=== PATIENT | female | born 1940 | race Caucasian/White ===

== ENCOUNTER → 2016-09-17 | Outpatient (CLI) | payer MEDICARE, BC ==
[2016-09-17 07:59] LABS: ALT 28 U/L (9-52); AST 17 U/L (14-36); Alkaline Phosphatase 134 U/L (38-126); Anion Gap 8 mmol/L; Blood Urea Nitrogen 12 mg/dL (7-17); Calcium 8.7 mg/dL (8.4-10.2); Carbon Dioxide 25 mmol/L (22-30); Chloride 110 mmol/L (98-107); Cholesterol 102 mg/dL (<200); Glucose 86 mg/dL (74-99); HDL Cholesterol 39 mg/dL (40-60); Non-African American GFR(MDRD) >60 (>60 ml/min/1.73 sqM); Potassium 4.1 mmol/L (3.5-5.1); Sodium 143 mmol/L (137-145); Total Bilirubin 0.4 mg/dL (0.2-1.3); Triglycerides 124 mg/dL (<150)
== END | disposition home or self-care (01) ==
LOC: LABWHC1 07:26
PROVIDERS: ATTEND Internal Medicine Interventional Cardiology
DX: E78.2 Mixed hyperlipidemia (principal)
CPT/HCPCS: 36415; 80053; 80061

== ENCOUNTER 2016-09-21 14:29 | Inpatient (IN) | payer MEDICARE, BC ==
[2016-09-21 16:08] LABS: Basophils % (A) 0 %; CH 23.4; CHCM 29.6; Eosinophils % (A) 0 %; HCT 23.3 % (34.0-46.0); HDW 3.38; Hypochromasia Marked; Luc # (Auto) 0.26; Luc % (Auto) 2; Lymphocytes # (A) 2.3 k/uL (1.0-4.8); Lymphocytes % (A) 21 %; MCH 23.8 pg (25.0-35.0); MCHC 29.9 g/dL (31.0-37.0); MCV 79.5 fL (80.0-100.0); Mean Platelet Volume 7.2; Monocytes # (A) 0.5 k/uL (0-1.0); Monocytes % (A) 5 %; Neutrophils # (A) 8.2 k/uL (1.3-7.7); Neutrophils % (A) 72 %; RBC 2.93 m/uL (3.80-5.40); WBC 11.4 k/uL (3.8-10.6); WBC (Perox) 11.81
--- NOTE | 2016-09-21 16:09 | ED ---
GI Bleed HPI - General Source: patient, RN notes reviewed Mode of arrival: ambulatory Limitations: no limitations <Missy Savage - Last Filed: 09/21/16 18:08> <Edilberto López - Last Filed: 09/21/16 18:15> - General Chief complaint: GI Bleed Stated complaint: Blood in stool Time Seen by Provider: 09/21/16 16:05 - History of Present Illness Initial comments: Patient is a 76-year-old female presenting to the with chief complaint of rectal bleeding for one day. Patient reports that she is fatigued, and dizzy. Patient reports that she was supposed to have a colonoscopy however she is placed on Plavix for her 3 stents and a pacemaker. Patient reports she has been on plavix for 3 years. Patient reports that when she talked to Dr. Garcia he stated that he would not do the colonoscopy because she is on Plavix. Patient reports that earlier today she had one episode of diarrhea with bright red blood in it. Patient denies any abdominal pain or pain with bowel movements. Patient reports that she is concerned that she may have colon cancer, or is bleeding internally due to the amount of blood that she saw. Patient states that she has had no continuous bleeding since they bowel movement. Patient denies any recent fever, chills, shortness of breath, chest pain, back pain, abdominal pain, nausea vomiting, numbness or tingling, dysuria or hematuria, , headaches or visual changes, or any other current symptoms (Missy Savage) - Related Data Home Medications Medication Instructions Recorded Confirmed Aspirin EC [Ecotrin Low Dose] 81 mg PO DAILY 06/04/14 09/21/16 Lovastatin [Mevacor] 20 mg PO HS 06/04/14 09/21/16 Metoprolol Tartrate 25 mg PO QAM 06/04/14 09/21/16 Metoprolol Tartrate [Lopressor] 12.5 mg PO HS 06/04/14 09/21/16 Clopidogrel Bisulfate [Plavix] 75 mg PO DAILY 06/29/15 09/21/16 Nitroglycerin Sl Tabs [Nitrostat] 0.4 mg SUBLINGUAL Q5M PRN 06/29/15 09/21/16 Allergies Allergy/AdvReac Type Severity Reaction Status Date / Time cefuroxime axetil Allergy Anaphylaxis Verified 09/21/16 15:38 [From Ceftin] Cephalosporins Allergy Anaphylaxis Verified 09/21/16 15:38 Penicillins Allergy Rash/Hives Verified 09/21/16 15:38 Review of Systems ROS Other: All systems not noted in ROS Statement are negative. <Missy Savage - Last Filed: 09/21/16 18:08> ROS Other: All systems not noted in ROS Statement are negative. <Edilberto López - Last Filed: 09/21/16 18:15> ROS Statement: Those systems with pertinent positive or pertinent negative responses have been documented in the HPI. 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 Last Myocardial Infarction Date:: 06/2013 History of Any Multi-Drug Resistant Organisms: None Reported Past Surgical History: Appendectomy, Coronary Bypass/CABG, Heart Catheterization With Stent, Hysterectomy, Pacemaker, Tubal Ligation Additional Past Surgical History / Comment(s): 3 vessel cabg 01/2010, retinal detachment surgery of the right eye, cataract removal and lens implant bilaterally. TONGUE MASS REMOVED Past Anesthesia/Blood Transfusion Reactions: No Reported Reaction Date of Last Stent Placement:: 06/2014 Type of Cardiac Device: Permanent Pacemaker Device Placement Date:: 04/2007 Past Psychological History: Anxiety Additional Psychological History / Comment(s): PRE OP ANXIETY Smoking Status: Current every day smoker Past Alcohol Use History: Rare Additional Past Alcohol Use History / Comment(s): Patient has history of smoking is and has since quit. She drinks alcohol which is a Geoffrey Coke 3-4 times per week. Last alcoholic beverage was . She lives at home with her . 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 She denies having a nebulizer, CPAP, cane or walker at home. Past Drug Use History: None Reported - Past Family History Father Family Medical History: CVA/TIA Additional Family Medical History / Comment(s): at 58 from cerebral hemorrhage Mother Family Medical History: No Reported History Sister(s) Family Medical History: Hypertension <Missy Savage - Last Filed: 09/21/16 18:08> General Exam Limitations: no limitations General appearance: alert, in no apparent distress Head exam: Present: atraumatic, normocephalic, normal inspection Eye exam: Present: normal appearance, PERRL, EOMI. Absent: scleral icterus, conjunctival injection, periorbital swelling ENT exam: Present: normal exam, mucous membranes moist Neck exam: Present: normal inspection. Absent: tenderness, meningismus, lymphadenopathy Respiratory exam: Present: normal lung sounds bilaterally. Absent: respiratory distress, wheezes, rales, rhonchi, stridor Cardiovascular Exam: Present: regular rate, normal rhythm, normal heart sounds. Absent: systolic murmur, diastolic murmur, rubs, gallop, clicks GI/Abdominal exam: Present: soft, normal bowel sounds. Absent: distended, tenderness, guarding, rebound, rigid Rectal exam: Present: normal inspection, normal rectal tone, heme (+) stool, black stool (Patient has evidence of black stool with some bright red blood.), bloody stool. Absent: decreased rectal tone, heme (-) stool, fecal impaction, hemorrhoids, mass, tenderness, other Extremities exam: Present: normal inspection, full ROM, normal capillary refill. Absent: tenderness, pedal edema, joint swelling, calf tenderness Back exam: Present: normal inspection, full ROM Neurological exam: Present: alert, oriented X3, CN II-XII intact Psychiatric exam: Present: normal affect, normal mood Skin exam: Present: warm, dry, intact, normal color. Absent: rash <Missy Savage - Last Filed: 09/21/16 18:08> <Edilberto López - Last Filed: 09/21/16 18:15> - General Exam Comments Initial Comments: Patient is a 76-year-old female. She is on appear to be in any acute distress at this time. (Missy Savage) Course <Missy Savage - Last Filed: 09/21/16 18:08> <Edilberto López - Last Filed: 09/21/16 18:15> Vital Signs 09/21/16 09/21/16 09/21/16 14:43 16:31 17:57 Temperature 97.3 F L 97.9 F Pulse Rate 78 67 63 Respiratory 16 17 17 Rate Blood Pressure 123/56 161/66 161/68 O2 Sat by Pulse 98 100 Oximetry 09/21/16 18:00 Temperature 97.7 F Pulse Rate 63 Respiratory 17 Rate Blood Pressure 151/65 O2 Sat by Pulse 100 Oximetry - Reevaluation(s) Reevaluation #1: 09/21/16 17:59 Patient is resting currently in bed. I discussed the patient needs to be in a clear liquid diet is she will have a possible scope to identify the source of bleeding. Patient will be started on blood transfusions at this time. ( Missy Savage) Medical Decision Making - Lab Data Result diagrams: 09/21/16 15:45 09/21/16 15:45 - Radiology Data Radiology results: report reviewed <Missy Savage - Last Filed: 09/21/16 18:08> - Lab Data Result diagrams: 09/21/16 15:45 09/21/16 15:45 <Edilberto López - Last Filed: 09/21/16 18:15> - Medical Decision Making Patient is a 76-year-old female with a history of coronary artery disease and is placed on Plavix approximately 3 years. Patient also has 3 stents and a pacemaker. Patient's chief complaint is rectal bleeding for approximately one day. Patient is told that she needed to have a colonoscopy however this was deferred because she is on Plavix. Patient reports that earlier today she had one episode of severe diarrhea. She reports that it was a darker color and was not bright red blood. Patient's hemoglobin is 7 at this time. Patient was started on a transfusion with 2 units of PRBCs. Patient will be admitted for repeat hemoglobin and GI consult for locating the area of the bleed. Patient denies any abdominal pain, chest pain or shortness of breath at this time. ( Missy Savage) I discussed with Dr. Moore on-call for Dr. Marquez her the patient's symptoms labs. He recommends admission and GI consult and the patient to receive 2 units of packed RBCs. Dr. López (Edilberto López) - Lab Data Lab Results 09/21/16 09/21/16 09/21/16 Range/Units 15:45 15:45 15:45 WBC 11.4 H (3.8-10.6) k/uL RBC 2.93 L (3.80-5.40) m/uL Hgb 7.0 L* (11.4-16.0) gm/dL Hct 23.3 L (34.0-46.0) % MCV 79.5 L (80.0-100.0) fL MCH 23.8 L (25.0-35.0) pg MCHC 29.9 L (31.0-37.0) g/dL RDW 15.0 (11.5-15.5) % Plt Count 223 (150-450) k/uL Neutrophils % 72 % Lymphocytes % 21 % Monocytes % 5 % Eosinophils % 0 % Basophils % 0 % Neutrophils # 8.2 H (1.3-7.7) k/uL Lymphocytes # 2.3 (1.0-4.8) k/uL Monocytes # 0.5 (0-1.0) k/uL Eosinophils # 0.0 (0-0.7) k/uL Basophils # 0.0 (0-0.2) k/uL Hypochromasia Marked PT (9.0-12.0) sec INR (<1.1) APTT (22.0-30.0) sec Sodium 143 (137-145) mmol/L Potassium 4.5 (3.5-5.1) mmol/L Chloride 107 (98-107) mmol/L Carbon Dioxide 23 (22-30) mmol/L Anion Gap 13 mmol/L BUN 21 H (7-17) mg/dL Creatinine 0.67 (0.52-1.04) mg/dL Est GFR (MDRD) Af Amer >60 (>60 ml/min/1.73 sqM) Est GFR (MDRD) Non-Af >60 (>60 ml/min/1.73 sqM) Glucose 120 H (74-99) mg/dL Calcium 8.7 (8.4-10.2) mg/dL Total Bilirubin 0.5 (0.2-1.3) mg/dL AST 17 (14-36) U/L ALT 27 (9-52) U/L Alkaline Phosphatase 121 (38-126) U/L Total Creatine Kinase 69 (30-135) U/L CK-MB (CK-2) 0.7 (0.0-2.4) ng/mL CK-MB (CK-2) Rel Index 1.0 Troponin I <0.012 (0.000-0.034) ng/mL Total Protein 6.2 L (6.3-8.2) g/dL Albumin 3.6 (3.5-5.0) g/dL Amylase <30 L (30-110) U/L Lipase 48 (23-300) U/L Stool Occult Blood (Negative) Blood Type Blood Type Recheck Antibody Screen Crossmatch Spec Expiration Date 09/21/16 09/21/16 09/21/16 Range/Units 15:45 15:45 16:44 WBC (3.8-10.6) k/uL RBC (3.80-5.40) m/uL Hgb (11.4-16.0) gm/dL Hct (34.0-46.0) % MCV (80.0-100.0) fL MCH (25.0-35.0) pg MCHC (31.0-37.0) g/dL RDW (11.5-15.5) % Plt Count (150-450) k/uL Neutrophils % % Lymphocytes % % Monocytes % % Eosinophils % % Basophils % % Neutrophils # (1.3-7.7) k/uL Lymphocytes # (1.0-4.8) k/uL Monocytes # (0-1.0) k/uL Eosinophils # (0-0.7) k/uL Basophils # (0-0.2) k/uL Hypochromasia PT 10.8 (9.0-12.0) sec INR 1.1 (<1.1) APTT 21.7 L (22.0-30.0) sec Sodium (137-145) mmol/L Potassium (3.5-5.1) mmol/L Chloride (98-107) mmol/L Carbon Dioxide (22-30) mmol/L Anion Gap mmol/L BUN (7-17) mg/dL Creatinine (0.52-1.04) mg/dL Est GFR (MDRD) Af Amer (>60 ml/min/1.73 sqM) Est GFR (MDRD) Non-Af (>60 ml/min/1.73 sqM) Glucose (74-99) mg/dL Calcium (8.4-10.2) mg/dL Total Bilirubin (0.2-1.3) mg/dL AST (14-36) U/L ALT (9-52) U/L Alkaline Phosphatase (38-126) U/L Total Creatine Kinase (30-135) U/L CK-MB (CK-2) (0.0-2.4) ng/mL CK-MB (CK-2) Rel Index Troponin I (0.000-0.034) ng/mL Total Protein (6.3-8.2) g/dL Albumin (3.5-5.0) g/dL Amylase (30-110) U/L Lipase (23-300) U/L Stool Occult Blood Positive H (Negative) Blood Type A Positive Blood Type Recheck No Antibody Screen NEGATIVE Crossmatch See Detail Spec Expiration Date 09/24/2016 8856 - Radiology Data Abdominal x-ray shows no pneumoperitoneum or blackout obstruction. Patient is post median sternotomy. Heart size is borderline. Pacemaker leads are present in the right atrium and right ventricle. There are vascular calcifications present degenerative disc disease changes in the visualized spine. Calcified diverticulum within the pelvis is large amount injuring approximately 2 cm. Injection granuloma are present around the gluteal region on the right. Overall the impression is a nonobstructive bowel gas pattern. This was read by Dr. Pierre. 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
[2016-09-21] MEDS ORDERED: SODIUM CHLORIDE 0.9% 1,000 ML IV ONE (16:11)
[2016-09-21 16:14] LABS: ALT 27 U/L (9-52); AST 17 U/L (14-36); Alkaline Phosphatase 121 U/L (38-126); Amylase <30 U/L (30-110); Anion Gap 13 mmol/L; Blood Urea Nitrogen 21 mg/dL (7-17); Calcium 8.7 mg/dL (8.4-10.2); Carbon Dioxide 23 mmol/L (22-30); Chloride 107 mmol/L (98-107); Glucose 120 mg/dL (74-99); Non-African American GFR(MDRD) >60 (>60 ml/min/1.73 sqM); Potassium 4.5 mmol/L (3.5-5.1); Sodium 143 mmol/L (137-145); Total Bilirubin 0.5 mg/dL (0.2-1.3); Total Protein 6.2 g/dL (6.3-8.2)
[2016-09-21 16:23] LABS: INR 1.1 (<1.1); Prothrombin Time 10.8 sec (9.0-12.0)
[2016-09-21 16:27] LABS: Partial Thromboplastin Time 21.7 sec (22.0-30.0)
[2016-09-21 16:28] LABS: Creatine Kinase 69 U/L (30-135)
--- NOTE | 2016-09-21 16:31 | XR ---
2 view abdomen HISTORY: Diarrhea, pain 2 views of the abdomen on 3 images, correlation to CT abdomen pelvis 07 March 2016 There is no pneumoperitoneum or bowel obstruction. Patient is post median sternotomy. Heart size is b orderline. Pacemaker leads are present in the right atrium and ventricle. There are vascular calcific ations present. Degenerative disc changes in the visualized spine. Calcified diverticulum within the pelvis is large measuring approximately 2 cm. Injection granuloma are present in the gluteal region o n the right. IMPRESSION: Nonobstructive bowel gas pattern.
[2016-09-21 16:41] LABS: Creatine Kinase MB 0.7 ng/mL (0.0-2.4); Troponin I <0.012 ng/mL (0.000-0.034)
[2016-09-21] MEDS ORDERED: ONDANSETRON 4 MG/2 ML VIAL IVP PRN (18:01)
[2016-09-21] MEDS ORDERED: MORPHINE SULFATE 4 MG/ML SYRINGE IV PRN (18:01)
[2016-09-21] MEDS ORDERED: ACETAMINOPHEN TAB 325 MG TAB PO PRN (18:01)
[2016-09-21] MEDS ORDERED: NALOXONE 0.4 MG/ML 1 ML VIAL IV PRN (18:01)
[2016-09-21] MEDS ORDERED: NITROGLYCERIN SL TABS 0.4 MG TAB SUBLINGUAL PRN (18:11)
[2016-09-21] MEDS ORDERED: LORazepam 2 MG/ML SYRINGE IV PRN (18:48)
[2016-09-21] MEDS ORDERED: ATORVASTATIN 10 MG TAB PO SCH (21:00)
[2016-09-21] MEDS ORDERED: METOPROLOL TARTRATE 12.5 MG TAB PO SCH (21:00)
[2016-09-21 23:04] LABS: Creatine Kinase MB 0.7 ng/mL (0.0-2.4); Troponin I 0.012 ng/mL (0.000-0.034)
[2016-09-21] MEDS: SODIUM CHLORIDE 0.9% 1,000 ML IV SCH (23:25)
[2016-09-22 06:12] LABS: Basophils % (A) 1 %; CH 25.6; CHCM 31.1; Eosinophils % (A) 1 %; HCT 25.8 % (34.0-46.0); HDW 4.11; Hypochromasia Marked; Luc # (Auto) 0.15; Luc % (Auto) 2; Lymphocytes # (A) 2.3 k/uL (1.0-4.8); Lymphocytes % (A) 31 %; MCH 25.6 pg (25.0-35.0); MCHC 31.1 g/dL (31.0-37.0); MCV 82.3 fL (80.0-100.0); Mean Platelet Volume 7.6; Monocytes # (A) 0.4 k/uL (0-1.0); Monocytes % (A) 5 %; Neutrophils # (A) 4.6 k/uL (1.3-7.7); Neutrophils % (A) 61 %; Poikilocytosis Moderate; RBC 3.13 m/uL (3.80-5.40); RDW 15.2 % (11.5-15.5); WBC 7.5 k/uL (3.8-10.6); WBC (Perox) 7.79
[2016-09-22 06:54] LABS: Creatine Kinase MB 0.7 ng/mL (0.0-2.4); Troponin I 0.013 ng/mL (0.000-0.034)
[2016-09-22 07:21] VITALS: RESP 18
[2016-09-22] MEDS: SODIUM CHLORIDE 0.9% 1,000 ML IV SCH ×2 (08:53→17:53)
[2016-09-22] MEDS ORDERED: PANTOPRAZOLE 40 MG/10 ML VIAL IV SCH (09:00)
[2016-09-22] MEDS ORDERED: METOPROLOL TARTRATE 25 MG TAB PO SCH (09:00)
[2016-09-22] MEDS ORDERED: ALPRAZolam 0.5 MG TAB PO PRN (10:19)
[2016-09-22 12:34] VITALS: BMI 25.0
--- NOTE | 2016-09-22 14:33 | HP ---
DATE OF ADMISSION: This is Polly Russell [facility] dictating for Dr. Dunia Deng. PRINCIPAL DIAGNOSIS: Acute gastrointestinal bleed. HISTORY OF PRESENT ILLNESS: This is a 76-year-old female patient who presented to the hospital after one episode of bright red blood per rectum. The patient states that she had a bowel movement last evening that was loose and had a large amount of bright red blood. She is on Plavix for history of cardiac stenting last year in October. She has been off her Plavix for 2 days now. On admission, her hemoglobin was found to be low at 7.0 and she was transfused 1 unit of packed red blood cells. This morning, her hemoglobin is up to 8. She denies any lightheadedness or dizziness. No chest pain and her blood pressure is stable. She has not had any further episodes of rectal bleeding. She states she has had an EGD in the past but no colonoscopy because her informatica wanted her off of Plavix. She also states that she had a 40-pound weight loss in the last 2 years and has had difficulty with pain after eating for the same amount of time. She is quite frustrated as she has been dealing with all of this for the last 2 years. Gastroenterology has been consulted once again. REVIEW OF SYSTEMS: Patient denies seizures, syncope, or loss of consciousness. Denies diplopia or visual disturbances. Denies dysphagia. Denies shortness breath, cough or wheeze. Denies chest pain, angina, palpitations. States abdominal discomfort in the epigastric area with eating solid foods. She does not have any difficulties with clear liquids and she is currently not having any discomfort. States she had one episode of diarrhea with bright red blood, as described above. But no prior history of diarrhea or constipation. No dysuria or urinary retention. No fever or chills. PAST MEDICAL HISTORY: Coronary artery disease, status post PCI in November 2015, CABG 3-vessel in 2009, hyperlipidemia, hypertension, myocardial infarction, high-grade AV block status post permanent pacemaker implantation, aortic regurgitation, retinal detachment. PAST SURGICAL HISTORY: Appendectomy, hysterectomy with bilateral salpingo-oophorectomy, CABG, coronary stenting, pacemaker implantation, tubal ligation, cataract removal. FAMILY HISTORY: Father is at age 58 from cerebral hemorrhage secondary to CVA. Mother at 88 from COPD. She has one sister with hypertension. SOCIAL HISTORY: She is . Smokes occasionally. Denies EtOH or illicit drug use. ALLERGIES: CEFTIN, PENICILLIN. HOME MEDICATIONS: 1. Nitrostat sublingual as needed. 2. Lopressor 12.5 mg at bedtime and 25 mg in the morning. 3. Mevacor 20 mg at bedtime. 4. Plavix 75 mg daily. 5. Ecotrin 81 mg daily. PHYSICAL EXAMINATION: GENERAL: The patient is seen lying in bed in the emergency department in no acute distress. HEENT: Head is normocephalic, atraumatic. Pupils equal. Conjunctivae clear. NECK: Supple, no JVD. LUNGS: Clear to auscultation. No wheeze, rales, rhonchi appreciated. HEART: Regular rate and rhythm. S1, S2 are heard. No murmur. ABDOMEN: Soft, tender to epigastric area, nondistended. Bowel sounds are positive. EXTREMITIES: No lower extremity edema is noted. NEURO: Patient is alert and oriented x3. Speech is clear, interactive and appropriate. No tremors noted. LABS: Sodium is 143, potassium 4.5, BUN is 21, creatinine 0.67. Serial troponins are negative x3. WBC count is 7.5, hemoglobin is 8.0 on admission was 7.0 and platelet count is 160. Stool for occult blood is positive. DIAGNOSTIC TESTS: Abdominal x-ray shows nonobstructive bowel gas pattern. IMPRESSION: 1. Acute lower gastrointestinal bleed. Plavix has been held. The patient was transfused 1 unit of packed red blood cells and her hemoglobin is now stable at 8. Dr. Kwong has been consulted for colonoscopy. She has been off of her Plavix for 48 hours now. She also has some epigastric discomfort and may require EGD as well. We will also hold aspirin. 2. Hypertensive cardiovascular disease. Continue with metoprolol b.i.d. 3. Gastroesophageal reflux disease, continue with Protonix. 4. Gastrointestinal and deep vein thrombosis prophylaxis are in place. Subcu heparin is contraindicated secondary to current gastrointestinal bleed and the patient has Venodynes while in bed and she has been encouraged to ambulate. Will await Dr. Kwong's evaluation and further recommendations. My feeling is that the patient will require colonoscopy and possible EGD. [facility]
[2016-09-22 16:15] VITALS: BP 116/48; PULSE 58; TEMP 98
--- NOTE | 2016-11-27 14:56 | P.DS ---
Providers Date of admission: 09/21/16 18:01 Expected date of discharge: 09/22/16 Attending physician: Dunia Deng Primary care physician: Jhonathan Mendoza [facility] Course: This is a 76-year-old female patient od Dr. Mendoza. She has a past medical history significant for coronary artery disease status post PCI and November 2015, CABG 3 vessel in 2009, hyperlipidemia, hypertension, myocardial infarction, high-grade AV block status post permanent pacemaker implantation, aortic regurgitation, retinal detachment. Patient had one episode of bright red blood from her rectum and bowel movement was loose last evening. Patient has been on Plavix due to history of cardiac stent last year in October. She has been off Plavix now for 2 days. On admission her hemoglobin was found to be 7.0 and she was transfused 1 unit packed RBCs. Repeat hemoglobin at 8. She has had no further episodes of rectal bleeding. 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 Patient also has had a 40 pound weight loss in the past 2 years and has had difficulty with pain after eating the same amount of time.patient will be discharged at this time in stable condition and plan for follow-up with Dr. Kwong as an outpatient for scope. Discharge diagnoses: 1.acute lower GI bleed. 2. hypertensive cardiovascular disease. 3. gastroesophageal reflux disease. 4. history of coronary artery disease status post PCI. Discharge plan: return home Impression and plan of care have been directed as dictated by the signing physician. Fely Sims nurse practitioner acting as scribe for signing physician. Patient Condition at Discharge: Good Plan - Discharge Summary Discharge Medication List Lovastatin [Mevacor] 20 mg PO HS 06/04/14 [History] Metoprolol Tartrate 25 mg PO QAM 06/04/14 [History] Metoprolol Tartrate [Lopressor] 12.5 mg PO HS 06/04/14 [History] Nitroglycerin Sl Tabs [Nitrostat] 0.4 mg SUBLINGUAL Q5M PRN 06/29/15 [History] Allergy Injections 1 dose IM DIRECTED 09/24/16 [History] Aspirin [Adult Low Dose Aspirin EC] 81 mg PO DAILY 09/24/16 [History] Clopidogrel [Plavix] 75 mg PO DAILY 09/24/16 [History] Follow up Appointment(s)/Referral(s): Munir Kwong MD [STAFF PHYSICIAN] - As Needed (Call office Saturday to set up appointment for Colonoscopy. Dr Kwong wants you off Plavix for 5 days before scope.) Jhonathan Mendoza MD [Primary Care Provider] - 1-2 days Patient Instructions/Handouts: Rectal Bleeding (DC) Discharge Disposition: HOME SELF-CARE
--- NOTE | 2016-11-30 14:41 | CDI ---
In responding to this query, please exercise your independent professional judgment. The [facility] Coding Staff and Clinical Documentation Specialists appreciate your assistance in clarifying documentation, maintaining compliance with coding guidelines, accurately documenting patients condition and capturing severity of illness. The fact that a question is asked does not imply that any particular answer is desired or expected. Communication forms are a method of clarifying documentation and are not made part of the Legal Health Record. Thank you in advance for your clarification. Last Revision, July 2015 Marley Benton [address] [place] [address] Documentation Clarification Form Date: 11/30/2016 2:28:00 PM From: Emily Brennan CCS [facility] Admit Date: 09/21/2016 6:01:00 PM Patient Name: Katharina Franks Visit Number: [id number] Discharge Date: 09-22-16 Dr. Fely Sims Emergency Room documentation states "anemia". Please specifiy--see below: A diagnosis of anemia lacks specificity to accurately reflect your patients severity of condition and clarification is needed. Patient history/risk factors: D. Summary states acute lower GI bleed (stool occult positive). Patient on ASA and Plavix on admission (held). Weight loss, pain after eating, history of diverticulosis. Clinical Indicators: Hemoglobin: on admission: 7.0, on 09-22-16 after transfusion = 8.0 Hematocrit: on admission: 23.3, on 09-22-16 after transfusion = 25.8 Treatment: Two units PRBC's on 09-21-16 In order to capture the severity of condition, please clarify the type of anemia and etiology if known: Acute blood loss anemia Acute on chronic blood loss anemia Chronic blood loss anemia Iron deficiency anemia Hemolytic anemia Drug induced anemia Anemia due to malignancy Nutritional anemia Anemia of chronic kidney disease Unable to determine Other, please specify Please document in your progress notes and discharge summary in order to capture severity of illness and risk of mortality. Include clinical findings that support your diagnosis. FYI: Press F11 to launch patient chart. Place X here if this finding has no clinical significance, is not applicable or if you are not able to provide any additional documentation. DAVID
--- NOTE | 2016-12-10 15:14 | CDI ---
In responding to this query, please exercise your independent professional judgment. The [facility] Coding Staff and Clinical Documentation Specialists appreciate your assistance in clarifying documentation, maintaining compliance with coding guidelines, accurately documenting patients condition and capturing severity of illness. The fact that a question is asked does not imply that any particular answer is desired or expected. Communication forms are a method of clarifying documentation and are not made part of the Legal Health Record. Thank you in advance for your clarification. Last Revision, July 2015 Marley Benton [address] [place] [address] Documentation Clarification Form Date: 12/10/2016 3:10:00 PM From: Emily Brennan CCS [facility] Admit Date: 09/21/2016 6:01:00 PM Patient Name: Katharina Franks Visit Number: [id number] Discharge Date: 09-22-16 Fely Sims NP-C: Please submit response at time of signing query re: ANEMIA specificity. Emergency Room documentation states "anemia". Please specifiy--see below: A diagnosis of anemia lacks specificity to accurately reflect your patients severity of condition and clarification is needed. Patient history/risk factors: D. Summary states acute lower GI bleed (stool occult positive). Patient on ASA and Plavix on admission (held). Weight loss, pain after eating, history of diverticulosis. Clinical Indicators: Hemoglobin: on admission: 7.0, on 09-22-16 after transfusion = 8.0 Hematocrit: on admission: 23.3, on 09-22-16 after transfusion = 25.8 Treatment: Two units PRBC's on 09-21-16 In order to capture the severity of condition, please clarify the type of anemia and etiology if known: Acute blood loss anemia Acute on chronic blood loss anemia Chronic blood loss anemia Iron deficiency anemia Hemolytic anemia Drug induced anemia Anemia due to malignancy Nutritional anemia Anemia of chronic kidney disease Unable to determine Other, please specify Please document in your progress notes and discharge summary in order to capture severity of illness and risk of mortality. Include clinical findings that support your diagnosis. FYI: Press F11 to launch patient chart. Place X here if this finding has no clinical significance, is not applicable or if you are not able to provide any additional documentation. MIRNAD
== END 2016-09-22 18:36 | disposition home or self-care (01) | DRG 378 ==
LOC: EC 14:29 → 4MS4W 18:01
PROVIDERS: ADMIT Internal Medicine; ATTEND Internal Medicine
PROC: 30233N1 Transfusion of Nonautologous Red Blood Cells into Peripheral Vein, Percutaneous Approach (ICD-10-PCS; principal; 2016-09-21)
DX: K92.2 Gastrointestinal hemorrhage, unspecified (principal); D62 Acute posthemorrhagic anemia; I27.2 Other secondary pulmonary hypertension; I11.9 Hypertensive heart disease without heart failure; R42 Dizziness and giddiness; I65.21 Occlusion and stenosis of right carotid artery; I08.3 Combined rheumatic disorders of mitral, aortic and tricuspid valves; K21.9 Gastro-esophageal reflux disease without esophagitis; R63.4 Abnormal weight loss; R19.7 Diarrhea, unspecified; E78.5 Hyperlipidemia, unspecified; I25.2 Old myocardial infarction; I25.10 Atherosclerotic heart disease of native coronary artery without angina pectoris; J42 Unspecified chronic bronchitis; I44.30 Unspecified atrioventricular block; R53.83 Other fatigue; F41.9 Anxiety disorder, unspecified; F17.200 Nicotine dependence, unspecified, uncomplicated; Z82.3 Family history of stroke; Z82.49 Family history of ischemic heart disease and other diseases of the circulatory system; Z82.5 Family history of asthma and other chronic lower respiratory diseases; Z95.1 Presence of aortocoronary bypass graft; Z95.5 Presence of coronary angioplasty implant and graft; Z95.0 Presence of cardiac pacemaker; Z79.02 Long term (current) use of antithrombotics/antiplatelets; Z88.1 Allergy status to other antibiotic agents; Z88.0 Allergy status to penicillin; Z86.69 Personal history of other diseases of the nervous system and sense organs; Z79.82 Long term (current) use of aspirin; Z79.899 Other long term (current) drug therapy; Z90.710 Acquired absence of both cervix and uterus; Z90.49 Acquired absence of other specified parts of digestive tract; Z90.722 Acquired absence of ovaries, bilateral; Z90.79 Acquired absence of other genital organ(s); Z98.51 Tubal ligation status; Z98.42 Cataract extraction status, left eye; Z98.41 Cataract extraction status, right eye; Z96.1 Presence of intraocular lens
CPT/HCPCS: 36415; 36430; 74020; 80053; 82150; 82272; 82550; 82553; 83690; 84484; 85025; 85610; 85730; 86850; 86900; 86901; 86920; 96360; 96361; 99285

== ENCOUNTER 2016-09-27 07:22 | Day surgery (SDC) | payer MEDICARE, BC ==
[2016-09-24 15:06] VITALS: BMI 24.2
[~2016-09-27 07:22] MED LIST: LACTATED RINGERS 1,000 ML IV SCH; LIDOCAINE 1% 20 ML VIAL (10MG/ML) FOR IV START INTRADERMA PRN
[2016-09-27] MEDS ORDERED: LACTATED RINGERS 1,000 ML IV ONE (07:28)
[2016-09-27] MEDS ORDERED: LIDOCAINE 1% 20 ML VIAL (10MG/ML) FOR IV START INTRADERMA ONE (07:29)
[2016-09-27 07:33] VITALS: RESP 18; TEMP 98.8
[2016-09-27] MEDS ORDERED: MIDAZOLAM 2 MG/2 ML VIAL IVP ONE (07:55)
[2016-09-27] MEDS ORDERED: PROPOFOL 10 MG/ML 20 ML VIAL IV ONE (08:20)
[2016-09-27] MEDS ORDERED: GLYCOPYRROLATE 0.2 MG/ML 2 ML VIAL ONE (08:20)
[2016-09-27] MEDS ORDERED: MIDAZOLAM 2 MG/2 ML VIAL ONE (08:20)
[2016-09-27] MEDS ORDERED: LIDOCAINE 1% INJ 10MG/ML (20 ML MDV) ONE (08:20)
[2016-09-27] MEDS ORDERED: fentaNYL (PF) 50 MCG/ML 2 ML AMP ONE (08:20)
--- NOTE | 2016-09-27 09:05 | P.PCN ---
Date of Procedure: 09/27/16 Procedure(s) Performed: Procedure: 1. Esophagogastroduodenoscopy and biopsy. 2. Total colonoscopy. Preoperative diagnosis: Abdominal pain and change in bowel habits. Postoperative diagnosis: 1. Very small sliding hiatal hernia with no obvious esophagitis or complicated reflux disease. 2. Antral gastritis with multiple scattered erosions and small ulceration but no active bleeding or gastric outlet obstruction. 3. Diverticulosis of the colon but no evidence of acute diverticulitis, strictures, polyps or cancer. Low-grade internal hemorrhoids not bleeding at the time of this exam. Preparation: HalfLytely prep. Sedation: Was provided by anesthesia. Brief clinical history: The patient is a 76-year-old female who is referred for this the above reasons. She has been having post prandial abdominal pains over the last year or 2. I have performed an upper endoscopy in August 2015 that showed gastritis and chronic esophagitis. A CT of the abdomen done in February 2016 showed thickening of the wall of the stomach possibly related to poor distention. The patient had occasional episodes of explosive bowel movements with some blood. There is history of polyps and her last colonoscopy was 5-10 years ago. No dietary triggers or other alarm symptoms. Procedure: With the patient on her left lateral decubitus position and after informed consent and adequate sedation, I passed the Olympus-GIF 160 video upper endoscope through the cricopharyngeus down the esophagus. The joint was around 39 cm from the incisors and there was a very small sliding hiatal hernia. There was no erosions, ulcers, strictures or Hernandez's esophagus. The endoscope was then passed into the stomach which was insufflated with air and inspected in detail including the retroflex view in the cardia. There was multiple erosions and small ulcerations scattered in the antrum against a background of mottling and erythema but there was no bleeding or gastric outlet obstruction. Pyloric channel, duodenal bulb, post bulbar area and descending duodenum appeared within normal limits. I obtained multiple biopsies from the duodenum, antrum and esophagus then the endoscope was withdrawn and I proceeded to do colonoscopy. Perianal area did not show any fissures or fistulas. There were no masses felt on digital rectal examination. The Olympus CFQ 160L scope was then inserted in the rectum in the usual fashion and advanced to the cecum. I intubated the ileocecal valve and examined the terminal ileum. Terminal ileum and colon appeared healthy with no edema, erythema, friability, ulceration, exudation was advanced bleeding. No polyps or tumors were seen. There were multiple diverticular orifices seen scattered along the length of the bowel, mostly on the left side, but no evidence of acute diverticulitis or strictures. I retroflexed endoscope in the rectum before the endoscope was withdrawn. Low- grade internal hemorrhoids were noted with no bleeding. The patient tolerated the procedure well. Plan: The patient was reassured. Discussed dietary measures and local care for hemorrhoids. Will await biopsy results and make additional recommendations. She will follow-up with you as planned.
[2016-09-27 09:23] VITALS: BP 134/44; PULSE 61
== END 2016-09-27 09:46 | disposition home or self-care (01) ==
LOC: ORWHC2ENDO 07:22
DX: K29.50 Unspecified chronic gastritis without bleeding (principal); K44.9 Diaphragmatic hernia without obstruction or gangrene; K20.9 Esophagitis, unspecified; K57.30 Diverticulosis of large intestine without perforation or abscess without bleeding; K64.8 Other hemorrhoids; Z87.19 Personal history of other diseases of the digestive system; I25.10 Atherosclerotic heart disease of native coronary artery without angina pectoris; I10 Essential (primary) hypertension; Z95.0 Presence of cardiac pacemaker; Z95.1 Presence of aortocoronary bypass graft; Z91.09 Other allergy status, other than to drugs and biological substances; F17.200 Nicotine dependence, unspecified, uncomplicated; Z79.02 Long term (current) use of antithrombotics/antiplatelets; Z79.82 Long term (current) use of aspirin; Z79.899 Other long term (current) drug therapy; Z88.1 Allergy status to other antibiotic agents; Z88.0 Allergy status to penicillin
CPT/HCPCS: 88305; 88342; 45378; 43239; J2250; J2001; J3010; J2704; 99153

== ENCOUNTER → 2017-05-03 | Outpatient (CLI) | payer MEDICARE, BC ==
[2017-05-03 13:08] LABS: Blood Urea Nitrogen 11 mg/dL (7-17); Non-African American GFR(MDRD) >60 (>60 ml/min/1.73 sqM)
--- NOTE | 2017-05-03 14:49 | CT ---
EXAMINATION TYPE: CT abdomen pelvis w con DATE OF EXAM: 05/03/2017 HISTORY: Upper Abdominal pain per patient. Iron deficiency anemia per order. CT DLP: 1022mGycm Automated Exposure Control for Dose Reduction was Utilized. CONTRAST: CT scan of the abdomen and pelvis is performed with IV Contrast, patient injected with 100 mL of Omni paque 300. COMPARISON: None. FINDINGS: LUNG BASES: Sternal wires are partially imaged. There is mild cardiomegaly with partial visualization of right-sided pacemaker wires. LIVER/GB: Somewhat small sized liver is redemonstrated. PANCREAS: Mild generalized fat replaced atrophy pancreas is redemonstrated. SPLEEN: No significant abnormality is seen. ADRENALS: Slight nodular thickening posterior limb of left adrenal gland on axial image 23 is stable and favored benign. KIDNEYS: No significant abnormality is seen. BOWEL: Oral contrast reaches level of the distal left colon. There is no suspicious small or large dorie wel dilatation. There are some scattered diverticula most prominent in the sigmoid colon. There is no CT evidence for acute diverticulitis. UTERUS/ADNEXA: Uterus is surgically absent. LYMPH NODES: No greater than 1cm abdominal or pelvic lymph nodes are appreciated. OSSEOUS STRUCTURES: There is prominent disc space narrowing with spurring and sclerosis at L5-S1 leve l most prominent along the left aspect. OTHER: There is moderate to severe calcified plaque of the abdominal aorta most prominent distally ex tending into pelvic branch vessels. IMPRESSION: No suspicious mass or adenopathy is present. No significant new finding is present.
== END | disposition home or self-care (01) ==
LOC: RADCTMAIN 12:24
PROVIDERS: ATTEND Internal Medicine
DX: D50.9 Iron deficiency anemia, unspecified (principal)
CPT/HCPCS: 82565; 84520; 74177; 36415; Q9967

== ENCOUNTER → 2017-05-07 | Outpatient (CLI) | payer MEDICARE, BC ==
[2017-05-09 16:04] LABS: Mis test requested (Blood) VonWillebrand Act.
[2017-05-09 18:21] LABS: Von Willebrand Factor Antigen 276 % (52-214)
== END | disposition home or self-care (01) ==
LOC: LABWHC1 09:26
PROVIDERS: ATTEND Internal Medicine
DX: R74.0 Nonspecific elevation of levels of transaminase and lactic acid dehydrogenase [LDH] (principal)
CPT/HCPCS: 36415; 85245; 85246; 85613; 85730; 86738; 86850; 86870; 86880

== ENCOUNTER 2017-05-29 18:13 | Emergency (ER) | payer MEDICARE, BC ==
--- NOTE | 2017-05-29 20:22 | ED ---
Recheck HPI - General Chief Complaint: Recheck/Abnormal Lab/Rx Stated Complaint: Increased potassium level, sent by Marjorie Time Seen by Provider: 05/29/17 19:43 Source: patient, family Mode of arrival: ambulatory Limitations: no limitations - History of Present Illness Initial Comments: 77 year-old female patient presents for evaluation after being sent in by her medical record clerk. She states that she had blood drawn at his office on 05/20/2017. She states that he called her today around 6 PM stating that her potassium level was over 7 and she was told to present to the emergency department immediately. Patient states that she is feeling well overall. She denies any palpitations, chest pain, chest pressure, shortness of breath, or recent muscle cramps. Patient states that she had been seeing Dr. Amador for recurrent low hemoglobin. She states that she had a transfusion last on 05/15/2017. States that she has been feeling great. Patient denies any recent fever, chills, shortness breath, abdominal pain, nausea, vomiting, diarrhea, constipation, back pain, numbness, tingling, headache, visual changes, hematuria, dysuria, urinary frequency, urinary urgency, or any other complaints. - Related Data Home Medications Medication Instructions Recorded Confirmed Lovastatin [Mevacor] 20 mg PO HS 06/04/14 04/14/17 Metoprolol Tartrate 25 mg PO QAM 06/04/14 04/14/17 Metoprolol Tartrate [Lopressor] 12.5 mg PO HS 06/04/14 04/14/17 Nitroglycerin Sl Tabs [Nitrostat] 0.4 mg SUBLINGUAL Q5M PRN 06/29/15 04/14/17 Aspirin [Adult Low Dose Aspirin EC] 81 mg PO DAILY 09/24/16 04/14/17 Clopidogrel [Plavix] 75 mg PO DAILY 09/24/16 04/14/17 Furosemide [Lasix] 20 mg PO 04/12/17 Pantoprazole [Protonix] 40 mg PO DAILY 04/12/17 04/14/17 Allergies Allergy/AdvReac Type Severity Reaction Status Date / Time cefuroxime axetil Allergy Severe Anaphylaxis Verified 05/29/17 19:06 [From Ceftin] Penicillins Allergy Severe Rash/Hives Verified 05/29/17 19:06 Cephalosporins Allergy Anaphylaxis Verified 05/29/17 19:06 Review of Systems ROS Statement: Those systems with pertinent positive or pertinent negative responses have been documented in the HPI. ROS Other: All systems not noted in ROS Statement are negative. Past Medical History Past Medical History: Coronary Artery Disease (CAD), Cancer, Chest Pain / Angina , GERD/Reflux, Hyperlipidemia, Hypertension, Myocardial Infarction (MD), Osteoarthritis (OA) Additional Past Medical History / Comment(s): slight right carotid stenosis, Hx of chronic bronchitis, aortic , mitral & tricuspid regurgitation, Hx of retinal detachment, environmental allergies, Squamous cell cancer removed., Tested Positive for lupus and will be having further testing. , Pt was hospitalized 09/21-09/22/16 for Rectal Bleeding and received blood transfusion. Last Myocardial Infarction Date:: 06/2013 History of Any Multi-Drug Resistant Organisms: None Reported Past Surgical History: Appendectomy, Coronary Bypass/CABG, Heart Catheterization With Stent, Hysterectomy, Pacemaker, Tubal Ligation Additional Past Surgical History / Comment(s): 3 vessel cabg 01/2010, retinal detachment surgery of the right eye, cataract removal and lens implant bilaterally. TONGUE MASS REMOVED, Cardiac Stents Jun 2013, Jun 2014 and November 2015 ([place]). Past Anesthesia/Blood Transfusion Reactions: No Reported Reaction Additional Past Anesthesia/Blood Transfusion Reaction / Comment(s): RECEIVED BLOOD TRANSFUSION 09/21/16 . Date of Last Stent Placement:: 06/2014 Type of Cardiac Device: Permanent Pacemaker Device Placement Date:: 04/2007 Past Psychological History: Anxiety, Depression Smoking Status: Current some day smoker Past Alcohol Use History: Rare Past Drug Use History: None Reported - Past Family History Daughter(s) Family Medical History: Cancer Additional Family Medical History / Comment(s): BASAL CELL CANCER Father Family Medical History: CVA/TIA Additional Family Medical History / Comment(s): at 58 from cerebral hemorrhage Mother Family Medical History: No Reported History Sister(s) Family Medical History: Hypertension General Exam Limitations: no limitations General appearance: alert, in no apparent distress, other (This is a well- developed, well-nourished adult female patient in no acute distress. Vital signs on presentation temperature 97.9F, pulse 80, respirations 16, blood pressure 128/60, pulse ox 99% on room air.) Eye exam: Present: normal appearance, PERRL, EOMI. Absent: scleral icterus, conjunctival injection, periorbital swelling Respiratory exam: Present: normal lung sounds bilaterally. Absent: respiratory distress, wheezes, rales, rhonchi, stridor Cardiovascular Exam: Present: regular rate, normal rhythm, normal heart sounds. Absent: systolic murmur, diastolic murmur, rubs, gallop, clicks GI/Abdominal exam: Present: soft, normal bowel sounds. Absent: distended, tenderness, guarding, rebound, rigid Neurological exam: Present: alert, oriented X3, CN II-XII intact Psychiatric exam: Present: normal affect, normal mood Skin exam: Present: warm, dry, intact, normal color. Absent: rash Course Vital Signs 05/29/17 19:06 Temperature 97.9 F Pulse Rate 80 Respiratory 16 Rate Blood Pressure 128/60 O2 Sat by Pulse 99 Oximetry Medical Decision Making - Medical Decision Making 77 year-old female patient is admitted today for potassium redraw. Potassium level today is 4.2. Patient was informed that this is normal. She is instructed to follow-up with her primary care physician for recheck in 1-2 days. She is instructed to return here immediately for any new, worsening, or concerning symptoms. Patient verbalizes understanding and agrees with this plan. - Lab Data Result diagrams: 05/29/17 19:57 Lab Results 05/29/17 Range/Units 19:57 Potassium 4.2 (3.5-5.1) mmol/L Disposition Clinical Impression: Feared condition not demonstrated Disposition: HOME SELF-CARE Condition: Good Additional Instructions: Your potassium today was 4.2. This is a normal result. Follow up with her primary care physician for recheck in 1-2 days. Return here immediately for any new, worsening, or concerning symptoms. Referrals: Jhonathan Mendoza MD [Primary Care Provider] - 1-2 days Time of Disposition: 20:32
[2017-05-29] MEDS ORDERED: RABIES IMMUNE GLOB 150 UNIT/ML 10 ML VIAL IM ONE (20:33)
[2017-05-29] MEDS ORDERED: RABIES VACCINE (PCEC) 2.5 UNIT KIT IM ONE (20:33)
[2017-05-29 20:43] VITALS: BP 177/87; PULSE 88; RESP 18; TEMP 97
== END 2017-05-29 20:43 | disposition home or self-care (01) ==
LOC: EC 18:13
DX: Z00.00 Encounter for general adult medical examination without abnormal findings (principal); I25.10 Atherosclerotic heart disease of native coronary artery without angina pectoris; K21.9 Gastro-esophageal reflux disease without esophagitis; E78.5 Hyperlipidemia, unspecified; I10 Essential (primary) hypertension; I25.2 Old myocardial infarction; M19.90 Unspecified osteoarthritis, unspecified site; Z88.0 Allergy status to penicillin; Z88.1 Allergy status to other antibiotic agents; F17.200 Nicotine dependence, unspecified, uncomplicated; Z85.828 Personal history of other malignant neoplasm of skin; Z79.82 Long term (current) use of aspirin; Z79.02 Long term (current) use of antithrombotics/antiplatelets; Z79.899 Other long term (current) drug therapy
CPT/HCPCS: 36415; 84132; 99284

== ENCOUNTER → 2018-02-25 | Outpatient (CLI) | payer MEDICARE, BC ==
--- NOTE | 2018-02-25 15:37 | US ---
EXAMINATION TYPE: US pelvis complete transvag DATE OF EXAM: 02/25/2018 COMPARISON: CLINICAL HISTORY: R10.2 Pelvic And Perineal Pain. Uterus and left ovary removed x 35 years ago. Stil l has right ovary. TECHNIQUE: Transvaginal (TV) and Transabdominal (TA) . Transabdominal sonographic images of the pel vis were acquired. Transvaginal sonographic images were medically necessary to better assess the fol lowing anatomy: Right ovary Date of LMP: Uterus is absent EXAM MEASUREMENTS: Uterus: Surgically absent Endometrial Stripe: Surgically absent Right Ovary: Surgically absent Left Ovary: Surgically absent 1. Uterus: Surgically absent 2. Endometrium: Surgically absent 3. Right Ovary: Obscured by overlying bowel gas 4. Left Ovary: Surgically absent 5. Bilateral Adnexa: bowel and bowel gas seen 6. Posterior cul-de-sac: no free fluid IMPRESSION: 1. Postoperative pelvis. No significant abnormality is appreciated.
== END | disposition home or self-care (01) ==
LOC: RADUSWWP 14:34
PROVIDERS: ATTEND Obstetrics & Gynecology
DX: R10.2 Pelvic and perineal pain (principal); Z98.890 Other specified postprocedural states
CPT/HCPCS: 76830; 76856

== ENCOUNTER → 2018-09-30 | Outpatient (CLI) | payer MEDICARE, BC ==
[2018-09-30 16:54] LABS: Blood Urea Nitrogen 16 mg/dL (7-17)
--- NOTE | 2018-09-30 17:37 | CT ---
EXAMINATION TYPE: CT chest w con DATE OF EXAM: 09/30/2018 COMPARISON: None HISTORY: pneumonia, infiltrate of RT lung CT DLP: 309.5 mGycm Automated exposure control for dose reduction was used. CONTRAST: CT scan of the chest is performed with IV Contrast, patient injected with 100 mL of Isovue 300. FINDINGS: There is diffuse pulmonary emphysema. There is some patchy nodular infiltrate in the right lower lobe . There is 3 cm area of consolidation in the subpleural posterior right lower lobe. There is a 3 cm a katlyn of masslike density in the right lower lobe with occlusion of the posterior basal segment right l ower lobe bronchus. There is enlarged subcarinal lymph node that measures 4 x 2.5 cm. There is enlarg ed pretracheal lymph node that measures almost 3 cm. Thoracic aorta shows no evidence of aneurysm or dissection. I see no filling defects in the pulmonary arteries. Upper abdominal soft tissues are unre markable. The bony thorax is intact. There is no compression fracture. There are sternal wires. IMPRESSION: Emphysema. Right lower lobe patchy nodular infiltrate and masslike infiltrate in the rig ht lower lobe with bronchial obstruction. Tumor is possible. Follow-up is recommended. Mediastinal ad enopathy.
== END | disposition home or self-care (01) ==
LOC: RADCTMAIN 15:50
PROVIDERS: ATTEND Internal Medicine
DX: J43.9 Emphysema, unspecified (principal); R91.8 Other nonspecific abnormal finding of lung field; R59.0 Localized enlarged lymph nodes; J98.8 Other specified respiratory disorders
CPT/HCPCS: 82565; 84520; 71260; Q9967

== ENCOUNTER 2018-10-01 22:27 | Emergency (ER) | payer MEDICARE, BC ==
[2018-10-01] MEDS ORDERED: FAMOTIDINE 20 MG/2 ML VIAL IV STA (23:09)
[2018-10-01] MEDS ORDERED: methylPREDNISolone SOD SUCCI 125 MG/2 ML VIAL IV STA (23:09)
[2018-10-01] MEDS ORDERED: diphenhydrAMINE 50 MG/ML 1 ML VIAL IVP STA (23:09)
[2018-10-02 00:48] VITALS: BP 148/86; PULSE 67; RESP 17; TEMP 98.4
--- NOTE | 2018-10-02 00:51 | ED ---
Allergic Reaction HPI - General Chief complaint: Allergic Reaction Stated complaint: Poss allergic reaction to medication Time Seen by Provider: 10/01/18 22:50 Source: patient, family Mode of arrival: ambulatory Limitations: no limitations - History of Present Illness Initial Comments: 78-year-old female patient presents to the emergency department today for evaluation of throat fullness, dry mouth, and tingling tongue. Patient states she started taking Levaquin this evening is concerned she may be having an ALLERGIC reaction. She denies any difficulty breathing, lip swelling, tongue swelling, abdominal pain, rash, or itching. States that she has taken Levaquin one time in the past without difficulty. Patient states she is currently being treated for pneumonia, she did also complete a course of azithromycin and did have doxycycline in July for acute bronchitis. She denies any fevers or chills. Denies any other symptoms. Patient denies any recent fever, chills, chest pain, abdominal pain, nausea, vomiting, diarrhea, constipation, back pain , numbness, tingling, dizziness, weakness, hematuria, dysuria, urinary urgency, urinary frequency, headache, visual changes, or any other complaints. - Related Data Home Medications Medication Instructions Recorded Confirmed Lovastatin [Mevacor] 20 mg PO HS 06/04/14 10/01/18 Metoprolol Tartrate 25 mg PO QAM 06/04/14 10/01/18 Metoprolol Tartrate [Lopressor] 12.5 mg PO HS 06/04/14 10/01/18 Nitroglycerin Sl Tabs [Nitrostat] 0.4 mg SUBLINGUAL Q5M PRN 06/29/15 10/01/18 Aspirin [Adult Low Dose Aspirin EC] 81 mg PO DAILY 09/24/16 10/01/18 Clopidogrel [Plavix] 75 mg PO DAILY 09/24/16 10/01/18 Pantoprazole [Protonix] 40 mg PO DAILY 04/12/17 10/01/18 Albuterol Nebulized [Ventolin 2.5 mg INHALATION RT-Q6H PRN 10/01/18 10/01/18 Nebulized] Ammonium Lactate Cream [Lac-Hydrin 1 applic TOPICAL BID 10/01/18 10/01/18 12% Cream] predniSONE See Taper PO DAILY 10/01/18 10/01/18 Previous Rx's Medication Instructions Recorded Doxycycline [Vibramycin] 100 mg PO BID #14 cap 10/02/18 Allergies Allergy/AdvReac Type Severity Reaction Status Date / Time cefuroxime axetil Allergy Severe Anaphylaxis Verified 10/01/18 23:25 [From Ceftin] Penicillins Allergy Severe Rash/Hives Verified 10/01/18 23:25 Cephalosporins Allergy Anaphylaxis Verified 10/01/18 23:25 Review of Systems ROS Statement: Those systems with pertinent positive or pertinent negative responses have been documented in the HPI. ROS Other: All systems not noted in ROS Statement are negative. Past Medical History Past Medical History: Coronary Artery Disease (CAD), Cancer, Chest Pain / Angina , GERD/Reflux, Hyperlipidemia, Hypertension, Myocardial Infarction ([place]), Osteoarthritis (OA) Additional Past Medical History / Comment(s): slight right carotid stenosis, Hx of chronic bronchitis, aortic , mitral & tricuspid regurgitation, Hx of retinal detachment, environmental allergies, Squamous cell cancer removed., Tested Positive for lupus and will be having further testing. , Pt was hospitalized 09/21-09/22/16 for Rectal Bleeding and received blood transfusion. Last Myocardial Infarction Date:: 06/2013 History of Any Multi-Drug Resistant Organisms: None Reported Past Surgical History: Appendectomy, Coronary Bypass/CABG, Heart Catheterization With Stent, Hysterectomy, Pacemaker, Tubal Ligation Additional Past Surgical History / Comment(s): 3 vessel cabg 01/2010, retinal detachment surgery of the right eye, cataract removal and lens implant bilaterally. TONGUE MASS REMOVED, Cardiac Stents Jun 2013, Jun 2014 and November 2015 ([place]). Past Anesthesia/Blood Transfusion Reactions: No Reported Reaction Additional Past Anesthesia/Blood Transfusion Reaction / Comment(s): RECEIVED BLOOD TRANSFUSION 09/21/16 . Date of Last Stent Placement:: 06/2014 Type of Cardiac Device: Permanent Pacemaker Device Placement Date:: 04/2007 Past Psychological History: Anxiety, Depression Smoking Status: Current some day smoker Past Alcohol Use History: Rare Past Drug Use History: None Reported - Past Family History Daughter(s) Family Medical History: Cancer Additional Family Medical History / Comment(s): BASAL CELL CANCER Father Family Medical History: CVA/TIA Additional Family Medical History / Comment(s): at 58 from cerebral hemorrhage Mother Family Medical History: No Reported History Sister(s) Family Medical History: Hypertension General Exam Limitations: no limitations General appearance: alert, in no apparent distress, other (This is a well- developed, well-nourished elderly female patient in no acute distress. Vital signs upon presentation are temperature 97.9F, pulse 93, respirations 20, blood pressure 160/75, pulse ox 97% on room air.) Eye exam: Present: normal appearance, PERRL, EOMI. Absent: scleral icterus, conjunctival injection, periorbital swelling ENT exam: Present: normal exam, normal oropharynx, mucous membranes moist Respiratory exam: Present: normal lung sounds bilaterally. Absent: respiratory distress, wheezes, rales, rhonchi, stridor Cardiovascular Exam: Present: regular rate, normal rhythm, normal heart sounds. Absent: systolic murmur, diastolic murmur, rubs, gallop, clicks GI/Abdominal exam: Present: soft, normal bowel sounds. Absent: distended, tenderness, guarding, rebound, rigid Neurological exam: Present: alert, oriented X3, CN II-XII intact Psychiatric exam: Present: normal affect, normal mood Skin exam: Present: warm, dry, intact, normal color. Absent: rash Course Vital Signs 10/01/18 10/02/18 22:32 00:35 Temperature 97.9 F 98.4 F Pulse Rate 93 67 Respiratory 20 17 Rate Blood Pressure 160/75 148/86 O2 Sat by Pulse 97 96 Oximetry Medical Decision Making - Medical Decision Making 78-year-old female patient presents to the emergency department today for evaluation of tongue tingling, throat fullness, and dry mouth after taking Levaquin. Physical examination is relatively unremarkable. She is breathing without difficulty. There is no evidence of swelling or rash. We did administer IV steroids, Pepcid, and Benadryl for possibility of ALLERGIC reaction. We did discuss alternative treatment for her pneumonia including doxycycline. Patient will be given prescription however she will call her physician in the morning to discuss treatment options of whether or not she should continue Levaquin. She does have steroids at home. She is instructed to continue taking Benadryl every 6 hours as needed for symptom relief. Return parameters were discussed in detail. She verbalizes understanding and agrees with this plan. Disposition Clinical Impression: Allergic reaction Disposition: HOME SELF-CARE Condition: Good Instructions (If sedation given, give patient instructions): General Allergic Reaction (ED) Additional Instructions: Continue your home steroids. Call Dr. Mendoza for further direction regarding antibiotic use. Return to the emergency department for recheck in 1-2 days. Prescriptions: Doxycycline [Vibramycin] 100 mg PO BID #14 cap Is patient prescribed a controlled substance at d/c from ED?: No Referrals: Jhonathan Mendoza MD [Primary Care Provider] - 1-2 days Time of Disposition: 00:50
== END 2018-10-02 00:58 | disposition home or self-care (01) ==
LOC: EC 22:27
DX: R68.2 Dry mouth, unspecified (principal); R20.2 Paresthesia of skin; R68.89 Other general symptoms and signs; T36.8X5A Adverse effect of other systemic antibiotics, initial encounter; I25.119 Atherosclerotic heart disease of native coronary artery with unspecified angina pectoris; K21.9 Gastro-esophageal reflux disease without esophagitis; E78.5 Hyperlipidemia, unspecified; I10 Essential (primary) hypertension; I25.2 Old myocardial infarction; F17.200 Nicotine dependence, unspecified, uncomplicated; Z79.82 Long term (current) use of aspirin; Z79.02 Long term (current) use of antithrombotics/antiplatelets; Z79.899 Other long term (current) drug therapy; Z88.0 Allergy status to penicillin; Z88.1 Allergy status to other antibiotic agents; Z95.0 Presence of cardiac pacemaker; Z95.1 Presence of aortocoronary bypass graft; Z95.5 Presence of coronary angioplasty implant and graft
CPT/HCPCS: 99283; 96374; 96375 ×2; J1200; J2930

== ENCOUNTER 2018-10-08 10:57 | Day surgery (SDC) | payer MEDICARE, BC ==
[2018-10-07 08:54] VITALS: BMI 30.7
[~2018-10-08 10:57] MED LIST changes: +LACTATED RINGERS 1,000 ML IV ONE; +LIDOCAINE VISCOUS 2% 15 ML CUP MUCOUS MEM ONE; +ONDANSETRON 4 MG/2 ML VIAL IVP ONE
[2018-10-08 11:35] VITALS: TEMP 98.2
[2018-10-08] MEDS ORDERED: MIDAZOLAM 2 MG/2 ML VIAL ONE (12:21)
[2018-10-08] MEDS ORDERED: LIDOCAINE 1% INJ 10MG/ML (20 ML MDV) ONE (12:21)
[2018-10-08] MEDS ORDERED: PROPOFOL 10 MG/ML 20 ML VIAL IV ONE (12:21)
[2018-10-08] MEDS ORDERED: LIDOCAINE 2% INJ 20 MG/ML INTRATRACH ONE (12:34)
[2018-10-08 13:53] VITALS: BP 127/56; PULSE 68; RESP 16
--- NOTE | 2018-10-08 20:09 | P.PCN ---
Date of Procedure: 10/08/18 Preoperative Diagnosis: Mediastinal mass Postoperative Diagnosis: Mediastinal mass Procedure(s) Performed: Flexible bronchoscopy, transbronchial needle aspirate Anesthesia: MAC Surgeon: Sean Núñez Impregnator Electrolytic Capacitors #1: Lacey Kitchen Estimated Blood Loss (ml): 10 Pathology: other Condition: stable Disposition: same day Operative Findings: This is a flexible bronchoscopy that was done in the operating room. The procedure including the potential complication with extended to the patient at length. The patient was taken off Plavix 5 days ahead of surgery. The timeout was obtained. A consent was signed. Following that the patient was provided adequate sedation by anesthesia. After achieving adequate sedation, the flexible bronchoscope was inserted through the left nostril vent was advanced into the upper airway. Examination of the posterior oropharynx, pharynx, larynx and upper airway structures was done. These structures were all within normal limits. Epiglottis was noted midline and sharp and arytenoids, vallecula , and the vocal cords were all inspected and are all within normal limits. A total of 2 mL of 1% lidocaine was applied to the vocal cords and following that the bronchoscope was advanced into the upper trachea. Examination of the tracheal bronchial tree was done. The trachea was within normal limits. He was quite patent. No endobronchial lesions or abnormalities identified. Bernadette was sharp in the midline. The bronchoscope was moved to the right mainstem bronchus and at the level of the secondary bernadette the to the right middle lobe and the right lower lobe there was some endobronchial swelling and thickness an irregularity and the mucosa itself was friable. The airway inspection was completed. The right upper lobe was within normal limits. The different segments of the right lower lobe were patent and within normal limits. Right middle lobe was also patent. Examination of left side was all within normal limits. The bronchoscope was then moved to the main bernadette and transbronchial needle aspirate of the mediastinal mass was done utilizing the anterior tracheal wall and several passes were obtained using a 19 -gauge cytology and 21-gauge histology that. The samples were checked by pathology the bedside. Noted the patient was having some bleeding at the puncture sites causing some rest or secretions that were bloody. Therapeutic it was suctioning was done and the story secretions were removed. Following that, transbronchial needle aspirate and endobronchial biopsies were also obtained from the mucosal irregularities were seen in the secondary bernadette the right middle lobe bronchus and the right lower lobe bronchus. The the end of the procedure, all of the secretions were suctioned out. Pulmonary toileting was performed. Bronchoscope was removed. The patient was transferred recovery in stable condition. No bedside complications. Samples will be sent for histologic evaluation.
== END 2018-10-08 14:25 | disposition home or self-care (01) ==
LOC: ORWHC2ENDO 10:57
PROVIDERS: ATTEND Internal Medicine Critical Care Medicine
DX: C34.00 Malignant neoplasm of unspecified main bronchus (principal); J44.9 Chronic obstructive pulmonary disease, unspecified; I25.10 Atherosclerotic heart disease of native coronary artery without angina pectoris; I10 Essential (primary) hypertension; K21.9 Gastro-esophageal reflux disease without esophagitis; E78.00 Pure hypercholesterolemia, unspecified; F17.210 Nicotine dependence, cigarettes, uncomplicated; M32.9 Systemic lupus erythematosus, unspecified; I25.2 Old myocardial infarction; Z95.5 Presence of coronary angioplasty implant and graft; Z79.02 Long term (current) use of antithrombotics/antiplatelets; Z79.82 Long term (current) use of aspirin; Z79.899 Other long term (current) drug therapy; Z88.1 Allergy status to other antibiotic agents; Z88.0 Allergy status to penicillin
CPT/HCPCS: 88305; 88173; 88342; 88341; 31628; 31629; J2001 ×2; J2250; J2704; 31625

== ENCOUNTER → 2018-10-11 | Outpatient (CLI) | payer MEDICARE, BC ==
--- NOTE | 2018-10-13 11:16 | PE ---
Nuclear medicine PET/CT HISTORY: Lung mass, initial Patient received 10.9 mCi F-18 FDG intravenously and: Delayed scanning was performed from skull base to the mid thighs. Localization and attenuation correction CT scan was performed. Correlation CT chest 09/30/2018 Neck and chest: There is mediastinal adenopathy present, right paratracheal, retrocaval pretracheal a denopathy, prevascular no, subcarinal right hilar node enlargement is present, SUV 13.5 paratracheal adenopathy, subcarinal adenopathy shows SUV 12.8, right hilar adenopathy SUV 8.8, right lower lobe ma ss SUV 8.8. Peripheral subpleural abnormal soft tissue in the right lower lobe is present, SUV is 12. 1. Additional areas of abnormal increased attenuation in the right lower lobe more anteriorly also sh ow uptake somewhat less intense. There is abnormal soft tissue along the right heart border in the ri ght middle lobe measuring approximately 16 mm in greatest dimension, SUV is 6.9, nodular density in t he right lower lobe axial image 113, SUV approximately 5.5, additional nodular densities in the right lower lobe are present. Along the right hemidiaphragm there is an adenopathy, axial image number 1:1 5, SUV is 4.3. Abdomen pelvis: No suspicious hypermetabolic uptake. No adrenal mass or retroperitoneal adenopathy. D ense as described calcification in the aortoiliac distribution. Mesenteric vasculature. Uterus and ad nexal structures are not seen. Possible calcified mesenteric nodes present within the pelvis. Osseous structures unremarkable. IMPRESSION: Metastatic disease. Bronchogenic carcinoma is favored.
== END ==
LOC: RADPETMAIN 12:07
PROVIDERS: ATTEND Internal Medicine
DX: C79.9 Secondary malignant neoplasm of unspecified site (principal)
CPT/HCPCS: 78815; A9552

== ENCOUNTER → 2018-10-16 | Outpatient (CLI) | payer MEDICARE, BC ==
--- NOTE | 2018-10-16 22:22 | CT ---
EXAMINATION TYPE: CT brain w con DATE OF EXAM: 10/16/2018 COMPARISON: CT 10/11/2018 INDICATION: Lung ca, sudden onset headache DLP: 1041.60 mGycm, Automated exposure control for dose reduction was used. CONTRAST: 100 mL Isovue-300 CT of the brain is performed utilizing 3 mm thick sections through the posterior fossa and 3 mm thick sections through the remaining calvarium. Study is performed within 24 hours of arrival to the hosp [facility]. No abnormal hyperdensity is present to suggest an acute intracranial hemorrhage. No mass lesion is evident. No acute infarcts are evident. Ventricles and sulci are appropriate for the patient age. No suspicious enhancement is evident. No quesada spicious changes to suggest metastatic disease. Paranasal sinuses and mastoid air cells within the [id number] are clear. IMPRESSIONS: 1. No suspicious changes suggest metastatic disease. 2. No acute intracranial process postcontrast.
== END ==
LOC: RADCTMAIN 17:08
PROVIDERS: ATTEND Internal Medicine Hematology & Oncology
DX: R51 Headache (principal); Z88.0 Allergy status to penicillin; Z88.1 Allergy status to other antibiotic agents
CPT/HCPCS: 70460; Q9967

== ENCOUNTER 2018-10-23 12:35 | Day surgery (SDC) | payer MEDICARE, BC ==
[2018-10-21 15:27] VITALS: BMI 25.8
[~2018-10-23 12:35] MED LIST changes: +DEXAMETHASONE SOD PHOSPHATE 10 MG/ML 1 ML VIAL IV ONE; +HEPARIN SODIUM,PORCINE 5,000 UNIT/ML 1 ML VIAL SQ ONE; +HYDROmorphone 0.5 MG/0.5 ML SYRINGE IVP PRN; -LACTATED RINGERS 1,000 ML IV ONE; -LIDOCAINE 1% 20 ML VIAL (10MG/ML) FOR IV START INTRADERMA PRN; -LIDOCAINE VISCOUS 2% 15 ML CUP MUCOUS MEM ONE; +MIDAZOLAM 2 MG/2 ML VIAL IV PRN; +Pre Op ABX Message 1 EACH MISC MISCELLANE ONE
[2018-10-23 13:01] VITALS: RESP 16; TEMP 98.1
[2018-10-23] MEDS ORDERED: LIDOCAINE 1% 20 ML VIAL (10MG/ML) FOR IV START INTRADERMA ONE (13:12)
--- NOTE | 2018-10-23 13:32 | P.GSHP ---
History of Present Illness H&P Date: 10/23/18 Chief Complaint: Lung cancer Patient here today for Port-A-Cath placement. Patient is already initiated her chemotherapy for lung cancer. Patient already has a left-sided pacemaker in place. She has not had a port previously. Next chemo 2 weeks from now. Past Medical History Past Medical History: Coronary Artery Disease (CAD), Cancer, Chest Pain / Angina , GERD/Reflux, Hyperlipidemia, Hypertension, Myocardial Infarction ([place]), Osteoarthritis (OA) Additional Past Medical History / Comment(s): stated "recent tx of lung infections and had CT scan that looked suspicious",slight right carotid stenosis , Hx of chronic bronchitis, aortic , mitral & tricuspid regurgitation, Hx of retinal detachment, environmental allergies, Squamous cell cancer removed., Tested Positive for lupus and will be having further testing. , Pt was hospitalized 09/21-09/22/16 for Rectal Bleeding and received blood transfusion. Last Myocardial Infarction Date:: 06/2013 History of Any Multi-Drug Resistant Organisms: None Reported Past Surgical History: Appendectomy, Coronary Bypass/CABG, Heart Catheterization With Stent, Hysterectomy, Pacemaker, Tubal Ligation Additional Past Surgical History / Comment(s): 3 vessel cabg 01/2010, retinal detachment surgery of the right eye, cataract removal and lens implant bilaterally. TONGUE MASS REMOVED, Cardiac Stents Jun 2013, Jun 2014 and November 2015 ([place]). Past Anesthesia/Blood Transfusion Reactions: No Reported Reaction, Family History of Problems w/ Anesthesia Additional Past Anesthesia/Blood Transfusion Reaction / Comment(s): RECEIVED BLOOD TRANSFUSION 09/21/16-Positive Antibodies,Daughter PONV Date of Last Stent Placement:: 2015 Type of Cardiac Device: Permanent Pacemaker Device Placement Date:: 04/2007 Smoking Status: Current every day smoker - Past Family History Daughter(s) Family Medical History: Cancer Additional Family Medical History / Comment(s): BASAL CELL CANCER Father Family Medical History: CVA/TIA Additional Family Medical History / Comment(s): at 58 from cerebral hemorrhage Mother Family Medical History: No Reported History Sister(s) Family Medical History: Hypertension Medications and Allergies Home Medications Medication Instructions Recorded Confirmed Type Lovastatin [Mevacor] 20 mg PO HS 06/04/14 10/23/18 History Metoprolol Tartrate 25 mg PO QA 06/04/14 10/23/18 History Metoprolol Tartrate [Lopressor] 12.5 mg PO HS 06/04/14 10/23/18 History Nitroglycerin Sl Tabs [Nitrostat] 0.4 mg SUBLINGUAL Q5M PRN 06/29/15 10/23/18 History Aspirin [Adult Low Dose Aspirin EC] 81 mg PO DAILY 09/24/16 10/21/18 History Clopidogrel [Plavix] 75 mg PO DAILY 09/24/16 10/21/18 History Pantoprazole [Protonix] 40 mg PO DAILY PRN 04/12/17 10/21/18 History ALPRAZolam [Xanax] 0.25 mg PO Q8HR PRN 10/21/18 10/23/18 History Loperamide [Imodium] 2 mg PO QID PRN 10/21/18 10/23/18 History Allergies Allergy/AdvReac Type Severity Reaction Status Date / Time cefuroxime axetil Allergy Severe Anaphylaxis Verified 10/21/18 14:39 [From Ceftin] Penicillins Allergy Severe Rash/Hives Verified 10/21/18 14:39 Cephalosporins Allergy Anaphylaxis Verified 10/21/18 14:39 Surgical - Exam Vital Signs Temp Pulse Resp BP Pulse Ox 98.1 F 86 16 203/88 95 10/23/18 12:59 10/23/18 12:59 10/23/18 12:59 10/23/18 12:59 10/23/18 12:59 Physical exam: General: Well-developed, well-nourished HEENT: Normocephalic, sclerae nonicteric Abdomen: Nontender, nondistended Extremities: No edema Neuro: Alert and oriented Assessment and Plan (1) Lung mass Narrative/Plan: Will proceed with Port-A-Cath placement at this time. Risks of bleeding, infection, DVT, pneumothorax, catheter malfunction, anesthesia related complications were discussed. The patient understands and wishes to proceed. Current Visit: No Status: Acute Code(s): R91.8 - OTHER NONSPECIFIC ABNORMAL FINDING OF LUNG FIELD SNOMED Code(s): 723970130
[2018-10-23] MEDS ORDERED: fentaNYL (PF) 50 MCG/ML 2 ML AMP IVP ONE (13:37)
[2018-10-23] MEDS ORDERED: MIDAZOLAM 2 MG/2 ML VIAL ONE (13:48)
[2018-10-23] MEDS ORDERED: ONDANSETRON 4 MG/2 ML VIAL ONE (13:48)
[2018-10-23] MEDS ORDERED: PROPOFOL 10 MG/ML 20 ML VIAL IV ONE (13:48)
[2018-10-23] MEDS ORDERED: fentaNYL (PF) 50 MCG/ML 2 ML AMP ONE (13:48)
[2018-10-23] MEDS ORDERED: DEXAMETHASONE SOD PHOS (MDV) 100 MG/10 ML VIAL ONE (13:48)
[2018-10-23] MEDS ORDERED: HEPARIN SODIUM,PORCINE 5,000 UNIT/ML 1 ML VIAL ONE (13:48)
[2018-10-23] MEDS ORDERED: SODIUM CHLORIDE 0.9% 50 ML with CLINDAMYCIN 600 MG IV ONE ×2 (14:14)
[2018-10-23] MEDS ORDERED: LIDOCAINE 1% INJ 10MG/ML (20 ML MDV) SQ ONE (14:36)
[2018-10-23] MEDS ORDERED: NALOXONE 0.4 MG/ML 1 ML VIAL IV PRN (14:45)
--- NOTE | 2018-10-23 14:47 | P.PCN ---
Date of Procedure: 10/23/18 Procedure(s) Performed: PREOPERATIVE DIAGNOSIS: Lung cancer POSTOPERATIVE DIAGNOSIS: Same PROCEDURE: Port-A-Cath placement SURGEON: Bola EBL: Minimal ANESTHESIA: Sedation COMPLICATIONS: None OPERATIVE PROCEDURE: Patient was brought and placed on the operative table in the supine position. The patient was sedated per anesthesia that time. The chest and neck were prepped and draped in usual sterile fashion. The ultrasound probe was used to identify the location of the right internal jugular vein. The skin was localized with lidocaine. The Seldinger needle was advanced into the IJ under ultrasound guidance. The wire was advanced through the needle under fluoroscopic guidance into the superior vena cava. A port pocket was created in the right infraclavicular location. The catheter was tunneled from the wire entrance site to the port pocket. The port was then connected to the catheter. The dilator introducer was threaded over the guidewire. The guidewire and dilator were then removed. The catheter was advanced through the introducer and introducer was then removed. The tip was seen to be in the right atrial junction. Port was flushed with both saline and a Hep-Lock solution. There was good flow both in and out of the port. The port was sutured in underlying tissues using 3-0 silk sutures. The subcutaneous tissues were reapproximated using 3-0 Vicryl sutures and the skin at both locations using 4-0 Monocryl sutures. Skin glue and sterile dressings then applied. DISPOSITION: Stable to recovery room
--- NOTE | 2018-10-23 14:50 | FL ---
Fluoroscopy History: port a cath insertion port a cath insertion, 11sec fl time
[2018-10-23 15:23] VITALS: BP 163/74; PULSE 61
--- NOTE | 2018-10-23 15:24 | XR ---
EXAMINATION TYPE: XR chest 1V portable DATE OF EXAM: 10/23/2018 HISTORY: Shortness of breath. COMPARISON: 06/20/2015 TECHNIQUE: Single view of the chest is submitted. FINDINGS: Demonstrated are scattered senescent parenchymal change. There is pulmonary venous congestion with cardiomegaly. Small effusions noted. Right-sided Mediport catheter with its distal tip overlying the SVC. No evidence of pneumothorax. Hilar and mediastinal structures are within normal limits. Degenerative changes are seen of the dorsal spine. IMPRESSION: 1. Mild congestive failure. 2. Mediport catheter as noted.
== END 2018-10-23 15:52 | disposition home or self-care (01) ==
LOC: OR 12:35
PROVIDERS: ATTEND Surgery
DX: C34.90 Malignant neoplasm of unspecified part of unspecified bronchus or lung (principal); Z92.21 Personal history of antineoplastic chemotherapy; I08.3 Combined rheumatic disorders of mitral, aortic and tricuspid valves; I25.10 Atherosclerotic heart disease of native coronary artery without angina pectoris; I11.0 Hypertensive heart disease with heart failure; I50.9 Heart failure, unspecified; F17.210 Nicotine dependence, cigarettes, uncomplicated; K21.9 Gastro-esophageal reflux disease without esophagitis; E78.5 Hyperlipidemia, unspecified; I10 Essential (primary) hypertension; I25.2 Old myocardial infarction; M19.90 Unspecified osteoarthritis, unspecified site; Z95.1 Presence of aortocoronary bypass graft; F41.9 Anxiety disorder, unspecified; Z90.710 Acquired absence of both cervix and uterus; Z95.0 Presence of cardiac pacemaker; Z95.5 Presence of coronary angioplasty implant and graft; M32.9 Systemic lupus erythematosus, unspecified; Z85.828 Personal history of other malignant neoplasm of skin; I65.21 Occlusion and stenosis of right carotid artery; Z79.02 Long term (current) use of antithrombotics/antiplatelets; Z79.82 Long term (current) use of aspirin; Z79.899 Other long term (current) drug therapy; Z88.1 Allergy status to other antibiotic agents; Z88.0 Allergy status to penicillin
CPT/HCPCS: 77001; 71045; 36558; 76937; C1788; J2250; J1644; J1100 ×2; J2405; J2001; J3010; J2704

== ENCOUNTER 2018-12-02 08:41 | Emergency (ER) | payer MEDICARE, BC ==
[2018-12-02 08:51] VITALS: RESP 18
[2018-12-02] MEDS ORDERED: SODIUM CHLORIDE 0.9% 500 ML 500 ML IV STA (09:14)
[2018-12-02] MEDS ORDERED: SODIUM CHLORIDE 0.9% 1,000 ML IV STA (09:14)
[2018-12-02 09:40] LABS: Anisocytosis Slight; Basophils % (A) 0 %; Eosinophils % (A) 0 %; HCT 28.4 % (34.0-46.0); HGB 9.6 gm/dL (11.4-16.0); Lymphocytes # (A) 0.2 k/uL (1.0-4.8); Lymphocytes % (A) 1 %; MCH 32.9 pg (25.0-35.0); MCHC 33.9 g/dL (31.0-37.0); Macrocytosis Slight; Mean Platelet Volume 8.1; Monocytes # (A) 0.2 k/uL (0-1.0); Monocytes % (A) 1 %; Neutrophils # (A) 17.6 k/uL (1.3-7.7); Neutrophils % (A) 97 %; RBC 2.93 m/uL (3.80-5.40); RDW 17.4 % (11.5-15.5); WBC 18.2 k/uL (3.8-10.6)
[2018-12-02 09:46] LABS: Platelet Count 140 k/uL (150-450)
[2018-12-02 09:47] LABS: ALT 34 U/L (9-52); AST 18 U/L (14-36); Albumin 3.6 g/dL (3.5-5.0); Alkaline Phosphatase 94 U/L (38-126); Anion Gap 8 mmol/L; Blood Urea Nitrogen 18 mg/dL (7-17); Carbon Dioxide 27 mmol/L (22-30); Chloride 103 mmol/L (98-107); Creatine Kinase 33 U/L (30-135); Glucose 122 mg/dL (74-99); Potassium 4.9 mmol/L (3.5-5.1); Sodium 138 mmol/L (137-145); Total Bilirubin 1.8 mg/dL (0.2-1.3); Total Protein 5.9 g/dL (6.3-8.2)
--- NOTE | 2018-12-02 09:51 | XR ---
EXAMINATION TYPE: XR chest 2V DATE OF EXAM: 12/02/2018 COMPARISON: 10/23/2018 HISTORY: 78-year-old female confusion, altered mental status, weakness TECHNIQUE: AP and lateral views FINDINGS: Right anterior chest wall injection port with catheter tip at the mid SVC. Left anterior chest wall p acemaker generator with right atrial and right ventricular leads. Median sternotomy wires and post-CA BG clips in the mediastinum. Heart is mildly enlarged. Mild diffuse interstitial prominence. Some pat chloe posterior basilar opacity is present on the lateral view on the left. IMPRESSION: 1. Stable cardiomegaly. 2. Some patchy posterior basilar atelectasis or early infiltrate on the left.
[2018-12-02 10:24] LABS: Partial Thromboplastin Time 24.4 sec (22.0-30.0); Prothrombin Time 10.3 sec (9.0-12.0)
--- NOTE | 2018-12-02 10:26 | CT ---
EXAMINATION TYPE: CT brain wo con DATE OF EXAM: 12/02/2018 COMPARISON: 10/16/2018 HISTORY: 78-year-old female neurologic deficits, Severe dizziness TECHNIQUE: Examination was done in axial plane without intravenous contrast. Coronal and sagittal r econstructions performed. CT DLP: 962.4 mGycm Automated exposure control for dose reduction was used. FINDINGS: There is no evidence of acute intracranial hemorrhage, acute ischemic changes, mass, mass-effect, or extra-axial fluid collection. There is no effacement of cerebral sulci or basal subarachnoid cister ns. There is no hydrocephalus. There is no midline shift. Shukla-white matter distinction is preserv ed. Mild cerebral cortical atrophy. Atherosclerotic calcifications within the carotid siphons. Paranasal sinuses and mastoid air cells are well pneumatized. IMPRESSION: Mild generalized atrophy. No acute intracranial abnormality seen.
--- NOTE | 2018-12-02 10:47 | CT ---
EXAMINATION TYPE: CT angio head neck DATE OF EXAM: 12/02/2018 COMPARISON: CT head same day HISTORY: 78-year-old female neurologic deficits, Severe dizziness TECHNIQUE: Contiguous axial scanning of the head and neck performed with IV Contrast, patient injecte d with 65 mL of Isovue 370. Coronal/sagittal MIP reconstructions performed. 3-D reconstructions gener ated on a dedicated independent workstation. CT DLP: 361.1 mGycm Automated exposure control for dose reduction was used. FINDINGS: Neck: Moderate centrilobular emphysema in the visualized upper lungs. Mild atherosclerotic arch calcifications. There is moderate atherosclerotic narrowing at the origin o f the left subclavian artery. Mild to moderate atherosclerotic calcification at the bifurcation of the brachiocephalic artery. Scat tered mild prostatic calcifications throughout the right common carotid artery. Severe atherosclerotic calcifications at the right carotid bulb with severe, greater than 70% narrowi ng of the carotid bulb. The remainder of the right internal carotid artery is patent. The right bifur cation occurs approximately 1.9 cm below the angle of the mandible. Mild atherosclerotic calcification at the origin of the left common carotid artery with scattered mil d atherosclerotic calcification eccentric position of the vessel. Moderate eccentric atherosclerotic calcification of plaque within the left carotid bulb with mild, le ss than 40% narrowing of the proximal ICA. Incidentally, there is severe, approximately 70% narrowing at the origin of the left external carotid artery. Right vertebral artery is dominant. Both vessels are patent throughout the course. Head: Dominant right vertebral artery. Relatively smaller caliber of the posterior circulation relative to the anterior circulation. On the left, there is persistent origin of the left posterior cerebral artery. Mild atherosclerotic calcifications within the carotid siphons. There is diminutive caliber to the A1 segment right anterior cerebral artery, similar to 10/16/2018. Focal atherosclerotic calcification at the right MCA bifurcation was present back on 10/06/2018. Symmetrical enhancement of the bilateral M2 and more distal arterial branches. The internal carotid a rteries are patent. No aneurysmal change seen. Dural venous sinuses are patent. IMPRESSION: NECK: 1. SEVERE, GREATER THAN 70% ATHEROSCLEROTIC STENOSIS OF THE RIGHT CAROTID BULB. 2. MILD, LESS THAN 40% NARROWING OF THE PROXIMAL LEFT ICA. INCIDENTALLY, THERE IS A SEVERE, APPROXIMA TELY 70% STENOSIS AT THE ORIGIN OF THE LEFT ECA. 3. MODERATE ATHEROSCLEROTIC STENOSIS AT THE LEFT SUBCLAVIAN ORIGIN. 4. COPD IN THE VISUALIZED UPPER LUNGS. HEAD: 1. 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 CORRELATE FOR ANY CHRONIC SYMPTOMS OF VERTEBROBASILAR INSUFFICIENCY. 2. 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 3. FOCAL ATHEROSCLEROTIC CALCIFICATION AT THE RIGHT MCA BIFURCATION IS UNCHANGED FROM 10/06/2018. NO LA RGE VESSEL INTRACRANIAL ARTERIAL OCCLUSION OR ANEURYSMAL CHANGE SEEN.
[2018-12-02 10:57] LABS: Appearance,Urine Clear (Clear); Bilirubin,Urine Negative (Negative); Blood,Urine Negative (Negative); Color,Urine Yellow; Glucose,Urine (UA) Negative (Negative); Ketones,Urine Negative (Negative); Leukocyte Esterase,Urine Negative (Negative); Nitrite,Urine Negative (Negative); Protein,Urine Negative (Negative); Specific Gravity,Urine 1.019 (1.001-1.035); Urobilinogen,Urine <2.0 mg/dL (<2.0)
[2018-12-02] MEDS ORDERED: MECLIZINE 12.5 MG TAB PO STA (12:06)
--- NOTE | 2018-12-02 12:09 | ED ---
Neuro HPI - General Chief Complaint: Neuro Symptoms/Deficit Stated Complaint: DIZZINESS, Ca PATIENT Time Seen by Provider: 12/02/18 08:50 Source: patient, RN notes reviewed Mode of arrival: wheelchair Limitations: no limitations - History of Present Illness Is the patient presenting with stroke symptoms?: No Initial Comments: This is a 78-year-old female who presents with complaints of the onset of difficulty with walking and some dizziness upon awaking this morning she states she went to bed around 9 or 9:30 last night was fine this is noted this morning. When she got up she said a seem he is started oh 4:30 AM. She states she has had recent chemotherapy and 2727 of this past month for lung cancer chills had radiation therapy along with that the last one being yesterday she did have an LS a shot 4 days ago. She states she has had this slight headache. She is states she had a little bit of tip of the tongue tingling in the right but no other findings. - Related Data Home Medications: Home Medications Medication Instructions Recorded Confirmed Lovastatin [Mevacor] 20 mg PO HS 06/04/14 12/02/18 Metoprolol Tartrate 25 mg PO QAM 06/04/14 12/02/18 Metoprolol Tartrate [Lopressor] 12.5 mg PO HS 06/04/14 12/02/18 Nitroglycerin Sl Tabs [Nitrostat] 0.4 mg SUBLINGUAL Q5M PRN 06/29/15 12/02/18 Aspirin [Adult Low Dose Aspirin EC] 81 mg PO HS 09/24/16 12/02/18 Clopidogrel [Plavix] 75 mg PO DAILY 09/24/16 12/02/18 Pantoprazole [Protonix] 40 mg PO DAILY 04/12/17 12/02/18 PARoxetine [Paxil] 10 mg PO HS 12/02/18 12/02/18 Allergies/Adverse Reactions: Allergies Allergy/AdvReac Type Severity Reaction Status Date / Time cefuroxime axetil Allergy Severe Anaphylaxis Verified 12/02/18 09:06 [From Ceftin] Penicillins Allergy Severe Rash/Hives Verified 12/02/18 09:06 Cephalosporins Allergy Anaphylaxis Verified 12/02/18 09:06 Review of Systems ROS Statement: Those systems with pertinent positive or pertinent negative responses have been documented in the HPI. ROS Other: All systems not noted in ROS Statement are negative. General Exam - General Exam Comments Initial Comments: Is a well-developed well-nourished awake alert oriented 3 female Limitations: no limitations General appearance: alert, in no apparent distress Head exam: Present: atraumatic, normocephalic, normal inspection Eye exam: Present: normal appearance, PERRL, EOMI. Absent: scleral icterus, c onjunctival injection, periorbital swelling ENT exam: Present: normal exam, mucous membranes moist Neck exam: Present: normal inspection, other (No stridor JVD or bruits). Absent: tenderness, meningismus, lymphadenopathy Respiratory exam: Present: normal lung sounds bilaterally. Absent: respiratory distress, wheezes, rales, rhonchi, stridor Cardiovascular Exam: Present: regular rate, normal rhythm, normal heart sounds. Absent: systolic murmur, diastolic murmur, rubs, gallop, clicks GI/Abdominal exam: Present: soft, normal bowel sounds. Absent: distended, tenderness, guarding, rebound, rigid Extremities exam: Present: normal inspection, full ROM, normal capillary refill. Absent: tenderness, pedal edema, joint swelling, calf tenderness Back exam: Present: normal inspection Neurological exam: Present: alert, oriented X3, CN II-XII intact Psychiatric exam: Present: normal affect, normal mood Skin exam: Present: warm, dry, intact, normal color. Absent: rash Stroke MDM - Lab Data Result diagrams: 12/02/18 09:22 12/02/18 09:22 Lab Results 12/02/18 12/02/18 12/02/18 Range/Units 09:22 09:22 09:22 WBC 18.2 H (3.8-10.6) k/uL RBC 2.93 L (3.80-5.40) m/uL Hgb 9.6 L (11.4-16.0) gm/dL Hct 28.4 L (34.0-46.0) % MCV 97.0 (80.0-100.0) fL MCH 32.9 (25.0-35.0) pg MCHC 33.9 (31.0-37.0) g/dL RDW 17.4 H (11.5-15.5) % Plt Count 140 L D (150-450) k/uL Neutrophils % 97 % Lymphocytes % 1 % Monocytes % 1 % Eosinophils % 0 % Basophils % 0 % Neutrophils # 17.6 H (1.3-7.7) k/uL Lymphocytes # 0.2 L (1.0-4.8) k/uL Monocytes # 0.2 (0-1.0) k/uL Eosinophils # 0.0 (0-0.7) k/uL Basophils # 0.0 (0-0.2) k/uL Anisocytosis Slight Macrocytosis Slight PT 10.3 (9.0-12.0) sec INR 1.0 (<1.2) APTT 24.4 (22.0-30.0) sec Sodium 138 (137-145) mmol/L Potassium 4.9 (3.5-5.1) mmol/L Chloride 103 (98-107) mmol/L Carbon Dioxide 27 (22-30) mmol/L Anion Gap 8 mmol/L BUN 18 H (7-17) mg/dL Creatinine 0.58 (0.52-1.04) mg/dL Est GFR (CKD-EPI)AfAm >90 (>60 ml/min/1.73 sqM) Est GFR (CKD-EPI)NonAf 89 (>60 ml/min/1.73 sqM) Glucose 122 H (74-99) mg/dL Calcium 9.0 (8.4-10.2) mg/dL Total Bilirubin 1.8 H (0.2-1.3) mg/dL AST 18 (14-36) U/L ALT 34 (9-52) U/L Alkaline Phosphatase 94 (38-126) U/L Creatine Kinase 33 (30-135) U/L Troponin I (0.000-0.034) ng/mL Total Protein 5.9 L (6.3-8.2) g/dL Albumin 3.6 (3.5-5.0) g/dL Urine Color Urine Appearance (Clear) Urine pH (5.0-8.0) Ur Specific [place] (1.001-1.035) Urine Protein (Negative) Urine Glucose (UA) (Negative) Urine Ketones (Negative) Urine Blood (Negative) Urine Nitrite (Negative) Urine Bilirubin (Negative) Urine Urobilinogen (<2.0) mg/dL Ur Leukocyte Esterase (Negative) 12/02/18 12/02/18 Range/Units 09:22 10:30 WBC (3.8-10.6) k/uL RBC (3.80-5.40) m/uL Hgb (11.4-16.0) gm/dL Hct (34.0-46.0) % MCV (80.0-100.0) fL MCH (25.0-35.0) pg MCHC (31.0-37.0) g/dL RDW (11.5-15.5) % Plt Count (150-450) k/uL Neutrophils % % Lymphocytes % % Monocytes % % Eosinophils % % Basophils % % Neutrophils # (1.3-7.7) k/uL Lymphocytes # (1.0-4.8) k/uL Monocytes # (0-1.0) k/uL Eosinophils # (0-0.7) k/uL Basophils # (0-0.2) k/uL Anisocytosis Macrocytosis PT (9.0-12.0) sec INR (<1.2) APTT (22.0-30.0) sec Sodium (137-145) mmol/L Potassium (3.5-5.1) mmol/L Chloride (98-107) mmol/L Carbon Dioxide (22-30) mmol/L Anion Gap mmol/L BUN (7-17) mg/dL Creatinine (0.52-1.04) mg/dL Est GFR (CKD-EPI)AfAm (>60 ml/min/1.73 sqM) Est GFR (CKD-EPI)NonAf (>60 ml/min/1.73 sqM) Glucose (74-99) mg/dL Calcium (8.4-10.2) mg/dL Total Bilirubin (0.2-1.3) mg/dL AST (14-36) U/L ALT (9-52) U/L Alkaline Phosphatase (38-126) U/L Creatine Kinase (30-135) U/L Troponin I 0.023 (0.000-0.034) ng/mL Total Protein (6.3-8.2) g/dL Albumin (3.5-5.0) g/dL Urine Color Yellow Urine Appearance Clear (Clear) Urine pH 7.0 (5.0-8.0) Ur Specific [place] 1.019 (1.001-1.035) Urine Protein Negative (Negative) Urine Glucose (UA) Negative (Negative) Urine Ketones Negative (Negative) Urine Blood Negative (Negative) Urine Nitrite Negative (Negative) Urine Bilirubin Negative (Negative) Urine Urobilinogen <2.0 (<2.0) mg/dL Ur Leukocyte Esterase Negative (Negative) - NIH Stroke Scale 1a. Level of Consciousness: (0) alert 1b. LOC Questions: (0) answers correctly 1c. LOC Commands: (0) performs tasks correctly 2. Best Gaze: (0) normal 3. Visual: (0) no visual loss 4. Facial Palsy: (0) normal symmetrical movement 5a. Motor Arm Left: (0) no drift 5b. Motor Arm Right: (0) no drift 6a. Motor Leg Left: (0) no drift 6b. Motor Leg Right: (0) no drift 7. Limb Ataxia: (0) absent 8. Sensory: (0) normal 9. Best Language: (0) no aphasia 10. Dysarthria: (0) normal 11. Extinction/Inattention: (0) no abnormality - Medical Decision Making Did discuss the case with patient family members patient did have double vision that has manifested itself with no evidence of any distinct discrete lesion. Patient will require further evaluation after discussion with patient family and Dr. Cantor patient will be transferred to [facility] I did discuss the case with Dr. Solares who is agreed to accept the patient transfer. At this juncture the patient not a TPA candidate. She has demonstrate some evidence of carotid disease. - EKG Data -: EKG Interpreted by Me (Pacemaker rhythm rate 71. Interval 120 QRS duration 184 QT since QTC 460/4) Past Medical History Past Medical History: Coronary Artery Disease (CAD), Cancer, Chest Pain / Angina, GERD/Reflux, Hyperlipidemia, Hypertension, Myocardial Infarction ([place]), Osteoarthritis (OA) Additional Past Medical History / Comment(s): stated "recent tx of lung infections and had CT scan that looked suspicious",slight right carotid stenosis, Hx of chronic bronchitis, aortic , mitral & tricuspid regurgitation, Hx of retinal detachment, environmental allergies, Squamous cell cancer removed., Tested Positive for lupus and will be having further testing. , Pt was hospitalized 09/21-09/22/16 for Rectal Bleeding and received blood transfusion. Last Myocardial Infarction Date:: 06/2013 History of Any Multi-Drug Resistant Organisms: None Reported Past Surgical History: Appendectomy, Coronary Bypass/CABG, Heart Catheterization With Stent, Hysterectomy, Pacemaker, Tubal Ligation Additional Past Surgical History / Comment(s): 3 vessel cabg 01/2010, retinal detachment surgery of the right eye, cataract removal and lens implant bilaterally. TONGUE MASS REMOVED, Cardiac Stents Jun 2013, Jun 2014 and November 2015 ([place]). Past Anesthesia/Blood Transfusion Reactions: No Reported Reaction, Family History of Problems w/ Anesthesia Additional Past Anesthesia/Blood Transfusion Reaction / Comment(s): RECEIVED BLOOD TRANSFUSION 09/21/16-Positive Antibodies,Daughter PONV Date of Last Stent Placement:: 2015 Type of Cardiac Device: Permanent Pacemaker Device Placement Date:: 04/2007 Past Psychological History: Anxiety, Depression Smoking Status: Current every day smoker - Past Family History Daughter(s) Family Medical History: Cancer Additional Family Medical History / Comment(s): BASAL CELL CANCER Father Family Medical History: CVA/TIA Additional Family Medical History / Comment(s): at 58 from cerebral hemorrhage Mother Family Medical History: No Reported History Sister(s) Family Medical History: Hypertension Course Vital Signs 12/02/18 12/02/18 12/02/18 08:48 10:37 12:28 Temperature 98 F Pulse Rate 74 73 70 Respiratory 18 18 18 Rate Blood Pressure 105/65 112/45 106/46 O2 Sat by Pulse 97 95 94 L Oximetry - Reevaluation(s) Reevaluation #1: 12/02/18 13:13 Reevaluation the patient she developed some horizontal double vision I did discuss findings with her family members. Also with Dr. Cantor patient will require transfer to the initial CAT scan results shows no definite occlusion. Be transferred for higher level care and further evaluation. Disposition Clinical Impression: Lung cancer, Dehydration, Leukocytosis, Diplopia Disposition: OTHER INSTITUTION NOT DEFINED Condition: Fair Referrals: Jhonathan Mendoza MD [Primary Care Provider] - 1-2 days - Out of Hospital Transfer - Req. Specs Out of Hospital Transfer - Requested Specifics: Other Emergency Center
[2018-12-02 13:56] VITALS: BP 115/66; PULSE 71; TEMP 97.8
== END 2018-12-02 14:04 | disposition other institution (70) ==
LOC: EC 08:41
DX: C34.90 Malignant neoplasm of unspecified part of unspecified bronchus or lung (principal); E86.0 Dehydration; D72.829 Elevated white blood cell count, unspecified; H53.2 Diplopia; R51 Headache; K21.9 Gastro-esophageal reflux disease without esophagitis; I25.10 Atherosclerotic heart disease of native coronary artery without angina pectoris; E78.5 Hyperlipidemia, unspecified; I10 Essential (primary) hypertension; I25.2 Old myocardial infarction; F41.9 Anxiety disorder, unspecified; F32.9 Major depressive disorder, single episode, unspecified; F17.200 Nicotine dependence, unspecified, uncomplicated; Z85.828 Personal history of other malignant neoplasm of skin; Z90.49 Acquired absence of other specified parts of digestive tract; Z90.710 Acquired absence of both cervix and uterus; Z92.21 Personal history of antineoplastic chemotherapy; Z95.1 Presence of aortocoronary bypass graft; Z95.5 Presence of coronary angioplasty implant and graft; Z95.0 Presence of cardiac pacemaker; Z98.51 Tubal ligation status; Z98.890 Other specified postprocedural states; Z79.02 Long term (current) use of antithrombotics/antiplatelets; Z79.82 Long term (current) use of aspirin; Z79.899 Other long term (current) drug therapy; Z88.0 Allergy status to penicillin; Z88.1 Allergy status to other antibiotic agents
CPT/HCPCS: 99285 ×2; 96360 ×2; 96361 ×5; 36415; 93005; 80053; 82550; 84484; 85025; 85610; 85730; 81003; 71046; 70496; 70450; 70498; Q9967

== ENCOUNTER → 2018-12-25 | Outpatient (CLI) | payer MEDICARE, BC ==
[2018-12-25 14:56] LABS: ALT 30 U/L (9-52); AST 16 U/L (14-36); Blood Urea Nitrogen 22 mg/dL (7-17)
[2018-12-25 14:59] LABS: Anisocytosis Moderate; Basophils % (A) 0 %; Eosinophils % (A) 0 %; HCT 20.9 % (34.0-46.0); Lymphocytes # (A) 0.3 k/uL (1.0-4.8); Lymphocytes % (A) 9 %; MCH 35.3 pg (25.0-35.0); MCHC 34.8 g/dL (31.0-37.0); MCV 101.4 fL (80.0-100.0); Macrocytosis Moderate; Monocytes # (A) 0.2 k/uL (0-1.0); Monocytes % (A) 4 %; Neutrophils # (A) 3.2 k/uL (1.3-7.7); Neutrophils % (A) 85 %; RBC 2.06 m/uL (3.80-5.40); RDW 20.3 % (11.5-15.5); WBC 3.8 k/uL (3.8-10.6)
[2018-12-25 15:00] LABS: HGB 7.3 gm/dL (11.4-16.0); Platelet Count 46 k/uL (150-450)
--- NOTE | 2018-12-26 08:50 | CT ---
EXAMINATION TYPE: CT chest w con DATE OF EXAM: 12/25/2018 COMPARISON: 09/30/2018 CT chest and PET/CT dated 10/11/2018 HISTORY: Lung cancer. CT DLP: 443 mGycm. Automated Exposure Control for Dose Reduction was Utilized. TECHNIQUE: CT scan of the thorax is performed following with IV Contrast, patient injected with 100m l mL of Isovue 300. FINDINGS: LUNGS: There is moderate background emphysematous change of the lungs. There is a right lower lobe pu lmonary nodule measuring 9 mm on series 4 image 41 with spiculated margins. Additional right lower lo be 2 mm solid pulmonary nodule seen on image 45. The previously seen right middle lobe and lower lung consolidations have resolved in the interim. No left-sided pulmonary nodules or masses are seen. MEDIASTINUM: The previously seen bulky mediastinal adenopathy has entirely resolved in the interim wi th only a prominent 8 mm short axis pretracheal lymph node. Small hiatal hernia seen in the posterior mediastinum. Severe coronary artery calcifications are seen with post CABG changes. No pericardial e ffusion or pericardial enlargement. Ascending thoracic aorta is within normal limits for main pulmona ry artery is mildly enlarged measuring 3.0 cm suggesting pulmonary arterial hypertension. No central pulmonary embolus is seen. OTHER: The gallbladder is contracted. Left adrenal gland nodules indeterminate measuring 9 mm with [place] unit of 27.5. Three-phase enhanced CT abdomen or MR adrenal mass protocol is recommended for further characterization. Mild multilevel degenerative changes of the spine are seen. No suspicious osseous lesion is identified. IMPRESSION: 1. Complete resolution of the previously seen multifocal right lower lobe and right middle lobe opaci ties with no pathologically enlarged lymph nodes remaining. A large portion of the airspace disease w ith suspected to be on the basis of pneumonia, however correlate with any recent lung cancer treatmen t to assess for response to treatment. Only 9 mm into millimeter right lower lobe pulmonary nodules r emain. 2. Indeterminate left adrenal gland lesion for which CT abdomen or MR abdomen adrenal mass protocol r ecommended.
== END | disposition home or self-care (01) ==
LOC: RADPROMAIN 13:53
PROVIDERS: ATTEND Internal Medicine Hematology & Oncology
DX: Z03.89 Encounter for observation for other suspected diseases and conditions ruled out (principal); C34.91 Malignant neoplasm of unspecified part of right bronchus or lung; B35.1 Tinea unguium; Z88.0 Allergy status to penicillin; Z88.1 Allergy status to other antibiotic agents
CPT/HCPCS: 82565; 84450; 84460; 84520; 85025; 71260; 36415; Q9967

== ENCOUNTER → 2019-03-23 | Outpatient (CLI) | payer MEDICARE, BC ==
--- NOTE | 2019-03-23 13:20 | XR ---
EXAMINATION TYPE: XR chest 2V DATE OF EXAM: 03/23/2019 COMPARISON: 12/02/2018 HISTORY: 79-year-old female productive cough, lung cancer TECHNIQUE: Frontal and lateral views FINDINGS: Left anterior chest wall pacemaker generator with right atrial and right ventricular leads. Right ant erior chest wall injection port with catheter tip at the lower SVC level. Heart remains mildly enlarg ed. Diffuse interstitial prominence. No louann consolidation or pleural effusion. Mild hyperinflation. IMPRESSION: 1. Mild cardiomegaly and interstitial prominence; correlate to exclude mild pulmonary vascular conges tion. 2. COPD.
== END | disposition home or self-care (01) ==
LOC: RADXRMAIN 10:52
PROVIDERS: ATTEND Internal Medicine Hematology & Oncology
DX: I51.7 Cardiomegaly (principal); J44.9 Chronic obstructive pulmonary disease, unspecified; C34.91 Malignant neoplasm of unspecified part of right bronchus or lung; D50.9 Iron deficiency anemia, unspecified; I25.10 Atherosclerotic heart disease of native coronary artery without angina pectoris; I49.9 Cardiac arrhythmia, unspecified
CPT/HCPCS: 71046

== ENCOUNTER → 2019-03-26 | Outpatient (CLI) | payer MEDICARE, BC ==
[2019-03-26 11:51] LABS: African American GFR (CKD) >90 (>60 ml/min/1.73 sqM); Blood Urea Nitrogen 13 mg/dL (7-17)
--- NOTE | 2019-03-26 12:56 | CT ---
EXAMINATION TYPE: CT brain wo/w con DATE OF EXAM: 03/26/2019 COMPARISON: CT brain December 02, 2018. HISTORY: Malignant neoplasm of lung. CT DLP: 1969.4 mGycm Automated exposure control for dose reduction was used. CONTRAST: CT scan of the head is performed without and with IV Contrast, patient injected with 100 mL of Isovue 300. FINDINGS: Noncontrast images show no acute intracranial hemorrhage or midline shift. There is ventricular and s ulcal prominence redemonstrated. Some low attenuation in the periventricular white matter is again se en. Postcontrast images show no definitive suspicious enhancing intraparenchymal mass. The globes are intact and the visualized sinuses are clear. IMPRESSION: No suspicious enhancing intraparenchymal mass identified. Stable mild diffuse cerebral at rophy and chronic small vessel ischemic change.
== END | disposition home or self-care (01) ==
LOC: RADCTMAIN 11:01
PROVIDERS: ATTEND Radiology Radiation Oncology
DX: C34.31 Malignant neoplasm of lower lobe, right bronchus or lung (principal); G31.9 Degenerative disease of nervous system, unspecified; I67.82 Cerebral ischemia; Z92.21 Personal history of antineoplastic chemotherapy; Z92.3 Personal history of irradiation
CPT/HCPCS: 82565; 84520; 70470; 36415; Q9967

== ENCOUNTER → 2019-04-10 | Outpatient (CLI) | payer MEDICARE, BC ==
[2019-04-10 06:57] LABS: African American GFR (CKD) >90 (>60 ml/min/1.73 sqM); Blood Urea Nitrogen 18 mg/dL (7-17)
--- NOTE | 2019-04-10 08:42 | CT ---
EXAMINATION TYPE: CT chest abdomen wo/w con DATE OF EXAM: 04/10/2019 COMPARISON: CT chest December 25, 2018. PET/CT October 11, 2018. HISTORY: rt lung cancer originally diagnosed October 08, 2018 CT DLP: 969.1 mGycm. Automated Exposure Control for Dose Reduction was Utilized. CONTRAST: CT scan of the thorax, abdomen and pelvis is performed with oral and without and with IV Contrast, pa tient injected with 100 mL of Isovue 300. FINDINGS: LUNGS: Moderate underlying emphysematous changes present. There is tiny right pleural effusion. There is increasing right basilar linear atelectasis and/or scarring. No suspicious new nodules or masses. Marked interval improvement in right lower lobe hypermetabolic nodules with abnormal right hilar and subcarinal adenopathy. On current exam no residual or new nodules or masses. Stable 6 x 5 mm scarlik e opacity right lower lobe axial image 37. MEDIASTINUM: There are no new greater than 1 cm hilar or mediastinal lymph nodes. There are prominent but subcentimeter right paratracheal lymph node, largest measures 7 to 8 mm axial image 11 diminishe d in size from prior PET/CT. Cardiomegaly is redemonstrated with dual-lead pacemaker. There is new ri ght internal jugular Mediport catheter terminating in SVC. No pericardial effusion is seen. OTHER: Overlying sternal wires are redemonstrated. LIVER/GB: No significant abnormality is appreciated. PANCREAS: No significant abnormality is seen. SPLEEN: No significant abnormality is seen. ADRENALS: Stable 1.0 cm posterior limb left adrenal nodule or nodular thickening presumed benign give n no metabolic uptake on PET. KIDNEYS: No significant abnormality is seen. BOWEL: No significant abnormality is seen. LYMPH NODES: No greater than 1cm abdominal lymph nodes are appreciated. OSSEOUS STRUCTURES: No significant abnormality is seen. OTHER: Moderate to severe calcified plaque distal abdominal aorta extending into the iliac branch ves sels. IMPRESSION: Positive treatment response from October 11, 2018 PET/CT. No significant interval change from more recent CT. No new suspicious nodules or adenopathy.
== END | disposition home or self-care (01) ==
LOC: RADCTMAIN 05:56
PROVIDERS: ATTEND Radiology Radiation Oncology
DX: C34.31 Malignant neoplasm of lower lobe, right bronchus or lung (principal); Z92.3 Personal history of irradiation; Z92.21 Personal history of antineoplastic chemotherapy
CPT/HCPCS: 82565; 84520; 71270; 74170; 36415; Q9967

== ENCOUNTER → 2019-06-15 | Outpatient (CLI) | payer MEDICARE, BC ==
--- NOTE | 2019-06-15 21:10 | CT ---
EXAMINATION TYPE: CT chest w con DATE OF EXAM: 06/15/2019 COMPARISON: Prior CT chest 04/10/2019 HISTORY: Lung cancer CT DLP: 591 mGycm Automated exposure control for dose reduction was used. CONTRAST: CT scan of the chest is performed with IV Contrast, patient injected with 100 mL of . FINDINGS: LUNGS: The lungs shows extensive emphysematous changes as on prior exam, there are areas of basilar s carring on the right similar to prior exam, interstitial changes There is no pleural effusion or pneu mothorax seen. The tracheobronchial tree is patent. MEDIASTINUM: Patient is post median sternotomy. There are dense coronary artery calcifications. Pulmo nary artery is enlarged, correlate for pulmonary artery hypertension. There are no greater than 1 cm hilar or mediastinal lymph nodes. No pericardial effusion is seen. AORTA: There are dense vascular calcifications. OTHER: There is a new soft tissue mass on axial image 43 adjacent to the vertebral body ofT11 to the right of midline, an interval finding, measuring 2.3 cm. There is persistent posterior pleural thick ening along the posterior inferior right hemithorax. Port-A-Cath present in the right pectoral region via right internal jugular vein approach courses into the cavoatrial junction level. There is a gene rator in the left pectoral region, leads course via the left subclavian into the right ventricle and atrium. IMPRESSION: Findings suspicious for tumor recurrence right lower lobe. Nuclear medicine PET/CT May BE of benefit. Correlate for pulmonary artery hypertension. Coronary artery disease, emphysema.
== END | disposition home or self-care (01) ==
LOC: RADCTMAIN 16:09
PROVIDERS: ATTEND Internal Medicine Hematology & Oncology
DX: Z03.89 Encounter for observation for other suspected diseases and conditions ruled out (principal); C34.91 Malignant neoplasm of unspecified part of right bronchus or lung; I25.10 Atherosclerotic heart disease of native coronary artery without angina pectoris; J43.9 Emphysema, unspecified; Z88.0 Allergy status to penicillin; Z88.2 Allergy status to sulfonamides
CPT/HCPCS: 82565; 84520; 71260; 36415; Q9967

== ENCOUNTER → 2019-06-26 | Outpatient (CLI) | payer MEDICARE, BC ==
--- NOTE | 2019-06-29 07:40 | PE ---
EXAMINATION TYPE: PET CT fusion skull to thigh DATE OF EXAM: 06/26/2019 COMPARISON: 06/15/2019 Prior PET/CT: 10/11/2018 HISTORY: Lung cancer TECHNIQUE: Following the intravenous administration of 11.05 mCi of F-18 FDG, whole body images are performed from the skull base to the midthigh. Images are reviewed on the computer in the coronal, a xial, and sagittal planes. Reconstructed rotating images are created on independent workstation and reviewed on the computer. A localization and attenuation correction CT is performed in conjunction with the PET scan. DLP: 458.73 mGycm SCAN: Subsequent Blood glucose: 90 mg/dL Average Mediastinum SUV: 1.46 Average Liver SUV: 2.62 FINDINGS: NECK: No abnormal uptake THORAX: There is a focus of radiotracer accumulation within the medial pleural margin adjacent to the vertebral body just above the diaphragm. Image 115. This has an SUV value of 3.61. This is new. There is some uptake within an area of the posterior lateral right lung. Image 84. This is an SUV pablito ue of 2.9. This area does not clearly correlate with prior abnormal uptake. This could be some residu al, consider some inflammatory change in the differential. ABDOMEN: No abnormal uptake PELVIS: No abnormal uptake OSSEOUS STRUCTURES: There may be some mild increase in uptake within the greater trochanter tip, imag e 209 with an SUV value of 2.[address]: Heart size is somewhat prominent. COMPARISON: A previous superior mediastinal lymph node remains present but SUV value is markedly dimi nished over the interval. Image 58. Likewise, subcarinal and right hilar adenopathy appears resolved. Posterior lateral right lung uptake has resolved. Small right pleural effusion is developed. IMPRESSION: 1. Resolution previous mediastinal adenopathy. There is significant improvement of right lower lobe a reas of uptake. 2. There may be some residual or new uptake within a posterior lateral right lower lobe region. 3. New intense uptake within the medial right lung base. 4. Some mild increase may be at the right greater trochanter.
== END | disposition home or self-care (01) ==
LOC: RADPETMAIN 16:02
PROVIDERS: ATTEND Internal Medicine Hematology & Oncology
DX: C34.31 Malignant neoplasm of lower lobe, right bronchus or lung (principal); R91.8 Other nonspecific abnormal finding of lung field; Z92.3 Personal history of irradiation; Z92.21 Personal history of antineoplastic chemotherapy
CPT/HCPCS: 78815; A9552

== ENCOUNTER → 2019-07-14 | Outpatient (CLI) | payer MEDICARE, BC ==
--- NOTE | 2019-07-14 11:05 | CT ---
EXAMINATION TYPE: CT brain wo/w con DATE OF EXAM: 07/14/2019 COMPARISON: 03/26/2019 HISTORY: Lung cancer. CT DLP: 1017.9 mGycm Automated Exposure Control for Dose Reduction was Utilized. TECHNIQUE: CT scan of the head is performed with IV contrast.,CT scan of the head is performed withou t and with with IV Contrast, patient injected with 100 mL of Isovue 300. FINDINGS: There are a few calcifications within the subarachnoid space. These may be as a result of prior injury, subarachnoid hemorrhage, or intrathecal contrast administration. Noncontrast images isi w no acute intracranial hemorrhage or midline shift. There are few periventricular areas of hypoatten uation, most commonly on the basis of chronic microangiopathy. The ventricles and sulci are symmetric ally prominent compatible with age-related volume loss. Postcontrast images show no suspicious enhanc ing intraparenchymal mass. Atherosclerosis is noted in the intracranial vasculature. The globes are i ntact and the visualized sinuses are clear. IMPRESSION: 1. No new suspicious intracranial enhancement. No CT evidence of intracranial metastasis. 2. Stable mild burden nonspecific white matter change, likely on the basis of chronic microangiopathy and age-related volume loss.
== END ==
LOC: RADCTMAIN 09:00
PROVIDERS: ATTEND Radiology Radiation Oncology
DX: C34.31 Malignant neoplasm of lower lobe, right bronchus or lung (principal); R90.89 Other abnormal findings on diagnostic imaging of central nervous system; Z92.3 Personal history of irradiation; Z92.21 Personal history of antineoplastic chemotherapy
CPT/HCPCS: 82565; 84520; 70470; 36415; Q9967

== ENCOUNTER → 2019-10-03 | Outpatient (CLI) | payer MEDICARE, BC ==
--- NOTE | 2019-10-06 06:15 | PE ---
EXAMINATION TYPE: PET CT fusion skull to thigh DATE OF EXAM: 10/03/2019 COMPARISON: Prior PET/CT June 26, 2019 and older studies. HISTORY: Lung cancer progress study originally diagnosed October 2018 completed chemotherapy December 02 also with radiation treatment to right lung. TECHNIQUE: Following the intravenous administration of 12.06 mCi of F-18 FDG, whole body images are performed from the skull base to the midthigh. Images are reviewed on the computer in the coronal, a xial, and sagittal planes. Reconstructed rotating images are created on independent workstation and reviewed on the computer. A noncontrast CT is performed in conjunction with the PET scan. SCAN: Subsequent Scan FINDINGS: SKULL BASE AND NECK: No new areas of abnormal hypermetabolic uptake. CHEST, MEDIASTINUM, AND HILAR REGION: Background moderate to advanced underlying emphysematous change redemonstrated. There is small to moderate size right pleural effusion seen increased in size from m ost recent PET/CT. There is further increase in size of right paravertebral soft tissue lesion in the lower thorax now measuring 4.8 x 3.5 cm axial image 121 with increased hypermetabolic uptake, max REYES V is 12.18 on current study. Metastatic neoplastic progression is felt present. There is new hypermetabolic uptake involving the anterior aspect of the diaphragm which is thickened axial image 118, max SUV is 5.27. Areas of groundglass opacity and reticulation throughout the right lung show increased prominence as particularly in the periphery favoring posttreatment change. No definitive additional areas of new hy permetabolic uptake. ABDOMEN AND PELVIS: There is new hypermetabolic 10 x 9 mm retroperitoneal lymph node posterior to IVC axial image 147, max SUV is 3.82. There are additional suspicious enlarging upper abdominal slightly hypermetabolic lymph nodes for reference left periaortic 11 x 9 mm lymph node axial image 139 with m ax SUV of 3.28. Hypermetabolic focus just posterior to the stomach axial image 143 has maximum SUV of 4.06 corresponding to new 12 x 11 mm lesion at this level. OSSEOUS STRUCTURES: No new areas of suspicious hypermetabolic uptake. OTHER CT: Persistent post-CABG changes with mediastinal clips and sternal wires. Persistent right int ernal jugular Mediport catheter terminating at cavoatrial junction. Persistent cardiomegaly with mult i lead pacemaker. Moderate calcified plaque bilateral carotid bulb level redemonstrated. Enlarged pul monary arteries redemonstrated consistent with underlying pulmonary artery hypertension. Mild to moderate fat replaced atrophy of pancreas. Moderate to severe calcified plaque of the abdomin al aorta extending into branch vessels. Uterus surgically absent. Large calcified phleboliths in the pelvic cul-de-sac. Moderate to severe disc space narrowing with vacuum disc phenomenon lumbosacral ju nction. IMPRESSION: Neoplastic progression is present with enlarging hypermetabolic right prevertebral mass i n the lower thorax. New hypermetabolic anterior right diaphragmatic thickening and new upper to mid a bdominal hypermetabolic soft tissue nodules or suspected adenopathy.
== END | disposition home or self-care (01) ==
LOC: RADPETMAIN 08:08
PROVIDERS: ATTEND Internal Medicine Hematology & Oncology
DX: Z51.11 Encounter for antineoplastic chemotherapy (principal); C34.31 Malignant neoplasm of lower lobe, right bronchus or lung
CPT/HCPCS: 78815; A9552

== ENCOUNTER → 2019-10-08 | Outpatient (CLI) | payer MEDICARE ==
--- NOTE | 2019-10-08 16:09 | NM ---
EXAMINATION TYPE: NM bone scan whole body DATE OF EXAM: 10/08/2019 COMPARISON: Prior PET/CT 10/03/2019 HISTORY: Abnormal PET/CT, lung carcinoma Delayed whole-body scanning was performed following the injection of 26.6 mCi Tc 99m MDP. Images acq uired 3 hours post injection. FINDINGS: Abnormal uptake is noted in the lower thoracic spine at the site of patient's compression deformity a t T11. Bandlike area suggests compression fracture at this level on bone scan. Soft tissue uptake is normal. No additional areas of abnormal uptake to suggest metastatic disease. 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
== END | disposition home or self-care (01) ==
LOC: RADNMMAIN 11:30
PROVIDERS: ATTEND Internal Medicine Hematology & Oncology
DX: C34.91 Malignant neoplasm of unspecified part of right bronchus or lung (principal); M54.9 Dorsalgia, unspecified
CPT/HCPCS: 78306; A9503

== ENCOUNTER → 2019-10-15 | Outpatient (CLI) | payer BC, MEDICARE ==
[2019-10-15 14:39] LABS: African American GFR (CKD) >90 (>60 ml/min/1.73 sqM); Blood Urea Nitrogen 28 mg/dL (7-17); Non-African American GFR(CKD) 88 (>60 ml/min/1.73 sqM)
--- NOTE | 2019-10-15 15:34 | CT ---
EXAMINATION TYPE: CT brain w con DATE OF EXAM: 10/15/2019 COMPARISON: 07/14/2019 HISTORY: Lung CA, CR, R/O metastatic disease CT DLP: 975.5 mGycm Automated exposure control for dose reduction was used. CONTRAST: CT scan of the head is performed with IV Contrast, patient injected with 100 mL of Isovue 300. FINDINGS: There is no abnormal enhancing mass or midline shift identified. The ventricles and sulci are within normal limits in size. The globes are intact and the visualized sinuses are clear. IMPRESSION: No evidence for pathologic enhancement or enhancing mass.
== END ==
LOC: RADPROMAIN 13:54
PROVIDERS: ATTEND Internal Medicine Hematology & Oncology
DX: R51 Headache (principal); C34.91 Malignant neoplasm of unspecified part of right bronchus or lung
CPT/HCPCS: 82565; 84520; 70460; 36415; J1642; Q9967

== ENCOUNTER 2019-10-19 13:56 | Inpatient (IN) | payer MEDICARE ==
[2019-10-19] MEDS ORDERED: IPRATROPIUM 0.5 MG/2.5 ML NEBU INHALATION STA (14:03)
[2019-10-19] MEDS ORDERED: ALBUTEROL NEBULIZED 2.5 MG/3 ML INHALATION STA (14:03)
--- NOTE | 2019-10-19 14:06 | ED ---
General Adult HPI - General Stated complaint: difficulty breathing Time Seen by Provider: 10/19/19 14:00 Source: patient, RN notes reviewed, old records reviewed - History of Present Illness Initial comments: 79-year-old female history of COPD, current lung cancer on radiation presenting with cough and dyspnea. Patient denies fever. Denies central chest pain. History is somewhat limited secondary to respiratory distress. She was transported by EMS, given albuterol, Atrovent, 125 mg of Solu-Medrol prior to arrival. She had stable vitals during transport. She denies a history of CHF, no history DVT or PE. - Related Data Home Medications Medication Instructions Recorded Confirmed Lovastatin [Mevacor] 20 mg PO HS 06/04/14 10/19/19 Metoprolol Tartrate 25 mg PO QAM 06/04/14 10/19/19 Nitroglycerin Sl Tabs [Nitrostat] 0.4 mg SUBLINGUAL Q5M PRN 06/29/15 10/19/19 Aspirin [Adult Low Dose Aspirin EC] 81 mg PO HS 09/24/16 10/19/19 Clopidogrel [Plavix] 75 mg PO DAILY 09/24/16 10/19/19 Pantoprazole [Protonix] 40 mg PO DAILY 04/12/17 10/19/19 PARoxetine [Paxil] 10 mg PO HS 12/02/18 10/19/19 ALPRAZolam [Xanax] 0.25 mg PO DAILY PRN 10/19/19 10/19/19 Cyclobenzaprine [Flexeril] 10 mg PO Q8H PRN 10/19/19 10/19/19 Dexamethasone [Decadron] 4 mg PO TID 10/19/19 10/19/19 Fluconazole 200 mg PO DAILY 10/19/19 10/19/19 Lidocaine-Prilocaine Cream [Emla 1 applic TOPICAL DAILY PRN 10/19/19 10/19/19 Cream 2.5%/2.5%] Losartan [Cozaar] 25 mg PO HS 10/19/19 10/19/19 Naloxone HCl [Narcan] 4 mg NASAL ONCE PRN 10/19/19 10/19/19 oxyCODONE-APAP 10-325MG [Percocet 1 tab PO Q6H PRN 10/19/19 10/19/19 10-325 mg] Allergies Allergy/AdvReac Type Severity Reaction Status Date / Time cefuroxime axetil Allergy Severe Anaphylaxis Verified 10/19/19 17:34 [From Ceftin] Penicillins Allergy Severe Rash/Hives Verified 10/19/19 17:34 Cephalosporins Allergy Anaphylaxis Verified 10/19/19 17:34 Review of Systems ROS Statement: Those systems with pertinent positive or pertinent negative responses have been documented in the HPI. ROS Other: All systems not noted in ROS Statement are negative. Past Medical History Past Medical History: Coronary Artery Disease (CAD), Cancer, Chest Pain / Angina, GERD/Reflux, Hyperlipidemia, Hypertension, Myocardial Infarction ([place]), Osteoarthritis (OA) Additional Past Medical History / Comment(s): stated "recent tx of lung infections and had CT scan that looked suspicious",slight right carotid stenosis, Hx of chronic bronchitis, aortic , mitral & tricuspid regurgitation, Hx of retinal detachment, environmental allergies, Squamous cell cancer removed., Tested Positive for lupus and will be having further testing. , Pt was hospitalized 09/21-09/22/16 for Rectal Bleeding and received blood transfusion. Last Myocardial Infarction Date:: 06/2013 History of Any Multi-Drug Resistant Organisms: None Reported Past Surgical History: Appendectomy, Coronary Bypass/CABG, Heart Catheterization With Stent, Hysterectomy, Pacemaker, Tubal Ligation Additional Past Surgical History / Comment(s): 3 vessel cabg 01/2010, retinal detachment surgery of the right eye, cataract removal and lens implant bilaterally. TONGUE MASS REMOVED, Cardiac Stents Jun 2013, Jun 2014 and November 2015 ([place]). Past Anesthesia/Blood Transfusion Reactions: No Reported Reaction, Family History of Problems w/ Anesthesia Additional Past Anesthesia/Blood Transfusion Reaction / Comment(s): RECEIVED BLOOD TRANSFUSION 09/21/16-Positive Antibodies,Daughter PONV Date of Last Stent Placement:: 2015 Type of Cardiac Device: Permanent Pacemaker Device Placement Date:: 04/2007 Smoking Status: Former smoker - Past Family History Daughter(s) Family Medical History: Cancer Additional Family Medical History / Comment(s): BASAL CELL CANCER Father Family Medical History: CVA/TIA Additional Family Medical History / Comment(s): at 58 from cerebral hemorrhage Mother Family Medical History: No Reported History Sister(s) Family Medical History: Hypertension General Exam General appearance: alert, in distress Head exam: Present: atraumatic, normocephalic Eye exam: Present: normal appearance. Absent: PERRL, EOMI ENT exam: Present: normal exam Neck exam: Present: normal inspection. Absent: tenderness, meningismus Respiratory exam: Present: respiratory distress, wheezes, rhonchi, accessory muscle use, decreased breath sounds Cardiovascular Exam: Present: regular rate, normal rhythm GI/Abdominal exam: Present: soft. Absent: distended, tenderness, guarding Extremities exam: Present: normal inspection, normal capillary refill. Absent: pedal edema, calf tenderness Neurological exam: Present: alert, oriented X3, CN II-XII intact. Absent: motor sensory deficit Psychiatric exam: Present: normal affect, normal mood Skin exam: Present: warm, dry, intact. Absent: cyanosis, diaphoretic Course Vital Signs 10/19/19 10/19/19 10/19/19 13:58 14:08 14:30 Temperature 97.5 F L Pulse Rate 69 105 H 105 H Respiratory 22 Rate Blood Pressure 137/67 O2 Sat by Pulse 98 Oximetry 10/19/19 16:00 Temperature Pulse Rate 100 Respiratory 20 Rate Blood Pressure 125/54 O2 Sat by Pulse 94 L Oximetry EKG Findings - EKG Comments: EKG Findings:: EKG: Demand pacemaker, atrial fibrillation rate of 101, QRS duration 164, QTC 510 Medical Decision Making - Medical Decision Making 79-year-old female with dyspnea, she has bilateral wheezing throughout, history of COPD and remote history of tobacco use, currently being treated for lung CVA on chemotherapy. Scheduled for radiation. Denies fever. Denies chest pain. She is in extremis at the time of my initial evaluation history is somewhat limited. She has a chest x-ray showing concern for CHF versus pneumonia versus pneumonitis. She is leukopenic with a total white blood cell, 0.4. She is anemic 7.7 which is stable for this patient. She is initiated on Levaquin in the emergency department. She has a elevated troponin and elevated BNP consistent with heart failure, she additionally has a very elevated lactic acid of 70 discussed case with her powder coat painter Dr. Núñez who will accept this admission to the ICU for close monitoring. She is continued on breathing treatments and steroids as well as antibiotics. Diagnosis: Multifactorial dyspnea, pneumonia, COPD, CHF, lung cancer - Lab Data Result diagrams: 10/22/19 09:05 10/22/19 04:15 Lab Results 10/19/19 10/19/19 10/19/19 Range/Units 14:10 14:32 14:32 WBC 0.4 L* (3.8-10.6) k/uL RBC 2.25 L (3.80-5.40) m/uL Hgb 7.7 L (11.4-16.0) gm/dL Hct 23.4 L (34.0-46.0) % MCV 103.7 H (80.0-100.0) fL MCH 34.2 (25.0-35.0) pg MCHC 33.0 (31.0-37.0) g/dL RDW 14.8 (11.5-15.5) % Plt Count 7 L* (150-450) k/uL Neutrophils # [facility] Differential Comment Manual Slide Review Performed Poikilocytosis Slight Macrocytosis Slight PT (9.0-12.0) sec INR (<1.2) APTT (22.0-30.0) sec Sodium 134 L (137-145) mmol/L Potassium 4.2 (3.5-5.1) mmol/L Chloride 103 (98-107) mmol/L Carbon Dioxide 18 L (22-30) mmol/L Anion Gap 13 mmol/L BUN 37 H (7-17) mg/dL Creatinine 0.72 (0.52-1.04) mg/dL Est GFR (CKD-EPI)AfAm >90 (>60 ml/min/1.73 sqM) Est GFR (CKD-EPI)NonAf 81 (>60 ml/min/1.73 sqM) Glucose 217 H (74-99) mg/dL Lactic Ac Sepsis Rflx Plasma Lactic Acid Derrell (0.7-2.0) mmol/L Calcium 8.0 L (8.4-10.2) mg/dL Magnesium 1.9 (1.6-2.3) mg/dL Total Bilirubin 1.5 H (0.2-1.3) mg/dL AST 25 (14-36) U/L ALT 25 (4-34) U/L Alkaline Phosphatase 105 (38-126) U/L Troponin I (0.000-0.034) ng/mL NT-Pro-B Natriuret Pep pg/mL Total Protein 5.1 L (6.3-8.2) g/dL Albumin 2.9 L (3.5-5.0) g/dL Influenza Type A RNA Not Detected (Not Detectd) Influenza Type B (PCR) Not Detected (Not Detectd) 10/19/19 10/19/19 10/19/19 Range/Units 14:32 14:32 14:32 WBC (3.8-10.6) k/uL RBC (3.80-5.40) m/uL Hgb (11.4-16.0) gm/dL Hct (34.0-46.0) % MCV (80.0-100.0) fL MCH (25.0-35.0) pg MCHC (31.0-37.0) g/dL RDW (11.5-15.5) % Plt Count (150-450) k/uL Neutrophils # Differential Comment Manual Slide Review Poikilocytosis Macrocytosis PT 11.4 (9.0-12.0) sec INR 1.1 (<1.2) APTT 22.9 (22.0-30.0) sec Sodium (137-145) mmol/L Potassium (3.5-5.1) mmol/L Chloride (98-107) mmol/L Carbon Dioxide (22-30) mmol/L Anion Gap mmol/L BUN (7-17) mg/dL Creatinine (0.52-1.04) mg/dL Est GFR (CKD-EPI)AfAm (>60 ml/min/1.73 sqM) Est GFR (CKD-EPI)NonAf (>60 ml/min/1.73 sqM) Glucose (74-99) mg/dL Lactic Ac Sepsis Rflx Plasma Lactic Acid Derrell 7.4 H* (0.7-2.0) mmol/L Calcium (8.4-10.2) mg/dL Magnesium (1.6-2.3) mg/dL Total Bilirubin (0.2-1.3) mg/dL AST (14-36) U/L ALT (4-34) U/L Alkaline Phosphatase (38-126) U/L Troponin I (0.000-0.034) ng/mL NT-Pro-B Natriuret Pep 34736 pg/mL Total Protein (6.3-8.2) g/dL Albumin (3.5-5.0) g/dL Influenza Type A RNA (Not Detectd) Influenza Type B (PCR) (Not Detectd) 10/19/19 10/19/19 Range/Units 14:32 14:57 WBC (3.8-10.6) k/uL RBC (3.80-5.40) m/uL Hgb (11.4-16.0) gm/dL Hct (34.0-46.0) % MCV (80.0-100.0) fL MCH (25.0-35.0) pg MCHC (31.0-37.0) g/dL RDW (11.5-15.5) % Plt Count (150-450) k/uL Neutrophils # Differential Comment Manual Slide Review Poikilocytosis Macrocytosis PT (9.0-12.0) sec INR (<1.2) APTT (22.0-30.0) sec Sodium (137-145) mmol/L Potassium (3.5-5.1) mmol/L Chloride (98-107) mmol/L Carbon Dioxide (22-30) mmol/L Anion Gap mmol/L BUN (7-17) mg/dL Creatinine (0.52-1.04) mg/dL Est GFR (CKD-EPI)AfAm (>60 ml/min/1.73 sqM) Est GFR (CKD-EPI)NonAf (>60 ml/min/1.73 sqM) Glucose (74-99) mg/dL Lactic Ac Sepsis Rflx Y Plasma Lactic Acid Derrell (0.7-2.0) mmol/L Calcium (8.4-10.2) mg/dL Magnesium (1.6-2.3) mg/dL Total Bilirubin (0.2-1.3) mg/dL AST (14-36) U/L ALT (4-34) U/L Alkaline Phosphatase (38-126) U/L Troponin I 0.151 H* (0.000-0.034) ng/mL NT-Pro-B Natriuret Pep pg/mL Total Protein (6.3-8.2) g/dL Albumin (3.5-5.0) g/dL Influenza Type A RNA (Not Detectd) Influenza Type B (PCR) (Not Detectd) Critical Care Time Critical Care Time: Yes Total Critical Care Time: 35 Disposition Clinical Impression: Lung mass, Anemia, Congestive heart failure, Acute exacerbation of chronic obstructive pulmonary disease, HCAP (healthcare-associated pneumonia) Disposition: ADMITTED IP TO THIS HOSP Condition: Stable Is patient prescribed a controlled substance at d/c from ED?: No Decision to Admit Reason: Admit from EC
[2019-10-19 14:56] LABS: AST 25 U/L (14-36); African American GFR (CKD) >90 (>60 ml/min/1.73 sqM); Albumin 2.9 g/dL (3.5-5.0); Alkaline Phosphatase 105 U/L (38-126); Anion Gap 13 mmol/L; Blood Urea Nitrogen 37 mg/dL (7-17); Carbon Dioxide 18 mmol/L (22-30); Chloride 103 mmol/L (98-107); Glucose 217 mg/dL (74-99); Magnesium 1.9 mg/dL (1.6-2.3); Non-African American GFR(CKD) 81 (>60 ml/min/1.73 sqM); Potassium 4.2 mmol/L (3.5-5.1); Sodium 134 mmol/L (137-145); Total Bilirubin 1.5 mg/dL (0.2-1.3); Total Protein 5.1 g/dL (6.3-8.2)
[2019-10-19 14:57] LABS: INR 1.1 (<1.2); Partial Thromboplastin Time 22.9 sec (22.0-30.0); Prothrombin Time 11.4 sec (9.0-12.0)
[2019-10-19 15:03] LABS: ALT 25 U/L (4-34)
[2019-10-19] MEDS ORDERED: SODIUM CHLORIDE 0.9% 500 ML 500 ML IV ONE (15:03)
[2019-10-19] MEDS ORDERED: SODIUM CHLORIDE 0.9% 1,000 ML IV ONE (15:03)
[2019-10-19] MEDS ORDERED: LEVOFLOXACIN 500MG-D5W PMX 500 MG in DEXTROSE/WATER 1 100ML.BAG IVPB STA (15:04)
--- NOTE | 2019-10-19 15:09 | XR ---
EXAMINATION TYPE: XR chest 1V portable DATE OF EXAM: 10/19/2019 COMPARISON: 03/23/2019 HISTORY: Shortness of breath FINDINGS: There are bilateral pleural effusions with cardiomegaly and bibasilar infiltrate. There is a diffuse interstitial pattern. Postoperative change and cardiac device is seen. Mediport catheter noted. Hype rinflation suggests COPD and there is likely a degree of underlying chronic interstitial lung disease . Diffuse osteopenia and arthropathy of the shoulders. IMPRESSION: 1. Correlate for CHF otherwise consider atypical or interstitial pneumonia or pneumonitis.
[2019-10-19 15:15] LABS: HCT 23.4 % (34.0-46.0); HGB 7.7 gm/dL (11.4-16.0); MCH 34.2 pg (25.0-35.0); MCV 103.7 fL (80.0-100.0); Macrocytosis Slight; Mean Platelet Volume 11.1; Poikilocytosis Slight; RBC 2.25 m/uL (3.80-5.40); RDW 14.8 % (11.5-15.5)
[2019-10-19] MEDS ORDERED: SODIUM CHLORIDE 0.9% 1,000 ML IV SCH (15:15)
[2019-10-19 15:20] LABS: WBC 0.4 k/uL (3.8-10.6)
[2019-10-19] MEDS ORDERED: IPRATROPIUM-ALBUTEROL 3 ML NEB INHALATION PRN (15:33)
[2019-10-19] MEDS ORDERED: ASPIRIN 325 MG TAB PO STA (15:34)
[2019-10-19] MEDS ORDERED: ALBUTEROL NEBULIZED 2.5 MG/3 ML INHALATION PRN (15:38)
[2019-10-19] MEDS ORDERED: FUROSEMIDE 10 MG/ML 4 ML VIAL IV STA (15:47)
[2019-10-19 15:59] LABS: Platelet Count 7 k/uL (150-450)
[2019-10-19] MEDS: IPRATROPIUM-ALBUTEROL 3 ML NEB INHALATION SCH ×2 (16:54→21:12)
[2019-10-19] MEDS ORDERED: ALPRAZolam 0.25 MG TAB PO PRN (17:31)
[2019-10-19] MEDS ORDERED: oxyCODONE-APAP 10-325MG 1 EACH TAB PO PRN (17:31)
--- NOTE | 2019-10-19 17:31 | P.CNPUL ---
History of Present Illness Consult date: 10/19/19 Reason for consult: dyspnea History of present illness: 79-year-old female patient known history of COPD, known history of metastatic small cell lung cancer who received systemic chemotherapy on 10/08/2019 with a combination of carboplatinum and MUS[employer] V[employer] DIRECTOR-16 based on evidence of progression of her small cell lung cancer that was identified on a PET scan that was done on 10/03/2019. The patient was diagnosed initially having small cell lung cancer back in December 2018. She was treated with a combination of systemic chemotherapy and immunotherapy including Tecentriq. The patient developed reaction possible pneumonitis to the medication the patient was being treated with systemic steroids and immunotherapy has been discontinued. The PET scan that was done on 10/03/2019 showed background emphysema, and a large right paravertebral soft tissue lesion in the lower thorax measuring 4.8 x 3.5 cm with intense metabolic activity and there are also metabolic activity in the anterior aspect of the diaphragm and there was also some areas of groundglass opacity and reticular changes in the right lower lung area and there was suspicious enlarging a bdominal lymphadenopathy with increased metabolic activity. No areas other than those. Based on that, the patient was started on systemic chemotherapy. She came into the ED today complaining of shortness of breath and cough. No fever. The patient was given a blood work in the emergency department and initially she was found to be pancytopenic with a 0.4 white cell count and hemoglobin of 7.7 with a platelet count of 7. Her BUN was 37 with a creatinine of 0.7. Troponin was at 0.15 and the proBNP level was 12,800. Also, her lactic acid level was 7.4. Influenza screen was negative. The patient was was also given a chest x- ray that showed interstitial changes and pneumonitis changes in the right infrahilar area and above the diaphragm. There was some background COPD and hyperinflation. Diffuse osteopenia was also seen. The patient was supposed to start radiation therapy for this abnormal paraspinal mass. Note that the CAT scan of the spine that was done on 10/09/2019 showed severe compression fraction of 11 and approximately 5-10% retropulsion. There was also a large right paraspinal mass extending D10 through T12 with some extension towards the T11 right neuroforamina. There was a moderate-sized right-sided pleural effusion that was also noted which was of a new onset. Bone scan findings are essentially the same. The patient was given Levaquin in the emergency de partment. The patient was admitted to the hospital. Echo was done. Currently is on IV fluids at 75 mL an hour. She remains afebrile. No altered mentation. CAT scan of the brain that was done on 10/15/2019 was negative. Review of Systems Constitutional: Reports chronic pain, Reports daytime sleepiness, Reports fatigue, Reports weakness Eyes: denies as per HPI, denies blurred vision, denies bulging eye, denies decreased vision, denies diplopia, denies discharge, denies dry eye, denies irritation, denies itching, denies pain, denies photophobia, denies loss of peripheral vision, denies loss of vision, denies tunnel vision/blind spots Ears: deny: decreased hearing, ear discharge, earache, tinnitus Ears, nose, mouth and throat: Denies headache, Denies sore throat Breasts: absent: as per HPI, change in shape, gynecomastia, masses, nipple discharge, pain, skin changes, swelling Cardiovascular: Reports decreased exercise tolerance, Reports dyspnea on exertion Respiratory: Reports cough, Reports wheezing Gastrointestinal: Denies abdominal pain, Denies diarrhea, Denies nausea, Denies vomiting Genitourinary: Reports as per HPI Menstruation: Reports as per HPI Musculoskeletal: Reports as per HPI (Back pain at the level of the thoracic spine/lower thoracic spine ) Musculoskeletal: absent: ankle pain, ankle stiffness, ankle swelling Integumentary: Denies pruritus, Denies rash Neurological: Reports as per HPI Psychiatric: Reports as per HPI Endocrine: Reports as per HPI, Reports fatigue Past Medical History Past Medical History: Coronary Artery Disease (CAD), Cancer, Chest Pain / Angina, GERD/Reflux, Hyperlipidemia, Hypertension, Myocardial Infarction ([place]), Osteoarthritis (OA) Additional Past Medical History / Comment(s): Metastatic small cell lung cancer, coronary artery disease, previous bypass surgery, previous history of pacemaker insertion for cardiac block, hypertension, osteoarthritis, right carotid artery stenosis, COPD, retinal detachment, environmental ALLERGIES, squamous cell carci noma of the skin, previous history of GI bleed, previous history of blood transfusion Last Myocardial Infarction Date:: 06/2013 History of Any Multi-Drug Resistant Organisms: None Reported Past Surgical History: Appendectomy, Coronary Bypass/CABG, Heart Catheterization With Stent, Hysterectomy, Pacemaker, Tubal Ligation Additional Past Surgical History / Comment(s): 3 vessel cabg 01/2010, retinal detachment surgery of the right eye, cataract removal and lens implant bilaterally. TONGUE MASS REMOVED, Cardiac Stents Jun 2013, Jun 2014 and November 2015 ([place]). Past Anesthesia/Blood Transfusion Reactions: No Reported Reaction, Family History of Problems w/ Anesthesia Additional Past Anesthesia/Blood Transfusion Reaction / Comment(s): RECEIVED BLOOD TRANSFUSION 09/21/16-Positive Antibodies,Daughter PONV Date of Last Stent Placement:: 2015 Type of Cardiac Device: Permanent Pacemaker Device Placement Date:: 04/2007 Smoking Status: Former smoker - Past Family History Daughter(s) Family Medical History: Cancer Additional Family Medical History / Comment(s): BASAL CELL CANCER Father Family Medical History: CVA/TIA Additional Family Medical History / Comment(s): at 58 from cerebral hemorrhage Mother Family Medical History: No Reported History Sister(s) Family Medical History: Hypertension Medications and Allergies Home Medications Medication Instructions Recorded Confirmed Type Lovastatin [Mevacor] 20 mg PO HS 06/04/14 10/19/19 History Metoprolol Tartrate 25 mg PO QAM 06/04/14 10/19/19 History Nitroglycerin Sl Tabs [Nitrostat] 0.4 mg SUBLINGUAL Q5M PRN 06/29/15 10/19/19 History Aspirin [Adult Low Dose Aspirin EC] 81 mg PO HS 09/24/16 10/19/19 History Clopidogrel [Plavix] 75 mg PO DAILY 09/24/16 10/19/19 History Pantoprazole [Protonix] 40 mg PO DAILY 04/12/17 10/19/19 History PARoxetine [Paxil] 10 mg PO HS 12/02/18 10/19/19 History ALPRAZolam [Xanax] 0.25 mg PO DAILY PRN 10/19/19 10/19/19 History Cyclobenzaprine [Flexeril] 10 mg PO Q8H PRN 10/19/19 10/19/19 History Dexamethasone [Decadron] 4 mg PO TID 10/19/19 10/19/19 History Fluconazole 200 mg PO DAILY 10/19/19 10/19/19 History Lidocaine-Prilocaine Cream [Emla 1 applic TOPICAL DAILY PRN 10/19/19 10/19/19 History Cream 2.5%/2.5%] Losartan [Cozaar] 25 mg PO HS 10/19/19 10/19/19 History Naloxone HCl [Narcan] 4 mg NASAL ONCE PRN 10/19/19 10/19/19 History oxyCODONE-APAP 10-325MG [Percocet 1 tab PO Q6H PRN 10/19/19 10/19/19 History 10-325 mg] Allergies Allergy/AdvReac Type Severity Reaction Status Date / Time cefuroxime axetil Allergy Severe Anaphylaxis Verified 10/19/19 14:08 [From Ceftin] Penicillins Allergy Severe Rash/Hives Verified 10/19/19 14:08 Cephalosporins Allergy Anaphylaxis Verified 10/19/19 14:08 Physical Exam Vitals: Vital Signs Temp Pulse Resp BP Pulse Ox 10/19/19 17:05 100 10/19/19 16:54 100 10/19/19 16:45 98 13 140/62 90 L 10/19/19 16:30 97.6 F 88 36 H 83/67 91 L 10/19/19 16:00 100 20 125/54 94 L 10/19/19 14:30 105 H 10/19/19 14:08 105 H 10/19/19 13:58 97.5 F L 69 22 137/67 98 Intake and Output 10/19/19 10/19/19 10/19/19 06:59 14:59 22:59 Output Total 200 Balance -200 Output: Urine 200 Other: Weight 74.843 kg Gen. appearance she is calm comfortable pale nonacute distress. Able to complete full sentences. She is currently on oxygen at 4 L per minute nasal cannula. Head exam was generally normal. There was no scleral icterus or corneal arcus. Mucous membranes were moist. Neck was supple and without jugular venous distension, thyromegaly, or carotid bruits. Carotids were easily palpable bilaterally. There was no adenopathy. Lungs sounds are diminished and the patient diffuse expiratory wheezes without the lung his bilaterally. Breath sounds are diminished in the right lung base Cardiac exam revealed the PMI to be normally situated and sized. The rhythm was regular and no extrasystoles were noted during several minutes of auscultation. The first and second heart sounds were normal and physiologic splitting of the second heart sound was noted. There were no murmurs, rubs, clicks, or gallops. Sternum stable clean and intact and the patient has a pacemaker pocket over the left anterior chest area. Abdominal exam revealed normal bowel sounds. The abdomen was soft, non-tender, and without masses, organomegaly, or appreciable enlargement of the abdominal aorta. Examination of the extremities revealed easily palpable radial, femoral and pedal pulses. There was no cyanosis, clubbing or edema. Examination of the skin revealed no evidence of significant rashes, suspicious appearing nevi or other concerning lesions. Neurologically moving all 4 extremities and there is no focal neurological deficits. Results - Laboratory Findings CBC and BMP: 10/19/19 14:32 10/19/19 14:32 PT/INR, D-dimer PT 11.4 sec (9.0-12.0) 10/19/19 14:32 INR 1.1 (<1.2) 10/19/19 14:32 Abnormal lab findings: Abnormal Labs 10/19/19 10/19/19 10/19/19 14:32 14:32 14:32 WBC 0.4 L* RBC 2.25 L Hgb 7.7 L Hct 23.4 L MCV 103.7 H Plt Count 7 L* Sodium 134 L Carbon Dioxide 18 L BUN 37 H Glucose 217 H Plasma Lactic Acid Derrell 7.4 H* Calcium 8.0 L Total Bilirubin 1.5 H Troponin I Total Protein 5.1 L Albumin 2.9 L 10/19/19 14:32 WBC RBC Hgb Hct MCV Plt Count Sodium Carbon Dioxide BUN Glucose Plasma Lactic Acid Derrell Calcium Total Bilirubin Troponin I 0.151 H* Total Protein Albumin - Diagnostic Findings Chest x-ray: image reviewed Assessment and Plan Plan: 1 metastatic small cell lung cancer. The patient was treated through medical oncology and radiation oncology. Diagnosis was established in December 2018 and the patient was treated with a combination of systemic chemotherapy and Tecetriq, followed by radiation therapy with good results and subsequently on 10/03/2019, the PET scan showed ectatic disease with a large paraspinal mass, new onset right-sided pleural effusion, metastatic depositInvolving the abdominal lymph nodes in addition to involvement of the spine. Please refer to the CAT scan of the thoracic spine and the bone scan. The patient was started on systemic chemotherapy with a combination of Celebrex nisqually and [employer] V[employer] DIRECTOR-16. 2 pancytopenia secondary to systemic chemotherapy 3 acute on chronic shortness of breath secondary to COPD exacerbation in addition to new onset right-sided pleural effusion 4 large paraspinal mass causing severe compression fracture of T11 and the mass extending from T10 to T12. The patient has secondary back pain and no signs of any cord compression 5 right lower lobe pulmonary infiltration, consider malignancy versus radiation changes in the right lower lobe. The PET scan did not show any significant metabolic activity within the right lower lobe area. However malignancy cannot be completely excluded this patient with development of a right-sided pleural effusion in a sedation with a right paraspinal mass 6 coronary artery disease with previous bypass surgery 7 congestion heart failure, proBNP level is quite elevated 8 history of pacemaker insertion for bradycardia 9 squamous cell carcinoma of the skin 10 COPD with chronic hypoxic respiratory failure 11 questionable lupus 12 chronic radiation changes along the right hemithorax/right lower lobe area 13 lactic acidosis Plan Obtain blood cultures Platelet transfusion and the patient's current platelet count is 7. No evidence of an acute bleed Start the patient on daily Zarxio and monitor the white cell count Levaquin as an empiric antibiotic coverage. Monitor the fever pattern. No evidence of any neutropenic. At this point in time Bronchodilators with DuoNeb's IV Solu-Medrol Informed radiation oncology on this current admission and hold on the radiation to the back for the time being Check pro calcitonin level Check echocardiogram Gentle IV fluids with hydration at the rate of 75 mL's an hour Monitor lactic there May consider a thoracentesis of the right lung at the later stage Prognosis poor baseline above-mentioned comorbidities. Time with Patient: Greater than 30
[2019-10-19] MEDS ORDERED: NALOXONE 0.4 MG/ML 1 ML VIAL IV PRN (19:22)
[2019-10-19] MEDS: methylPREDNISolone SOD SUCCI 125 MG/2 ML VIAL IV SCH (19:38)
[2019-10-19] MEDS: SODIUM CHLORIDE 0.9% 1,000 ML IV SCH (19:39)
[2019-10-19] MEDS: PARoxetine 10 MG TAB PO SCH (21:34)
[2019-10-19] MEDS: FILGRASTIM-SNDZ 480 MCG/0.8 ML SYRINGE SQ SCH (21:34)
[2019-10-19 22:13] LABS: Glucose,Whole Blood 243 mg/dL (75-99)
[2019-10-19] MEDS: INSULIN ASPART (NovoLOG) 100 UNIT/ML VIAL SQ SCH (22:13)
[2019-10-19] MEDS: MAG HYDROX/AL HYDROX/SIMETH 30 ML, LIDOCAINE VISCOUS 30 ML, diphenhydrAMINE ELIXIR 75 M... PO SCH ×4 (22:43)
[2019-10-19 23:24] LABS: Bacteria,Urine Rare /hpf; Hyaline Casts,Urine 3 /lpf (0-2); Mucus,Urine Rare /hpf; RBC,Urine 1 /hpf (0-5); Squamous Epithelial Cell,Urine <1 /hpf (0-4); WBC,Urine 1 /hpf (0-5)
[2019-10-19 23:35] LABS: Appearance,Urine Clear (Clear); Bilirubin,Urine Negative (Negative); Blood,Urine Small (Negative); Color,Urine Yellow; Glucose,Urine (UA) 1+ (Negative); Ketones,Urine Negative (Negative); Leukocyte Esterase,Urine Negative (Negative); Nitrite,Urine Negative (Negative); Protein,Urine Negative (Negative); Specific Gravity,Urine 1.005 (1.001-1.035); Urobilinogen,Urine <2.0 mg/dL (<2.0)
[2019-10-20] MEDS: methylPREDNISolone SOD SUCCI 125 MG/2 ML VIAL IV SCH ×4 (00:41→17:07)
[2019-10-20] MEDS ORDERED: VANCOMYCIN IV PER PHARMACY 1 EACH MISC MISCELLANE PRN (04:46)
[2019-10-20 05:09] LABS: African American GFR (CKD) >90 (>60 ml/min/1.73 sqM); Anion Gap 8 mmol/L; Blood Urea Nitrogen 30 mg/dL (7-17); Calcium 8.6 mg/dL (8.4-10.2); Carbon Dioxide 25 mmol/L (22-30); Chloride 99 mmol/L (98-107); Glucose 149 mg/dL (74-99); Non-African American GFR(CKD) 85 (>60 ml/min/1.73 sqM); Potassium 4.4 mmol/L (3.5-5.1); Sodium 132 mmol/L (137-145)
[2019-10-20 05:16] LABS: MCH 34.4 pg (25.0-35.0); MCV 101.2 fL (80.0-100.0); Macrocytosis Slight; Mean Platelet Volume 8.7; Poikilocytosis Slight; RBC 1.98 m/uL (3.80-5.40); RDW 14.5 % (11.5-15.5)
[2019-10-20 05:33] LABS: HGB 6.8 gm/dL (11.4-16.0)
[2019-10-20] MEDS ORDERED: VANCOMYCIN 1,250 MG in SODIUM CHLORIDE 0.9% 250 ML IVPB SCH (06:00)
[2019-10-20] MEDS: SODIUM CHLORIDE 0.9% 1,000 ML IV SCH ×2 (06:22→21:37)
[2019-10-20 06:37] LABS: Glucose,Whole Blood 234 mg/dL (75-99)
[2019-10-20] MEDS: INSULIN ASPART (NovoLOG) 100 UNIT/ML VIAL SQ SCH ×4 (06:39→20:21)
[2019-10-20 06:58] LABS: WBC 0.1 k/uL (3.8-10.6)
[2019-10-20 07:32] LABS: Platelet Count 41 k/uL (150-450)
[2019-10-20] MEDS: IPRATROPIUM-ALBUTEROL 3 ML NEB INHALATION SCH ×4 (07:58→20:52)
[2019-10-20] MEDS: MAG HYDROX/AL HYDROX/SIMETH 30 ML, LIDOCAINE VISCOUS 30 ML, diphenhydrAMINE ELIXIR 75 M... PO SCH ×12 (08:23→22:39)
[2019-10-20] MEDS: FILGRASTIM-SNDZ 480 MCG/0.8 ML SYRINGE SQ SCH (08:23)
[2019-10-20] MEDS: FLUCONAZOLE 100 MG TAB PO SCH (08:24)
[2019-10-20] MEDS ORDERED: PANTOPRAZOLE 40 MG TABLET PO SCH (09:00)
--- NOTE | 2019-10-20 09:15 | P.PN ---
Subjective Progress Note Date: 10/20/19 79-year-old female patient known history of COPD, known history of metastatic s mall cell lung cancer who received systemic chemotherapy on 10/08/2019 with a combination of carboplatinum and MEDICAID SERVICE COORDINATOR-16 based on evidence of progression of her small cell lung cancer that was identified on a PET scan that was done on 10/03/2019. The patient was diagnosed initially having small cell lung cancer back in December 2018. She was treated with a combination of systemic chemotherapy and immunotherapy including Tecentriq. The patient developed reaction possible pneumonitis to the medication the patient was being treated with systemic steroids and immunotherapy has been discontinued. The PET scan that was done on 10/03/2019 showed background emphysema, and a large right paravertebral soft tissue lesion in the lower thorax measuring 4.8 x 3.5 cm with intense metabolic activity and there are also metabolic activity in the anterior aspect of the diaphragm and there was also some areas of groundglass opacity and reticular changes in the right lower lung area and there was suspicious enlarging abdominal lymphadenopathy with increased metabolic activity. No areas other than those. Based on that, the patient was started on systemic chemotherapy. She came into the ED today complaining of shortness of breath and cough. No fever. The patient was given a blood work in the emergency department and initially she was found to be pancytopenic with a 0.4 white cell count and hemoglobin of 7.7 with a platelet count of 7. Her BUN was 37 with a creatinine of 0.7. Troponin was at 0.15 and the proBNP level was 12,800. Also, her lactic acid level was 7.4. Influenza screen was negative. The patient was was also given a chest x-ray that showed interstitial changes and pneumonitis changes in the right infrahilar area and above the diaphragm. There was some background COPD and hyperinflation. Diffuse osteopenia was also seen. The patient was supposed to start radiation therapy for this abnormal paraspinal mass. Note that the CAT scan of the spine that was done on 10/09/2019 showed severe compression fraction of 11 and approximately 5-10% retropulsion. There was also a large right paraspinal mass extending D10 through T12 with some extension towards the T11 right neuroforamina. There was a moderate-sized right-sided pleural effusion that was also noted which was of a new onset. Bone scan findings are essentially the same. The patient was given Levaquin in the em ergency department. The patient was admitted to the hospital. Echo was done. Currently is on IV fluids at 75 mL an hour. She remains afebrile. No altered mentation. CAT scan of the brain that was done on 10/15/2019 was negative. On today's evaluation of 10/20/2019 I'm seeing the patient for a follow-up. The patient is awake and alert. No worsening in her shortness of breath. No significant sputum production. The cough is dry. She has remained afebrile throughout the night. She remained hemodynamically stable throughout the night. She is pancytopenic. She received platelet transfusion and her platelet count is above 40,000. Hemoglobin dropped down to 6.8 and the patient is receiving a unit of packed RBC for now. Her white cell count is at 0.1 and the patient is still on Zarxio. The blood cultures came back positive for gram-positive cocci and clusters and chains and vancomycin was added to her regimen. The pro calcitonin level was 0.4. The patient's chest x-ray from today shows a small right-sided pleural effusion in addition to perihilar infiltrate, which are chr onic findings related to previous radiation therapy. Possibility of pneumonia is felt to be less likely. Malignancy cannot be completely ruled out. The patient has chronic back pain. Her pain is under adequate control for now is estimated to be around 5 out of 10. Echo is pending. IV fluids are running at 75 mL's an hour. Objective - Vital Signs Vital signs: Vital Signs Temp 98.2 F 10/20/19 08:40 Pulse 110 H 10/20/19 08:40 Resp 24 10/20/19 08:40 BP 118/61 10/20/19 08:40 Pulse Ox 92 L 10/20/19 08:40 Intake & Output 10/19/19 10/20/19 10/20/19 18:59 06:59 18:59 Intake Total 75 1860 300 Output Total 400 1470 160 Balance -325 390 140 Weight 74.843 kg 75.6 kg Intake: IV 75 600 150 Sodium Chloride 0.9% 1, 75 600 150 000 ml @ 75 mls/hr IV . [id number] [facility] Rx#:[id number] Oral 150 Blood Product 1260 0 Platelet Pheresis Acda 630 Unit [id number] As-1 Unit 0 [id number] Output: Urine 400 1470 160 Other: Voiding Method Indwelling Catheter Indwelling Catheter - Exam Gen. appearance she is calm comfortable pale nonacute distress. Able to complete full sentences. She is currently on oxygen at 4 L per minute nasal cannula. Head exam was generally normal. There was no scleral icterus or corneal arcus. Mucous membranes were moist. Neck was supple and without jugular venous distension, thyromegaly, or carotid bruits. Carotids were easily palpable bilaterally. There was no adenopathy. Lungs sounds are diminished and the patient diffuse expiratory wheezes without the lung his bilaterally. Breath sounds are diminished in the right lung base Cardiac exam revealed the PMI to be normally situated and sized. The rhythm was regular and no extrasystoles were noted during several minutes of auscultation. The first and second heart sounds were normal and physiologic splitting of the second heart sound was noted. There were no murmurs, rubs, clicks, or gallops. Sternum stable clean and intact and the patient has a pacemaker pocket over the left anterior chest area. Abdominal exam revealed normal bowel sounds. The abdomen was soft, non-tender, and without masses, organomegaly, or appreciable enlargement of the abdominal aorta. Examination of the extremities revealed easily palpable radial, femoral and pedal pulses. There was no cyanosis, clubbing or edema. Examination of the skin revealed no evidence of significant rashes, suspicious appearing nevi or other concerning lesions. Neurologically moving all 4 extremities and there is no focal neurological deficits. - Labs CBC & Chem 7: 10/20/19 04:28 10/20/19 04:28 Labs: Abnormal Lab Results - Last 24 Hours (Table) 10/19/19 10/19/19 10/19/19 Range/Units 14:32 14:32 14:32 WBC 0.4 L* (3.8-10.6) k/uL RBC 2.25 L (3.80-5.40) m/uL Hgb 7.7 L (11.4-16.0) gm/dL Hct 23.4 L (34.0-46.0) % MCV 103.7 H (80.0-100.0) fL Plt Count 7 L* (150-450) k/uL Sodium 134 L (137-145) mmol/L Carbon Dioxide 18 L (22-30) mmol/L BUN 37 H (7-17) mg/dL Glucose 217 H (74-99) mg/dL POC Glucose (mg/dL) (75-99) mg/dL Plasma Lactic Acid Derrell 7.4 H* (0.7-2.0) mmol/L Calcium 8.0 L (8.4-10.2) mg/dL Total Bilirubin 1.5 H (0.2-1.3) mg/dL Troponin I (0.000-0.034) ng/mL Total Protein 5.1 L (6.3-8.2) g/dL Albumin 2.9 L (3.5-5.0) g/dL Procalcitonin (0.02-0.09) ng/mL Urine Glucose (UA) (Negative) Urine Bacteria (None) /hpf Hyaline Casts (0-2) /lpf Urine Mucus (None) /hpf Crossmatch 10/19/19 10/19/19 10/19/19 Range/Units 14:32 17:10 17:11 WBC (3.8-10.6) k/uL RBC (3.80-5.40) m/uL Hgb (11.4-16.0) gm/dL Hct (34.0-46.0) % MCV (80.0-100.0) fL Plt Count (150-450) k/uL Sodium (137-145) mmol/L Carbon Dioxide (22-30) mmol/L BUN (7-17) mg/dL Glucose (74-99) mg/dL POC Glucose (mg/dL) (75-99) mg/dL Plasma Lactic Acid Derrell (0.7-2.0) mmol/L Calcium (8.4-10.2) mg/dL Total Bilirubin (0.2-1.3) mg/dL Troponin I 0.151 H* (0.000-0.034) ng/mL Total Protein (6.3-8.2) g/dL Albumin (3.5-5.0) g/dL Procalcitonin 0.41 H (0.02-0.09) ng/mL Urine Glucose (UA) (Negative) Urine Bacteria (None) /hpf Hyaline Casts (0-2) /lpf Urine Mucus (None) /hpf Crossmatch See Detail 10/19/19 10/19/19 10/19/19 Range/Units 18:12 22:11 22:37 WBC (3.8-10.6) k/uL RBC (3.80-5.40) m/uL Hgb (11.4-16.0) gm/dL Hct (34.0-46.0) % MCV (80.0-100.0) fL Plt Count (150-450) k/uL Sodium (137-145) mmol/L Carbon Dioxide (22-30) mmol/L BUN (7-17) mg/dL Glucose (74-99) mg/dL POC Glucose (mg/dL) 243 H (75-99) mg/dL Plasma Lactic Acid Derrell 7.6 H* 4.5 H* (0.7-2.0) mmol/L Calcium (8.4-10.2) mg/dL Total Bilirubin (0.2-1.3) mg/dL Troponin I (0.000-0.034) ng/mL Total Protein (6.3-8.2) g/dL Albumin (3.5-5.0) g/dL Procalcitonin (0.02-0.09) ng/mL Urine Glucose (UA) (Negative) Urine Bacteria (None) /hpf Hyaline Casts (0-2) /lpf Urine Mucus (None) /hpf Crossmatch 10/19/19 10/20/19 10/20/19 Range/Units 22:45 04:28 04:28 WBC 0.1 L* (3.8-10.6) k/uL RBC 1.98 L (3.80-5.40) m/uL Hgb 6.8 L* (11.4-16.0) gm/dL Hct 20.0 L (34.0-46.0) % MCV 101.2 H (80.0-100.0) fL Plt Count 41 L D (150-450) k/uL Sodium 132 L (137-145) mmol/L Carbon Dioxide (22-30) mmol/L BUN 30 H (7-17) mg/dL Glucose 149 H (74-99) mg/dL POC Glucose (mg/dL) (75-99) mg/dL Plasma Lactic Acid Derrell (0.7-2.0) mmol/L Calcium (8.4-10.2) mg/dL Total Bilirubin (0.2-1.3) mg/dL Troponin I (0.000-0.034) ng/mL Total Protein (6.3-8.2) g/dL Albumin (3.5-5.0) g/dL Procalcitonin (0.02-0.09) ng/mL Urine Glucose (UA) 1+ H (Negative) Urine Bacteria Rare H (None) /hpf Hyaline Casts 3 H (0-2) /lpf Urine Mucus Rare H (None) /hpf Crossmatch 10/20/19 10/20/19 Range/Units 04:28 06:35 WBC (3.8-10.6) k/uL RBC (3.80-5.40) m/uL Hgb (11.4-16.0) gm/dL Hct (34.0-46.0) % MCV (80.0-100.0) fL Plt Count (150-450) k/uL Sodium (137-145) mmol/L Carbon Dioxide (22-30) mmol/L BUN (7-17) mg/dL Glucose (74-99) mg/dL POC Glucose (mg/dL) 234 H (75-99) mg/dL Plasma Lactic Acid Derrell 4.3 H* (0.7-2.0) mmol/L Calcium (8.4-10.2) mg/dL Total Bilirubin (0.2-1.3) mg/dL Troponin I (0.000-0.034) ng/mL Total Protein (6.3-8.2) g/dL Albumin (3.5-5.0) g/dL Procalcitonin (0.02-0.09) ng/mL Urine Glucose (UA) (Negative) Urine Bacteria (None) /hpf Hyaline Casts (0-2) /lpf Urine Mucus (None) /hpf Crossmatch Microbiology - Last 24 Hours (Table) 10/19/19 14:32 Blood Culture - Final Blood Assessment and Plan Plan: 1 metastatic small cell lung cancer. The patient was treated through medical oncology and radiation oncology. Diagnosis was established in December 2018 and the patient was treated with a combination of systemic chemotherapy and Tecetriq, followed by radiation therapy with good results and subsequently on 10/03/2019, the PET scan showed ectatic disease with a large paraspinal mass, new onset right-sided pleural effusion, metastatic depositInvolving the abdominal lymph nodes in addition to involvement of the spine. Please refer to the CAT scan of the thoracic spine and the bone scan. The patient was started on systemic chemotherapy with a combination of Celebrex washoe and MEDICAID SERVICE COORDINATOR-16. 2 pancytopenia secondary to systemic chemotherapy, And the patient continues to be neutropenic and thrombocytopenic and she received platelet transfusion. Her bone marrow is being stimulated by Zarxio and the patient is receiving a unit of packed RBC. 3 acute on chronic shortness of breath secondary to COPD exacerbation in addition to new onset right-sided pleural effusion 4 large paraspinal mass causing severe compression fracture of T11 and the mass extending from T10 to T12. The patient has secondary back pain and no signs of any cord compression 5 right lower lobe pulmonary infiltration, consider malignancy versus radiation changes in the right lower lobe. The PET scan did not show any significant metabolic activity within the right lower lobe area. However malignancy cannot be completely excluded this patient with development of a right-sided pleural ef fusion in a sedation with a right paraspinal mass 6 coronary artery disease with previous bypass surgery 7 congestion heart failure, proBNP level is quite elevated 8 history of pacemaker insertion for bradycardia 9 squamous cell carcinoma of the skin 10 COPD with chronic hypoxic respiratory failure 11 questionable lupus 12 chronic radiation changes along the right hemithorax/right lower lobe area 13 lactic acidosis, improving and lactic acid level is down to 4.5 14 gram-positive cocci in chains and clusters and the blood currently on vancomycin Plan Awaiting the results of the final blood cultures, continue vancomycin Add Levaquin 750 mg IV every 24 hours Platelets as she has been completed and the platelet count is above 40 IV Solu-Medrol Awaiting the echocardiogram from today Gentle IV fluids with hydration at the rate of 75 mL's an hour Monitor lactic there May consider a thoracentesis of the right lung at the later stage, obtain ultrasound marking of the right chest regarding pleural effusion. Oncology consultation We'll continue to follow Prognosis poor baseline above-mentioned comorbidities.
--- NOTE | 2019-10-20 09:22 | P.CRDCN ---
History of Present Illness Consult date: 10/20/19 Chief complaint: Shortness of breath History of present illness: This is a very pleasant 79-year-old female patient who is unfortunate with a pas t medical history significant for small cell lung cancer with metastasis and the patient status post chemotherapy as well as radiation therapy as well as immunotherapy, coronary artery disease and status post coronary artery revascularization in the term of bypass as well as a stenting, the last heart catheterization was performed in 2013 where at that point the patient was admitted to the hospital with a chest discomfort suggestive of angina and underwent a heart catheterization and was found to have two-vessel coronary artery disease involving the proximal left circumflex as well as left anterior descending artery. The STREETER to LAD was patent at that point and the vein graft to the diagonal was patent as well as the vein graft to the OM. She was found to have severe disease involving the LCx proximal to previously stent and at that point she underwent stenting of the left circumflex. Beside that the patient does have permanent pacemaker. This time the patient presented to the hospital because of increasing in the shortness of breath. No symptoms of chest pain or chest discomfort, dizziness, heart racing, or syncope. When she presented she was tachycardic. The troponin was elevated at appeared to be flat across support. The patient is very mild. Beside that the patient was found to be pancytopenic with WBC of 0.4, hemoglobin of 7.7, and platelet of 7. Also the BUN was slightly elevated but the creatinine was 0.7. The proBNP was 1200. The lactic acid also was elevated. We consulted to see the patient for further evaluation of acute non-ST patient myocardial infarction. As a mentioned earlier the patient did not have any symptoms of chest pain or chest discomfort. She is known to have metastatic small cell lung cancer. She was seen by the intensive care team and she was diagnosed with COPD exacerbation and currently she is on treatment for that. I did review the chest x-ray from today and to me it the patient doesn't look like she is in heart failure overall, in spite of elevated BNP and increasing shortness of breath. Beside that I would consider conservative medical approach regarding the mildly abnormal troponin. Past Medical History Past Medical History: Coronary Artery Disease (CAD), Cancer, Chest Pain / Angina, GERD/Reflux, Hyperlipidemia, Hypertension, Myocardial Infarction (MD), Osteoarthritis (OA) Additional Past Medical History / Comment(s): Metastatic small cell lung cancer, coronary artery disease, previous bypass surgery, previous history of pacemaker insertion for cardiac block, hypertension, osteoarthritis, right carotid artery stenosis, COPD, retinal detachment, environmental ALLERGIES, squamous cell carcinoma of the skin, previous history of GI bleed, previous history of blood transfusion Last Myocardial Infarction Date:: 06/2013 History of Any Multi-Drug Resistant Organisms: None Reported Past Surgical History: Appendectomy, Coronary Bypass/CABG, Heart Catheterization With Stent, Hysterectomy, Pacemaker, Tubal Ligation Additional Past Surgical History / Comment(s): 3 vessel cabg 01/2010, retinal detachment surgery of the right eye, cataract removal and lens implant bilaterally. TONGUE MASS REMOVED, Cardiac Stents Jun 2013, Jun 2014 and November 01 ([place]). Past Anesthesia/Blood Transfusion Reactions: No Reported Reaction, Family History of Problems w/ Anesthesia Additional Past Anesthesia/Blood Transfusion Reaction / Comment(s): RECEIVED BLOOD TRANSFUSION 09/21/16-Positive Antibodies,Daughter PONV Date of Last Stent Placement:: 2015 Type of Cardiac Device: Permanent Pacemaker Device Placement Date:: 04/2007 Smoking Status: Former smoker - Past Family History Daughter(s) Family Medical History: Cancer Additional Family Medical History / Comment(s): BASAL CELL CANCER Father Family Medical History: CVA/TIA Additional Family Medical History / Comment(s): at 58 from cerebral hemorrhage Mother Family Medical History: No Reported History Sister(s) Family Medical History: Hypertension Medications and Allergies Home Medications Medication Instructions Recorded Confirmed Type Lovastatin [Mevacor] 20 mg PO HS 06/04/14 10/19/19 History Metoprolol Tartrate 25 mg PO QAM 06/04/14 10/19/19 History Nitroglycerin Sl Tabs [Nitrostat] 0.4 mg SUBLINGUAL Q5M PRN 06/29/15 10/19/19 History Aspirin [Adult Low Dose Aspirin EC] 81 mg PO HS 09/24/16 10/19/19 History Clopidogrel [Plavix] 75 mg PO DAILY 09/24/16 10/19/19 History Pantoprazole [Protonix] 40 mg PO DAILY 04/12/17 10/19/19 History PARoxetine [Paxil] 10 mg PO HS 12/02/18 10/19/19 History ALPRAZolam [Xanax] 0.25 mg PO DAILY PRN 10/19/19 10/19/19 History Cyclobenzaprine [Flexeril] 10 mg PO Q8H PRN 10/19/19 10/19/19 History Dexamethasone [Decadron] 4 mg PO TID 10/19/19 10/19/19 History Fluconazole 200 mg PO DAILY 10/19/19 10/19/19 History Lidocaine-Prilocaine Cream [Emla 1 applic TOPICAL DAILY PRN 10/19/19 10/19/19 History Cream 2.5%/2.5%] Losartan [Cozaar] 25 mg PO HS 10/19/19 10/19/19 History Naloxone HCl [Narcan] 4 mg NASAL ONCE PRN 10/19/19 10/19/19 History oxyCODONE-APAP 10-325MG [Percocet 1 tab PO Q6H PRN 10/19/19 10/19/19 History 10-325 mg] Allergies Allergy/AdvReac Type Severity Reaction Status Date / Time cefuroxime axetil Allergy Severe Anaphylaxis Verified 10/19/19 17:34 [From Ceftin] Penicillins Allergy Severe Rash/Hives Verified 10/19/19 17:34 Cephalosporins Allergy Anaphylaxis Verified 10/19/19 17:34 Physical Exam Vitals: Vital Signs Temp Pulse Resp BP Pulse Ox 10/20/19 08:40 98.2 F 110 H 24 118/61 92 L 10/20/19 08:10 98.3 F 101 H 24 119/55 92 L 10/20/19 08:00 97.3 F L 104 H 26 H 122/53 87 L 10/20/19 07:58 108 H 10/20/19 07:00 110 H 24 120/59 92 L 10/20/19 06:01 110 H 24 119/59 92 L 10/20/19 05:00 110 H 35 H 115/59 93 L 10/20/19 04:00 97.2 F L 109 H 17 110/56 92 L 10/20/19 03:00 110 H 22 113/59 91 L 10/20/19 02:16 7.2 F L 100 20 122/84 92 L 10/20/19 02:00 110 H 18 108/58 92 L 10/20/19 01:00 106 H 24 121/65 92 L 10/20/19 00:00 97.2 F L 110 H 21 118/60 92 L 10/19/19 23:03 101 H 23 123/58 92 L 10/19/19 23:00 104 H 25 H 119/55 90 L 10/19/19 22:30 106 H 21 121/62 92 L 10/19/19 22:06 97.8 F 102 H 22 119/55 93 L 10/19/19 22:00 108 H 28 H 122/59 92 L 10/19/19 21:36 97 F L 110 H 20 122/59 91 L 10/19/19 21:30 110 H 29 H 117/56 92 L 10/19/19 21:26 97.7 F 103 H 23 117/56 92 L 10/19/19 21:22 110 H 10/19/19 21:12 107 H 10/19/19 21:00 110 H 22 122/63 93 L 10/19/19 20:30 105 H 32 H 129/64 93 L 10/19/19 20:00 97.7 F 108 H 21 128/59 92 L 10/19/19 19:30 108 H 30 H 109/57 94 L 10/19/19 19:00 101 H 29 H 109/57 92 L 10/19/19 18:45 109 H 21 126/72 93 L 10/19/19 18:30 89 28 H 120/74 76 L 10/19/19 18:15 98 25 H 121/57 92 L 10/19/19 18:00 102 H 22 120/63 92 L 10/19/19 17:45 102 H 19 90 L 10/19/19 17:30 101 H 17 127/57 92 L 10/19/19 17:15 106 H 16 133/107 90 L 10/19/19 17:05 100 10/19/19 17:00 101 H 22 124/63 93 L 10/19/19 16:54 100 10/19/19 16:45 98 13 140/62 90 L 10/19/19 16:30 97.6 F 88 36 H 83/67 91 L 10/19/19 16:00 100 20 125/54 94 L 10/19/19 14:30 105 H 10/19/19 14:08 105 H 10/19/19 13:58 97.5 F L 69 22 137/67 98 Intake and Output 10/19/19 10/20/19 10/20/19 22:59 06:59 14:59 Intake Total 615 1320 300 Output Total 1225 645 160 Balance -610 675 140 Intake: IV 300 375 150 Sodium Chloride 0.9% 1, 300 375 150 000 ml @ 75 mls/hr IV . [id number] PENDING SALE TO [facility] Rx#:[id number] Oral 150 Blood Product 315 945 0 Platelet Pheresis Acda 0 630 Unit [id number] Rc As-1 Unit 0 [id number] Output: Urine 1225 645 160 Other: Voiding Method Indwelling Catheter Indwelling Catheter Indwelling Catheter Weight 74.843 kg 75.6 kg - Constitutional General appearance: no acute distress - Respiratory Respiratory: bilateral: diminished - Cardiovascular Rhythm: regular Heart sounds: normal: S1, S2 Results 10/20/19 04:28 10/20/19 04:28 Cardiac Enzymes 10/19/19 10/19/19 Range/Units 14:32 14:32 AST 25 (14-36) U/L Troponin I 0.151 H* (0.000-0.034) ng/mL Coagulation 10/19/19 Range/Units 14:32 PT 11.4 (9.0-12.0) sec APTT 22.9 (22.0-30.0) sec CBC 10/19/19 10/20/19 Range/Units 14:32 04:28 WBC 0.4 L* 0.1 L* (3.8-10.6) k/uL RBC 2.25 L 1.98 L (3.80-5.40) m/uL Hgb 7.7 L 6.8 L* (11.4-16.0) gm/dL Hct 23.4 L 20.0 L (34.0-46.0) % Plt Count 7 L* 41 L D (150-450) k/uL Comprehensive Metabolic Panel 10/19/19 10/20/19 Range/Units 14:32 04:28 Sodium 134 L 132 L (137-145) mmol/L Potassium 4.2 4.4 (3.5-5.1) mmol/L Chloride 103 99 (98-107) mmol/L Carbon Dioxide 18 L 25 (22-30) mmol/L BUN 37 H 30 H (7-17) mg/dL Creatinine 0.72 0.67 (0.52-1.04) mg/dL Glucose 217 H 149 H (74-99) mg/dL Calcium 8.0 L 8.6 (8.4-10.2) mg/dL AST 25 (14-36) U/L ALT 25 (4-34) U/L Alkaline Phosphatase 105 (38-126) U/L Total Protein 5.1 L (6.3-8.2) g/dL Albumin 2.9 L (3.5-5.0) g/dL Current Medications Generic Name Dose Route Start Last Admin Trade Name Freq PRN Reason Stop Dose Admin Albuterol Sulfate 2.5 mg 10/19/19 15:38 Ventolin Nebulized INHALATION RT-Q2H PRN Shortness Of Breath Or Wheezing Albuterol/Ipratropium 3 ml 10/19/19 15:33 Duoneb 0.5 Mg-3 Mg/3 Ml Soln INHALATION RT-Q4H PRN Shortness Of Breath Or Wheezing Albuterol/Ipratropium 3 ml 10/19/19 16:00 10/20/19 07:58 Duoneb 0.5 Mg-3 Mg/3 Ml Soln INHALATION 3 ml RT-QID RADHA Administration Alprazolam 0.25 mg 10/19/19 17:31 Xanax PO DAILY PRN Anxiety Al Hydroxide/Mg Hydroxide 30 0 ml 10/19/19 22:00 10/20/19 08:23 ml/ Lidocaine HCl 30 ml/ PO 5 ml Diphenhydramine HCl 75 mg/ TID RADHA Administration Nystatin 3,000,000 unit Filgrastim 480 mcg 10/19/19 21:00 10/20/19 08:23 Zarxio SQ 480 mcg DAILY RADHA Administration Fluconazole 200 mg 10/20/19 09:00 10/20/19 08:24 Diflucan PO 200 mg DAILY RADHA Administration Sodium Chloride 1,000 mls @ 75 mls/hr 10/19/19 17:15 10/20/19 06:22 Saline 0.9% IV 75 mls/hr .[id number] RADHA Administration Vancomycin HCl 1,250 mg/ 250 mls @ 125 mls/hr 10/20/19 06:00 10/20/19 06:18 Sodium Chloride IVPB 125 mls/hr Q16H RADHA Administration Insulin Aspart 0 unit 10/19/19 21:00 10/20/19 06:39 Novolog SQ 8 unit ACHS RADHA Administration Protocol Methylprednisolone Sodium Succinate 60 mg 10/19/19 18:00 10/20/19 06:19 Solu-Medrol IV 60 mg Q6HR RADHA Administration Metoprolol Tartrate 12.5 mg 10/20/19 21:00 Lopressor PO BID RADHA Naloxone HCl 0.2 mg 10/19/19 19:22 Narcan IV Q2M PRN Opioid Reversal Oxycodone/Acetaminophen 1 each 10/19/19 17:31 Percocet 10-325 PO Q6H PRN Pain Pantoprazole Sodium 40 mg 10/20/19 09:00 10/20/19 08:23 Protonix PO 40 mg DAILY RADHA Administration Paroxetine HCl 10 mg 10/19/19 21:00 10/19/19 21:34 Paxil PO 10 mg HS RADHA Administration Intake and Output 10/19/19 10/20/19 10/20/19 22:59 06:59 14:59 Intake Total 615 1320 300 Output Total 1225 645 160 Balance -610 675 140 Intake: IV 300 375 150 Sodium Chloride 0.9% 1, 300 375 150 000 ml @ 75 mls/hr IV . [id number] PENDING SALE TO [facility] Rx#:[id number] Oral 150 Blood Product 315 945 0 Platelet Pheresis Acda 0 630 Unit [id number] Rc As-1 Unit 0 [id number] Output: Urine 1225 645 160 Other: Voiding Method Indwelling Catheter Indwelling Catheter Indwelling Catheter Weight 74.843 kg 75.6 kg 10/20/19 04:28 10/20/19 04:28 Assessment and Plan Assessment: Assessment #1 metastatic small cell lung cancer #2 pancytopenia #3 mildly elevated troponin #4 COPD exacerbation #5 status post permanent pacemaker #6 multiple comorbid conditions Plan #1 consider conservative medical approach regarding the abnormal troponin. I am going to add metoprolol to the current medical regimen. Avoid any antiplatelet. #2 obtain an echocardiogram was Doppler to establish LV function #3 she is under treatment for the COPD exacerbation #4 follow-up with the patient
--- NOTE | 2019-10-20 09:47 | XR ---
EXAMINATION TYPE: XR chest 1V DATE OF EXAM: 10/20/2019 COMPARISON: Prior chest x-ray 10/19/2019 HISTORY: Heart failure TECHNIQUE: Single frontal view of the chest is obtained. FINDINGS: Patient is post median sternotomy. Heart is enlarged. Port-A-Cath is present on the right with the distal tip overlying superior vena cava. There is no evident pneumothorax or sizable effusio n. Interstitium is increased. Patchy bibasilar density persists. IMPRESSION: Correlate for congestive heart failure superimposed on Interstitial lung disease. Cardiomegaly. Correlate for possible pneumonia.
[2019-10-20] MEDS ORDERED: METOPROLOL TARTRATE 12.5 MG TAB PO STA (10:54)
--- NOTE | 2019-10-20 11:35 | US ---
EXAMINATION TYPE: US chest DATE OF EXAM: 10/20/2019 COMPARISON: CXR CLINICAL HISTORY: bilateral chest. SOB TECHNIQUE: Targeted ultrasound of the posterior lower bilateral hemithoraces EXAM MEASUREMENTS: Right Pleural Effusion pocket size: 1.6 cm Right side NOT marked for possible thoracentesis outside the dept. Left side NOT marked for possible thoracentesis outside the dept. Pulmonologists are able to review the images in the patient?s EMR. Bilateral posterior chest ultrasound performed. IMPRESSIONS: There is a minimal right pleural effusion.
[2019-10-20 11:50] LABS: Glucose,Whole Blood 131 mg/dL (75-99)
[2019-10-20] MEDS: LEVOFLOXACIN 750 MG TAB PO SCH (11:58)
--- NOTE | 2019-10-20 13:15 | P.HPIM ---
History of Present Illness H&P Date: 10/20/19 This is a 79-year-old female patient of Dr. Mendoza with past medical history of coronary artery disease status post 3 vessel CABG in 2009, cardiac stents done in 2012, 2013 and 2015, complete heart block with pacemaker implantation, right carotid artery stenosis, hypertension, right eye surgery for retinal detachment, remote history of tobacco use, COPD, metastatic small cell lung cancer who received systemic chemotherapy on 10/08/2019 with a combination of carboplatinum and CLOTH ROLL WINDER-16 based on evidence of progression of her small cell lung cancer that was identified on a PET scan that was done on 10/03/2019. The patient was diagnosed initially having small cell lung cancer back in December 2018. She was treated with a combination of systemic chemotherapy and immunotherapy including Tecentriq. The patient developed reaction possible pneumonitis to the medication the patient was being treated with systemic steroids and immunotherapy has been discontinued. The PET scan that was done on 10/03/2019 showed background emphysema, and a large right paravertebral soft tissue lesion in the lower thorax measuring 4.8 x 3.5 cm with intense metabolic activity and there are also metabolic activity in the anterior aspect of the diaphragm and there was also some areas of groundglass opacity and reticular changes in the right lower lung area and there was suspicious enlarging abdominal lymphadenopat hy with increased metabolic activity. No areas other than those. CAT scan of the spine that was done on 10/09/2019 showed severe compression fraction of 11 and approximately 5-10% retropulsion. There was also a large right paraspinal mass extending D10 through T12 with some extension towards the T11 right neuroforamina. There was a moderate-sized right-sided pleural effusion that was also noted which was of a new onset. CAT scan of the brain that was done on 10/15/2019 was negative. Patient was started on systemic chemotherapy and scheduled for radiation therapy at T11 to start on October 20. Patient developed shortness of breath and cough without fever, no chest pain. Patient was brought into [facility] emergency center for evaluation. She was afebrile and vital signs stable. WBC 0.4, hemoglobin 7.7, platelet count 7. Sodium 134, potassium 4.2, chloride 103, CO2 18, BUN 37 and creatinine 0.72. Blood sugar 217. Total bilirubin 1.5, liver function tests normal. Influenza testing negative. Initial lactic acid 7.4, currently 5.5. ProBNP 12,800, albumin 2.9, pro calcitonin 0.41. Urinalysis negative for infection. Troponin 0.151. Chest x-ray correlate for heart failure otherwise atypical or interstitial pneumonia or pneumonitis. Patient admitted into the intensive care unit and consult requested with pulmonary medicine, cardiology, oncology. Repeat chest x-ray this morning reveals heart failure superimposed on interstitial lung disease. Cardiomegaly. Correlate for possible pneumonia. Chest ultrasound revealed minimal right pleural effusion, 1.6 cm. Review of Systems Constitutional: Reports chronic pain, Reports fatigue, Reports malaise, Reports poor appetite, Reports weakness, Denies anorexia, Denies chills, Denies fever, Denies lethargy Eyes: denies blurred vision, denies pain Ears: deny: decreased hearing Ears, nose, mouth and throat: Denies dysphagia, Denies headache, Denies nasal congestion, Denies nasal discharge, Denies sore throat, Denies vertigo Cardiovascular: Reports decreased exercise tolerance, Reports dyspnea on exertion, Reports shortness of breath, Denies chest pain, Denies edema, Denies leg edema, Denies lightheadedness, Denies syncope Respiratory: Reports cough, Reports dyspnea, Reports wheezing, Denies cough with sputum, Denies excessive sputum, Denies hemoptysis, Denies home oxygen, Denies respiratory infections Gastrointestinal: Reports loss of appetite, Denies abdominal pain, Denies diarrhea, Denies nausea, Denies vomiting Musculoskeletal: Reports muscle weakness, Denies frequent falls, Denies gait dysfunction, Denies myalgias Integumentary: Denies pruritus, Denies rash, Denies wounds Neurological: Denies change in mentation, Denies change in speech, Denies gait dysfunction, Denies headaches, Denies seizures, Denies vertigo Psychiatric: Denies anxiety, Denies depression Endocrine: Denies fatigue, Denies weight change Past Medical History Past Medical History: Coronary Artery Disease (CAD), Cancer, Chest Pain / Angina, GERD/Reflux, Hyperlipidemia, Hypertension, Myocardial Infarction (HI), Osteoarthritis (OA) Additional Past Medical History / Comment(s): Metastatic small cell lung cancer, coronary artery disease, previous bypass surgery, previous history of pacemaker insertion for cardiac block, hypertension, osteoarthritis, right carotid artery stenosis, COPD, retinal detachment, environmental ALLERGIES, squamous cell carcinoma of the skin, previous history of GI bleed, previous history of blood transfusion Last Myocardial Infarction Date:: 06/2013 History of Any Multi-Drug Resistant Organisms: None Reported Past Surgical History: Appendectomy, Coronary Bypass/CABG, Heart Catheterization With Stent, Hysterectomy, Pacemaker, Tubal Ligation Additional Past Surgical History / Comment(s): 3 vessel cabg 01/2010, retinal detachment surgery of the right eye, cataract removal and lens implant bilater ally. TONGUE MASS REMOVED, Cardiac Stents Jun 2013, Jun 2014 and November 2015 ([place]). Past Anesthesia/Blood Transfusion Reactions: No Reported Reaction, Family History of Problems w/ Anesthesia Additional Past Anesthesia/Blood Transfusion Reaction / Comment(s): RECEIVED BLOOD TRANSFUSION 09/21/16-Positive Antibodies,Daughter PONV Date of Last Stent Placement:: 2015 Type of Cardiac Device: Permanent Pacemaker Device Placement Date:: 04/2007 Smoking Status: Former smoker - Past Family History Daughter(s) Family Medical History: Cancer Additional Family Medical History / Comment(s): BASAL CELL CANCER Father Family Medical History: CVA/TIA Additional Family Medical History / Comment(s): at 58 from cerebral hemorrhage Mother Family Medical History: No Reported History Sister(s) Family Medical History: Hypertension Medications and Allergies Home Medications Medication Instructions Recorded Confirmed Type Lovastatin [Mevacor] 20 mg PO HS 06/04/14 10/19/19 History Metoprolol Tartrate 25 mg PO QAM 06/04/14 10/19/19 History Nitroglycerin Sl Tabs [Nitrostat] 0.4 mg SUBLINGUAL Q5M PRN 06/29/15 10/19/19 History Aspirin [Adult Low Dose Aspirin EC] 81 mg PO HS 09/24/16 10/19/19 History Clopidogrel [Plavix] 75 mg PO DAILY 09/24/16 10/19/19 History Pantoprazole [Protonix] 40 mg PO DAILY 04/12/17 10/19/19 History PARoxetine [Paxil] 10 mg PO HS 12/02/18 10/19/19 History ALPRAZolam [Xanax] 0.25 mg PO DAILY PRN 10/19/19 10/19/19 History Cyclobenzaprine [Flexeril] 10 mg PO Q8H PRN 10/19/19 10/19/19 History Dexamethasone [Decadron] 4 mg PO TID 10/19/19 10/19/19 History Fluconazole 200 mg PO DAILY 10/19/19 10/19/19 History Lidocaine-Prilocaine Cream [Emla 1 applic TOPICAL DAILY PRN 10/19/19 10/19/19 History Cream 2.5%/2.5%] Losartan [Cozaar] 25 mg PO HS 10/19/19 10/19/19 History Naloxone HCl [Narcan] 4 mg NASAL ONCE PRN 10/19/19 10/19/19 History oxyCODONE-APAP 10-325MG [Percocet 1 tab PO Q6H PRN 10/19/19 10/19/19 History 10-325 mg] Allergies Allergy/AdvReac Type Severity Reaction Status Date / Time cefuroxime axetil Allergy Severe Anaphylaxis Verified 10/19/19 17:34 [From Ceftin] Penicillins Allergy Severe Rash/Hives Verified 10/19/19 17:34 Cephalosporins Allergy Anaphylaxis Verified 10/19/19 17:34 Physical Exam Vitals: Vital Signs Temp Pulse Resp BP Pulse Ox 10/20/19 10:00 103 H 24 126/64 96 10/20/19 09:00 97 24 118/61 94 L 10/20/19 08:40 98.2 F 110 H 24 118/61 92 L 10/20/19 08:10 98.3 F 101 H 24 119/55 92 L 10/20/19 08:00 97.3 F L 104 H 26 H 122/53 87 L 10/20/19 07:58 108 H 10/20/19 07:00 110 H 24 120/59 92 L 10/20/19 06:01 110 H 24 119/59 92 L 10/20/19 05:00 110 H 35 H 115/59 93 L 10/20/19 04:00 97.2 F L 109 H 17 110/56 92 L 10/20/19 03:00 110 H 22 113/59 91 L 10/20/19 02:16 7.2 F L 100 20 122/84 92 L 10/20/19 02:00 110 H 18 108/58 92 L 10/20/19 01:00 106 H 24 121/65 92 L 10/20/19 00:00 97.2 F L 110 H 21 118/60 92 L 10/19/19 23:03 101 H 23 123/58 92 L 10/19/19 23:00 104 H 25 H 119/55 90 L 10/19/19 22:30 106 H 21 121/62 92 L 10/19/19 22:06 97.8 F 102 H 22 119/55 93 L 10/19/19 22:00 108 H 28 H 122/59 92 L 10/19/19 21:36 97 F L 110 H 20 122/59 91 L 10/19/19 21:30 110 H 29 H 117/56 92 L 10/19/19 21:26 97.7 F 103 H 23 117/56 92 L 10/19/19 21:22 110 H 10/19/19 21:12 107 H 10/19/19 21:00 110 H 22 122/63 93 L 10/19/19 20:30 105 H 32 H 129/64 93 L 10/19/19 20:00 97.7 F 108 H 21 128/59 92 L 10/19/19 19:30 108 H 30 H 109/57 94 L 10/19/19 19:00 101 H 29 H 109/57 92 L 10/19/19 18:45 109 H 21 126/72 93 L 10/19/19 18:30 89 28 H 120/74 76 L 10/19/19 18:15 98 25 H 121/57 92 L 10/19/19 18:00 102 H 22 120/63 92 L 10/19/19 17:45 102 H 19 90 L 10/19/19 17:30 101 H 17 127/57 92 L 10/19/19 17:15 106 H 16 133/107 90 L 10/19/19 17:05 100 10/19/19 17:00 101 H 22 124/63 93 L 10/19/19 16:54 100 10/19/19 16:45 98 13 140/62 90 L 10/19/19 16:30 97.6 F 88 36 H 83/67 91 L 10/19/19 16:00 100 20 125/54 94 L 10/19/19 14:30 105 H 10/19/19 14:08 105 H 10/19/19 13:58 97.5 F L 69 22 137/67 98 Intake and Output 10/19/19 10/20/19 10/20/19 22:59 06:59 14:59 Intake Total 615 1320 450 Output Total 1225 645 260 Balance -610 675 190 Intake: IV 300 375 300 Sodium Chloride 0.9% 1, 300 375 300 000 ml @ 75 mls/hr IV . [id number] [facility] Rx#:[id number] Oral 150 Blood Product 315 945 0 Platelet Pheresis Acda 0 630 Unit [id number] Rc As-1 Unit 0 [id number] Output: Urine 1225 645 260 Other: Voiding Method Indwelling Catheter Indwelling Catheter Indwelling Catheter Weight 74.843 kg 75.6 kg Gen: This is a 79-year-old female. Patient is resting in the ICU bed and appears to be comfortable. No respiratory distress is noted. HEENT: Head is atraumatic, normocephalic. Pupils equal, round. Sclerae is anicteric. NECK: Supple. No JVD. No lymphadenopathy. No thyromegaly. LUNGS: Diminished bilaterally with scattered rhonchi and expiratory wheeze.. No intercostal retractions. HEART: Regular rate and rhythm. No murmur. Pacemaker at the left anterior chest wall. ABDOMEN: Soft. Bowel sounds are present. No masses. No tenderness. EXTREMITIES: No pedal edema. No calf tenderness. Dorsalis pedis palpable bilaterally. NEUROLOGICAL: Patient is awake, alert and oriented x3. Cranial nerves 2 through 12 are grossly intact. Results CBC & Chem 7: 10/20/19 04:28 10/20/19 04:28 Labs: Abnormal Lab Results - Last 24 Hours (Table) 10/19/19 10/19/19 10/19/19 Range/Units 14:32 14:32 14:32 WBC 0.4 L* (3.8-10.6) k/uL RBC 2.25 L (3.80-5.40) m/uL Hgb 7.7 L (11.4-16.0) gm/dL Hct 23.4 L (34.0-46.0) % MCV 103.7 H (80.0-100.0) fL Plt Count 7 L* (150-450) k/uL Sodium 134 L (137-145) mmol/L Carbon Dioxide 18 L (22-30) mmol/L BUN 37 H (7-17) mg/dL Glucose 217 H (74-99) mg/dL POC Glucose (mg/dL) (75-99) mg/dL Plasma Lactic Acid Derrell 7.4 H* (0.7-2.0) mmol/L Calcium 8.0 L (8.4-10.2) mg/dL Total Bilirubin 1.5 H (0.2-1.3) mg/dL Troponin I (0.000-0.034) ng/mL Total Protein 5.1 L (6.3-8.2) g/dL Albumin 2.9 L (3.5-5.0) g/dL Procalcitonin (0.02-0.09) ng/mL Urine Glucose (UA) (Negative) Urine Bacteria (None) /hpf Hyaline Casts (0-2) /lpf Urine Mucus (None) /hpf Crossmatch 10/19/19 10/19/19 10/19/19 Range/Units 14:32 17:10 17:11 WBC (3.8-10.6) k/uL RBC (3.80-5.40) m/uL Hgb (11.4-16.0) gm/dL Hct (34.0-46.0) % MCV (80.0-100.0) fL Plt Count (150-450) k/uL Sodium (137-145) mmol/L Carbon Dioxide (22-30) mmol/L BUN (7-17) mg/dL Glucose (74-99) mg/dL POC Glucose (mg/dL) (75-99) mg/dL Plasma Lactic Acid Derrell (0.7-2.0) mmol/L Calcium (8.4-10.2) mg/dL Total Bilirubin (0.2-1.3) mg/dL Troponin I 0.151 H* (0.000-0.034) ng/mL Total Protein (6.3-8.2) g/dL Albumin (3.5-5.0) g/dL Procalcitonin 0.41 H (0.02-0.09) ng/mL Urine Glucose (UA) (Negative) Urine Bacteria (None) /hpf Hyaline Casts (0-2) /lpf Urine Mucus (None) /hpf Crossmatch See Detail 10/19/19 10/19/19 10/19/19 Range/Units 18:12 22:11 22:37 WBC (3.8-10.6) k/uL RBC (3.80-5.40) m/uL Hgb (11.4-16.0) gm/dL Hct (34.0-46.0) % MCV (80.0-100.0) fL Plt Count (150-450) k/uL Sodium (137-145) mmol/L Carbon Dioxide (22-30) mmol/L BUN (7-17) mg/dL Glucose (74-99) mg/dL POC Glucose (mg/dL) 243 H (75-99) mg/dL Plasma Lactic Acid Derrell 7.6 H* 4.5 H* (0.7-2.0) mmol/L Calcium (8.4-10.2) mg/dL Total Bilirubin (0.2-1.3) mg/dL Troponin I (0.000-0.034) ng/mL Total Protein (6.3-8.2) g/dL Albumin (3.5-5.0) g/dL Procalcitonin (0.02-0.09) ng/mL Urine Glucose (UA) (Negative) Urine Bacteria (None) /hpf Hyaline Casts (0-2) /lpf Urine Mucus (None) /hpf Crossmatch 10/19/19 10/20/19 10/20/19 Range/Units 22:45 04:28 04:28 WBC 0.1 L* (3.8-10.6) k/uL RBC 1.98 L (3.80-5.40) m/uL Hgb 6.8 L* (11.4-16.0) gm/dL Hct 20.0 L (34.0-46.0) % MCV 101.2 H (80.0-100.0) fL Plt Count 41 L D (150-450) k/uL Sodium 132 L (137-145) mmol/L Carbon Dioxide (22-30) mmol/L BUN 30 H (7-17) mg/dL Glucose 149 H (74-99) mg/dL POC Glucose (mg/dL) (75-99) mg/dL Plasma Lactic Acid Derrell (0.7-2.0) mmol/L Calcium (8.4-10.2) mg/dL Total Bilirubin (0.2-1.3) mg/dL Troponin I (0.000-0.034) ng/mL Total Protein (6.3-8.2) g/dL Albumin (3.5-5.0) g/dL Procalcitonin (0.02-0.09) ng/mL Urine Glucose (UA) 1+ H (Negative) Urine Bacteria Rare H (None) /hpf Hyaline Casts 3 H (0-2) /lpf Urine Mucus Rare H (None) /hpf Crossmatch 10/20/19 10/20/19 10/20/19 Range/Units 04:28 06:35 09:00 WBC (3.8-10.6) k/uL RBC (3.80-5.40) m/uL Hgb (11.4-16.0) gm/dL Hct (34.0-46.0) % MCV (80.0-100.0) fL Plt Count (150-450) k/uL Sodium (137-145) mmol/L Carbon Dioxide (22-30) mmol/L BUN (7-17) mg/dL Glucose (74-99) mg/dL POC Glucose (mg/dL) 234 H (75-99) mg/dL Plasma Lactic Acid Derrell 4.3 H* 5.5 H* (0.7-2.0) mmol/L Calcium (8.4-10.2) mg/dL Total Bilirubin (0.2-1.3) mg/dL Troponin I (0.000-0.034) ng/mL Total Protein (6.3-8.2) g/dL Albumin (3.5-5.0) g/dL Procalcitonin (0.02-0.09) ng/mL Urine Glucose (UA) (Negative) Urine Bacteria (None) /hpf Hyaline Casts (0-2) /lpf Urine Mucus (None) /hpf Crossmatch Microbiology - Last 24 Hours (Table) 10/19/19 14:32 Blood Culture - Final Blood Thrombosis Risk Factor Assmnt - DVT/VTE Prophylaxis DVT/VTE Prophylaxis: Mechanical Prophylaxis ordered - Choose All That Apply Any of the Below Risk Factors Present?: Yes Each Factor Represents 1 point: Abnormal pulmonary function (COPD), Medical pt on bed rest, Obesity (BMI >25) Other Risk Factors: Yes Each Risk Factor Represents 2 Points: Patient confined to bed Each Risk Factor Represents 3 Points: Age 75 years or older Thrombosis Risk Factor Assessment Total Risk Factor Score: 8 Thrombosis Risk Factor Assessment Level: High Risk Assessment and Plan Plan: 1. Metastatic small cell lung cancer. Consult with oncology and pulmonary medicine. 2. Pancytopenia secondary to chemotherapy. Patient is status post transfusion of platelets and 1 unit of packed RBCs to be transfused today. Xario 480 g subcu daily. 3. Acute hypoxic respiratory failure secondary to combination of acute exacerbation of COPD and right-sided pleural effusion too small for thoracentesis and right lower lobe infiltrate possible pneumonia versus malignancy. Continue Solu-Medrol 60 mg IV every 6 hours, albuterol every 2 hours as needed, DuoNeb treatments every 4 hours as needed in 4 times daily, Levaquin 750 mg daily and vancomycin. Consult with Dr. Núñez appreciated. 4. Lactic acidosis. 5. Elevated troponin possibly secondary to anemia. Consult with Dr. Prado appreciated. Lopressor 12.5 mg twice daily added. Echocardiogram ordered. 6. History of coronary artery disease status post CABG and stents. 7. History of complete heart block with pacemaker implantation. 8. Right carotid artery stenosis, stable. 9. Hypertension. Continue Lopressor. 10. GI prophylaxis. Protonix. 11. DVT prophylaxis. SCDs and VIJAYA hose. Patient will be admitted to the hospital for a minimum of 2 night stay. Discharge plan: Impression and plan of care have been directed as dictated by the signing physician. Fely Sims nurse practitioner acting as scribe for signing physician.
[2019-10-20] MEDS ORDERED: SODIUM CHLORIDE 0.9% 1,000 ML IV ONE (13:19)
[2019-10-20] MEDS ORDERED: HYDROcodone/APAP 5-325MG 1 EACH TAB PO PRN (14:00)
--- NOTE | 2019-10-20 15:01 | ECHOF ---
Referral Reason:chf MEASUREMENTS -------- HEIGHT: 167.6 cm WEIGHT: 74.8 kg BP: IVSd: 1.2 cm (0.6 - 1.1) LVIDd: 4.2 cm (3.9 - 5.3) LVPWd: 1.5 cm (0.6 - 1.1) IVSs: 1.7 cm LVIDs: 3.5 cm LVPWs: 1.9 cm RVIDd: 3.7 cm (< 3.3) LAESV Index (A-L): 26.71 ml/m Ao Diam: 1.9 cm (2.0 - 3.7) LA Diam: 4.3 cm (2.7 - 3.8) AV Cusp: 1.7 cm (1.5 - 2.6) EPSS: 2.7 cm MV E Kushal: 1.31 m/s MV DecT: 183 ms MV A Kushal: 1.49 m/s MV E/A Ratio: 0.88 AV maxP.58 mmHg AV meanP.46 mmHg AR PHT: 542 ms RAP: 5.00 mmHg RVSP: 48.13 mmHg MV EF SLOPE: 92.93 mm/s (70 - 150) MV EXCURSION: 12.84 mm (> 18.000) FINDINGS -------- Paced rhythm. Pacerwire seen in RV and RA. This was a technically adequate study. The left ventricular size is normal. There is mild concentric left ventricular hypertrophy. There is severe global hypokinesis of LV . Overall left ventricular systolic function is severely impair ed with, an EF between 20 - 25 %. Left ventricular fillimg pressure cannot be estimated due to pace d rhythm. False Tendon Visualized in the LV The right ventricle is mildly enlarged. The left atrium is moderately dilated. LA is midly dilated 29-33ml/m2. The right atrial size is normal. Aortic valve is trileaflet and is moderately thickened. There is mild aortic valve sclerosis. The re is mild aortic regurgitation. Peak/mean gradient across the Aortic Valve is 17.58mmHg / 9.46mmHg . The mitral valve is normal. [id number] mitral regurgitation is present. The tricuspid valve appears structurally normal. Mild tricuspid regurgitation present. There is m ild to moderate pulmonary hypertension. The right ventricular systolic pressure, as measured by Dop pler, is 48.13mmHg. There is no pulmonic regurgitation present. The aortic root size is normal. Normal inferior vena cava with normal inspiratory collapse consistent with estimated right atrial pre ssure of 5 mmHg. There is no pericardial effusion. CONCLUSIONS -------- 1. Paced rhythm. 2. Pacerwire seen in RV and RA. 3. This was a technically adequate study. 4. The left ventricular size is normal. 5. There is mild concentric left ventricular hypertrophy. 6. There is severe global hypokinesis of LV . 7. Overall left ventricular systolic function is severely impaired with, an EF between 20 - 25 %. 8. Left ventricular fillimg pressure cannot be estimated due to paced rhythm. 9. False Tendon Visualized in the LV 10. The right ventricle is mildly enlarged. 11. The left atrium is moderately dilated. 12. LA is midly dilated 29-33ml/m2. 13. The right atrial size is normal. 14. Aortic valve is trileaflet and is moderately thickened. 15. There is mild aortic valve sclerosis. 16. There is mild aortic regurgitation. 17. Peak/mean gradient across the Aortic Valve is 17.58mmHg / 9.46mmHg. 18. The mitral valve is normal. 19. [id number] mitral regurgitation is present. 20. The tricuspid valve appears structurally normal. 21. Mild tricuspid regurgitation present. 22. There is mild to moderate pulmonary hypertension. 23. The right ventricular systolic pressure, as measured by Doppler, is 48.13mmHg. 24. There is no pulmonic regurgitation present. 25. The aortic root size is normal. 26. Normal inferior vena cava with normal inspiratory collapse consistent with estimated right atrial pressure of 5 mmHg. 27. There is no pericardial effusion. CYBER SECURITY ANALYST: Karol Berrios RDCS
[2019-10-20] MEDS ORDERED: PROPOFOL 10 MG/ML 20 ML VIAL IV ONE (16:00)
[2019-10-20 17:04] LABS: Glucose,Whole Blood 222 mg/dL (75-99)
[2019-10-20] MEDS: VANCOMYCIN 1,250 MG in SODIUM CHLORIDE 0.9% 250 ML IVPB SCH (17:08)
--- NOTE | 2019-10-20 18:40 | P.CONS ---
History of Present Illness - Reason for Consult Consult date: 10/20/19 small cell lung cancer, neutropenia Requesting physician: Germán Calloway - Chief Complaint RAMÓN - History of Present Illness Mrs. Franks is a very pleasant female patient of Dr. Dumont who was initially seen for microcytic anemia back in 2016. She was started on Protonix, iron supplementation with improvement and normalization of her hemoglobin. In October 2018 patient was diagnosed with small cell lung cancer (I do not have all the details regarding the diagnosis). Patient was started on chemotherapy/immunotherapy. She was also seen by Radiation Oncology and was felt to be a good candidate for concurrent therapy. She did concurrent treatment and tolerated well, she had 4 cycles of chemotherapy, CT showed a complete response. Patient unfortunately did have some episodes of pneumonitis requiring steroid treatment. She was ultimately discontinued off maintenance tecentric in July 2019. Patient had routine follow-up PET scan earlier this month, unfortunately this showed definite progression. 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 Patient is now status post first cycle of carboplatin and etoposide, she did not have growth factors. After completion of treatment patient was doing all right, and she started to have some difficulty in breathing, shortness breath, she returned from the bathroom unable to recover herself. Family contacted EMS. Patient is seen in the ICU. She feels better since admit, she denies any fevers, has mild oral irritation, no ear pain or sore throat, cough is stable, nonproductive, no hemoptysis, chest pain, she denies palpitations, abdominal pain, nausea, vomiting, diarrhea, constipation, dysuria, hematuria, swelling in the legs. She does have some pain along her spine but, current analgesic regimen is working well for her Review of Systems 14 point review of systems is negative except as stated in HPI Past Medical History Past Medical History: Coronary Artery Disease (CAD), Cancer, Chest Pain / Angina, GERD/Reflux, Hyperlipidemia, Hypertension, Myocardial Infarction (MA), Osteoarthritis (OA) Additional Past Medical History / Comment(s): Metastatic small cell lung cancer, coronary artery disease, previous bypass surgery, previous history of pacemaker insertion for cardiac block, hypertension, osteoarthritis, right carotid artery stenosis, COPD, retinal detachment, environmental ALLERGIES, squamous cell carcinoma of the skin, previous history of GI bleed, previous history of blood transfusion Last Myocardial Infarction Date:: 06/2013 History of Any Multi-Drug Resistant Organisms: None Reported Past Surgical History: Appendectomy, Coronary Bypass/CABG, Heart Catheterization With Stent, Hysterectomy, Pacemaker, Tubal Ligation Additional Past Surgical History / Comment(s): 3 vessel cabg 01/2010, retinal detachment surgery of the right eye, cataract removal and lens implant bilaterally. TONGUE MASS REMOVED, Cardiac Stents Jun 2013, Jun 2014 and November 2015 ([place]). Past Anesthesia/Blood Transfusion Reactions: No Reported Reaction, Family History of Problems w/ Anesthesia Additional Past Anesthesia/Blood Transfusion Reaction / Comm: RECEIVED BLOOD TRANSFUSION 09/21/16-Positive Antibodies,Daughter PONV Date of Last Stent Placement:: 2015 Type of Cardiac Device: Permanent Pacemaker Device Placement Date:: 04/2007 Smoking Status: Former smoker - Past Family History Daughter(s) Family Medical History: Cancer Additional Family Medical History / Comment(s): BASAL CELL CANCER Father Family Medical History: CVA/TIA Additional Family Medical History / Comment(s): at 58 from cerebral hemorrhage Mother Family Medical History: No Reported History Sister(s) Family Medical History: Hypertension Medications and Allergies Home Medications Medication Instructions Recorded Confirmed Type Lovastatin [Mevacor] 20 mg PO HS 06/04/14 10/19/19 History Metoprolol Tartrate 25 mg PO QAM 06/04/14 10/19/19 History Nitroglycerin Sl Tabs [Nitrostat] 0.4 mg SUBLINGUAL Q5M PRN 06/29/15 10/19/19 Hi story Aspirin [Adult Low Dose Aspirin EC] 81 mg PO HS 09/24/16 10/19/19 History Clopidogrel [Plavix] 75 mg PO DAILY 09/24/16 10/19/19 History Pantoprazole [Protonix] 40 mg PO DAILY 04/12/17 10/19/19 History PARoxetine [Paxil] 10 mg PO HS 12/02/18 10/19/19 History ALPRAZolam [Xanax] 0.25 mg PO DAILY PRN 10/19/19 10/19/19 History Cyclobenzaprine [Flexeril] 10 mg PO Q8H PRN 10/19/19 10/19/19 History Dexamethasone [Decadron] 4 mg PO TID 10/19/19 10/19/19 History Fluconazole 200 mg PO DAILY 10/19/19 10/19/19 History Lidocaine-Prilocaine Cream [Emla 1 applic TOPICAL DAILY PRN 10/19/19 10/19/19 History Cream 2.5%/2.5%] Losartan [Cozaar] 25 mg PO HS 10/19/19 10/19/19 History Naloxone HCl [Narcan] 4 mg NASAL ONCE PRN 10/19/19 10/19/19 History oxyCODONE-APAP 10-325MG [Percocet 1 tab PO Q6H PRN 10/19/19 10/19/19 History 10-325 mg] Allergies Allergy/AdvReac Type Severity Reaction Status Date / Time cefuroxime axetil Allergy Severe Anaphylaxis Verified 10/19/19 17:34 [From Ceftin] Penicillins Allergy Severe Rash/Hives Verified 10/19/19 17:34 Cephalosporins Allergy Anaphylaxis Verified 10/19/19 17:34 Physical Exam Vitals: Vital Signs Temp Pulse Resp BP Pulse Ox 10/20/19 18:00 106 H 25 H 133/72 92 L 10/20/19 17:00 105 H 19 127/66 92 L 10/20/19 16:55 102 H 10/20/19 16:42 101 H 20 94 L 10/20/19 16:00 102 H 13 104/62 92 L 10/20/19 15:00 98.1 F 98 18 115/65 92 L 10/20/19 14:00 96 27 H 103/59 93 L 10/20/19 13:16 98.2 F 110 H 24 115/71 94 L 10/20/19 13:00 98 23 116/68 90 L 10/20/19 12:16 104 H 10/20/19 12:04 99 10/20/19 12:00 98.2 F 110 H 16 111/63 90 L 10/20/19 11:00 98.2 F 106 H 22 122/64 94 L 10/20/19 10:00 103 H 24 126/64 96 10/20/19 09:00 97 24 118/61 94 L 10/20/19 08:40 98.2 F 110 H 24 118/61 92 L 10/20/19 08:10 98.3 F 101 H 24 119/55 92 L 10/20/19 08:00 97.3 F L 104 H 26 H 122/53 87 L 10/20/19 07:58 108 H 10/20/19 07:00 110 H 24 120/59 92 L 10/20/19 06:01 110 H 24 119/59 92 L 10/20/19 05:00 110 H 35 H 115/59 93 L 10/20/19 04:00 97.2 F L 109 H 17 110/56 92 L 10/20/19 03:00 110 H 22 113/59 91 L 10/20/19 02:16 7.2 F L 100 20 122/84 92 L 10/20/19 02:00 110 H 18 108/58 92 L 10/20/19 01:00 106 H 24 121/65 92 L 10/20/19 00:00 97.2 F L 110 H 21 118/60 92 L 10/19/19 23:03 101 H 23 123/58 92 L 10/19/19 23:00 104 H 25 H 119/55 90 L 10/19/19 22:30 106 H 21 121/62 92 L 10/19/19 22:06 97.8 F 102 H 22 119/55 93 L 10/19/19 22:00 108 H 28 H 122/59 92 L 10/19/19 21:36 97 F L 110 H 20 122/59 91 L 10/19/19 21:30 110 H 29 H 117/56 92 L 10/19/19 21:26 97.7 F 103 H 23 117/56 92 L 10/19/19 21:22 110 H 10/19/19 21:12 107 H 10/19/19 21:00 110 H 22 122/63 93 L 10/19/19 20:30 105 H 32 H 129/64 93 L 10/19/19 20:00 97.7 F 108 H 21 128/59 92 L 10/19/19 19:30 108 H 30 H 109/57 94 L 10/19/19 19:00 101 H 29 H 109/57 92 L 10/19/19 18:45 109 H 21 126/72 93 L 10/19/19 18:30 89 28 H 120/74 76 L Intake and Output 10/20/19 10/20/19 10/20/19 06:59 14:59 22:59 Intake Total 1320 1060 1225 Output Total 645 380 150 Balance 152 957 7536 Intake: IV 967 592 9148 Sodium Chloride 0.9% 1, 375 525 000 ml @ 75 mls/hr IV . [id number] [facility] Rx#:[id number] Sodium Chloride 0.9% 1, 75 225 000 ml @ 75 mls/hr IV . [id number] [facility] Rx#:[id number] Sodium Chloride 0.9% 1, 1000 000 ml @ 999 mls/hr IV . Q1H1M [facility] Rx#:[id number] Oral 150 Blood Product 945 310 Platelet Pheresis Acda 630 Unit [id number] Rc As-1 Unit 310 [id number] Output: Urine 645 380 150 Other: Voiding Method Indwelling Catheter Indwelling Catheter Indwelling Catheter Weight 75.6 kg 75.6 kg - Constitutional General appearance: average body habitus, cooperative, no acute distress - EENT mild oral irritation Eyes: anicteric sclerae, EOMI ENT: hearing grossly normal - Neck Neck: no lymphadenopathy - Respiratory Respiratory: bilateral: diminished - Cardiovascular Rhythm: irregularly irregular Heart sounds: normal: S1, S2 leg Peripheral Edema: bilateral: None - Gastrointestinal General gastrointestinal: no absent bowel sounds, no decreased bowel sounds, no distended, no hepatomegaly, no hyperactive bowel sounds, normal bowel sounds, no organomegaly, no rigid, no scaphoid, soft, no splenomegaly, no tenderness, no umbilical hernia, no ventral hernia - Integumentary Integumentary: pale - Neurologic Neurologic: CNII-XII intact - Musculoskeletal Musculoskeletal: generalized weakness, strength equal bilaterally - Psychiatric Psychiatric: A&O x's 3, appropriate affect, intact judgment & insight Results CBC & Chem 7: 10/20/19 04:28 10/20/19 04:28 Labs: Abnormal Lab Results - Last 24 Hours (Table) 10/19/19 10/19/19 10/19/19 Range/Units 17:10 17:11 18:12 WBC (3.8-10.6) k/uL RBC (3.80-5.40) m/uL Hgb (11.4-16.0) gm/dL Hct (34.0-46.0) % MCV (80.0-100.0) fL Plt Count (150-450) k/uL Sodium (137-145) mmol/L BUN (7-17) mg/dL Glucose (74-99) mg/dL POC Glucose (mg/dL) (75-99) mg/dL Plasma Lactic Acid Derrell 7.6 H* (0.7-2.0) mmol/L Procalcitonin 0.41 H (0.02-0.09) ng/mL Urine Glucose (UA) (Negative) Urine Bacteria (None) /hpf Hyaline Casts (0-2) /lpf Urine Mucus (None) /hpf Crossmatch See Detail 10/19/19 10/19/19 10/19/19 Range/Units 22:11 22:37 22:45 WBC (3.8-10.6) k/uL RBC (3.80-5.40) m/uL Hgb (11.4-16.0) gm/dL Hct (34.0-46.0) % MCV (80.0-100.0) fL Plt Count (150-450) k/uL Sodium (137-145) mmol/L BUN (7-17) mg/dL Glucose (74-99) mg/dL POC Glucose (mg/dL) 243 H (75-99) mg/dL Plasma Lactic Acid Derrell 4.5 H* (0.7-2.0) mmol/L Procalcitonin (0.02-0.09) ng/mL Urine Glucose (UA) 1+ H (Negative) Urine Bacteria Rare H (None) /hpf Hyaline Casts 3 H (0-2) /lpf Urine Mucus Rare H (None) /hpf Crossmatch 10/20/19 10/20/19 10/20/19 Range/Units 04:28 04:28 04:28 WBC 0.1 L* (3.8-10.6) k/uL RBC 1.98 L (3.80-5.40) m/uL Hgb 6.8 L* (11.4-16.0) gm/dL Hct 20.0 L (34.0-46.0) % MCV 101.2 H (80.0-100.0) fL Plt Count 41 L D (150-450) k/uL Sodium 132 L (137-145) mmol/L BUN 30 H (7-17) mg/dL Glucose 149 H (74-99) mg/dL POC Glucose (mg/dL) (75-99) mg/dL Plasma Lactic Acid Derrell 4.3 H* (0.7-2.0) mmol/L Procalcitonin (0.02-0.09) ng/mL Urine Glucose (UA) (Negative) Urine Bacteria (None) /hpf Hyaline Casts (0-2) /lpf Urine Mucus (None) /hpf Crossmatch 10/20/19 10/20/19 10/20/19 Range/Units 06:35 09:00 11:48 WBC (3.8-10.6) k/uL RBC (3.80-5.40) m/uL Hgb (11.4-16.0) gm/dL Hct (34.0-46.0) % MCV (80.0-100.0) fL Plt Count (150-450) k/uL Sodium (137-145) mmol/L BUN (7-17) mg/dL Glucose (74-99) mg/dL POC Glucose (mg/dL) 234 H 131 H (75-99) mg/dL Plasma Lactic Acid Derrell 5.5 H* (0.7-2.0) mmol/L Procalcitonin (0.02-0.09) ng/mL Urine Glucose (UA) (Negative) Urine Bacteria (None) /hpf Hyaline Casts (0-2) /lpf Urine Mucus (None) /hpf Crossmatch 10/20/19 10/20/19 10/20/19 Range/Units 13:07 17:00 17:03 WBC (3.8-10.6) k/uL RBC (3.80-5.40) m/uL Hgb (11.4-16.0) gm/dL Hct (34.0-46.0) % MCV (80.0-100.0) fL Plt Count (150-450) k/uL Sodium (137-145) mmol/L BUN (7-17) mg/dL Glucose (74-99) mg/dL POC Glucose (mg/dL) 222 H (75-99) mg/dL Plasma Lactic Acid Derrell 3.5 H* 2.7 H* (0.7-2.0) mmol/L Procalcitonin (0.02-0.09) ng/mL Urine Glucose (UA) (Negative) Urine Bacteria (None) /hpf Hyaline Casts (0-2) /lpf Urine Mucus (None) /hpf Crossmatch Microbiology - Last 24 Hours (Table) 10/19/19 14:32 Blood Culture Gram Stain - Preliminary Blood 10/19/19 14:32 Blood Culture - Final Blood Chest x-ray: report reviewed Assessment and Plan (1) Small cell lung cancer Narrative/Plan: Patient had a greater than 6 month response rate from her initial carboplatin and etoposide therapy hence, this was ordered for her recurrence. Patient is due to have some radiation to painful paraspinal mass, was to start today but, this will be postponed. Based on patient's severely low blood counts, will have to consider dose reduction of her chemotherapy. I believe patient also may be dealing with a pneumonia which can exacerbate her pancytopenia. We will see how patient recovers. GCSF will be added to her regimen. Current Visit: Yes Status: Acute Priority: High Code(s): C34.90 - MALIG NANT NEOPLASM OF UNSP PART OF UNSP BRONCHUS OR LUNG SNOMED Code(s): 369552325 (2) Antineoplastic chemotherapy induced pancytopenia Narrative/Plan: Transfuse to keep hemoglobin 7 or higher. Patient has been transfused with one unit. Transfuse to keep platelets greater than 10,000 unless she is symptomatic. Patient received single donor platelets for platelet count of 7000 with an adequate response. G-CSF was started. Continue until ANC greater than 1000 Current Visit: Yes Status: Acute Priority: High Code(s): D61.810 - ANTINEOPLASTIC CHEMOTHERAPY INDUCED PANCYTOPENIA; T45.1X5A - ADVERSE EFFECT OF ANTINEOPLASTIC AND IMMUNOSUP DRUGS, INIT SNOMED Code(s): 941772279778506
[2019-10-20 20:16] LABS: Glucose,Whole Blood 95 mg/dL (75-99)
[2019-10-20] MEDS ORDERED: METOPROLOL TARTRATE 12.5 MG TAB PO SCH (21:00)
[2019-10-20] MEDS ORDERED: FUROSEMIDE 10 MG/ML 4 ML VIAL IV STA (21:14)
[2019-10-20] MEDS: PARoxetine 10 MG TAB PO SCH (21:20)
[2019-10-20] MEDS: NOREPINEPHRINE 32 MG in SODIUM CHLORIDE 0.9% 218 ML IV SCH (22:15)
--- NOTE | 2019-10-20 22:19 | XR ---
EXAMINATION TYPE: XR chest 1V portable DATE OF EXAM: 10/20/2019 COMPARISON: Today HISTORY: Intubation TECHNIQUE: FINDINGS: There is right central venous catheter with the tip in the superior vena cava. There is mod erate pulmonary airspace edema. There is endotracheal tube 4 cm from the treva. There is left axilla ry pacemaker. There is nasogastric tube in the stomach. Heart is enlarged. IMPRESSION: Endotracheal tube in good position. There is pulmonary edema that is worse than exam this morning.
[2019-10-20] MEDS: PROPOFOL 1,000 MG in EMPTY BAG 1 BAG IV SCH (22:20)
[2019-10-20 22:21] LABS: ABG Base Excess -24.7 mmol/L; ABG Oxygen Saturation 95.5 % (94-97); ABG PCO2 45 mmHg (35-45); ABG PO2 135 mmHg (83-108); ABG TCO2 10 mmol/L (19-24)
[2019-10-20 22:23] LABS: Glucose,Whole Blood 288 mg/dL (75-99)
[2019-10-20 22:23] LABS: ABG PH 6.88 (7.35-7.45)
[2019-10-20 22:24] LABS: ABG HCO3 9 mmol/L (21-25); Allen Test Performed? no
[2019-10-20] MEDS ORDERED: SODIUM BICARB 8.4% 50 ML SYR (1 MEQ/ML) IV STA (22:29)
[2019-10-20 22:47] LABS: Potassium 5.4 mmol/L (3.5-5.1)
[2019-10-20 22:48] LABS: Albumin 2.4 g/dL (3.5-5.0); Calcium 7.9 mg/dL (8.4-10.2); Magnesium 2.3 mg/dL (1.6-2.3); Phosphorus 7.6 mg/dL (2.5-4.5); Total Bilirubin 1.2 mg/dL (0.2-1.3); Total Protein 4.5 g/dL (6.3-8.2)
[2019-10-20 22:51] LABS: INR 1.3 (<1.2)
[2019-10-20 22:55] LABS: Creatine Kinase MB 3.5 ng/mL (0.0-2.4)
[2019-10-20 23:07] LABS: ABG Base Excess -14.5 mmol/L; ABG HCO3 14 mmol/L (21-25); ABG Oxygen Saturation 98.7 % (94-97); ABG PCO2 42 mmHg (35-45); ABG PO2 178 mmHg (83-108); ABG TCO2 16 mmol/L (19-24); Allen Test Performed? Yes
[2019-10-20 23:20] LABS: ABG PH 7.15 (7.35-7.45)
[2019-10-20 23:23] LABS: HCT 27.1 % (34.0-46.0); Hypochromasia Marked; MCH 33.6 pg (25.0-35.0); MCHC 31.1 g/dL (31.0-37.0); Macrocytosis Marked; Mean Platelet Volume 8.6; RBC 2.51 m/uL (3.80-5.40); RDW 15.4 % (11.5-15.5)
[2019-10-20 23:26] LABS: HGB 8.4 gm/dL (11.4-16.0)
[2019-10-21 00:09] LABS: WBC 0.6 k/uL (3.8-10.6)
[2019-10-21 00:10] LABS: Platelet Count 30 k/uL (150-450); Poikilocytosis (M) Present
[2019-10-21] MEDS: PROPOFOL 1,000 MG in EMPTY BAG 1 BAG IV SCH ×8 (01:28→23:08)
[2019-10-21] MEDS: methylPREDNISolone SOD SUCCI 125 MG/2 ML VIAL IV SCH ×5 (01:29→23:55)
[2019-10-21] MEDS: DEXTROSE 5% IN WATER 1,000 ML with SODIUM BICARB (1 MEQ/ML) 150 ML IV SCH ×2 (01:34→17:36)
[2019-10-21] MEDS ORDERED: FUROSEMIDE 10 MG/ML 2 ML VIAL IV ONE (02:13)
[2019-10-21] MEDS: SODIUM CHLORIDE 0.9% 50 ML with VASOPRESSIN 20 UNIT IVPB SCH ×6 (04:28→21:05)
[2019-10-21 04:55] LABS: Basophils % (A) 0 %; Eosinophils % (A) 0 %; HCT 26.8 % (34.0-46.0); HGB 9.1 gm/dL (11.4-16.0); Lymphocytes # (A) 0.2 k/uL (1.0-4.8); Lymphocytes % (A) 21 %; MCH 33.9 pg (25.0-35.0); MCHC 33.8 g/dL (31.0-37.0); Macrocytosis Slight; Mean Platelet Volume 8.2; Monocytes # (A) 0.1 k/uL (0-1.0); Monocytes % (A) 4 %; Neutrophils # (A) 0.8 k/uL (1.3-7.7); Neutrophils % (A) 70 %; Poikilocytosis Slight; RBC 2.67 m/uL (3.80-5.40); RDW 15.6 % (11.5-15.5)
[2019-10-21 05:02] LABS: WBC 1.1 k/uL (3.8-10.6)
[2019-10-21 05:03] LABS: Platelet Count 43 k/uL (150-450)
[2019-10-21 05:04] LABS: MCV 100.3 fL (80.0-100.0)
[2019-10-21 05:09] LABS: Albumin 2.5 g/dL (3.5-5.0); Calcium 7.6 mg/dL (8.4-10.2); Potassium 4.7 mmol/L (3.5-5.1); Total Bilirubin 2.7 mg/dL (0.2-1.3); Total Protein 4.7 g/dL (6.3-8.2)
[2019-10-21] MEDS: INSULIN ASPART (NovoLOG) 100 UNIT/ML VIAL SQ SCH ×5 (05:17→23:55)
[2019-10-21 05:48] LABS: ABG Base Excess -4.4 mmol/L; ABG HCO3 21 mmol/L (21-25); ABG Oxygen Saturation 93.5 % (94-97); ABG PCO2 36 mmHg (35-45); ABG PH 7.37 (7.35-7.45); ABG PO2 69 mmHg (83-108); ABG TCO2 22 mmol/L (19-24); Allen Test Performed? Yes
[2019-10-21] MEDS: VANCOMYCIN 1,250 MG in SODIUM CHLORIDE 0.9% 250 ML IVPB SCH (06:20)
[2019-10-21 06:25] LABS: Glucose,Whole Blood 168 mg/dL (75-99)
--- NOTE | 2019-10-21 08:01 | P.PN ---
Subjective Progress Note Date: 10/21/19 Principal diagnosis: Abnormal cardiac enzymes This is a very pleasant 79-year-old female patient who is unfortunate with a past medical history significant for small cell lung cancer with metastasis and the patient status post chemotherapy as well as radiation therapy as well as immunotherapy, coronary artery disease and status post coronary artery revascularization in the term of bypass as well as a stenting, the last heart catheterization was performed in 2013 where at that point the patient was admitted to the hospital with a chest discomfort suggestive of angina and un derwent a heart catheterization and was found to have two-vessel coronary artery disease involving the proximal left circumflex as well as left anterior descending artery. The STREETER to LAD was patent at that point and the vein graft to the diagonal was patent as well as the vein graft to the OM. She was found to have severe disease involving the LCx proximal to previously stent and at that point she underwent stenting of the left circumflex. Beside that the patient does have permanent pacemaker. This time the patient presented to the hospital because of increasing in the shortness of breath. No symptoms of chest pain or chest discomfort, dizziness, heart racing, or syncope. When she pre sented she was tachycardic. The troponin was elevated at appeared to be flat across support. The patient is very mild. Beside that the patient was found to be pancytopenic with WBC of 0.4, hemoglobin of 7.7, and platelet of 7. Also the BUN was slightly elevated but the creatinine was 0.7. The proBNP was 1200. The lactic acid also was elevated. We consulted to see the patient for further doc luation of acute non-ST patient myocardial infarction. As a mentioned earlier the patient did not have any symptoms of chest pain or chest discomfort. She is known to have metastatic small cell lung cancer. She was seen by the intensive care team and she was diagnosed with COPD exacerbation and currently she is on treatment for that. I did review the chest x-ray from today and to me it the patient doesn't look like she is in heart failure overall, in spite of elevated BNP and increasing shortness of breath. Beside that I would consider conservative medical approach regarding the mildly abnormal troponin. The patient was seen this morning, October [id number]. She developed acute respiratory distress and she was intubated last night. Beside that she is euvolemic and stable and requiring small doses of norepinephrine. She was started on metoprolol last night which I'm going to discontinue at this point. She continues to be pancytopenic with a very low platelet count. She underwent an echocardiogram which revealed severely impaired LV function was EF around 20% with moderate to severe mitral regurgitation. Overall the patient is not doing well and she has poor prognosis. Objective - Vital Signs Vital signs: Vital Signs Temp 98.5 F 10/21/19 04:01 Pulse 102 H 10/21/19 07:00 Resp 35 H 10/21/19 07:00 BP 121/66 10/21/19 07:00 Pulse Ox 96 10/21/19 07:00 Intake & Output 10/20/19 10/21/19 10/21/19 18:59 06:59 18:59 Intake Total 2285 1008.968 172.126 Output Total 530 165 0 Balance 1755 843.968 172.126 Weight 75.6 kg 85.6 kg Intake: IV 1825 305 20 Sodium Chloride 0.9% 1, 525 000 ml @ 75 mls/hr IV . [id number] [facility] Rx#:[id number] Sodium Chloride 0.9% 1, 300 305 20 000 ml @ 75 mls/hr IV . [id number] [facility]HA Rx#:[id number] Sodium Chloride 0.9% 1, 1000 000 ml @ 999 mls/hr IV . Q1H1M ONE Rx#:[id number] Intake, IV Titration 703.968 152.126 Amount Dextrose 5% in Water 1, 375 150 000 ml @ 75 mls/hr IV . [id number] [facility]HA with Sodium Bicarb (1 Meq/ml) 150 ml Rx#:[id number] Norepinephrine 32 mg In 87.275 2.126 Sodium Chloride 0.9% 218 ml @ 0.05 MCG/KG/MIN 1. 772 mls/hr IV .Q24H [facility]HA Rx#:[id number] Propofol 1,000 mg In 241.693 Empty Bag 1 bag @ Titrate IV .Q0M [facility]HA Rx#: [id number] Oral 150 Blood Product 310 Rc As-1 Unit 310 [id number] Output: Urine 530 165 0 Other: Voiding Method Indwelling Catheter Indwelling Catheter Indwelling Catheter ABP, PAP, CO, CI - Last Documented Arterial Blood Pressure 152/57 - Constitutional General appearance: Present: no acute distress - Respiratory Respiratory: bilateral: diminished - Cardiovascular Rhythm: regular Heart sounds: normal: S1, S2 - Labs CBC & Chem 7: 10/21/19 04:18 10/21/19 04:18 Labs: Abnormal Lab Results - Last 24 Hours (Table) 10/19/19 10/20/19 10/20/19 Range/Units 17:10 09:00 11:48 WBC (3.8-10.6) k/uL RBC (3.80-5.40) m/uL Hgb (11.4-16.0) gm/dL Hct (34.0-46.0) % MCV (80.0-100.0) fL RDW (11.5-15.5) % Plt Count (150-450) k/uL Neutrophils # (1.3-7.7) k/uL Lymphocytes # (1.0-4.8) k/uL Macrocytosis PT (9.0-12.0) sec INR (<1.2) ABG pH (7.35-7.45) ABG pO2 (83-108) mmHg ABG HCO3 (21-25) mmol/L ABG Total CO2 (19-24) mmol/L ABG O2 Saturation (94-97) % Sodium (137-145) mmol/L Potassium (3.5-5.1) mmol/L Carbon Dioxide (22-30) mmol/L BUN (7-17) mg/dL Creatinine (0.52-1.04) mg/dL Glucose (74-99) mg/dL POC Glucose (mg/dL) 131 H (75-99) mg/dL Plasma Lactic Acid Derrell 5.5 H* (0.7-2.0) mmol/L Calcium (8.4-10.2) mg/dL Phosphorus (2.5-4.5) mg/dL Total Bilirubin (0.2-1.3) mg/dL AST (14-36) U/L ALT (4-34) U/L Alkaline Phosphatase (38-126) U/L CK-MB (CK-2) (0.0-2.4) ng/mL Total Protein (6.3-8.2) g/dL Albumin (3.5-5.0) g/dL Crossmatch See Detail 10/20/19 10/20/19 10/20/19 Range/Units 13:07 17:00 17:03 WBC (3.8-10.6) k/uL RBC (3.80-5.40) m/uL Hgb (11.4-16.0) gm/dL Hct (34.0-46.0) % MCV (80.0-100.0) fL RDW (11.5-15.5) % Plt Count (150-450) k/uL Neutrophils # (1.3-7.7) k/uL Lymphocytes # (1.0-4.8) k/uL Macrocytosis PT (9.0-12.0) sec INR (<1.2) ABG pH (7.35-7.45) ABG pO2 (83-108) mmHg ABG HCO3 (21-25) mmol/L ABG Total CO2 (19-24) mmol/L ABG O2 Saturation (94-97) % Sodium (137-145) mmol/L Potassium (3.5-5.1) mmol/L Carbon Dioxide (22-30) mmol/L BUN (7-17) mg/dL Creatinine (0.52-1.04) mg/dL Glucose (74-99) mg/dL POC Glucose (mg/dL) 222 H (75-99) mg/dL Plasma Lactic Acid Derrell 3.5 H* 2.7 H* (0.7-2.0) mmol/L Calcium (8.4-10.2) mg/dL Phosphorus (2.5-4.5) mg/dL Total Bilirubin (0.2-1.3) mg/dL AST (14-36) U/L ALT (4-34) U/L Alkaline Phosphatase (38-126) U/L CK-MB (CK-2) (0.0-2.4) ng/mL Total Protein (6.3-8.2) g/dL Albumin (3.5-5.0) g/dL Crossmatch 10/20/19 10/20/19 10/20/19 Range/Units 22:17 22:21 22:26 WBC (3.8-10.6) k/uL RBC (3.80-5.40) m/uL Hgb (11.4-16.0) gm/dL Hct (34.0-46.0) % MCV (80.0-100.0) fL RDW (11.5-15.5) % Plt Count (150-450) k/uL Neutrophils # (1.3-7.7) k/uL Lymphocytes # (1.0-4.8) k/uL Macrocytosis PT (9.0-12.0) sec INR (<1.2) ABG pH 6.88 L* (7.35-7.45) ABG pO2 135 H (83-108) mmHg ABG HCO3 9 L* (21-25) mmol/L ABG Total CO2 10 L (19-24) mmol/L ABG O2 Saturation (94-97) % Sodium (137-145) mmol/L Potassium (3.5-5.1) mmol/L Carbon Dioxide (22-30) mmol/L BUN (7-17) mg/dL Creatinine (0.52-1.04) mg/dL Glucose (74-99) mg/dL POC Glucose (mg/dL) 288 H (75-99) mg/dL Plasma Lactic Acid Derrell 15.7 H* (0.7-2.0) mmol/L Calcium (8.4-10.2) mg/dL Phosphorus (2.5-4.5) mg/dL Total Bilirubin (0.2-1.3) mg/dL AST (14-36) U/L ALT (4-34) U/L Alkaline Phosphatase (38-126) U/L CK-MB (CK-2) (0.0-2.4) ng/mL Total Protein (6.3-8.2) g/dL Albumin (3.5-5.0) g/dL Crossmatch 10/20/19 10/20/19 10/20/19 Range/Units 22:26 22:26 22:26 WBC 0.6 L* (3.8-10.6) k/uL RBC 2.51 L (3.80-5.40) m/uL Hgb 8.4 L D (11.4-16.0) gm/dL Hct 27.1 L (34.0-46.0) % MCV 108.0 H D (80.0-100.0) fL RDW (11.5-15.5) % Plt Count 30 L (150-450) k/uL Neutrophils # (1.3-7.7) k/uL Lymphocytes # (1.0-4.8) k/uL Macrocytosis Marked A PT 13.0 H (9.0-12.0) sec INR 1.3 H (<1.2) ABG pH (7.35-7.45) ABG pO2 (83-108) mmHg ABG HCO3 (21-25) mmol/L ABG Total CO2 (19-24) mmol/L ABG O2 Saturation (94-97) % Sodium (137-145) mmol/L Potassium (3.5-5.1) mmol/L Carbon Dioxide (22-30) mmol/L BUN (7-17) mg/dL Creatinine (0.52-1.04) mg/dL Glucose (74-99) mg/dL POC Glucose (mg/dL) (75-99) mg/dL Plasma Lactic Acid Derrell (0.7-2.0) mmol/L Calcium (8.4-10.2) mg/dL Phosphorus (2.5-4.5) mg/dL Total Bilirubin (0.2-1.3) mg/dL AST (14-36) U/L ALT (4-34) U/L Alkaline Phosphatase (38-126) U/L CK-MB (CK-2) 3.5 H (0.0-2.4) ng/mL Total Protein (6.3-8.2) g/dL Albumin (3.5-5.0) g/dL Crossmatch 10/20/19 10/20/19 10/21/19 Range/Units 22:26 23:05 04:18 WBC 1.1 L* (3.8-10.6) k/uL RBC 2.67 L (3.80-5.40) m/uL Hgb 9.1 L (11.4-16.0) gm/dL Hct 26.8 L (34.0-46.0) % MCV 100.3 H D (80.0-100.0) fL RDW 15.6 H (11.5-15.5) % Plt Count 43 L (150-450) k/uL Neutrophils # 0.8 L (1.3-7.7) k/uL Lymphocytes # 0.2 L (1.0-4.8) k/uL Macrocytosis PT (9.0-12.0) sec INR (<1.2) ABG pH 7.15 L* (7.35-7.45) ABG pO2 178 H (83-108) mmHg ABG HCO3 14 L (21-25) mmol/L ABG Total CO2 16 L (19-24) mmol/L ABG O2 Saturation 98.7 H (94-97) % Sodium 131 L (137-145) mmol/L Potassium 5.4 H (3.5-5.1) mmol/L Carbon Dioxide 9 L* (22-30) mmol/L BUN 25 H (7-17) mg/dL Creatinine 1.17 H (0.52-1.04) mg/dL Glucose 263 H (74-99) mg/dL POC Glucose (mg/dL) (75-99) mg/dL Plasma Lactic Acid Derrell (0.7-2.0) mmol/L Calcium 7.9 L (8.4-10.2) mg/dL Phosphorus 7.6 H (2.5-4.5) mg/dL Total Bilirubin (0.2-1.3) mg/dL AST 45 H (14-36) U/L ALT 39 H (4-34) U/L Alkaline Phosphatase (38-126) U/L CK-MB (CK-2) (0.0-2.4) ng/mL Total Protein 4.5 L (6.3-8.2) g/dL Albumin 2.4 L (3.5-5.0) g/dL Crossmatch 10/21/19 10/21/19 10/21/19 Range/Units 04:18 04:18 05:45 WBC (3.8-10.6) k/uL RBC (3.80-5.40) m/uL Hgb (11.4-16.0) gm/dL Hct (34.0-46.0) % MCV (80.0-100.0) fL RDW (11.5-15.5) % Plt Count (150-450) k/uL Neutrophils # (1.3-7.7) k/uL Lymphocytes # (1.0-4.8) k/uL Macrocytosis PT (9.0-12.0) sec INR (<1.2) ABG pH (7.35-7.45) ABG pO2 69 L (83-108) mmHg ABG HCO3 (21-25) mmol/L ABG Total CO2 (19-24) mmol/L ABG O2 Saturation 93.5 L (94-97) % Sodium 131 L (137-145) mmol/L Potassium (3.5-5.1) mmol/L Carbon Dioxide 20 L (22-30) mmol/L BUN 35 H (7-17) mg/dL Creatinine 1.32 H (0.52-1.04) mg/dL Glucose 128 H (74-99) mg/dL POC Glucose (mg/dL) (75-99) mg/dL Plasma Lactic Acid Derrell 6.5 H* (0.7-2.0) mmol/L Calcium 7.6 L (8.4-10.2) mg/dL Phosphorus (2.5-4.5) mg/dL Total Bilirubin 2.7 H (0.2-1.3) mg/dL AST 302 H (14-36) U/L ALT 240 H (4-34) U/L Alkaline Phosphatase 128 H (38-126) U/L CK-MB (CK-2) (0.0-2.4) ng/mL Total Protein 4.7 L (6.3-8.2) g/dL Albumin 2.5 L (3.5-5.0) g/dL Crossmatch 10/21/19 Range/Units 06:24 WBC (3.8-10.6) k/uL RBC (3.80-5.40) m/uL Hgb (11.4-16.0) gm/dL Hct (34.0-46.0) % MCV (80.0-100.0) fL RDW (11.5-15.5) % Plt Count (150-450) k/uL Neutrophils # (1.3-7.7) k/uL Lymphocytes # (1.0-4.8) k/uL Macrocytosis PT (9.0-12.0) sec INR (<1.2) ABG pH (7.35-7.45) ABG pO2 (83-108) mmHg ABG HCO3 (21-25) mmol/L ABG Total CO2 (19-24) mmol/L ABG O2 Saturation (94-97) % Sodium (137-145) mmol/L Potassium (3.5-5.1) mmol/L Carbon Dioxide (22-30) mmol/L BUN (7-17) mg/dL Creatinine (0.52-1.04) mg/dL Glucose (74-99) mg/dL POC Glucose (mg/dL) 168 H (75-99) mg/dL Plasma Lactic Acid Derrell (0.7-2.0) mmol/L Calcium (8.4-10.2) mg/dL Phosphorus (2.5-4.5) mg/dL Total Bilirubin (0.2-1.3) mg/dL AST (14-36) U/L ALT (4-34) U/L Alkaline Phosphatase (38-126) U/L CK-MB (CK-2) (0.0-2.4) ng/mL Total Protein (6.3-8.2) g/dL Albumin (3.5-5.0) g/dL Crossmatch Microbiology - Last 24 Hours (Table) 10/19/19 14:32 Blood Culture Gram Stain - Preliminary Blood 10/19/19 14:32 Blood Culture - Final Blood Assessment and Plan Assessment: Assessment #1 metastatic small cell lung cancer #2 pancytopenia #3 mildly elevated troponin #4 COPD exacerbation #5 status post permanent pacemaker #6 multiple comorbid conditions Plan #1 consider conservative medical approach regarding the abnormal troponin. I am going to add metoprolol to the current medical regimen. Avoid any antiplatelet. #2 the echocardiogram was reviewed and revealed impaired LV function was moderate to severe MR #3 discontinue the metoprolol in view of the low blood pressure #4 hold any aspirin or any antiplatelet in view of the thrombocytopenia #5 overall very poor prognosis
[2019-10-21] MEDS: IPRATROPIUM-ALBUTEROL 3 ML NEB INHALATION SCH ×4 (08:04→20:15)
--- NOTE | 2019-10-21 08:18 | XR ---
EXAMINATION TYPE: XR chest 1V portable DATE OF EXAM: 10/21/2019 Comparison: 10/20/2019 Clinical History: 79-year-old female Tube placement Findings: ET tube appears satisfactory. NG tube courses below the diaphragm. Right anterior chest wall injectio n port with catheter tip at the cavoatrial junction. Left anterior chest wall pacemaker generator wit h right atrial and right ventricular leads. Median sternotomy wires and post-CABG clips. Heart remain s mildly enlarged with diffuse interstitial and patchy/confluent airspace opacities. There may be min imal improvement in the interval. Impression: Continued patchy and confluent airspace disease, likely pulmonary edema, stable to minimal interval i mprovement.
[2019-10-21] MEDS ORDERED: SODIUM CHLORIDE 0.9% 500 ML 500 ML IV ONE (08:26)
[2019-10-21] MEDS: CHLORHEXIDINE GLUCONATE 15 ML CUP MUCOUS MEM SCH ×2 (08:39→20:24)
[2019-10-21] MEDS: FILGRASTIM-SNDZ 480 MCG/0.8 ML SYRINGE SQ SCH (08:39)
[2019-10-21] MEDS: FLUCONAZOLE 100 MG TAB PO SCH (08:40)
[2019-10-21] MEDS: MAG HYDROX/AL HYDROX/SIMETH 30 ML, LIDOCAINE VISCOUS 30 ML, diphenhydrAMINE ELIXIR 75 M... PO SCH ×12 (08:40→20:22)
[2019-10-21] MEDS: PANTOPRAZOLE 40 MG/10 ML VIAL IVP SCH (08:42)
--- NOTE | 2019-10-21 08:44 | P.PN ---
Subjective Progress Note Date: 10/21/19 79-year-old female patient known history of COPD, known history of metastatic s mall cell lung cancer who received systemic chemotherapy on 10/08/2019 with a combination of carboplatinum and RETAIL ADVISOR-16 based on evidence of progression of her small cell lung cancer that was identified on a PET scan that was done on 10/03/2019. The patient was diagnosed initially having small cell lung cancer back in December 2018. She was treated with a combination of systemic chemotherapy and immunotherapy including Tecentriq. The patient developed reaction possible pneumonitis to the medication the patient was being treated with systemic steroids and immunotherapy has been discontinued. The PET scan that was done on 10/03/2019 showed background emphysema, and a large right paravertebral soft tissue lesion in the lower thorax measuring 4.8 x 3.5 cm with intense metabolic activity and there are also metabolic activity in the anterior aspect of the diaphragm and there was also some areas of groundglass opacity and reticular changes in the right lower lung area and there was suspicious enlarging abdominal lymphadenopathy with increased metabolic activity. No areas other than those. Based on that, the patient was started on systemic chemotherapy. She came into the ED today complaining of shortness of breath and cough. No fever. The patient was given a blood work in the emergency department and initially she was found to be pancytopenic with a 0.4 white cell count and hemoglobin of 7.7 with a platelet count of 7. Her BUN was 37 with a creatinine of 0.7. Troponin was at 0.15 and the proBNP level was 12,800. Also, her lactic acid level was 7.4. Influenza screen was negative. The patient was was also given a chest x-ray that showed interstitial changes and pneumonitis changes in the right infrahilar area and above the diaphragm. There was some background COPD and hyperinflation. Diffuse osteopenia was also seen. The patient was supposed to start radiation therapy for this abnormal paraspinal mass. Note that the CAT scan of the spine that was done on 10/09/2019 showed severe compression fraction of 11 and approximately 5-10% retropulsion. There was also a large right paraspinal mass extending D10 through T12 with some extension towards the T11 right neuroforamina. There was a moderate-sized right-sided pleural effusion that was also noted which was of a new onset. Bone scan findings are essentially the same. The patient was given Levaquin in the em ergency department. The patient was admitted to the hospital. Echo was done. Currently is on IV fluids at 75 mL an hour. She remains afebrile. No altered mentation. CAT scan of the brain that was done on 10/15/2019 was negative. On today's evaluation of 10/20/2019 I'm seeing the patient for a follow-up. The patient is awake and alert. No worsening in her shortness of breath. No significant sputum production. The cough is dry. She has remained afebrile throughout the night. She remained hemodynamically stable throughout the night. She is pancytopenic. She received platelet transfusion and her platelet count is above 40,000. Hemoglobin dropped down to 6.8 and the patient is receiving a unit of packed RBC for now. Her white cell count is at 0.1 and the patient is still on Zarxio. The blood cultures came back positive for gram-positive cocci and clusters and chains and vancomycin was added to her regimen. The pro calcitonin level was 0.4. The patient's chest x-ray from today shows a small right-sided pleural effusion in addition to perihilar infiltrate, which are chr onic findings related to previous radiation therapy. Possibility of pneumonia is felt to be less likely. Malignancy cannot be completely ruled out. The patient has chronic back pain. Her pain is under adequate control for now is estimated to be around 5 out of 10. Echo is pending. IV fluids are running at 75 mL's an hour. On today's evaluation of 10/21/2019 the patient is being seen in follow-up in the intensive care unit. The patient is currently intubated on a mechanical ventilator. She progressively got worse and she became more tachypneic and hypoxic. As we were getting ready to put the patient on a BiPAP, she went into respiratory arrest and she had a brief cardiac pulmonary arrest. She received CPR for approximately a minute and she immediately recovered after that. She was intubated and placed on a mechanical ventilator overnight. Note that her lactic acid level came up 15. She was given IV fluids. She was given bicarb infusion. Currently she is on a assist-control mode at the rate of 30 with a tidal volume of 400 and FiO2 of 60% with a PEEP of 5. Morning blood gases show a 7.37 with a pCO2 of 36 and pO2 of 69. Repeat chest x-ray from today shows adequate positioning of the ET tube. There is pulmonary edema. There is also increased infiltration of the right lower lobe area as seen on earlier chest x- ray. Possibility of an underlying malignancy versus pneumonia versus radiation changes cannot be completely ruled out. Note that the blood culture was showing gram-positive cocci in chains and clusters and the final cultures and sensitivities are pending. Meanwhile, the patient is on filgrastim and the patient's white cell count is up to 1.1. Hemoglobin is at 9.1. Platelets are improving at 43. She is afebrile. Urine output has dropped and the patient also developed an acute kidney injury. Her creatinine is up to 1.32. LFTs are also higher compared to yesterday probably related to the hypoxemia and the brief cardiac arrest. The Leonard at 302, ALT is up to 40. Serum hemoglobin is at 2.5. Lactic acid level has improved down to 6.5. Calcium level is at 7.6. Echo was done and the patient's was also found to have cardiomyopathy with impaired left ventricular ejection fraction of less than 25%. The patient also had severe global hypokinesis of the LV, mild aortic sclerosis, moderate degree of pulmonary hypertension. No evidence of any pericardial effusion. Note that post arrest the patient became hypotensive. Currently she is on norepinephrine infusion running at 0.1 g per KG per minute. Urine output is minimal at this point in time. Objective - Vital Signs Vital signs: Vital Signs Temp 98.5 F 10/21/19 04:01 Pulse 110 H 10/21/19 08:16 Resp 35 H 10/21/19 07:00 BP 121/66 10/21/19 07:00 Pulse Ox 96 10/21/19 07:00 Intake & Output 10/20/19 10/21/19 10/21/19 18:59 06:59 18:59 Intake Total 2285 1008.968 172.126 Output Total 530 165 0 Balance 1755 843.968 172.126 Weight 75.6 kg 85.6 kg Intake: IV 1825 305 20 Sodium Chloride 0.9% 1, 525 000 ml @ 75 mls/hr IV . [id number] [facility] Rx#:[id number] Sodium Chloride 0.9% 1, 300 305 20 000 ml @ 75 mls/hr IV . [id number] [facility] Rx#:[id number] Sodium Chloride 0.9% 1, 1000 000 ml @ 999 mls/hr IV . Q1H1M ONE Rx#:[id number] Intake, IV Titration 703.968 152.126 Amount Dextrose 5% in Water 1, 375 150 000 ml @ 75 mls/hr IV . [id number] [facility] with Sodium Bicarb (1 Meq/ml) 150 ml Rx#:[id number] Norepinephrine 32 mg In 87.275 2.126 Sodium Chloride 0.9% 218 ml @ 0.05 MCG/KG/MIN 1. 772 mls/hr IV .Q24H [facility] Rx#:[id number] Propofol 1,000 mg In 241.693 Empty Bag 1 bag @ Titrate IV .Q0M [facility] Rx#: [id number] Oral 150 Blood Product 310 Rc As-1 Unit 310 [id number] Output: Urine 530 165 0 Other: Voiding Method Indwelling Catheter Indwelling Catheter Indwelling Catheter ABP, PAP, CO, CI - Last Documented Arterial Blood Pressure 152/57 - Exam Gen. appearance she is calm comfortable pale nonacute distress. The patient is sedated. The patient is currently on propofol infusion which is running at 75 g per KG per minute. She is interested a mechanical ventilator. Orogastric and orotracheal tube are both in place. Head exam was generally normal. There was no scleral icterus or corneal arcus. Mucous membranes were moist. Neck was supple and without jugular venous distension, thyromegaly, or carotid bruits. Carotids were easily palpable bilaterally. There was no adenopathy. Lungs sounds are diminished and the patient diffuse expiratory wheezes without the lung his bilaterally. Breath sounds are diminished in the right lung base Cardiac exam revealed the PMI to be normally situated and sized. The rhythm was regular and no extrasystoles were noted during several minutes of auscultation. The first and second heart sounds were normal and physiologic splitting of the second heart sound was noted. There were no murmurs, rubs, clicks, or gallops. Sternum stable clean and intact and the patient has a pacemaker pocket over the left anterior chest area. Abdominal exam revealed normal bowel sounds. The abdomen was soft, non-tender, and without masses, organomegaly, or appreciable enlargement of the abdominal aorta. Examination of the extremities revealed easily palpable radial, femoral and pedal pulses. There was no cyanosis, clubbing or edema. Examination of the skin revealed no evidence of significant rashes, suspicious appearing nevi or other concerning lesions. Neurologically withdraws to painful stimulation 4 extremities. The patient is currently sedated. - Labs CBC & Chem 7: 10/21/19 04:18 10/21/19 04:18 Labs: Abnormal Lab Results - Last 24 Hours (Table) 10/19/19 10/20/19 10/20/19 Range/Units 17:10 09:00 11:48 WBC (3.8-10.6) k/uL RBC (3.80-5.40) m/uL Hgb (11.4-16.0) gm/dL Hct (34.0-46.0) % MCV (80.0-100.0) fL RDW (11.5-15.5) % Plt Count (150-450) k/uL Neutrophils # (1.3-7.7) k/uL Lymphocytes # (1.0-4.8) k/uL Macrocytosis PT (9.0-12.0) sec INR (<1.2) ABG pH (7.35-7.45) ABG pO2 (83-108) mmHg ABG HCO3 (21-25) mmol/L ABG Total CO2 (19-24) mmol/L ABG O2 Saturation (94-97) % Sodium (137-145) mmol/L Potassium (3.5-5.1) mmol/L Carbon Dioxide (22-30) mmol/L BUN (7-17) mg/dL Creatinine (0.52-1.04) mg/dL Glucose (74-99) mg/dL POC Glucose (mg/dL) 131 H (75-99) mg/dL Plasma Lactic Acid Derrell 5.5 H* (0.7-2.0) mmol/L Calcium (8.4-10.2) mg/dL Phosphorus (2.5-4.5) mg/dL Total Bilirubin (0.2-1.3) mg/dL AST (14-36) U/L ALT (4-34) U/L Alkaline Phosphatase (38-126) U/L CK-MB (CK-2) (0.0-2.4) ng/mL Total Protein (6.3-8.2) g/dL Albumin (3.5-5.0) g/dL Crossmatch See Detail 10/20/19 10/20/19 10/20/19 Range/Units 13:07 17:00 17:03 WBC (3.8-10.6) k/uL RBC (3.80-5.40) m/uL Hgb (11.4-16.0) gm/dL Hct (34.0-46.0) % MCV (80.0-100.0) fL RDW (11.5-15.5) % Plt Count (150-450) k/uL Neutrophils # (1.3-7.7) k/uL Lymphocytes # (1.0-4.8) k/uL Macrocytosis PT (9.0-12.0) sec INR (<1.2) ABG pH (7.35-7.45) ABG pO2 (83-108) mmHg ABG HCO3 (21-25) mmol/L ABG Total CO2 (19-24) mmol/L ABG O2 Saturation (94-97) % Sodium (137-145) mmol/L Potassium (3.5-5.1) mmol/L Carbon Dioxide (22-30) mmol/L BUN (7-17) mg/dL Creatinine (0.52-1.04) mg/dL Glucose (74-99) mg/dL POC Glucose (mg/dL) 222 H (75-99) mg/dL Plasma Lactic Acid Derrell 3.5 H* 2.7 H* (0.7-2.0) mmol/L Calcium (8.4-10.2) mg/dL Phosphorus (2.5-4.5) mg/dL Total Bilirubin (0.2-1.3) mg/dL AST (14-36) U/L ALT (4-34) U/L Alkaline Phosphatase (38-126) U/L CK-MB (CK-2) (0.0-2.4) ng/mL Total Protein (6.3-8.2) g/dL Albumin (3.5-5.0) g/dL Crossmatch 10/20/19 10/20/19 10/20/19 Range/Units 22:17 22:21 22:26 WBC (3.8-10.6) k/uL RBC (3.80-5.40) m/uL Hgb (11.4-16.0) gm/dL Hct (34.0-46.0) % MCV (80.0-100.0) fL RDW (11.5-15.5) % Plt Count (150-450) k/uL Neutrophils # (1.3-7.7) k/uL Lymphocytes # (1.0-4.8) k/uL Macrocytosis PT (9.0-12.0) sec INR (<1.2) ABG pH 6.88 L* (7.35-7.45) ABG pO2 135 H (83-108) mmHg ABG HCO3 9 L* (21-25) mmol/L ABG Total CO2 10 L (19-24) mmol/L ABG O2 Saturation (94-97) % Sodium (137-145) mmol/L Potassium (3.5-5.1) mmol/L Carbon Dioxide (22-30) mmol/L BUN (7-17) mg/dL Creatinine (0.52-1.04) mg/dL Glucose (74-99) mg/dL POC Glucose (mg/dL) 288 H (75-99) mg/dL Plasma Lactic Acid Derrell 15.7 H* (0.7-2.0) mmol/L Calcium (8.4-10.2) mg/dL Phosphorus (2.5-4.5) mg/dL Total Bilirubin (0.2-1.3) mg/dL AST (14-36) U/L ALT (4-34) U/L Alkaline Phosphatase (38-126) U/L CK-MB (CK-2) (0.0-2.4) ng/mL Total Protein (6.3-8.2) g/dL Albumin (3.5-5.0) g/dL Crossmatch 10/20/19 10/20/19 10/20/19 Range/Units 22:26 22:26 22:26 WBC 0.6 L* (3.8-10.6) k/uL RBC 2.51 L (3.80-5.40) m/uL Hgb 8.4 L D (11.4-16.0) gm/dL Hct 27.1 L (34.0-46.0) % MCV 108.0 H D (80.0-100.0) fL RDW (11.5-15.5) % Plt Count 30 L (150-450) k/uL Neutrophils # (1.3-7.7) k/uL Lymphocytes # (1.0-4.8) k/uL Macrocytosis Marked A PT 13.0 H (9.0-12.0) sec INR 1.3 H (<1.2) ABG pH (7.35-7.45) ABG pO2 (83-108) mmHg ABG HCO3 (21-25) mmol/L ABG Total CO2 (19-24) mmol/L ABG O2 Saturation (94-97) % Sodium (137-145) mmol/L Potassium (3.5-5.1) mmol/L Carbon Dioxide (22-30) mmol/L BUN (7-17) mg/dL Creatinine (0.52-1.04) mg/dL Glucose (74-99) mg/dL POC Glucose (mg/dL) (75-99) mg/dL Plasma Lactic Acid Derrell (0.7-2.0) mmol/L Calcium (8.4-10.2) mg/dL Phosphorus (2.5-4.5) mg/dL Total Bilirubin (0.2-1.3) mg/dL AST (14-36) U/L ALT (4-34) U/L Alkaline Phosphatase (38-126) U/L CK-MB (CK-2) 3.5 H (0.0-2.4) ng/mL Total Protein (6.3-8.2) g/dL Albumin (3.5-5.0) g/dL Crossmatch 10/20/19 10/20/19 10/21/19 Range/Units 22:26 23:05 04:18 WBC 1.1 L* (3.8-10.6) k/uL RBC 2.67 L (3.80-5.40) m/uL Hgb 9.1 L (11.4-16.0) gm/dL Hct 26.8 L (34.0-46.0) % MCV 100.3 H D (80.0-100.0) fL RDW 15.6 H (11.5-15.5) % Plt Count 43 L (150-450) k/uL Neutrophils # 0.8 L (1.3-7.7) k/uL Lymphocytes # 0.2 L (1.0-4.8) k/uL Macrocytosis PT (9.0-12.0) sec INR (<1.2) ABG pH 7.15 L* (7.35-7.45) ABG pO2 178 H (83-108) mmHg ABG HCO3 14 L (21-25) mmol/L ABG Total CO2 16 L (19-24) mmol/L ABG O2 Saturation 98.7 H (94-97) % Sodium 131 L (137-145) mmol/L Potassium 5.4 H (3.5-5.1) mmol/L Carbon Dioxide 9 L* (22-30) mmol/L BUN 25 H (7-17) mg/dL Creatinine 1.17 H (0.52-1.04) mg/dL Glucose 263 H (74-99) mg/dL POC Glucose (mg/dL) (75-99) mg/dL Plasma Lactic Acid Derrell (0.7-2.0) mmol/L Calcium 7.9 L (8.4-10.2) mg/dL Phosphorus 7.6 H (2.5-4.5) mg/dL Total Bilirubin (0.2-1.3) mg/dL AST 45 H (14-36) U/L ALT 39 H (4-34) U/L Alkaline Phosphatase (38-126) U/L CK-MB (CK-2) (0.0-2.4) ng/mL Total Protein 4.5 L (6.3-8.2) g/dL Albumin 2.4 L (3.5-5.0) g/dL Crossmatch 10/21/19 10/21/19 10/21/19 Range/Units 04:18 04:18 05:45 WBC (3.8-10.6) k/uL RBC (3.80-5.40) m/uL Hgb (11.4-16.0) gm/dL Hct (34.0-46.0) % MCV (80.0-100.0) fL RDW (11.5-15.5) % Plt Count (150-450) k/uL Neutrophils # (1.3-7.7) k/uL Lymphocytes # (1.0-4.8) k/uL Macrocytosis PT (9.0-12.0) sec INR (<1.2) ABG pH (7.35-7.45) ABG pO2 69 L (83-108) mmHg ABG HCO3 (21-25) mmol/L ABG Total CO2 (19-24) mmol/L ABG O2 Saturation 93.5 L (94-97) % Sodium 131 L (137-145) mmol/L Potassium (3.5-5.1) mmol/L Carbon Dioxide 20 L (22-30) mmol/L BUN 35 H (7-17) mg/dL Creatinine 1.32 H (0.52-1.04) mg/dL Glucose 128 H (74-99) mg/dL POC Glucose (mg/dL) (75-99) mg/dL Plasma Lactic Acid Derrell 6.5 H* (0.7-2.0) mmol/L Calcium 7.6 L (8.4-10.2) mg/dL Phosphorus (2.5-4.5) mg/dL Total Bilirubin 2.7 H (0.2-1.3) mg/dL AST 302 H (14-36) U/L ALT 240 H (4-34) U/L Alkaline Phosphatase 128 H (38-126) U/L CK-MB (CK-2) (0.0-2.4) ng/mL Total Protein 4.7 L (6.3-8.2) g/dL Albumin 2.5 L (3.5-5.0) g/dL Crossmatch 10/21/19 Range/Units 06:24 WBC (3.8-10.6) k/uL RBC (3.80-5.40) m/uL Hgb (11.4-16.0) gm/dL Hct (34.0-46.0) % MCV (80.0-100.0) fL RDW (11.5-15.5) % Plt Count (150-450) k/uL Neutrophils # (1.3-7.7) k/uL Lymphocytes # (1.0-4.8) k/uL Macrocytosis PT (9.0-12.0) sec INR (<1.2) ABG pH (7.35-7.45) ABG pO2 (83-108) mmHg ABG HCO3 (21-25) mmol/L ABG Total CO2 (19-24) mmol/L ABG O2 Saturation (94-97) % Sodium (137-145) mmol/L Potassium (3.5-5.1) mmol/L Carbon Dioxide (22-30) mmol/L BUN (7-17) mg/dL Creatinine (0.52-1.04) mg/dL Glucose (74-99) mg/dL POC Glucose (mg/dL) 168 H (75-99) mg/dL Plasma Lactic Acid Derrell (0.7-2.0) mmol/L Calcium (8.4-10.2) mg/dL Phosphorus (2.5-4.5) mg/dL Total Bilirubin (0.2-1.3) mg/dL AST (14-36) U/L ALT (4-34) U/L Alkaline Phosphatase (38-126) U/L CK-MB (CK-2) (0.0-2.4) ng/mL Total Protein (6.3-8.2) g/dL Albumin (3.5-5.0) g/dL Crossmatch Microbiology - Last 24 Hours (Table) 10/19/19 14:32 Blood Culture Gram Stain - Preliminary Blood 10/19/19 14:32 Blood Culture - Final Blood Assessment and Plan Plan: 1 acute hypoxic respiratory failure currently intubated on a mechanical ventilator. The patient presented with COPD exacerbation, possible right lower lobe pneumonia versus malignant infiltration of the right lung base in addition to possible sepsis as the patient's blood was positive for gram-positive cocci in chains and clusters. The patient was also pancytopenic. Furthermore the patient was identified to be in severe cardiomyopathy with an ejection fraction of less than 25% and global hypokinesis was also identified. The patient was receiving IV fluids. I think she did go into pulmonary edema yesterday which persists hours respiratory failure. Currently she is intubated on mechanical ventilator. Oxidation is improved. 2 metastatic small cell lung cancer. The patient was treated through medical oncology and radiation oncology. Diagnosis was established in December 2018 and the patient was treated with a combination of systemic chemotherapy and Tecetriq, followed by radiation therapy with good results and subsequently on 10/03/2019, the PET scan showed ectatic disease with a large paraspinal mass, new onset right-sided pleural effusion, metastatic depositInvolving the abdominal lymph nodes in addition to involvement of the spine. Please refer to the CAT scan of the thoracic spine and the bone scan. The patient was started on systemic chemotherapy with a combination of Celebrex [place] and RETAIL ADVISOR-16. 3 brief cardiopulmonary arrest less than 1 minute and the patient is adequately and the successful resuscitated 4 severe lactic acidosis, improving, then bicarb infusion 5 acute kidney injury with oligoria 6 sepsis with gram-positive cocci in chains and clusters currently on vancomycin, currently pressor dependent and patient is on norepinephrine infusion running at 0.1 g per KG per minute. 7 pancytopenia secondary to systemic chemotherapy, And the patient continues to be neutropenic and thrombocytopenic and she received platelet transfusion. Her bone marrow is being stimulated by Zarxio and the patient is received a unit of packed RBC yesterday. 8 right-sided pleural effusion as identified in the CAT scan of the chest and the PET scan 9 large paraspinal mass causing severe compression fracture of T11 and the mass extending from T10 to T12. The patient has secondary back pain and no signs of any cord compression 10 right lower lobe pulmonary infiltration, consider malignancy versus radiation changes in the right lower lobe. The PET scan did not show any significant metabolic activity within the right lower lobe area. However malignancy cannot be completely excluded this patient with development of a right-sided pleural effusion in a sedation with a right paraspinal mass 11 coronary artery disease with previous bypass surgery 12 congestion heart failure, proBNP level is quite elevated and the patient ejection fraction of less than 2 5% and the patient global hypokinesis 13 history of pacemaker insertion for bradycardia 14 squamous cell carcinoma of the skin 15 COPD with chronic hypoxic respiratory failure 16 questionable lupus 17 chronic radiation changes along the right hemithorax/right lower lobe area Plan Continue vent support Continue bicarb infusion at the rate of 75 mL an hour Given a bolus of 500 mL of normal saline and evaluate urine output May need to insert a triple lumen catheter and monitor the CVP Continue same antibiotic coverage and consult ID Continue filgrastim regarding neutropenia Monitor lactic there Consulted infectious disease Oncology consultation May need a bronchoscopy and lavage of the right lower lobe Titrate pressors to keep a mean arterial pressure above 65 We'll continue to follow Prognosis poor baseline above-mentioned comorbidities. Condition is critical. Discussed the case with the daughter the bedside. Continue to follow. Critically care evaluation more than 30 minutes. Time with Patient: Greater than 30
[2019-10-21] MEDS ORDERED: CISATRACURIUM 2 MG/ML 5 ML VIAL IV ONE (10:09)
[2019-10-21] MEDS ORDERED: IV FLUID CONTINUATION 1,000 ML IV ONE (10:14)
--- NOTE | 2019-10-21 10:29 | P.PN ---
Subjective Progress Note Date: 10/21/19 Principal diagnosis: RAMÓN, SOB In f/u pt is sedated and mechanically ventilated, family at bedside, pt does not appear to be in any distress Objective - Vital Signs Vital signs: Vital Signs Temp 97.5 F L 10/21/19 08:00 Pulse 103 H 10/21/19 10:00 Resp 37 H 10/21/19 10:00 BP 124/63 10/21/19 10:00 Pulse Ox 96 10/21/19 10:00 Intake & Output 10/20/19 10/21/19 10/21/19 18:59 06:59 18:59 Intake Total 2285 1008.968 922.126 Output Total 530 165 25 Balance 1755 843.968 897.126 Weight 75.6 kg 85.6 kg Intake: IV 1825 305 670 Sodium Chloride 0.9% 1, 525 000 ml @ 75 mls/hr IV . [id number] RADHA Rx#:[id number] Sodium Chloride 0.9% 1, 300 305 170 000 ml @ 75 mls/hr IV . [id number] RADHA Rx#:[id number] Sodium Chloride 0.9% 1, 1000 000 ml @ 999 mls/hr IV . Q1H1M ONE Rx#:[id number] Sodium Chloride 0.9% 500 500 ml 500 ml @ 999 mls/hr IV .Q31M ONE Rx#:[id number] Intake, IV Titration 703.968 252.126 Amount Dextrose 5% in Water 1, 375 150 000 ml @ 75 mls/hr IV . [id number] RADHA with Sodium Bicarb (1 Meq/ml) 150 ml Rx#:[id number] Norepinephrine 32 mg In 87.275 2.126 Sodium Chloride 0.9% 218 ml @ 0.05 MCG/KG/MIN 1. 772 mls/hr IV .Q24H RADHA Rx#:[id number] Propofol 1,000 mg In 241.693 100 Empty Bag 1 bag @ Titrate IV .Q0M RADHA Rx#: [id number] Oral 150 Blood Product 310 Rc As-1 Unit 310 [id number] Output: Urine 530 165 25 Other: Voiding Method Indwelling Catheter Indwelling Catheter Indwelling Catheter ABP, PAP, CO, CI - Last Documented Arterial Blood Pressure 145/57 - Constitutional General appearance: Present: average body habitus, no acute distress - Respiratory Respiratory: bilateral: diminished - Cardiovascular Heart sounds: normal: S1, S2 - Peripheral edema leg Peripheral Edema: bilateral: None - Gastrointestinal General gastrointestinal: Present: normal bowel sounds, soft - Integumentary Integumentary: Present: pale - Psychiatric Psychiatric: Absent: A&O x's 3, appropriate affect, intact judgment & insight - Labs CBC & Chem 7: 10/21/19 04:18 10/21/19 04:18 Labs: Abnormal Lab Results - Last 24 Hours (Table) 10/19/19 10/20/19 10/20/19 Range/Units 17:10 11:48 13:07 WBC (3.8-10.6) k/uL RBC (3.80-5.40) m/uL Hgb (11.4-16.0) gm/dL Hct (34.0-46.0) % MCV (80.0-100.0) fL RDW (11.5-15.5) % Plt Count (150-450) k/uL Neutrophils # (1.3-7.7) k/uL Lymphocytes # (1.0-4.8) k/uL Macrocytosis PT (9.0-12.0) sec INR (<1.2) ABG pH (7.35-7.45) ABG pO2 (83-108) mmHg ABG HCO3 (21-25) mmol/L ABG Total CO2 (19-24) mmol/L ABG O2 Saturation (94-97) % Sodium (137-145) mmol/L Potassium (3.5-5.1) mmol/L Carbon Dioxide (22-30) mmol/L BUN (7-17) mg/dL Creatinine (0.52-1.04) mg/dL Glucose (74-99) mg/dL POC Glucose (mg/dL) 131 H (75-99) mg/dL Plasma Lactic Acid Derrell 3.5 H* (0.7-2.0) mmol/L Calcium (8.4-10.2) mg/dL Phosphorus (2.5-4.5) mg/dL Total Bilirubin (0.2-1.3) mg/dL AST (14-36) U/L ALT (4-34) U/L Alkaline Phosphatase (38-126) U/L CK-MB (CK-2) (0.0-2.4) ng/mL Total Protein (6.3-8.2) g/dL Albumin (3.5-5.0) g/dL Crossmatch See Detail 10/20/19 10/20/19 10/20/19 Range/Units 17:00 17:03 22:17 WBC (3.8-10.6) k/uL RBC (3.80-5.40) m/uL Hgb (11.4-16.0) gm/dL Hct (34.0-46.0) % MCV (80.0-100.0) fL RDW (11.5-15.5) % Plt Count (150-450) k/uL Neutrophils # (1.3-7.7) k/uL Lymphocytes # (1.0-4.8) k/uL Macrocytosis PT (9.0-12.0) sec INR (<1.2) ABG pH 6.88 L* (7.35-7.45) ABG pO2 135 H (83-108) mmHg ABG HCO3 9 L* (21-25) mmol/L ABG Total CO2 10 L (19-24) mmol/L ABG O2 Saturation (94-97) % Sodium (137-145) mmol/L Potassium (3.5-5.1) mmol/L Carbon Dioxide (22-30) mmol/L BUN (7-17) mg/dL Creatinine (0.52-1.04) mg/dL Glucose (74-99) mg/dL POC Glucose (mg/dL) 222 H (75-99) mg/dL Plasma Lactic Acid Derrell 2.7 H* (0.7-2.0) mmol/L Calcium (8.4-10.2) mg/dL Phosphorus (2.5-4.5) mg/dL Total Bilirubin (0.2-1.3) mg/dL AST (14-36) U/L ALT (4-34) U/L Alkaline Phosphatase (38-126) U/L CK-MB (CK-2) (0.0-2.4) ng/mL Total Protein (6.3-8.2) g/dL Albumin (3.5-5.0) g/dL Crossmatch 10/20/19 10/20/19 10/20/19 Range/Units 22:21 22:26 22:26 WBC (3.8-10.6) k/uL RBC (3.80-5.40) m/uL Hgb (11.4-16.0) gm/dL Hct (34.0-46.0) % MCV (80.0-100.0) fL RDW (11.5-15.5) % Plt Count (150-450) k/uL Neutrophils # (1.3-7.7) k/uL Lymphocytes # (1.0-4.8) k/uL Macrocytosis PT 13.0 H (9.0-12.0) sec INR 1.3 H (<1.2) ABG pH (7.35-7.45) ABG pO2 (83-108) mmHg ABG HCO3 (21-25) mmol/L ABG Total CO2 (19-24) mmol/L ABG O2 Saturation (94-97) % Sodium (137-145) mmol/L Potassium (3.5-5.1) mmol/L Carbon Dioxide (22-30) mmol/L BUN (7-17) mg/dL Creatinine (0.52-1.04) mg/dL Glucose (74-99) mg/dL POC Glucose (mg/dL) 288 H (75-99) mg/dL Plasma Lactic Acid Derrell 15.7 H* (0.7-2.0) mmol/L Calcium (8.4-10.2) mg/dL Phosphorus (2.5-4.5) mg/dL Total Bilirubin (0.2-1.3) mg/dL AST (14-36) U/L ALT (4-34) U/L Alkaline Phosphatase (38-126) U/L CK-MB (CK-2) (0.0-2.4) ng/mL Total Protein (6.3-8.2) g/dL Albumin (3.5-5.0) g/dL Crossmatch 10/20/19 10/20/19 10/20/19 Range/Units 22:26 22:26 22:26 WBC 0.6 L* (3.8-10.6) k/uL RBC 2.51 L (3.80-5.40) m/uL Hgb 8.4 L D (11.4-16.0) gm/dL Hct 27.1 L (34.0-46.0) % MCV 108.0 H D (80.0-100.0) fL RDW (11.5-15.5) % Plt Count 30 L (150-450) k/uL Neutrophils # (1.3-7.7) k/uL Lymphocytes # (1.0-4.8) k/uL Macrocytosis Marked A PT (9.0-12.0) sec INR (<1.2) ABG pH (7.35-7.45) ABG pO2 (83-108) mmHg ABG HCO3 (21-25) mmol/L ABG Total CO2 (19-24) mmol/L ABG O2 Saturation (94-97) % Sodium 131 L (137-145) mmol/L Potassium 5.4 H (3.5-5.1) mmol/L Carbon Dioxide 9 L* (22-30) mmol/L BUN 25 H (7-17) mg/dL Creatinine 1.17 H (0.52-1.04) mg/dL Glucose 263 H (74-99) mg/dL POC Glucose (mg/dL) (75-99) mg/dL Plasma Lactic Acid Derrell (0.7-2.0) mmol/L Calcium 7.9 L (8.4-10.2) mg/dL Phosphorus 7.6 H (2.5-4.5) mg/dL Total Bilirubin (0.2-1.3) mg/dL AST 45 H (14-36) U/L ALT 39 H (4-34) U/L Alkaline Phosphatase (38-126) U/L CK-MB (CK-2) 3.5 H (0.0-2.4) ng/mL Total Protein 4.5 L (6.3-8.2) g/dL Albumin 2.4 L (3.5-5.0) g/dL Crossmatch 10/20/19 10/21/19 10/21/19 Range/Units 23:05 04:18 04:18 WBC 1.1 L* (3.8-10.6) k/uL RBC 2.67 L (3.80-5.40) m/uL Hgb 9.1 L (11.4-16.0) gm/dL Hct 26.8 L (34.0-46.0) % MCV 100.3 H D (80.0-100.0) fL RDW 15.6 H (11.5-15.5) % Plt Count 43 L (150-450) k/uL Neutrophils # 0.8 L (1.3-7.7) k/uL Lymphocytes # 0.2 L (1.0-4.8) k/uL Macrocytosis PT (9.0-12.0) sec INR (<1.2) ABG pH 7.15 L* (7.35-7.45) ABG pO2 178 H (83-108) mmHg ABG HCO3 14 L (21-25) mmol/L ABG Total CO2 16 L (19-24) mmol/L ABG O2 Saturation 98.7 H (94-97) % Sodium (137-145) mmol/L Potassium (3.5-5.1) mmol/L Carbon Dioxide (22-30) mmol/L BUN (7-17) mg/dL Creatinine (0.52-1.04) mg/dL Glucose (74-99) mg/dL POC Glucose (mg/dL) (75-99) mg/dL Plasma Lactic Acid Derrell 6.5 H* (0.7-2.0) mmol/L Calcium (8.4-10.2) mg/dL Phosphorus (2.5-4.5) mg/dL Total Bilirubin (0.2-1.3) mg/dL AST (14-36) U/L ALT (4-34) U/L Alkaline Phosphatase (38-126) U/L CK-MB (CK-2) (0.0-2.4) ng/mL Total Protein (6.3-8.2) g/dL Albumin (3.5-5.0) g/dL Crossmatch 10/21/19 10/21/19 10/21/19 Range/Units 04:18 05:45 06:24 WBC (3.8-10.6) k/uL RBC (3.80-5.40) m/uL Hgb (11.4-16.0) gm/dL Hct (34.0-46.0) % MCV (80.0-100.0) fL RDW (11.5-15.5) % Plt Count (150-450) k/uL Neutrophils # (1.3-7.7) k/uL Lymphocytes # (1.0-4.8) k/uL Macrocytosis PT (9.0-12.0) sec INR (<1.2) ABG pH (7.35-7.45) ABG pO2 69 L (83-108) mmHg ABG HCO3 (21-25) mmol/L ABG Total CO2 (19-24) mmol/L ABG O2 Saturation 93.5 L (94-97) % Sodium 131 L (137-145) mmol/L Potassium (3.5-5.1) mmol/L Carbon Dioxide 20 L (22-30) mmol/L BUN 35 H (7-17) mg/dL Creatinine 1.32 H (0.52-1.04) mg/dL Glucose 128 H (74-99) mg/dL POC Glucose (mg/dL) 168 H (75-99) mg/dL Plasma Lactic Acid Derrell (0.7-2.0) mmol/L Calcium 7.6 L (8.4-10.2) mg/dL Phosphorus (2.5-4.5) mg/dL Total Bilirubin 2.7 H (0.2-1.3) mg/dL AST 302 H (14-36) U/L ALT 240 H (4-34) U/L Alkaline Phosphatase 128 H (38-126) U/L CK-MB (CK-2) (0.0-2.4) ng/mL Total Protein 4.7 L (6.3-8.2) g/dL Albumin 2.5 L (3.5-5.0) g/dL Crossmatch Microbiology - Last 24 Hours (Table) 10/19/19 14:32 Blood Culture Gram Stain - Preliminary Blood 10/19/19 14:32 Blood Culture - Final Blood - Imaging and Cardiology Chest x-ray: report reviewed Assessment and Plan (1) Sepsis Narrative/Plan: ID consulted Cultures pending completion, abx ordered DIC work up for hemoptysis Current Visit: Yes Status: Acute Priority: High Code(s): A41.9 - SEPSIS, UNSPECIFIED ORGANISM SNOMED Code(s): 92190590 (2) Small cell lung cancer Narrative/Plan: Patient had a greater than 6 month response rate from her initial carboplatin and etoposide therapy hence, this was ordered for her recurrence. Patient is due to have some radiation to painful paraspinal mass, was to start today but, this will be postponed. Based on patient's severely low blood counts, will have to consider dose reduction of her chemotherapy, GCSF to be added. Pt has bactremia which can exacerbate pancytopenia. Being treated for the same Current Visit: Yes Status: Acute Priority: High Code(s): C34.90 - MALIGNANT NEOPLASM OF UNSP PART OF UNSP BRONCHUS OR LUNG SNOMED Code(s): 104759192 (3) Antineoplastic chemotherapy induced pancytopenia Narrative/Plan: Transfuse to keep hemoglobin 7 or higher. Transfuse to keep platelets greater than 10,000 unless she is symptomatic. G-CSF was started. Continue until ANC greater than 1000 Current Visit: Yes Status: Acute Priority: High Code(s): D61.810 - ANTINEOPLASTIC CHEMOTHERAPY INDUCED PANCYTOPENIA; T45.1X5A - ADVERSE EFFECT OF ANTINEOPLASTIC AND IMMUNOSUP DRUGS, INIT SNOMED Code(s): 298400305850345 Plan: Case discussed with Critical Care team ID consulted for bactremia, sepsis No further cancer treatment until pt has complete recovery Dr. Cantor discussed with family supporting pt and treating the underlying cause. Hopeful for recovery, follow closely Doctor attests: I performed a history and physical examination of this patient, developed impression and plan of care. Discussed with dictator. I agree with dictators note, documented as a scribe.
--- NOTE | 2019-10-21 10:48 | P.PCN ---
Date of Procedure: 10/21/19 Preoperative Diagnosis: Acute hypoxic respiratory failure, possible right lower lobe pneumonia Postoperative Diagnosis: Acute hypoxic respiratory failure, possible right lower lobe pneumonia Procedure(s) Performed: Flexible bronchoscopy and the right lower lobe bronchioloalveolar lavage Anesthesia: PRINCE Surgeon: Sean Núñez Estimated Blood Loss (ml): 0 Pathology: other Condition: critical Disposition: ICU Operative Findings: This is a flexible bronchoscopy that was done in the intensive care unit where the patient was being intubated on a mechanical ventilator. The patient was placed on 100% FiO2. The patient was given 10 mg of IV Nimbex for paralysis. The patient was already on propofol for sedation The flexible bronchoscope was inserted through the ET tube. The procedure was done and the patient was adequately oxygenated and ventilated. The bronchoscope was advanced to the lower trachea and tip of the ET tube was seen about 3 cm above the treva. A quick airway inspection was done. Bilateral mainstem bronchi, right upper lobe bronchus, right middle lobe bronchus, right lower lobe bronchus, left upper lobe bronchus and left lower lobe bronchussegments and subsegments were all within normal limits. The bronchoscope was then wedged in the anterior segment of the right lower lobe. The bronchioloalveolar lavage was done. A total of 80 mL of fluid was infused and 20 mL was aspirated. The aspirate was turbid and nonbloody. The patient tolerated the procedure well without any complications. The sample was sent for Gram stain and culture in addition to viral cultures and fungal cultures.. We'll continue to follow. The procedure was completed without any complications.
--- NOTE | 2019-10-21 11:40 | CDI ---
Documentation Clarification Form Date: 10/21/2019 11:05:17 AM From: Tracey Rivas RN CCDS Admit Date: 10/19/2019 03:33:00 PM Patient Name: Katharina Franks Visit Number: [id number] Discharge Date: ATTENTION: The Clinical Documentation Specialists (CDI) and [facility] Coding Staff appreciate your assistance in clarifying documentation. Please respond to the clarification below the line at the bottom and electronically sign. The CDI & [facility] Coding staff will review the response and follow-up if needed. Please note: Queries are made part of the Legal Health Record. If you have any questions, please contact the author of this message via ITS. Dr. Les Prado We consulted to see the patient for further evaluation of acute Non - ST Patient Myocardial infraction. Your consult 10/20 Patient History/Risk Factors: Clinical Indicators: Per H&P 10/20 Elevated troponin possibly secondary to anemia Labs 10/19 Hgb 7.7 Troponin: 10/19 0.151 EKG Results: 10/19 Demand pacemaker interpretation is based on intrinsic rhythm, Atrial fibrillation with RVR with premature ventricular or aberrantly conducted complexes, Left axis deviation, Left ventricular hypertrophy with QRS widening, Lateral infarct, age undermined, Inferior Infarct age undetermined. Treatment: 10/19 Transfused 1 Unit PRBC, 10/19 Aspirin po x1, For accurate documentation please clarify Acute Non-St Myocardial Infarction: * Type II NSTEMI (please specify underlying etiology) * NSTEMI ruled out * Unable to determine * Other Condition, please specify (Last Revision: September 2019) Type II myocardial injury secondary to supply demand mismatch with significant anemia. MTDD
[2019-10-21 11:51] LABS: Glucose,Whole Blood 184 mg/dL (75-99)
[2019-10-21] MEDS: LEVOFLOXACIN 750 MG TAB PO SCH (11:52)
[2019-10-21 12:57] LABS: D-Dimer 7.42 mg/L FEU (<0.60); INR 1.6 (<1.2); Prothrombin Time 15.3 sec (9.0-12.0)
[2019-10-21] MEDS ORDERED: SODIUM CHLORIDE 0.9% 1,000 ML IV ONE (15:19)
[2019-10-21 17:36] LABS: Glucose,Whole Blood 161 mg/dL (75-99)
[2019-10-21] MEDS: PARoxetine 10 MG TAB PO SCH (21:02)
--- NOTE | 2019-10-21 23:08 | P.CONS ---
History of Present Illness - Reason for Consult Consult date: 10/21/19 Gram-positive bacteremia Requesting physician: Cynthia Brooks - Chief Complaint Shortness of breath 2 days - History of Present Illness Patient is a 79-year-old female with past medical history significant for COPD metastatic small cell carcinoma of the lung for the patient has been on systemic chemotherapy the patient presenting to [facility] on 10/19/2019 with a chief complaints of increasing shortness of breath with the symptom has been going on for a few days before she presented to the hospital with her symptoms getting worse over few days before she presented to the hospital, the patient was afebrile and remained to be afebrile since the patient has been admitted to the hospital patient noticed to have leukopenia with a white count of around 0.4 patient did have a chest x-ray suggestive of possible CHF pattern versus pneumonia patient was admitted to the hospital last night the patient went into respiratory distress that did not responded to the BiPAP and Lasix subsequently the patient did last pulse and the patient was coded and intubated patient is currently on low-dose pressor support patient did have blood cultures drawn which family were positive gram-positive cocci that prompted this infection disease consultation, patient did have right chest wall Mediport that was assessed last night most information has been obtained from review the chart and diagnosis. Has the patient is currently sedated on the vent and a reported history and no family member at the bedside Review of Systems Positive points has been mentioned in HPI complete review could not be obtained because of his underlying mental status Past Medical History Past Medical History: Coronary Artery Disease (CAD), Cancer, Chest Pain / Angina, GERD/Reflux, Hyperlipidemia, Hypertension, Myocardial Infarction (MS), Osteoarthritis (OA) Additional Past Medical History / Comment(s): Metastatic small cell lung cancer, coronary artery disease, previous bypass surgery, previous history of pacemaker insertion for cardiac block, hypertension, osteoarthritis, right carotid artery stenosis, COPD, retinal detachment, environmental ALLERGIES, squamous cell carcinoma of the skin, previous history of GI bleed, previous history of blood transfusion Last Myocardial Infarction Date:: 06/2013 History of Any Multi-Drug Resistant Organisms: None Reported Past Surgical History: Appendectomy, Coronary Bypass/CABG, Heart Catheterization With Stent, Hysterectomy, Pacemaker, Tubal Ligation Additional Past Surgical History / Comment(s): 3 vessel cabg 01/2010, retinal de tachment surgery of the right eye, cataract removal and lens implant bilaterally. TONGUE MASS REMOVED, Cardiac Stents Jun 2013, Jun 2014 and November 2015 ([place]). Past Anesthesia/Blood Transfusion Reactions: No Reported Reaction, Family History of Problems w/ Anesthesia Additional Past Anesthesia/Blood Transfusion Reaction / Comm: RECEIVED BLOOD TR ANSFUSION 09/21/16-Positive Antibodies,Daughter PONV Date of Last Stent Placement:: 2015 Type of Cardiac Device: Permanent Pacemaker Device Placement Date:: 04/2007 Smoking Status: Former smoker - Past Family History Daughter(s) Family Medical History: Cancer Additional Family Medical History / Comment(s): BASAL CELL CANCER Father Family Medical History: CVA/TIA Additional Family Medical History / Comment(s): at 58 from cerebral hemorrhage Mother Family Medical History: No Reported History Sister(s) Family Medical History: Hypertension Medications and Allergies Home Medications Medication Instructions Recorded Confirmed Type Lovastatin [Mevacor] 20 mg PO HS 06/04/14 10/19/19 History Metoprolol Tartrate 25 mg PO QAM 06/04/14 10/19/19 History Nitroglycerin Sl Tabs [Nitrostat] 0.4 mg SUBLINGUAL Q5M PRN 06/29/15 10/19/19 History Aspirin [Adult Low Dose Aspirin EC] 81 mg PO HS 09/24/16 10/19/19 History Clopidogrel [Plavix] 75 mg PO DAILY 09/24/16 10/19/19 History Pantoprazole [Protonix] 40 mg PO DAILY 04/12/17 10/19/19 History PARoxetine [Paxil] 10 mg PO HS 12/02/18 10/19/19 History ALPRAZolam [Xanax] 0.25 mg PO DAILY PRN 10/19/19 10/19/19 History Cyclobenzaprine [Flexeril] 10 mg PO Q8H PRN 10/19/19 10/19/19 History Dexamethasone [Decadron] 4 mg PO TID 10/19/19 10/19/19 History Fluconazole 200 mg PO DAILY 10/19/19 10/19/19 History Lidocaine-Prilocaine Cream [Emla 1 applic TOPICAL DAILY PRN 10/19/19 10/19/19 History Cream 2.5%/2.5%] Losartan [Cozaar] 25 mg PO HS 10/19/19 10/19/19 History Naloxone HCl [Narcan] 4 mg NASAL ONCE PRN 10/19/19 10/19/19 History oxyCODONE-APAP 10-325MG [Percocet 1 tab PO Q6H PRN 10/19/19 10/19/19 History 10-325 mg] Allergies Allergy/AdvReac Type Severity Reaction Status Date / Time cefuroxime axetil Allergy Severe Anaphylaxis Verified 10/19/19 17:34 [From Ceftin] Penicillins Allergy Severe Rash/Hives Verified 10/19/19 17:34 Cephalosporins Allergy Anaphylaxis Verified 10/19/19 17:34 Physical Exam Vitals: Vital Signs Temp Pulse Resp BP Pulse Ox 10/21/19 11:53 107 H 10/21/19 11:43 110 H 10/21/19 11:00 104 H 30 H 110/52 100 10/21/19 10:30 106 H 30 H 94/64 98 10/21/19 10:00 103 H 37 H 124/63 96 10/21/19 09:30 102 H 24 111/70 96 10/21/19 09:00 105 H 29 H 107/53 96 10/21/19 08:30 106 H 38 H 112/60 96 10/21/19 08:16 110 H 10/21/19 08:08 109 H 10/21/19 08:00 97.5 F L 110 H 34 H 116/67 96 10/21/19 07:30 110 H 30 H 121/61 96 10/21/19 07:00 102 H 35 H 121/66 96 10/21/19 06:30 101 H 35 H 104/61 96 10/21/19 06:00 94 30 H 115/72 94 L 10/21/19 05:30 92 34 H 104/94 94 L 10/21/19 05:00 94 30 H 104/62 94 L 10/21/19 04:30 93 32 H 92/45 93 L 10/21/19 04:01 98.5 F 90 30 H 106/83 91 L 10/21/19 03:30 91 30 H 87/51 95 10/21/19 03:00 96 30 H 104/63 95 10/21/19 02:30 84 31 H 94/61 93 L 10/21/19 02:00 75 30 H 110/66 92 L 10/21/19 01:30 92 30 H 114/51 91 L 10/21/19 01:00 83 30 H 133/86 91 L 10/21/19 00:30 83 30 H 108/49 92 L 10/21/19 00:15 86 24 121/43 10/21/19 00:00 97.2 F L 81 24 90/56 92 L 10/20/19 23:45 91 24 85/70 20 23:30 98.8 F 90 25 H 91/74 10/20/19 23:15 58 L 24 85/42 10/20/19 23:00 91 31 H 83/68 10/20/19 22:45 75 24 97/55 10/20/19 22:30 85 12 102/63 10/20/19 22:15 60 16 131/59 10/20/19 22:00 93 20 155/65 10/20/19 21:45 72 28 H 52/28 10/20/19 21:30 69 30 H 99/87 10/20/19 21:15 93 31 H 135/64 78 L 10/20/19 21:03 105 H 26 H 20 21:00 105 H 21 135/65 92 L 20 20:52 105 H 20 20 20:00 98 F 105 H 20 124/67 93 L 20 19:00 110 H 22 130/64 91 L 20 18:00 106 H 25 H 133/72 92 L 20 17:00 105 H 19 127/66 92 L 20 16:55 102 H 20 16:42 101 H 20 94 L 20 16:00 102 H 13 104/62 92 L 20 15:00 98.1 F 98 18 115/65 92 L 20 14:00 96 27 H 103/59 93 L Intake and Output 10/20/19 10/21/19 10/21/19 22:59 06:59 14:59 Intake Total 1459.808 679.400 5911.743 Output Total 305 10 25 Balance 1154.808 966.902 5161.743 Intake: IV 1450 80 765 Sodium Chloride 0.9% 1, 450 80 245 000 ml @ 75 mls/hr IV . [id number] RADHA Rx#:[id number] Sodium Chloride 0.9% 1, 1000 000 ml @ 999 mls/hr IV . Q1H1M ONE Rx#:[id number] Sodium Chloride 0.9% 500 500 ml 500 ml @ 999 mls/hr IV .Q31M ONE Rx#:[id number] Intake, IV Titration 9.808 694.160 337.743 Amount Dextrose 5% in Water 1, 375 150 000 ml @ 75 mls/hr IV . [id number] RADHA with Sodium Bicarb (1 Meq/ml) 150 ml Rx#:[id number] Norepinephrine 32 mg In 3.987 83.288 2.126 Sodium Chloride 0.9% 218 ml @ 0.05 MCG/KG/MIN 1. 772 mls/hr IV .Q24H RADHA Rx#:[id number] Propofol 1,000 mg In 5.821 235.872 185.617 Empty Bag 1 bag @ Titrate IV .Q0M RADHA Rx#: [id number] Output: Urine 305 10 25 Other: Voiding Method Indwelling Catheter Indwelling Catheter Indwelling Catheter Weight 85.6 kg ABP, PAP, CO, CI - Last 8 Hours Arterial Blood Pressure 119/48 Arterial Blood Pressure 144/58 Arterial Blood Pressure 145/57 Arterial Blood Pressure 139/57 Arterial Blood Pressure 131/51 Arterial Blood Pressure 125/53 Arterial Blood Pressure 146/59 Arterial Blood Pressure 143/57 Arterial Blood Pressure 152/57 Arterial Blood Pressure 153/58 Arterial Blood Pressure 148/58 Arterial Blood Pressure 148/56 GENERAL DESCRIPTION: Elderly female intubated on the vent, No tachypnea or accessory muscle of respiration use. HEENT: Shows Pallor , no scleral icterus. Oral mucous membrane could not be examined as the patient is orally intubated NECK: Trachea central, no thyromegaly. LUNGS: Unlabored breathing. Decreased breath sound at the bases. No wheeze or crackle. HEART: S1, S2, regular rate and rhythm. No loud murmur ABDOMEN: Soft, no tenderness , guarding or rigidity, no organomegaly EXTREMITIES: No edema of feet. SKIN: No rash, no masses palpable. NEUROLOGICAL: The patient is sedated intubated on the vent Results CBC & Chem 7: 10/21/19 04:18 10/21/19 04:18 Labs: Abnormal Lab Results - Last 24 Hours (Table) 10/20/19 10/20/19 10/20/19 Range/Units 13:07 17:00 17:03 WBC (3.8-10.6) k/uL RBC (3.80-5.40) m/uL Hgb (11.4-16.0) gm/dL Hct (34.0-46.0) % MCV (80.0-100.0) fL RDW (11.5-15.5) % Plt Count (150-450) k/uL Neutrophils # (1.3-7.7) k/uL Lymphocytes # (1.0-4.8) k/uL Macrocytosis PT (9.0-12.0) sec INR (<1.2) APTT (22.0-30.0) sec D-Dimer (<0.60) mg/L FEU ABG pH (7.35-7.45) ABG pO2 (83-108) mmHg ABG HCO3 (21-25) mmol/L ABG Total CO2 (19-24) mmol/L ABG O2 Saturation (94-97) % Sodium (137-145) mmol/L Potassium (3.5-5.1) mmol/L Carbon Dioxide (22-30) mmol/L BUN (7-17) mg/dL Creatinine (0.52-1.04) mg/dL Glucose (74-99) mg/dL POC Glucose (mg/dL) 222 H (75-99) mg/dL Plasma Lactic Acid Derrell 3.5 H* 2.7 H* (0.7-2.0) mmol/L Calcium (8.4-10.2) mg/dL Phosphorus (2.5-4.5) mg/dL Total Bilirubin (0.2-1.3) mg/dL AST (14-36) U/L ALT (4-34) U/L Alkaline Phosphatase (38-126) U/L CK-MB (CK-2) (0.0-2.4) ng/mL Total Protein (6.3-8.2) g/dL Albumin (3.5-5.0) g/dL 10/20/19 10/20/19 10/20/19 Range/Units 22:17 22:21 22:26 WBC (3.8-10.6) k/uL RBC (3.80-5.40) m/uL Hgb (11.4-16.0) gm/dL Hct (34.0-46.0) % MCV (80.0-100.0) fL RDW (11.5-15.5) % Plt Count (150-450) k/uL Neutrophils # (1.3-7.7) k/uL Lymphocytes # (1.0-4.8) k/uL Macrocytosis PT (9.0-12.0) sec INR (<1.2) APTT (22.0-30.0) sec D-Dimer (<0.60) mg/L FEU ABG pH 6.88 L* (7.35-7.45) ABG pO2 135 H (83-108) mmHg ABG HCO3 9 L* (21-25) mmol/L ABG Total CO2 10 L (19-24) mmol/L ABG O2 Saturation (94-97) % Sodium (137-145) mmol/L Potassium (3.5-5.1) mmol/L Carbon Dioxide (22-30) mmol/L BUN (7-17) mg/dL Creatinine (0.52-1.04) mg/dL Glucose (74-99) mg/dL POC Glucose (mg/dL) 288 H (75-99) mg/dL Plasma Lactic Acid Derrell 15.7 H* (0.7-2.0) mmol/L Calcium (8.4-10.2) mg/dL Phosphorus (2.5-4.5) mg/dL Total Bilirubin (0.2-1.3) mg/dL AST (14-36) U/L ALT (4-34) U/L Alkaline Phosphatase (38-126) U/L CK-MB (CK-2) (0.0-2.4) ng/mL Total Protein (6.3-8.2) g/dL Albumin (3.5-5.0) g/dL 10/20/19 10/20/19 10/20/19 Range/Units 22:26 22:26 22:26 WBC 0.6 L* (3.8-10.6) k/uL RBC 2.51 L (3.80-5.40) m/uL Hgb 8.4 L D (11.4-16.0) gm/dL Hct 27.1 L (34.0-46.0) % MCV 108.0 H D (80.0-100.0) fL RDW (11.5-15.5) % Plt Count 30 L (150-450) k/uL Neutrophils # (1.3-7.7) k/uL Lymphocytes # (1.0-4.8) k/uL Macrocytosis Marked A PT 13.0 H (9.0-12.0) sec INR 1.3 H (<1.2) APTT (22.0-30.0) sec D-Dimer (<0.60) mg/L FEU ABG pH (7.35-7.45) ABG pO2 (83-108) mmHg ABG HCO3 (21-25) mmol/L ABG Total CO2 (19-24) mmol/L ABG O2 Saturation (94-97) % Sodium (137-145) mmol/L Potassium (3.5-5.1) mmol/L Carbon Dioxide (22-30) mmol/L BUN (7-17) mg/dL Creatinine (0.52-1.04) mg/dL Glucose (74-99) mg/dL POC Glucose (mg/dL) (75-99) mg/dL Plasma Lactic Acid Derrell (0.7-2.0) mmol/L Calcium (8.4-10.2) mg/dL Phosphorus (2.5-4.5) mg/dL Total Bilirubin (0.2-1.3) mg/dL AST (14-36) U/L ALT (4-34) U/L Alkaline Phosphatase (38-126) U/L CK-MB (CK-2) 3.5 H (0.0-2.4) ng/mL Total Protein (6.3-8.2) g/dL Albumin (3.5-5.0) g/dL 10/20/19 10/20/19 10/21/19 Range/Units 22:26 23:05 04:18 WBC 1.1 L* (3.8-10.6) k/uL RBC 2.67 L (3.80-5.40) m/uL Hgb 9.1 L (11.4-16.0) gm/dL Hct 26.8 L (34.0-46.0) % MCV 100.3 H D (80.0-100.0) fL RDW 15.6 H (11.5-15.5) % Plt Count 43 L (150-450) k/uL Neutrophils # 0.8 L (1.3-7.7) k/uL Lymphocytes # 0.2 L (1.0-4.8) k/uL Macrocytosis PT (9.0-12.0) sec INR (<1.2) APTT (22.0-30.0) sec D-Dimer (<0.60) mg/L FEU ABG pH 7.15 L* (7.35-7.45) ABG pO2 178 H (83-108) mmHg ABG HCO3 14 L (21-25) mmol/L ABG Total CO2 16 L (19-24) mmol/L ABG O2 Saturation 98.7 H (94-97) % Sodium 131 L (137-145) mmol/L Potassium 5.4 H (3.5-5.1) mmol/L Carbon Dioxide 9 L* (22-30) mmol/L BUN 25 H (7-17) mg/dL Creatinine 1.17 H (0.52-1.04) mg/dL Glucose 263 H (74-99) mg/dL POC Glucose (mg/dL) (75-99) mg/dL Plasma Lactic Acid Derrell (0.7-2.0) mmol/L Calcium 7.9 L (8.4-10.2) mg/dL Phosphorus 7.6 H (2.5-4.5) mg/dL Total Bilirubin (0.2-1.3) mg/dL AST 45 H (14-36) U/L ALT 39 H (4-34) U/L Alkaline Phosphatase (38-126) U/L CK-MB (CK-2) (0.0-2.4) ng/mL Total Protein 4.5 L (6.3-8.2) g/dL Albumin 2.4 L (3.5-5.0) g/dL 10/21/19 10/21/19 10/21/19 Range/Units 04:18 04:18 05:45 WBC (3.8-10.6) k/uL RBC (3.80-5.40) m/uL Hgb (11.4-16.0) gm/dL Hct (34.0-46.0) % MCV (80.0-100.0) fL RDW (11.5-15.5) % Plt Count (150-450) k/uL Neutrophils # (1.3-7.7) k/uL Lymphocytes # (1.0-4.8) k/uL Macrocytosis PT (9.0-12.0) sec INR (<1.2) APTT (22.0-30.0) sec D-Dimer (<0.60) mg/L FEU ABG pH (7.35-7.45) ABG pO2 69 L (83-108) mmHg ABG HCO3 (21-25) mmol/L ABG Total CO2 (19-24) mmol/L ABG O2 Saturation 93.5 L (94-97) % Sodium 131 L (137-145) mmol/L Potassium (3.5-5.1) mmol/L Carbon Dioxide 20 L (22-30) mmol/L BUN 35 H (7-17) mg/dL Creatinine 1.32 H (0.52-1.04) mg/dL Glucose 128 H (74-99) mg/dL POC Glucose (mg/dL) (75-99) mg/dL Plasma Lactic Acid Derrell 6.5 H* (0.7-2.0) mmol/L Calcium 7.6 L (8.4-10.2) mg/dL Phosphorus (2.5-4.5) mg/dL Total Bilirubin 2.7 H (0.2-1.3) mg/dL AST 302 H (14-36) U/L ALT 240 H (4-34) U/L Alkaline Phosphatase 128 H (38-126) U/L CK-MB (CK-2) (0.0-2.4) ng/mL Total Protein 4.7 L (6.3-8.2) g/dL Albumin 2.5 L (3.5-5.0) g/dL 10/21/19 10/21/19 10/21/19 Range/Units 06:24 10:48 11:49 WBC (3.8-10.6) k/uL RBC (3.80-5.40) m/uL Hgb (11.4-16.0) gm/dL Hct (34.0-46.0) % MCV (80.0-100.0) fL RDW (11.5-15.5) % Plt Count (150-450) k/uL Neutrophils # (1.3-7.7) k/uL Lymphocytes # (1.0-4.8) k/uL Macrocytosis PT 15.3 H (9.0-12.0) sec INR 1.6 H (<1.2) APTT 32.0 H (22.0-30.0) sec D-Dimer 7.42 H (<0.60) mg/L FEU ABG pH (7.35-7.45) ABG pO2 (83-108) mmHg ABG HCO3 (21-25) mmol/L ABG Total CO2 (19-24) mmol/L ABG O2 Saturation (94-97) % Sodium (137-145) mmol/L Potassium (3.5-5.1) mmol/L Carbon Dioxide (22-30) mmol/L BUN (7-17) mg/dL Creatinine (0.52-1.04) mg/dL Glucose (74-99) mg/dL POC Glucose (mg/dL) 168 H 184 H (75-99) mg/dL Plasma Lactic Acid Derrell (0.7-2.0) mmol/L Calcium (8.4-10.2) mg/dL Phosphorus (2.5-4.5) mg/dL Total Bilirubin (0.2-1.3) mg/dL AST (14-36) U/L ALT (4-34) U/L Alkaline Phosphatase (38-126) U/L CK-MB (CK-2) (0.0-2.4) ng/mL Total Protein (6.3-8.2) g/dL Albumin (3.5-5.0) g/dL Microbiology - Last 24 Hours (Table) 10/19/19 14:32 Blood Culture Gram Stain - Preliminary Blood 10/19/19 14:32 Blood Culture - Final Blood Assessment and Plan Assessment: 1-patient with gram-positive bacteremia in this patient admitted to the hospital with increasing shortness of breath patient has been afebrile chest x-ray has been mostly suggestive of vascular congestion and possible fluid overload versus interstitial pneumonia, source of this bacteremia could be pulmonary however the patient to have Mediport and we'll have to make sure no dealing with an endovascular source 2-Patient with multiple antibiotic ALLERGIES that would limit the number of antibiotic safe to use (1) Gram-positive bacteremia Current Visit: Yes Status: Acute Code(s): R78.81 - BACTEREMIA SNOMED Code(s): 863859749419 Plan: 1-blood cultures will be repeated to document clearance of bacteremia 2-Vancomycin pharmacy to dose target trough of 15 while watching his kidney function and Vanco trough closely We will follow on clinical condition and cultures to further adjust medication if needed Thank you for this consultation will follow this patient with you
[2019-10-21] MEDS: NOREPINEPHRINE 32 MG in SODIUM CHLORIDE 0.9% 218 ML IV SCH ×2 (23:14→23:55)
[2019-10-21 23:52] LABS: Glucose,Whole Blood 187 mg/dL (75-99)
[2019-10-22] MEDS: PROPOFOL 1,000 MG in EMPTY BAG 1 BAG IV SCH ×8 (01:52→22:06)
[2019-10-22] MEDS: DEXTROSE 5% IN WATER 1,000 ML with SODIUM BICARB (1 MEQ/ML) 150 ML IV SCH (01:58)
[2019-10-22 04:30] LABS: HGB 7.1 gm/dL (11.4-16.0); MCH 35.1 pg (25.0-35.0); MCHC 36.7 g/dL (31.0-37.0); MCV 95.6 fL (80.0-100.0); Mean Platelet Volume 8.4; Poikilocytosis Slight; RBC 2.03 m/uL (3.80-5.40); RDW 14.8 % (11.5-15.5)
[2019-10-22 04:35] LABS: HCT 19.4 % (34.0-46.0); WBC 0.6 k/uL (3.8-10.6)
[2019-10-22 04:36] LABS: Potassium 3.6 mmol/L (3.5-5.1); Total Bilirubin 2.3 mg/dL (0.2-1.3); Total Protein 3.8 g/dL (6.3-8.2)
[2019-10-22 04:48] LABS: ABG Base Excess 2.8 mmol/L; ABG HCO3 26 mmol/L (21-25); ABG Oxygen Saturation 94.8 % (94-97); ABG PCO2 35 mmHg (35-45); ABG PH 7.48 (7.35-7.45); ABG PO2 69 mmHg (83-108); ABG TCO2 27 mmol/L (19-24); Allen Test Performed? Yes
[2019-10-22 04:50] LABS: Platelet Count 7 k/uL (150-450)
[2019-10-22] MEDS ORDERED: VANCOMYCIN 1,500 MG in SODIUM CHLORIDE 0.9% 250 ML IVPB SCH (06:00)
[2019-10-22 06:05] LABS: Glucose,Whole Blood 182 mg/dL (75-99)
[2019-10-22] MEDS: methylPREDNISolone SOD SUCCI 125 MG/2 ML VIAL IV SCH ×3 (06:08→17:37)
[2019-10-22] MEDS: INSULIN ASPART (NovoLOG) 100 UNIT/ML VIAL SQ SCH ×3 (06:09→17:38)
[2019-10-22] MEDS ORDERED: VANCOMYCIN IV PER PHARMACY 1 EACH MISC MISCELLANE PRN (06:46)
[2019-10-22] MEDS: IPRATROPIUM-ALBUTEROL 3 ML NEB INHALATION SCH ×4 (07:58→22:45)
--- NOTE | 2019-10-22 08:00 | P.PN ---
Subjective Progress Note Date: 10/22/19 Principal diagnosis: Abnormal cardiac enzymes This is a very pleasant 79-year-old female patient who is unfortunate with a past medical history significant for small cell lung cancer with metastasis and the patient status post chemotherapy as well as radiation therapy as well as immunotherapy, coronary artery disease and status post coronary artery revascularization in the term of bypass as well as a stenting, the last heart catheterization was performed in 2013 where at that point the patient was admitted to the hospital with a chest discomfort suggestive of angina and un derwent a heart catheterization and was found to have two-vessel coronary artery disease involving the proximal left circumflex as well as left anterior descending artery. The STREETER to LAD was patent at that point and the vein graft to the diagonal was patent as well as the vein graft to the OM. She was found to have severe disease involving the LCx proximal to previously stent and at that point she underwent stenting of the left circumflex. Beside that the patient does have permanent pacemaker. This time the patient presented to the hospital because of increasing in the shortness of breath. No symptoms of chest pain or chest discomfort, dizziness, heart racing, or syncope. When she pre sented she was tachycardic. The troponin was elevated at appeared to be flat across support. The patient is very mild. Beside that the patient was found to be pancytopenic with WBC of 0.4, hemoglobin of 7.7, and platelet of 7. Also the BUN was slightly elevated but the creatinine was 0.7. The proBNP was 1200. The lactic acid also was elevated. We consulted to see the patient for further doc luation of acute non-ST patient myocardial infarction. As a mentioned earlier the patient did not have any symptoms of chest pain or chest discomfort. She is known to have metastatic small cell lung cancer. She was seen by the intensive care team and she was diagnosed with COPD exacerbation and currently she is on treatment for that. I did review the chest x-ray from today and to me it the patient doesn't look like she is in heart failure overall, in spite of elevated BNP and increasing shortness of breath. Beside that I would consider conservative medical approach regarding the mildly abnormal troponin. The patient was seen today, September [id number]. She continues to be in respiratory failure and she continues to be intubated on mechanical ventilation mid beside that the patient continues to be he would recommend stable and echo were norepinephrine. The platelet continues to be very low. The echo showed severe LV function. The patient seems to be in multi-organ failure. Her liver function tests are elevated as well as well as her creatinine. The prognosis is very poor. Objective - Vital Signs Vital signs: Vital Signs Temp 97.9 F 10/22/19 04:00 Pulse 76 10/22/19 07:00 Resp 20 10/22/19 07:00 BP 81/46 10/22/19 07:00 Pulse Ox 95 10/22/19 07:00 Intake & Output 10/21/19 10/22/19 10/22/19 18:59 06:59 18:59 Intake Total 2747.743 1871.392 98 Output Total 83 87 13 Balance 2664.743 1784.392 85 Weight 85.6 kg 85.6 kg Intake: IV 2290 1083 78 Dextrose 5% in Water 1, 825 75 000 ml @ 75 mls/hr IV . [id number] RADHA with Sodium Bicarb (1 Meq/ml) 150 ml Rx#:[id number] Pressure bag 33 3 Sodium Chloride 0.9% 1, 770 225 000 ml @ 75 mls/hr IV . [id number] RADHA Rx#:[id number] Sodium Chloride 0.9% 1, 1000 000 ml @ 999 mls/hr IV . Q1H1M ONE Rx#:[id number] Sodium Chloride 0.9% 500 500 ml 500 ml @ 999 mls/hr IV .Q31M ONE Rx#:[id number] Intake, IV Titration 437.743 528.392 Amount Dextrose 5% in Water 1, 150 000 ml @ 75 mls/hr IV . [id number] RADHA with Sodium Bicarb (1 Meq/ml) 150 ml Rx#:[id number] Norepinephrine 32 mg In 2.126 83.864 Sodium Chloride 0.9% 218 ml @ 0.05 MCG/KG/MIN 1. 772 mls/hr IV .Q24H RADHA Rx#:[id number] Propofol 1,000 mg In 285.617 444.528 Empty Bag 1 bag @ Titrate IV .Q0M RADHA Rx#: [id number] Tube Feeding 20 170 20 Other 90 Output: Urine 83 87 13 Other: Voiding Method Indwelling Catheter Indwelling Catheter # Bowel Movements 1 ABP, PAP, CO, CI - Last Documented Arterial Blood Pressure 130/46 - Constitutional General appearance: Present: no acute distress - Respiratory Respiratory: bilateral: diminished - Cardiovascular Rhythm: regular Heart sounds: normal: S1, S2 - Labs CBC & Chem 7: 10/22/19 04:15 10/22/19 04:15 Labs: Abnormal Lab Results - Last 24 Hours (Table) 10/21/19 10/21/19 10/21/19 Range/Units 10:48 11:49 17:35 WBC (3.8-10.6) k/uL RBC (3.80-5.40) m/uL Hgb (11.4-16.0) gm/dL Hct (34.0-46.0) % MCH (25.0-35.0) pg Plt Count (150-450) k/uL PT 15.3 H (9.0-12.0) sec INR 1.6 H (<1.2) APTT 32.0 H (22.0-30.0) sec D-Dimer 7.42 H (<0.60) mg/L FEU ABG pH (7.35-7.45) ABG pO2 (83-108) mmHg ABG HCO3 (21-25) mmol/L ABG Total CO2 (19-24) mmol/L Sodium (137-145) mmol/L Chloride (98-107) mmol/L BUN (7-17) mg/dL Creatinine (0.52-1.04) mg/dL Glucose (74-99) mg/dL POC Glucose (mg/dL) 184 H 161 H (75-99) mg/dL Calcium (8.4-10.2) mg/dL Total Bilirubin (0.2-1.3) mg/dL AST (14-36) U/L ALT (4-34) U/L Total Protein (6.3-8.2) g/dL Albumin (3.5-5.0) g/dL 10/21/19 10/22/19 10/22/19 Range/Units 23:50 04:15 04:15 WBC 0.6 L* (3.8-10.6) k/uL RBC 2.03 L (3.80-5.40) m/uL Hgb 7.1 L D (11.4-16.0) gm/dL Hct 19.4 L* (34.0-46.0) % MCH 35.1 H (25.0-35.0) pg Plt Count 7 L* D (150-450) k/uL PT (9.0-12.0) sec INR (<1.2) APTT (22.0-30.0) sec D-Dimer (<0.60) mg/L FEU ABG pH (7.35-7.45) ABG pO2 (83-108) mmHg ABG HCO3 (21-25) mmol/L ABG Total CO2 (19-24) mmol/L Sodium 128 L (137-145) mmol/L Chloride 95 L (98-107) mmol/L BUN 54 H (7-17) mg/dL Creatinine 2.18 H (0.52-1.04) mg/dL Glucose 171 H (74-99) mg/dL POC Glucose (mg/dL) 187 H (75-99) mg/dL Calcium 7.0 L (8.4-10.2) mg/dL Total Bilirubin 2.3 H (0.2-1.3) mg/dL AST 260 H (14-36) U/L ALT 387 H (4-34) U/L Total Protein 3.8 L (6.3-8.2) g/dL Albumin 2.0 L (3.5-5.0) g/dL 10/22/19 10/22/19 Range/Units 04:43 06:04 WBC (3.8-10.6) k/uL RBC (3.80-5.40) m/uL Hgb (11.4-16.0) gm/dL Hct (34.0-46.0) % MCH (25.0-35.0) pg Plt Count (150-450) k/uL PT (9.0-12.0) sec INR (<1.2) APTT (22.0-30.0) sec D-Dimer (<0.60) mg/L FEU ABG pH 7.48 H (7.35-7.45) ABG pO2 69 L (83-108) mmHg ABG HCO3 26 H (21-25) mmol/L ABG Total CO2 27 H (19-24) mmol/L Sodium (137-145) mmol/L Chloride (98-107) mmol/L BUN (7-17) mg/dL Creatinine (0.52-1.04) mg/dL Glucose (74-99) mg/dL POC Glucose (mg/dL) 182 H (75-99) mg/dL Calcium (8.4-10.2) mg/dL Total Bilirubin (0.2-1.3) mg/dL AST (14-36) U/L ALT (4-34) U/L Total Protein (6.3-8.2) g/dL Albumin (3.5-5.0) g/dL Microbiology - Last 24 Hours (Table) 10/21/19 10:20 Acid Fast Bacilli Smear - Final Bronchial Washings - Right Acid Fast Bacilli Culture - Preliminary 10/21/19 10:20 Gram Stain - Preliminary Bronchial Washings - Right Bronchial Washings Culture - Preliminary 10/21/19 10:20 Fungal Culture - Preliminary Bronchial Washings - Right Assessment and Plan Assessment: Assessment #1 metastatic small cell lung cancer #2 pancytopenia #3 mildly elevated troponin #4 COPD exacerbation #5 status post permanent pacemaker #6 multi organ failure Plan #1 consider conservative medical approach regarding the abnormal troponin. I am going to add metoprolol to the current medical regimen. Avoid any antiplatelet. #2 the echocardiogram was reviewed and revealed impaired LV function was moderate to severe MR #3 overall very poor prognosis
--- NOTE | 2019-10-22 08:09 | XR ---
EXAMINATION TYPE: XR chest 1V portable DATE OF EXAM: 10/22/2019 COMPARISON: 10/21/2019 INDICATION: Tube placement TECHNIQUE: Single frontal view of the chest is obtained. FINDINGS: The heart size is normal. The pulmonary vasculature is prominent. There is diffuse increased lung markings greater at the lung bases. Pacemaker overlies left chest. Sternotomy wires are in the midline There is a port present on the right with the tip in the superior vena cava region. Endotracheal tube tip is above the treva. Nasogastric tube transverses the thorax the tip in left upper quadrant of t he abdomen. IMPRESSION: 1. Slight improvement of bibasilar infiltrates. Correlate for improving pulmonary edema. Continued fo llow-up is recommended. 2. Multiple lines and catheters discussed above
[2019-10-22] MEDS: SODIUM CHLORIDE 0.9% 50 ML with VASOPRESSIN 20 UNIT IVPB SCH ×4 (08:24→20:32)
[2019-10-22] MEDS: FILGRASTIM-SNDZ 480 MCG/0.8 ML SYRINGE SQ SCH (08:35)
[2019-10-22] MEDS: MAG HYDROX/AL HYDROX/SIMETH 30 ML, LIDOCAINE VISCOUS 30 ML, diphenhydrAMINE ELIXIR 75 M... PO SCH ×12 (08:35→20:35)
[2019-10-22] MEDS: CHLORHEXIDINE GLUCONATE 15 ML CUP MUCOUS MEM SCH ×2 (08:35→20:35)
[2019-10-22] MEDS: PANTOPRAZOLE 40 MG/10 ML VIAL IVP SCH (08:39)
[2019-10-22] MEDS: FLUCONAZOLE 100 MG TAB PO SCH (08:40)
[2019-10-22] MEDS ORDERED: PHYTONADIONE 5 MG in SODIUM CHLORIDE 0.9% 50 ML IVPB STA (08:46)
--- NOTE | 2019-10-22 09:15 | P.PN ---
Subjective Progress Note Date: 10/21/19 This is a 79-year-old female patient of Dr. Mendoza with past medical history of coronary artery disease status post 3 vessel CABG in 2009, cardiac stents done in 2012, 2013 and 2015, complete heart block with pacemaker implantation, right carotid artery stenosis, hypertension, right eye surgery for retinal detachment, remote history of tobacco use, COPD, metastatic small cell lung cancer who received systemic chemotherapy on 10/08/2019 with a combination of carboplatinum and [employer]-16 based on evidence of progression of her small cell lung cancer that was identified on a PET scan that was done on 10/03/2019. The patient was diagnosed initially having small cell lung cancer back in December 2018. She was treated with a combination of systemic chemotherapy and immunotherapy including Tecentriq. The patient developed reaction possible pneumonitis to the medication the patient was being treated with systemic steroids and immunotherapy has been discontinued. The PET scan that was done on 10/03/2019 s howed background emphysema, and a large right paravertebral soft tissue lesion in the lower thorax measuring 4.8 x 3.5 cm with intense metabolic activity and there are also metabolic activity in the anterior aspect of the diaphragm and there was also some areas of groundglass opacity and reticular changes in the right lower lung area and there was suspicious enlarging abdominal lymphadenopathy with increased metabolic activity. No areas other than those. CAT scan of the spine that was done on 10/09/2019 showed severe compression fraction of 11 and approximately 5-10% retropulsion. There was also a large right paraspinal mass extending D10 through T12 with some extension towards the T11 right neuroforamina. There was a moderate-sized right-sided pleural effusion that was also noted which was of a new onset. CAT scan of the brain that was done on 10/15/2019 was negative. Patient was started on systemic chemotherapy and scheduled for radiation therapy at T11 to start on October 20. Patient developed shortness of breath and cough without fever, no chest pain. Patient was brought into [facility] emergency center for evaluation. She was afebrile and vital signs stable. WBC 0.4, hemoglobin 7.7, platelet count 7. Sodium 134, potassium 4.2, chloride 103, CO2 18, BUN 37 and creatinine 0.72. Blood sugar 217. Total bilirubin 1.5, liver function tests normal. Influenza testing negative. Initial lactic acid 7.4, currently 5.5. ProBNP 12,800, albumin 2.9, pro calcitonin 0.41. Urinalysis negative for infection. Troponin 0.151. Chest x-ray correlate for heart failure otherwise atypical or interstitial pneumonia or pneumonitis. Patient admitted into the i ntensive care unit and consult requested with pulmonary medicine, cardiology, oncology. Repeat chest x-ray this morning reveals heart failure superimposed on interstitial lung disease. Cardiomegaly. Correlate for possible pneumonia. Chest ultrasound revealed minimal right pleural effusion, 1.6 cm. 10/21: Patient's breathing status progressively worsened yesterday afternoon and patient became tachypneic and hypoxic requiring intubation and mechanical ventilation. Patient had brief period of cardiopulmonary arrest and received CPR for approximately 1 minute and recovered from that. Patient on levophed Patient's lactic acid was at 15 and patient received IV fluids and bicarbonate infusion. She is currently intubated and on mechanical ventilation with tidal volume 400, FiO2 100 and PEEP of 5. Repeat blood work reveals white count of 1.1, hemoglobin 9.1 and platelets of 43. Creatinine 1.32, liver function worsened from yesterday with total bilirubin 2.7, AST 302, ALT 250, alkaline p hosphatase 128. Blood culture is positive for gram-positive cocci in chains, possible contamination. Patient on vancomycin. Patient afebrile, heart rate 102, blood pressure 121/66. Patient underwent bedside bronchoscopy this morning with Dr. Núñez, cultures pending. Consult with Dr. Bennett was added. Oncology is following closely with plan to transfuse for hemoglobin 7, keep platelets greater than 10,000. Objective - Vital Signs Vital signs: Vital Signs Temp 97.5 F L 10/21/19 08:00 Pulse 103 H 10/21/19 10:00 Resp 37 H 10/21/19 10:00 BP 124/63 10/21/19 10:00 Pulse Ox 96 10/21/19 10:00 Intake & Output 10/20/19 10/21/19 10/21/19 18:59 06:59 18:59 Intake Total 2285 1008.968 942.126 Output Total 530 165 25 Balance 1755 843.968 917.126 Weight 75.6 kg 85.6 kg Intake: IV 1825 305 690 Sodium Chloride 0.9% 1, 525 000 ml @ 75 mls/hr IV . [id number] [facility] Rx#:[id number] Sodium Chloride 0.9% 1, 300 305 170 000 ml @ 75 mls/hr IV . [id number] [facility] Rx#:[id number] Sodium Chloride 0.9% 1, 1000 000 ml @ 999 mls/hr IV . Q1H1M [facility] Rx#:[id number] Sodium Chloride 0.9% 500 500 ml 500 ml @ 999 mls/hr IV .Q31M ONE Rx#:[id number] Intake, IV Titration 703.968 252.126 Amount Dextrose 5% in Water 1, 375 150 000 ml @ 75 mls/hr IV . [id number] [facility] with Sodium Bicarb (1 Meq/ml) 150 ml Rx#:[id number] Norepinephrine 32 mg In 87.275 2.126 Sodium Chloride 0.9% 218 ml @ 0.05 MCG/KG/MIN 1. 772 mls/hr IV .Q24H [facility] Rx#:[id number] Propofol 1,000 mg In 241.693 100 Empty Bag 1 bag @ Titrate IV .Q0M [facility] Rx#: [id number] Oral 150 Blood Product 310 Rc As-1 Unit 310 [id number] Output: Urine 530 165 25 Other: Voiding Method Indwelling Catheter Indwelling Catheter Indwelling Catheter ABP, PAP, CO, CI - Last Documented Arterial Blood Pressure 145/57 - Exam Review of Systems--unable to obtain due intubation Physical Examination: Gen: This is a 79-year-old female. Patient is resting in the ICU bed. She is intubated and on mechanical ventilation. Patient appears to be comfortable. Multiple family members at bedside. HEENT: Head is atraumatic, normocephalic. Pupils equal, round. Sclerae is anicteric. Oral gastric and ET tube in place NECK: Supple. No JVD. No lymphadenopathy. No thyromegaly. LUNGS: Diminished bilaterally with scattered expiratory wheeze. No intercostal retractions. HEART: Regular rate and rhythm. No murmur. Pacemaker at the left anterior chest wall. ABDOMEN: Soft. Bowel sounds are present. No masses. No tenderness. Stewart in place. EXTREMITIES: No pedal edema. No calf tenderness. Dorsalis pedis palpable bilaterally. NEUROLOGICAL: Patient is sedated. - Labs CBC & Chem 7: 10/22/19 04:15 10/22/19 04:15 Labs: Abnormal Lab Results - Last 24 Hours (Table) 10/19/19 10/20/19 10/20/19 Range/Units 17:10 11:48 13:07 WBC (3.8-10.6) k/uL RBC (3.80-5.40) m/uL Hgb (11.4-16.0) gm/dL Hct (34.0-46.0) % MCV (80.0-100.0) fL RDW (11.5-15.5) % Plt Count (150-450) k/uL Neutrophils # (1.3-7.7) k/uL Lymphocytes # (1.0-4.8) k/uL Macrocytosis PT (9.0-12.0) sec INR (<1.2) ABG pH (7.35-7.45) ABG pO2 (83-108) mmHg ABG HCO3 (21-25) mmol/L ABG Total CO2 (19-24) mmol/L ABG O2 Saturation (94-97) % Sodium (137-145) mmol/L Potassium (3.5-5.1) mmol/L Carbon Dioxide (22-30) mmol/L BUN (7-17) mg/dL Creatinine (0.52-1.04) mg/dL Glucose (74-99) mg/dL POC Glucose (mg/dL) 131 H (75-99) mg/dL Plasma Lactic Acid Derrell 3.5 H* (0.7-2.0) mmol/L Calcium (8.4-10.2) mg/dL Phosphorus (2.5-4.5) mg/dL Total Bilirubin (0.2-1.3) mg/dL AST (14-36) U/L ALT (4-34) U/L Alkaline Phosphatase (38-126) U/L CK-MB (CK-2) (0.0-2.4) ng/mL Total Protein (6.3-8.2) g/dL Albumin (3.5-5.0) g/dL Crossmatch See Detail 10/20/19 10/20/19 10/20/19 Range/Units 17:00 17:03 22:17 WBC (3.8-10.6) k/uL RBC (3.80-5.40) m/uL Hgb (11.4-16.0) gm/dL Hct (34.0-46.0) % MCV (80.0-100.0) fL RDW (11.5-15.5) % Plt Count (150-450) k/uL Neutrophils # (1.3-7.7) k/uL Lymphocytes # (1.0-4.8) k/uL Macrocytosis PT (9.0-12.0) sec INR (<1.2) ABG pH 6.88 L* (7.35-7.45) ABG pO2 135 H (83-108) mmHg ABG HCO3 9 L* (21-25) mmol/L ABG Total CO2 10 L (19-24) mmol/L ABG O2 Saturation (94-97) % Sodium (137-145) mmol/L Potassium (3.5-5.1) mmol/L Carbon Dioxide (22-30) mmol/L BUN (7-17) mg/dL Creatinine (0.52-1.04) mg/dL Glucose (74-99) mg/dL POC Glucose (mg/dL) 222 H (75-99) mg/dL Plasma Lactic Acid Derrell 2.7 H* (0.7-2.0) mmol/L Calcium (8.4-10.2) mg/dL Phosphorus (2.5-4.5) mg/dL Total Bilirubin (0.2-1.3) mg/dL AST (14-36) U/L ALT (4-34) U/L Alkaline Phosphatase (38-126) U/L CK-MB (CK-2) (0.0-2.4) ng/mL Total Protein (6.3-8.2) g/dL Albumin (3.5-5.0) g/dL Crossmatch 10/20/19 10/20/19 10/20/19 Range/Units 22:21 22:26 22:26 WBC (3.8-10.6) k/uL RBC (3.80-5.40) m/uL Hgb (11.4-16.0) gm/dL Hct (34.0-46.0) % MCV (80.0-100.0) fL RDW (11.5-15.5) % Plt Count (150-450) k/uL Neutrophils # (1.3-7.7) k/uL Lymphocytes # (1.0-4.8) k/uL Macrocytosis PT 13.0 H (9.0-12.0) sec INR 1.3 H (<1.2) ABG pH (7.35-7.45) ABG pO2 (83-108) mmHg ABG HCO3 (21-25) mmol/L ABG Total CO2 (19-24) mmol/L ABG O2 Saturation (94-97) % Sodium (137-145) mmol/L Potassium (3.5-5.1) mmol/L Carbon Dioxide (22-30) mmol/L BUN (7-17) mg/dL Creatinine (0.52-1.04) mg/dL Glucose (74-99) mg/dL POC Glucose (mg/dL) 288 H (75-99) mg/dL Plasma Lactic Acid Derrell 15.7 H* (0.7-2.0) mmol/L Calcium (8.4-10.2) mg/dL Phosphorus (2.5-4.5) mg/dL Total Bilirubin (0.2-1.3) mg/dL AST (14-36) U/L ALT (4-34) U/L Alkaline Phosphatase (38-126) U/L CK-MB (CK-2) (0.0-2.4) ng/mL Total Protein (6.3-8.2) g/dL Albumin (3.5-5.0) g/dL Crossmatch 10/20/19 10/20/19 10/20/19 Range/Units 22:26 22:26 22:26 WBC 0.6 L* (3.8-10.6) k/uL RBC 2.51 L (3.80-5.40) m/uL Hgb 8.4 L D (11.4-16.0) gm/dL Hct 27.1 L (34.0-46.0) % MCV 108.0 H D (80.0-100.0) fL RDW (11.5-15.5) % Plt Count 30 L (150-450) k/uL Neutrophils # (1.3-7.7) k/uL Lymphocytes # (1.0-4.8) k/uL Macrocytosis Marked A PT (9.0-12.0) sec INR (<1.2) ABG pH (7.35-7.45) ABG pO2 (83-108) mmHg ABG HCO3 (21-25) mmol/L ABG Total CO2 (19-24) mmol/L ABG O2 Saturation (94-97) % Sodium 131 L (137-145) mmol/L Potassium 5.4 H (3.5-5.1) mmol/L Carbon Dioxide 9 L* (22-30) mmol/L BUN 25 H (7-17) mg/dL Creatinine 1.17 H (0.52-1.04) mg/dL Glucose 263 H (74-99) mg/dL POC Glucose (mg/dL) (75-99) mg/dL Plasma Lactic Acid Derrell (0.7-2.0) mmol/L Calcium 7.9 L (8.4-10.2) mg/dL Phosphorus 7.6 H (2.5-4.5) mg/dL Total Bilirubin (0.2-1.3) mg/dL AST 45 H (14-36) U/L ALT 39 H (4-34) U/L Alkaline Phosphatase (38-126) U/L CK-MB (CK-2) 3.5 H (0.0-2.4) ng/mL Total Protein 4.5 L (6.3-8.2) g/dL Albumin 2.4 L (3.5-5.0) g/dL Crossmatch 10/20/19 10/21/19 10/21/19 Range/Units 23:05 04:18 04:18 WBC 1.1 L* (3.8-10.6) k/uL RBC 2.67 L (3.80-5.40) m/uL Hgb 9.1 L (11.4-16.0) gm/dL Hct 26.8 L (34.0-46.0) % MCV 100.3 H D (80.0-100.0) fL RDW 15.6 H (11.5-15.5) % Plt Count 43 L (150-450) k/uL Neutrophils # 0.8 L (1.3-7.7) k/uL Lymphocytes # 0.2 L (1.0-4.8) k/uL Macrocytosis PT (9.0-12.0) sec INR (<1.2) ABG pH 7.15 L* (7.35-7.45) ABG pO2 178 H (83-108) mmHg ABG HCO3 14 L (21-25) mmol/L ABG Total CO2 16 L (19-24) mmol/L ABG O2 Saturation 98.7 H (94-97) % Sodium (137-145) mmol/L Potassium (3.5-5.1) mmol/L Carbon Dioxide (22-30) mmol/L BUN (7-17) mg/dL Creatinine (0.52-1.04) mg/dL Glucose (74-99) mg/dL POC Glucose (mg/dL) (75-99) mg/dL Plasma Lactic Acid Derrell 6.5 H* (0.7-2.0) mmol/L Calcium (8.4-10.2) mg/dL Phosphorus (2.5-4.5) mg/dL Total Bilirubin (0.2-1.3) mg/dL AST (14-36) U/L ALT (4-34) U/L Alkaline Phosphatase (38-126) U/L CK-MB (CK-2) (0.0-2.4) ng/mL Total Protein (6.3-8.2) g/dL Albumin (3.5-5.0) g/dL Crossmatch 10/21/19 10/21/19 10/21/19 Range/Units 04:18 05:45 06:24 WBC (3.8-10.6) k/uL RBC (3.80-5.40) m/uL Hgb (11.4-16.0) gm/dL Hct (34.0-46.0) % MCV (80.0-100.0) fL RDW (11.5-15.5) % Plt Count (150-450) k/uL Neutrophils # (1.3-7.7) k/uL Lymphocytes # (1.0-4.8) k/uL Macrocytosis PT (9.0-12.0) sec INR (<1.2) ABG pH (7.35-7.45) ABG pO2 69 L (83-108) mmHg ABG HCO3 (21-25) mmol/L ABG Total CO2 (19-24) mmol/L ABG O2 Saturation 93.5 L (94-97) % Sodium 131 L (137-145) mmol/L Potassium (3.5-5.1) mmol/L Carbon Dioxide 20 L (22-30) mmol/L BUN 35 H (7-17) mg/dL Creatinine 1.32 H (0.52-1.04) mg/dL Glucose 128 H (74-99) mg/dL POC Glucose (mg/dL) 168 H (75-99) mg/dL Plasma Lactic Acid Derrell (0.7-2.0) mmol/L Calcium 7.6 L (8.4-10.2) mg/dL Phosphorus (2.5-4.5) mg/dL Total Bilirubin 2.7 H (0.2-1.3) mg/dL AST 302 H (14-36) U/L ALT 240 H (4-34) U/L Alkaline Phosphatase 128 H (38-126) U/L CK-MB (CK-2) (0.0-2.4) ng/mL Total Protein 4.7 L (6.3-8.2) g/dL Albumin 2.5 L (3.5-5.0) g/dL Crossmatch Microbiology - Last 24 Hours (Table) 10/19/19 14:32 Blood Culture Gram Stain - Preliminary Blood 10/19/19 14:32 Blood Culture - Final Blood Assessment and Plan Plan: 1. Metastatic small cell lung cancer. Consult with oncology and pulmonary medicine. 2. Pancytopenia secondary to chemotherapy. Patient is status post transfusion of platelets and 1 unit of packed RBCs to be transfused today. Zarxioario 480 g subcu daily. 3. Acute hypoxic respiratory failure secondary to combination of acute exacerbation of COPD and right-sided pleural effusion too small for thoracent esis and right lower lobe infiltrate possible pneumonia versus malignancy. Patient has been intubated and placed on mechanical ventilation. Continue Solu- Medrol 60 mg IV every 6 hours, albuterol every 2 hours as needed, DuoNeb treatments every 4 hours as needed in 4 times daily, Levaquin 750 mg daily and vancomycin. Consult with Dr. Niya mar. 4. Lactic acidosis. Bicarb drip. 5. Elevated troponin possibly secondary to anemia. Consult with Dr. Prado appreciated. Lopressor 12.5 mg twice daily added. Echocardiogram ordered. 6. Cardiopulmonary arrest for 1 minute, patient resuscitated. 7. Acute kidney injury with oliguria. 8. Possible bacteremia. Await final culture reports. Patient started on vancomycin. 9. Hypotension, possible septic shock, requiring norepinephrine. 10. Shock liver with elevated liver function tests. Continue to monitor. 11. History of coronary artery disease status post CABG and stents. 12. History of complete heart block with pacemaker implantation. 13. Right carotid artery stenosis, stable. 14. Hypertension. Currently hypotensive 15. GI prophylaxis. Protonix. 16. DVT prophylaxis. SCDs and VIJAYA hose. Discharge plan: To be determined Impression and plan of care have been directed as dictated by the signing physic ian. Fely Sims nurse practitioner acting as scribe for signing physician.
[2019-10-22 09:55] LABS: MCH 34.4 pg (25.0-35.0); MCHC 35.9 g/dL (31.0-37.0); MCV 95.7 fL (80.0-100.0); Mean Platelet Volume 8.4; RBC 1.91 m/uL (3.80-5.40); RDW 14.5 % (11.5-15.5)
[2019-10-22 10:09] LABS: HGB 6.6 gm/dL (11.4-16.0)
[2019-10-22 10:12] LABS: WBC 0.5 k/uL (3.8-10.6)
[2019-10-22 10:18] LABS: HCT 18.3 % (34.0-46.0)
[2019-10-22 10:26] LABS: Platelet Count 9 k/uL (150-450)
--- NOTE | 2019-10-22 10:48 | P.PN ---
Subjective Progress Note Date: 10/22/19 79-year-old female patient known history of COPD, known history of metastatic s mall cell lung cancer who received systemic chemotherapy on 10/08/2019 with a combination of carboplatinum and FACILITY DESIGNER-16 based on evidence of progression of her small cell lung cancer that was identified on a PET scan that was done on 10/03/2019. The patient was diagnosed initially having small cell lung cancer back in December 2018. She was treated with a combination of systemic chemotherapy and immunotherapy including Tecentriq. The patient developed reaction possible pneumonitis to the medication the patient was being treated with systemic steroids and immunotherapy has been discontinued. The PET scan that was done on 10/03/2019 showed background emphysema, and a large right paravertebral soft tissue lesion in the lower thorax measuring 4.8 x 3.5 cm with intense metabolic activity and there are also metabolic activity in the anterior aspect of the diaphragm and there was also some areas of groundglass opacity and reticular changes in the right lower lung area and there was suspicious enlarging abdominal lymphadenopathy with increased metabolic activity. No areas other than those. Based on that, the patient was started on systemic chemotherapy. She came into the ED today complaining of shortness of breath and cough. No fever. The patient was given a blood work in the emergency department and initially she was found to be pancytopenic with a 0.4 white cell count and hemoglobin of 7.7 with a platelet count of 7. Her BUN was 37 with a creatinine of 0.7. Troponin was at 0.15 and the proBNP level was 12,800. Also, her lactic acid level was 7.4. Influenza screen was negative. The patient was was also given a chest x-ray that showed interstitial changes and pneumonitis changes in the right infrahilar area and above the diaphragm. There was some background COPD and hyperinflation. Diffuse osteopenia was also seen. The patient was supposed to start radiation therapy for this abnormal paraspinal mass. Note that the CAT scan of the spine that was done on 10/09/2019 showed severe compression fraction of 11 and approximately 5-10% retropulsion. There was also a large right paraspinal mass extending D10 through T12 with some extension towards the T11 right neuroforamina. There was a moderate-sized right-sided pleural effusion that was also noted which was of a new onset. Bone scan findings are essentially the same. The patient was given Levaquin in the em ergency department. The patient was admitted to the hospital. Echo was done. Currently is on IV fluids at 75 mL an hour. She remains afebrile. No altered mentation. CAT scan of the brain that was done on 10/15/2019 was negative. On today's evaluation of 10/20/2019 I'm seeing the patient for a follow-up. The patient is awake and alert. No worsening in her shortness of breath. No significant sputum production. The cough is dry. She has remained afebrile throughout the night. She remained hemodynamically stable throughout the night. She is pancytopenic. She received platelet transfusion and her platelet count is above 40,000. Hemoglobin dropped down to 6.8 and the patient is receiving a unit of packed RBC for now. Her white cell count is at 0.1 and the patient is still on Zarxio. The blood cultures came back positive for gram-positive cocci and clusters and chains and vancomycin was added to her regimen. The pro calcitonin level was 0.4. The patient's chest x-ray from today shows a small right-sided pleural effusion in addition to perihilar infiltrate, which are chr onic findings related to previous radiation therapy. Possibility of pneumonia is felt to be less likely. Malignancy cannot be completely ruled out. The patient has chronic back pain. Her pain is under adequate control for now is estimated to be around 5 out of 10. Echo is pending. IV fluids are running at 75 mL's an hour. On today's evaluation of 10/21/2019 the patient is being seen in follow-up in the intensive care unit. The patient is currently intubated on a mechanical ventilator. She progressively got worse and she became more tachypneic and hypoxic. As we were getting ready to put the patient on a BiPAP, she went into respiratory arrest and she had a brief cardiac pulmonary arrest. She received CPR for approximately a minute and she immediately recovered after that. She was intubated and placed on a mechanical ventilator overnight. Note that her lactic acid level came up 15. She was given IV fluids. She was given bicarb infusion. Currently she is on a assist-control mode at the rate of 30 with a tidal volume of 400 and FiO2 of 60% with a PEEP of 5. Morning blood gases show a 7.37 with a pCO2 of 36 and pO2 of 69. Repeat chest x-ray from today shows adequate positioning of the ET tube. There is pulmonary edema. There is also increased infiltration of the right lower lobe area as seen on earlier chest x- ray. Possibility of an underlying malignancy versus pneumonia versus radiation changes cannot be completely ruled out. Note that the blood culture was showing gram-positive cocci in chains and clusters and the final cultures and sensitivities are pending. Meanwhile, the patient is on filgrastim and the patient's white cell count is up to 1.1. Hemoglobin is at 9.1. Platelets are improving at 43. She is afebrile. Urine output has dropped and the patient also developed an acute kidney injury. Her creatinine is up to 1.32. LFTs are also higher compared to yesterday probably related to the hypoxemia and the brief cardiac arrest. The Leonard at 302, ALT is up to 40. Serum hemoglobin is at 2.5. Lactic acid level has improved down to 6.5. Calcium level is at 7.6. Echo was done and the patient's was also found to have cardiomyopathy with impaired left ventricular ejection fraction of less than 25%. The patient also had severe global hypokinesis of the LV, mild aortic sclerosis, moderate degree of pulmonary hypertension. No evidence of any pericardial effusion. Note that post arrest the patient became hypotensive. Currently she is on norepinephrine infusion running at 0.1 g per KG per minute. Urine output is minimal at this point in time. On today's evaluation of 10/22/2019, the patient is doing poorly. The patient as mentioned is a case of metastatic small cell lung cancer with pancytopenia. 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 She remains on a combination of Levaquin and vancomycin. The patient also was diagnosed having severe cardiomyopathy with an ejection fraction of less than 25%. She has global hypokinesis and moderate degree of pulmonary hypertension. In terms of hemodynamics, the patient is currently off pressors. She was given bicarb infusion and her metabolic alkalosis improved and serum bicarbs up to 25. She is not producing urine output and urine output dropped significantly as the patient developed an acute kidney injury in the creatinine is up to 2.1. She is in a positive fluid balance and she is retaining fluid due to her diminished urine output. She remains on a mechanical ventilator. She remains sedated with propofol. Propofol is running at 70 mics per KG per minute. In terms of her vent setting, the patient is assist-control mode of ventilation and the patient is on a tidal volume of 400 with respiratory of 30 and FiO2 of 50% and a PEEP of 5. Blood gases from this morning showed a pH of 7. or deviated a pCO2 of 35 and pO2 of 69. Chest x-ray showing bilateral pulmonary infiltrates worse in the right lower lung area. This is consistent with pulmonary edema. Superimposed right lower lobe pneumonia cannot be completely excluded. ET tube is in a good location. I performed a bronchoscopy on this patient yesterday and the lavage is still pending and there is no microbial growth thus far. The patient still is in pancytopenia. The white cell count is at 0.5. Hemoglobin down to 6.6. Platelet count is down to 9. No signs of any active bleeding. The patient is still on filgrastim. Discussed the possibility of packed RBC and platelet transfusion with the family. I also expressed to them the grave situation. The patient's family is contemplating comfort care measures today and based on that the transfusions were held for now. The patient was noted to be hypothermic. Temperature dropped down to 95. The patient is receiving external warming for now. Objective - Vital Signs Vital signs: Vital Signs Temp 95.4 F L 10/22/19 08:00 Pulse 87 10/22/19 09:30 Resp 30 H 10/22/19 09:30 BP 91/48 10/22/19 09:30 Pulse Ox 96 10/22/19 09:30 Intake & Output 10/21/19 10/22/19 10/22/19 18:59 06:59 18:59 Intake Total 2747.743 1871.392 524 Output Total 83 87 18 Balance 2664.743 1784.392 506 Weight 85.6 kg 85.6 kg Intake: IV 2290 1083 284 Dextrose 5% in Water 1, 825 225 000 ml @ 75 mls/hr IV . [id number] RADHA with Sodium Bicarb (1 Meq/ml) 150 ml Rx#:[id number] Phytonadione 5 mg In 50 Sodium Chloride 0.9% 50 ml @ 100 mls/hr IVPB ONCE STA Rx#:[id number] Pressure bag 33 9 Sodium Chloride 0.9% 1, 770 225 000 ml @ 75 mls/hr IV . [id number] RADHA Rx#:[id number] Sodium Chloride 0.9% 1, 1000 000 ml @ 999 mls/hr IV . Q1H1M ONE Rx#:[id number] Sodium Chloride 0.9% 500 500 ml 500 ml @ 999 mls/hr IV .Q31M ONE Rx#:[id number] Intake, IV Titration 437.743 528.392 100 Amount Dextrose 5% in Water 1, 150 000 ml @ 75 mls/hr IV . [id number] RADHA with Sodium Bicarb (1 Meq/ml) 150 ml Rx#:[id number] Norepinephrine 32 mg In 2.126 83.864 Sodium Chloride 0.9% 218 ml @ 0.05 MCG/KG/MIN 1. 772 mls/hr IV .Q24H RADHA Rx#:[id number] Propofol 1,000 mg In 285.617 444.528 100 Empty Bag 1 bag @ Titrate IV .Q0M RADHA Rx#: [id number] Tube Feeding 20 170 110 Other 90 30 Output: Urine 83 87 18 Other: Voiding Method Indwelling Catheter Indwelling Catheter Indwelling Catheter # Bowel Movements 1 ABP, PAP, CO, CI - Last Documented Arterial Blood Pressure 114/42 - Exam Gen. appearance she is calm comfortable pale nonacute distress. The patient is sedated. The patient is currently on propofol infusion which is running at 75 g per KG per minute. She is interested a mechanical ventilator. Orogastric and orotracheal tube are both in place. Head exam was generally normal. There was no scleral icterus or corneal arcus. Mucous membranes were moist. Neck was supple and without jugular venous distension, thyromegaly, or carotid bruits. Carotids were easily palpable bilaterally. There was no adenopathy. Lungs sounds are diminished and the patient diffuse expiratory wheezes without the lung his bilaterally. Breath sounds are diminished in the right lung base Cardiac exam revealed the PMI to be normally situated and sized. The rhythm was regular and no extrasystoles were noted during several minutes of auscultation. The first and second heart sounds were normal and physiologic splitting of the second heart sound was noted. There were no murmurs, rubs, clicks, or gallops. Sternum stable clean and intact and the patient has a pacemaker pocket over the left anterior chest area. Abdominal exam revealed normal bowel sounds. The abdomen was soft, non-tender, and without masses, organomegaly, or appreciable enlargement of the abdominal aorta. Examination of the extremities revealed easily palpable radial, femoral and pedal pulses. There was no cyanosis, clubbing or edema. Examination of the skin revealed no evidence of significant rashes, suspicious appearing nevi or other concerning lesions. Neurologically withdraws to painful stimulation 4 extremities. The patient is currently sedated. - Labs CBC & Chem 7: 10/22/19 09:05 10/22/19 04:15 Labs: Abnormal Lab Results - Last 24 Hours (Table) 10/19/19 10/21/19 10/21/19 Range/Units 17:10 10:48 11:49 WBC (3.8-10.6) k/uL RBC (3.80-5.40) m/uL Hgb (11.4-16.0) gm/dL Hct (34.0-46.0) % MCH (25.0-35.0) pg Plt Count (150-450) k/uL PT 15.3 H (9.0-12.0) sec INR 1.6 H (<1.2) APTT 32.0 H (22.0-30.0) sec D-Dimer 7.42 H (<0.60) mg/L FEU ABG pH (7.35-7.45) ABG pO2 (83-108) mmHg ABG HCO3 (21-25) mmol/L ABG Total CO2 (19-24) mmol/L Sodium (137-145) mmol/L Chloride (98-107) mmol/L BUN (7-17) mg/dL Creatinine (0.52-1.04) mg/dL Glucose (74-99) mg/dL POC Glucose (mg/dL) 184 H (75-99) mg/dL Calcium (8.4-10.2) mg/dL Total Bilirubin (0.2-1.3) mg/dL AST (14-36) U/L ALT (4-34) U/L Total Protein (6.3-8.2) g/dL Albumin (3.5-5.0) g/dL Crossmatch See Detail 10/21/19 10/21/19 10/22/19 Range/Units 17:35 23:50 04:15 WBC 0.6 L* (3.8-10.6) k/uL RBC 2.03 L (3.80-5.40) m/uL Hgb 7.1 L D (11.4-16.0) gm/dL Hct 19.4 L* (34.0-46.0) % MCH 35.1 H (25.0-35.0) pg Plt Count 7 L* D (150-450) k/uL PT (9.0-12.0) sec INR (<1.2) APTT (22.0-30.0) sec D-Dimer (<0.60) mg/L FEU ABG pH (7.35-7.45) ABG pO2 (83-108) mmHg ABG HCO3 (21-25) mmol/L ABG Total CO2 (19-24) mmol/L Sodium (137-145) mmol/L Chloride (98-107) mmol/L BUN (7-17) mg/dL Creatinine (0.52-1.04) mg/dL Glucose (74-99) mg/dL POC Glucose (mg/dL) 161 H 187 H (75-99) mg/dL Calcium (8.4-10.2) mg/dL Total Bilirubin (0.2-1.3) mg/dL AST (14-36) U/L ALT (4-34) U/L Total Protein (6.3-8.2) g/dL Albumin (3.5-5.0) g/dL Crossmatch 10/22/19 10/22/19 10/22/19 Range/Units 04:15 04:43 06:04 WBC (3.8-10.6) k/uL RBC (3.80-5.40) m/uL Hgb (11.4-16.0) gm/dL Hct (34.0-46.0) % MCH (25.0-35.0) pg Plt Count (150-450) k/uL PT (9.0-12.0) sec INR (<1.2) APTT (22.0-30.0) sec D-Dimer (<0.60) mg/L FEU ABG pH 7.48 H (7.35-7.45) ABG pO2 69 L (83-108) mmHg ABG HCO3 26 H (21-25) mmol/L ABG Total CO2 27 H (19-24) mmol/L Sodium 128 L (137-145) mmol/L Chloride 95 L (98-107) mmol/L BUN 54 H (7-17) mg/dL Creatinine 2.18 H (0.52-1.04) mg/dL Glucose 171 H (74-99) mg/dL POC Glucose (mg/dL) 182 H (75-99) mg/dL Calcium 7.0 L (8.4-10.2) mg/dL Total Bilirubin 2.3 H (0.2-1.3) mg/dL AST 260 H (14-36) U/L ALT 387 H (4-34) U/L Total Protein 3.8 L (6.3-8.2) g/dL Albumin 2.0 L (3.5-5.0) g/dL Crossmatch 10/22/19 Range/Units 09:05 WBC 0.5 L* (3.8-10.6) k/uL RBC 1.91 L (3.80-5.40) m/uL Hgb 6.6 L* (11.4-16.0) gm/dL Hct 18.3 L* (34.0-46.0) % MCH (25.0-35.0) pg Plt Count 9 L* (150-450) k/uL PT (9.0-12.0) sec INR (<1.2) APTT (22.0-30.0) sec D-Dimer (<0.60) mg/L FEU ABG pH (7.35-7.45) ABG pO2 (83-108) mmHg ABG HCO3 (21-25) mmol/L ABG Total CO2 (19-24) mmol/L Sodium (137-145) mmol/L Chloride (98-107) mmol/L BUN (7-17) mg/dL Creatinine (0.52-1.04) mg/dL Glucose (74-99) mg/dL POC Glucose (mg/dL) (75-99) mg/dL Calcium (8.4-10.2) mg/dL Total Bilirubin (0.2-1.3) mg/dL AST (14-36) U/L ALT (4-34) U/L Total Protein (6.3-8.2) g/dL Albumin (3.5-5.0) g/dL Crossmatch Microbiology - Last 24 Hours (Table) 10/19/19 14:32 Blood Culture Gram Stain - Preliminary Blood Blood Culture - Preliminary Non Hemolytic Strep Alpha Hemolytic Streptococcus 10/21/19 10:20 Acid Fast Bacilli Smear - Final Bronchial Washings - Right Acid Fast Bacilli Culture - Preliminary 10/21/19 10:20 Gram Stain - Preliminary Bronchial Washings - Right Bronchial Washings Culture - Preliminary 10/21/19 10:20 Fungal Culture - Preliminary Bronchial Washings - Right Assessment and Plan Plan: 1 acute hypoxic respiratory failure currently intubated on a mechanical ventilator. The patient came in septic with subsequent blood cultures showing up on Imitrex. Could be right lower lobe pneumonia. Bronchoscopy was done. The bronchioloalveolar lavage results are still pending for now. The patient is in multisystem organ failure. The patient is a respiratory failure in addition to acute kidney injury, cardiomyopathy, and hepatic dysfunction and addition to pancytopenia related to the systemic chemotherapy. 2 metastatic small cell lung cancer. The patient was treated through medical oncology and radiation oncology. Diagnosis was established in December 2018 and the patient was treated with a combination of systemic chemotherapy and Tecetr iq, followed by radiation therapy with good results and subsequently on 10/03/2019, the PET scan showed ectatic disease with a large paraspinal mass, new onset right-sided pleural effusion, metastatic deposit involving the abdominal lymph nodes in addition to involvement of the spine. Please refer to the CAT scan of the thoracic spine and the bone scan. The patient was started on systemic chemotherapy with a combination of Celebrex [place] and FACILITY DESIGNER-16. 3 brief cardiopulmonary arrest less than 1 minute and the patient is adequately and the successful resuscitated 4 severe lactic acidosis, improving, then bicarb infusion, improvement in the patient's serum bicarbs up to 25. 5 acute kidney injury with oligoria, with interval worsening of the renal function 6 sepsis secondary to alpha hemolytic strep 7 pancytopenia secondary to systemic chemotherapy, And the patient continues to be neutropenic and thrombocytopenic and she received platelet transfusion. Her bone marrow is being stimulated by Zarxio and the patient is received a unit of packed RBC yesterday. On today's evaluation hematologic profile is poor with a drop in hemoglobin down to 6.6 and a platelet count of 9 8 right-sided pleural effusion as identified in the CAT scan of the chest and the PET scan 9 large paraspinal mass causing severe compression fracture of T11 and the mass extending from T10 to T12. The patient has secondary back pain and no signs of any cord compression 10 right lower lobe pulmonary infiltration, consider malignancy versus radiation changes in the right lower lobe. The PET scan did not show any significant metabolic activity within the right lower lobe area. However malignancy cannot be completely excluded this patient with development of a right-sided pleural effusion 11 coronary artery disease with previous bypass surgery 12 congestion heart failure, proBNP level is quite elevated and the patient ejection fraction of less than 2 5% and the patient global hypokinesis 13 history of pacemaker insertion for bradycardia 14 squamous cell carcinoma of the skin 15 COPD with chronic hypoxic respiratory failure 16 questionable lupus 17 chronic radiation changes along the right hemithorax/right lower lobe area 18 hypothermia 19 hepatic dysfunction with abnormal LFTs Plan Continue vent support Stop the bicarb drip and switch this patient normal saline at the rate of 100 mL an hour ID consult was obtained and was noted. Continue same antibiotic coverage Hold off on blood transfusion as the patient's family is at its hours considering comfort care measures We'll continue to follow Prognosis poor baseline above-mentioned comorbidities. Condition is critical. Discussed the case with the daughter the bedside. Continue to follow. possible comfort care measures due to multisystem organ failure sepsis and metastatic small cell lung cancer. Critically care evaluation more than 30 minutes. Time with Patient: Greater than 30
--- NOTE | 2019-10-22 11:20 | CDI ---
Documentation Clarification Form Date: 10/22/2019 10:39:07 AM From: Tracey Rivas RN CCDS Admit Date: 10/19/2019 03:33:00 PM Patient Name: Katharina Franks Visit Number: [id number] Discharge Date: ATTENTION: The Clinical Documentation Specialists (CDI) and [facility] Coding Staff appreciate your assistance in clarifying documentation. Please respond to the clarification below the line at the bottom and electronically sign. The CDI & [facility] Coding staff will review the response and follow-up if needed. Please note: Queries are made part of the Legal Health Record. If you have any questions, please contact the author of this message via ITS. Dr. Dunia Deng Sepsis with gram positive cocci in chains and clusters is documented in Critical Care progress note 10/21/19 History/Risk Factors: 79-year-old female presented to the hospital with cough, fever and dyspnea. Small cell lung cancer currently on chemotherapy with pancytopenia. 10/20 Cardiopulmonary arrest for one minute. Clinical Indicators: Labs 10/19 Wbc 0.4; Lactic Acid 7.4; Troponin 0.151; BNP 86858; UA Hyaline casts 3; 10/20 Lactic acid 15.7 Blood cultures: 10/20 Gram Positive Cocci in chains Vitals signs on admission: 10/19 1358 - 137/67 69 97.5 Axillary 22 98% 2L nasal cannula 10/20 2145 52/28 72 28 100% Ventilation Treatment: Antibiotics: 10/20 Vancomycin Ivpb Q 12 Hrs, changed 10/20 Q16 hrs, changed 10/22 Q24 hrs, 10/19 Levaquin Ivpb Daily changed 10/20 to Po IV Bolus: 10/19 0.9ns 500cc bolus; 10/20 0.9ns 1L bolus;10/21 0.9ns 1L bolus Other: 10/20 Norepinephrine Bitartrate Ivpb In your professional opinion, please clarify if these findings signify one of the following conditions, whether the condition is POA, and cause, if known: * Sepsis POA * Other, please specify * Unable to determine SIRS Criteria (2 or more of the following may indicate SIRS): -Temperature < 96.8F (36C) or > 101.0F (38.3C) -Heart Rate > 90 bpm -Respiratory Rate > 20 breaths/min or PaCO2 < 32 mmHg -White Blood Cell Count > 12,000 or < 4,000 cells/mm3 or > 10% bands -Lactate >2.0 mmol/L (>4.0 is equivalent to septic shock) (Last Revision: December 2017) sepsis is already documented. POA MTDD
[2019-10-22 11:38] LABS: Glucose,Whole Blood 194 mg/dL (75-99)
[2019-10-22] MEDS: LEVOFLOXACIN 750 MG TAB PO SCH (11:45)
[2019-10-22] MEDS: SODIUM CHLORIDE 0.9% 1,000 ML IV SCH ×2 (11:46→20:36)
[2019-10-22] MEDS: MORPHINE SULFATE 2 MG/ML SYRINGE IVP PRN ×3 (15:18→22:03)
--- NOTE | 2019-10-22 15:38 | P.PN ---
Subjective Progress Note Date: 10/22/19 This is a 79-year-old female patient of Dr. Mendoza with past medical history of coronary artery disease status post 3 vessel CABG in 2009, cardiac stents done in 2012, 2013 and 2015, complete heart block with pacemaker implantation, right carotid artery stenosis, hypertension, right eye surgery for retinal detachment, remote history of tobacco use, COPD, metastatic small cell lung cancer who received systemic chemotherapy on 10/08/2019 with a combination of carboplatinum and INSPECTOR ALUMINUM BOAT-16 based on evidence of progression of her small cell lung cancer that was identified on a PET scan that was done on 10/03/2019. The patient was diagnosed initially having small cell lung cancer back in December 2018. She was treated with a combination of systemic chemotherapy and immunotherapy including Tecentriq. The patient developed reaction possible pneumonitis to the medication the patient was being treated with systemic steroids and immunotherapy has been discontinued. The PET scan that was done on 10/03/2019 s howed background emphysema, and a large right paravertebral soft tissue lesion in the lower thorax measuring 4.8 x 3.5 cm with intense metabolic activity and there are also metabolic activity in the anterior aspect of the diaphragm and there was also some areas of groundglass opacity and reticular changes in the right lower lung area and there was suspicious enlarging abdominal lymphadenopathy with increased metabolic activity. No areas other than those. CAT scan of the spine that was done on 10/09/2019 showed severe compression fraction of 11 and approximately 5-10% retropulsion. There was also a large right paraspinal mass extending D10 through T12 with some extension towards the T11 right neuroforamina. There was a moderate-sized right-sided pleural effusion that was also noted which was of a new onset. CAT scan of the brain that was done on 10/15/2019 was negative. Patient was started on systemic chemotherapy and scheduled for radiation therapy at T11 to start on October 20. Patient developed shortness of breath and cough without fever, no chest pain. Patient was brought into [facility] emergency center for evaluation. She was afebrile and vital signs stable. WBC 0.4, hemoglobin 7.7, platelet count 7. Sodium 134, potassium 4.2, chloride 103, CO2 18, BUN 37 and creatinine 0.72. Blood sugar 217. Total bilirubin 1.5, liver function tests normal. Influenza testing negative. Initial lactic acid 7.4, currently 5.5. ProBNP 12,800, albumin 2.9, pro calcitonin 0.41. Urinalysis negative for infection. Troponin 0.151. Chest x-ray correlate for heart failure otherwise atypical or interstitial pneumonia or pneumonitis. Patient admitted into the i ntensive care unit and consult requested with pulmonary medicine, cardiology, oncology. Repeat chest x-ray this morning reveals heart failure superimposed on interstitial lung disease. Cardiomegaly. Correlate for possible pneumonia. Chest ultrasound revealed minimal right pleural effusion, 1.6 cm. 10/21: Patient's breathing status progressively worsened yesterday afternoon and patient became tachypneic and hypoxic requiring intubation and mechanical ventilation. Patient had brief period of cardiopulmonary arrest and received CPR for approximately 1 minute and recovered from that. Patient on levophed Patient's lactic acid was at 15 and patient received IV fluids and bicarbonate infusion. She is currently intubated and on mechanical ventilation with tidal volume 400, FiO2 100 and PEEP of 5. Repeat blood work reveals white count of 1.1, hemoglobin 9.1 and platelets of 43. Creatinine 1.32, liver function worsened from yesterday with total bilirubin 2.7, AST 302, ALT 250, alkaline p hosphatase 128. Blood culture is positive for gram-positive cocci in chains, possible contamination. Patient on vancomycin. Patient afebrile, heart rate 102, blood pressure 121/66. Patient underwent bedside bronchoscopy this morning with Dr. Núñez, cultures pending. Consult with Dr. Bennett was added. Oncology is following closely with plan to transfuse for hemoglobin 7, keep platelets greater than 10,000. 10/22: Patient remains intubated and on mechanical ventilation with tidal volume 400, FiO2 50, PEEP 5 repeat blood work today reveals WBC 0.5, hemoglobin 6.6, platelet count 9. Repeat chest x-ray shows slight improvement of bibasilar infiltrates. Correlate for improving pulmonary edema. Echocardiogram reveals EF of 20-25%, moderate to severe mitral regurgitation, mild tricuspid regurgitation, mild to moderate pulmonary hypertension. Patient has been seen by Dr. Bennett with plan to continue vancomycin and Levaquin. Prognosis is very poor. Dr. Núñez spoke with family regarding prognosis and they are contemplating comfort care to start tomorrow once other family members arrive. Objective - Vital Signs Vital signs: Vital Signs Temp 95.4 F L 10/22/19 08:00 Pulse 87 10/22/19 09:30 Resp 30 H 10/22/19 09:30 BP 91/48 10/22/19 09:30 Pulse Ox 96 10/22/19 09:30 Intake & Output 10/21/19 10/22/19 10/22/19 18:59 06:59 18:59 Intake Total 2747.743 1871.392 524 Output Total 83 87 18 Balance 2664.743 1784.392 506 Weight 85.6 kg 85.6 kg Intake: IV 2290 1083 284 Dextrose 5% in Water 1, 825 225 000 ml @ 75 mls/hr IV . [id number] RADHA with Sodium Bicarb (1 Meq/ml) 150 ml Rx#:[id number] Phytonadione 5 mg In 50 Sodium Chloride 0.9% 50 ml @ 100 mls/hr IVPB ONCE STA Rx#:[id number] Pressure bag 33 9 Sodium Chloride 0.9% 1, 770 225 000 ml @ 75 mls/hr IV . [id number] RADHA Rx#:[id number] Sodium Chloride 0.9% 1, 1000 000 ml @ 999 mls/hr IV . Q1H1M ONE Rx#:[id number] Sodium Chloride 0.9% 500 500 ml 500 ml @ 999 mls/hr IV .Q31M ONE Rx#:[id number] Intake, IV Titration 437.743 528.392 100 Amount Dextrose 5% in Water 1, 150 000 ml @ 75 mls/hr IV . [id number] RADHA with Sodium Bicarb (1 Meq/ml) 150 ml Rx#:[id number] Norepinephrine 32 mg In 2.126 83.864 Sodium Chloride 0.9% 218 ml @ 0.05 MCG/KG/MIN 1. 772 mls/hr IV .Q24H RADHA Rx#:[id number] Propofol 1,000 mg In 285.617 444.528 100 Empty Bag 1 bag @ Titrate IV .Q0M RADHA Rx#: [id number] Tube Feeding 20 170 110 Other 90 30 Output: Urine 83 87 18 Other: Voiding Method Indwelling Catheter Indwelling Catheter Indwelling Catheter # Bowel Movements 1 ABP, PAP, CO, CI - Last Documented Arterial Blood Pressure 114/42 - Exam Review of Systems--unable to obtain due intubation Physical Examination: Gen: This is a 79-year-old female. Patient is resting in the ICU bed. She is intubated and on mechanical ventilation. Patient appears to be comfortable. HEENT: Head is atraumatic, normocephalic. Pupils equal, round. Sclerae is anicteric. Oral gastric and ET tube in place NECK: Supple. No JVD. No lymphadenopathy. No thyromegaly. LUNGS: Diminished bilaterally with scattered expiratory wheeze. No intercostal retractions. HEART: Regular rate and rhythm. No murmur. Pacemaker at the left anterior chest wall. ABDOMEN: Soft. Bowel sounds are present. No masses. No tenderness. Stewart in place. EXTREMITIES: No pedal edema. No calf tenderness. Dorsalis pedis palpable bilaterally. NEUROLOGICAL: Patient is sedated. - Labs CBC & Chem 7: 10/22/19 09:05 10/22/19 04:15 Labs: Abnormal Lab Results - Last 24 Hours (Table) 10/19/19 10/21/19 10/21/19 Range/Units 17:10 10:48 11:49 WBC (3.8-10.6) k/uL RBC (3.80-5.40) m/uL Hgb (11.4-16.0) gm/dL Hct (34.0-46.0) % MCH (25.0-35.0) pg Plt Count (150-450) k/uL PT 15.3 H (9.0-12.0) sec INR 1.6 H (<1.2) APTT 32.0 H (22.0-30.0) sec D-Dimer 7.42 H (<0.60) mg/L FEU ABG pH (7.35-7.45) ABG pO2 (83-108) mmHg ABG HCO3 (21-25) mmol/L ABG Total CO2 (19-24) mmol/L Sodium (137-145) mmol/L Chloride (98-107) mmol/L BUN (7-17) mg/dL Creatinine (0.52-1.04) mg/dL Glucose (74-99) mg/dL POC Glucose (mg/dL) 184 H (75-99) mg/dL Calcium (8.4-10.2) mg/dL Total Bilirubin (0.2-1.3) mg/dL AST (14-36) U/L ALT (4-34) U/L Total Protein (6.3-8.2) g/dL Albumin (3.5-5.0) g/dL Crossmatch See Detail 10/21/19 10/21/19 10/22/19 Range/Units 17:35 23:50 04:15 WBC 0.6 L* (3.8-10.6) k/uL RBC 2.03 L (3.80-5.40) m/uL Hgb 7.1 L D (11.4-16.0) gm/dL Hct 19.4 L* (34.0-46.0) % MCH 35.1 H (25.0-35.0) pg Plt Count 7 L* D (150-450) k/uL PT (9.0-12.0) sec INR (<1.2) APTT (22.0-30.0) sec D-Dimer (<0.60) mg/L FEU ABG pH (7.35-7.45) ABG pO2 (83-108) mmHg ABG HCO3 (21-25) mmol/L ABG Total CO2 (19-24) mmol/L Sodium (137-145) mmol/L Chloride (98-107) mmol/L BUN (7-17) mg/dL Creatinine (0.52-1.04) mg/dL Glucose (74-99) mg/dL POC Glucose (mg/dL) 161 H 187 H (75-99) mg/dL Calcium (8.4-10.2) mg/dL Total Bilirubin (0.2-1.3) mg/dL AST (14-36) U/L ALT (4-34) U/L Total Protein (6.3-8.2) g/dL Albumin (3.5-5.0) g/dL Crossmatch 10/22/19 10/22/19 10/22/19 Range/Units 04:15 04:43 06:04 WBC (3.8-10.6) k/uL RBC (3.80-5.40) m/uL Hgb (11.4-16.0) gm/dL Hct (34.0-46.0) % MCH (25.0-35.0) pg Plt Count (150-450) k/uL PT (9.0-12.0) sec INR (<1.2) APTT (22.0-30.0) sec D-Dimer (<0.60) mg/L FEU ABG pH 7.48 H (7.35-7.45) ABG pO2 69 L (83-108) mmHg ABG HCO3 26 H (21-25) mmol/L ABG Total CO2 27 H (19-24) mmol/L Sodium 128 L (137-145) mmol/L Chloride 95 L (98-107) mmol/L BUN 54 H (7-17) mg/dL Creatinine 2.18 H (0.52-1.04) mg/dL Glucose 171 H (74-99) mg/dL POC Glucose (mg/dL) 182 H (75-99) mg/dL Calcium 7.0 L (8.4-10.2) mg/dL Total Bilirubin 2.3 H (0.2-1.3) mg/dL AST 260 H (14-36) U/L ALT 387 H (4-34) U/L Total Protein 3.8 L (6.3-8.2) g/dL Albumin 2.0 L (3.5-5.0) g/dL Crossmatch 10/22/19 Range/Units 09:05 WBC 0.5 L* (3.8-10.6) k/uL RBC 1.91 L (3.80-5.40) m/uL Hgb 6.6 L* (11.4-16.0) gm/dL Hct 18.3 L* (34.0-46.0) % MCH (25.0-35.0) pg Plt Count 9 L* (150-450) k/uL PT (9.0-12.0) sec INR (<1.2) APTT (22.0-30.0) sec D-Dimer (<0.60) mg/L FEU ABG pH (7.35-7.45) ABG pO2 (83-108) mmHg ABG HCO3 (21-25) mmol/L ABG Total CO2 (19-24) mmol/L Sodium (137-145) mmol/L Chloride (98-107) mmol/L BUN (7-17) mg/dL Creatinine (0.52-1.04) mg/dL Glucose (74-99) mg/dL POC Glucose (mg/dL) (75-99) mg/dL Calcium (8.4-10.2) mg/dL Total Bilirubin (0.2-1.3) mg/dL AST (14-36) U/L ALT (4-34) U/L Total Protein (6.3-8.2) g/dL Albumin (3.5-5.0) g/dL Crossmatch Microbiology - Last 24 Hours (Table) 10/19/19 14:32 Blood Culture Gram Stain - Preliminary Blood Blood Culture - Preliminary Non Hemolytic Strep Alpha Hemolytic Streptococcus 10/21/19 10:20 Acid Fast Bacilli Smear - Final Bronchial Washings - Right Acid Fast Bacilli Culture - Preliminary 10/21/19 10:20 Gram Stain - Preliminary Bronchial Washings - Right Bronchial Washings Culture - Preliminary 10/21/19 10:20 Fungal Culture - Preliminary Bronchial Washings - Right Assessment and Plan Plan: 1. Metastatic small cell lung cancer. Consult with oncology and pulmonary medicine. 2. Pancytopenia secondary to chemotherapy. Patient is status post transfusion of platelets and 1 unit of packed RBCs to be transfused today. Zarxio 480 g subcu daily. 3. Acute hypoxic respiratory failure secondary to combination of acute exacerbation of COPD and right-sided pleural effusion too small for thoracentesis and right lower lobe infiltrate possible pneumonia versus malignancy. Patient has been intubated and placed on mechanical ventilation. Continue Solu-Medrol 60 mg IV every 6 hours, albuterol every 2 hours as needed, DuoNeb treatments every 4 hours as needed in 4 times daily, Levaquin 750 mg daily and vancomycin. Consult with Dr. Núñez appreciated. 4. Lactic acidosis. Bicarb drip. 5. Elevated troponin possibly secondary to anemia. Consult with Dr. Prado appreciated. Lopressor 12.5 mg twice daily added. Echocardiogram ordered. 6. Cardiopulmonary arrest for 1 minute, patient resuscitated. 7. Acute kidney injury with oliguria. 8. Possible bacteremia. Await final culture reports. Patient started on vancomycin. 9. Hypotension, possible septic shock, requiring norepinephrine. 10. Shock liver with elevated liver function tests. Continue to monitor. 11. History of coronary artery disease status post CABG and stents. 12. History of complete heart block with pacemaker implantation. 13. Right carotid artery stenosis, stable. 14. Hypertension. Currently hypotensive 15. GI prophylaxis. Protonix. 16. DVT prophylaxis. SCDs and VIJAYA hose. 17. Cardiomyopathy with ejection fraction of 25%, acute on chronic systolic heart failure Prognosis: Poor Plan: Patient is currently on supportive care, family may decide on comfort care. Family is coming from out of town. Impression and plan of care have been directed as dictated by the signing physician. Fely Sims nurse practitioner acting as scribe for signing physician.
--- NOTE | 2019-10-22 17:01 | P.PN ---
Subjective Progress Note Date: 10/22/19 Principal diagnosis: RAMÓN, SOB In f/u pt is sedated and mechanically ventilated, family at bedside, pt does not appear to be in any distress, s/p episode of arrest with resuscitation. Critical Care has spoke with family about serious condition, code status has been updated, pending multiple family members arrival to talk and likely discontinue life support. Objective - Vital Signs Vital signs: Vital Signs Temp 97.4 F L 10/22/19 11:13 Pulse 93 10/22/19 11:29 Resp 30 H 10/22/19 11:13 BP 120/45 10/22/19 11:13 Pulse Ox 92 L 10/22/19 11:13 Intake & Output 10/21/19 10/22/19 10/22/19 18:59 06:59 18:59 Intake Total 2747.743 1871.392 705 Output Total 83 87 18 Balance 2664.743 1784.392 687 Weight 85.6 kg 85.6 kg Intake: IV 2290 1083 465 Dextrose 5% in Water 1, 825 300 000 ml @ 75 mls/hr IV . [id number] RADHA with Sodium Bicarb (1 Meq/ml) 150 ml Rx#:[id number] Phytonadione 5 mg In 50 Sodium Chloride 0.9% 50 ml @ 100 mls/hr IVPB ONCE STA Rx#:[id number] Pressure bag 33 15 Sodium Chloride 0.9% 1, 770 225 000 ml @ 75 mls/hr IV . [id number] RADHA Rx#:[id number] Sodium Chloride 0.9% 1, 1000 100 000 ml @ 999 mls/hr IV . Q1H1M ONE Rx#:[id number] Sodium Chloride 0.9% 500 500 ml 500 ml @ 999 mls/hr IV .Q31M ONE Rx#:[id number] Intake, IV Titration 437.743 528.392 100 Amount Dextrose 5% in Water 1, 150 000 ml @ 75 mls/hr IV . [id number] RADHA with Sodium Bicarb (1 Meq/ml) 150 ml Rx#:[id number] Norepinephrine 32 mg In 2.126 83.864 Sodium Chloride 0.9% 218 ml @ 0.05 MCG/KG/MIN 1. 772 mls/hr IV .Q24H RADHA Rx#:[id number] Propofol 1,000 mg In 285.617 444.528 100 Empty Bag 1 bag @ Titrate IV .Q0M [facility] Rx#: [id number] Tube Feeding 20 170 110 Blood Product 0 Platelet Irr Pheresis 0 Acda Unit [id number] Other 90 30 Output: Urine 83 87 18 Other: Voiding Method Indwelling Catheter Indwelling Catheter Indwelling Catheter # Bowel Movements 1 ABP, PAP, CO, CI - Last Documented Arterial Blood Pressure 118/43 - Constitutional General appearance: Present: average body habitus, no acute distress - Labs CBC & Chem 7: 10/22/19 09:05 10/22/19 04:15 Labs: Abnormal Lab Results - Last 24 Hours (Table) 10/19/19 10/21/19 10/21/19 Range/Units 17:10 10:48 11:49 WBC (3.8-10.6) k/uL RBC (3.80-5.40) m/uL Hgb (11.4-16.0) gm/dL Hct (34.0-46.0) % MCH (25.0-35.0) pg Plt Count (150-450) k/uL PT 15.3 H (9.0-12.0) sec INR 1.6 H (<1.2) APTT 32.0 H (22.0-30.0) sec D-Dimer 7.42 H (<0.60) mg/L FEU ABG pH (7.35-7.45) ABG pO2 (83-108) mmHg ABG HCO3 (21-25) mmol/L ABG Total CO2 (19-24) mmol/L Sodium (137-145) mmol/L Chloride (98-107) mmol/L BUN (7-17) mg/dL Creatinine (0.52-1.04) mg/dL Glucose (74-99) mg/dL POC Glucose (mg/dL) 184 H (75-99) mg/dL Calcium (8.4-10.2) mg/dL Total Bilirubin (0.2-1.3) mg/dL AST (14-36) U/L ALT (4-34) U/L Total Protein (6.3-8.2) g/dL Albumin (3.5-5.0) g/dL Crossmatch See Detail 10/21/19 10/21/19 10/22/19 Range/Units 17:35 23:50 04:15 WBC 0.6 L* (3.8-10.6) k/uL RBC 2.03 L (3.80-5.40) m/uL Hgb 7.1 L D (11.4-16.0) gm/dL Hct 19.4 L* (34.0-46.0) % MCH 35.1 H (25.0-35.0) pg Plt Count 7 L* D (150-450) k/uL PT (9.0-12.0) sec INR (<1.2) APTT (22.0-30.0) sec D-Dimer (<0.60) mg/L FEU ABG pH (7.35-7.45) ABG pO2 (83-108) mmHg ABG HCO3 (21-25) mmol/L ABG Total CO2 (19-24) mmol/L Sodium (137-145) mmol/L Chloride (98-107) mmol/L BUN (7-17) mg/dL Creatinine (0.52-1.04) mg/dL Glucose (74-99) mg/dL POC Glucose (mg/dL) 161 H 187 H (75-99) mg/dL Calcium (8.4-10.2) mg/dL Total Bilirubin (0.2-1.3) mg/dL AST (14-36) U/L ALT (4-34) U/L Total Protein (6.3-8.2) g/dL Albumin (3.5-5.0) g/dL Crossmatch 10/22/19 10/22/19 10/22/19 Range/Units 04:15 04:43 06:04 WBC (3.8-10.6) k/uL RBC (3.80-5.40) m/uL Hgb (11.4-16.0) gm/dL Hct (34.0-46.0) % MCH (25.0-35.0) pg Plt Count (150-450) k/uL PT (9.0-12.0) sec INR (<1.2) APTT (22.0-30.0) sec D-Dimer (<0.60) mg/L FEU ABG pH 7.48 H (7.35-7.45) ABG pO2 69 L (83-108) mmHg ABG HCO3 26 H (21-25) mmol/L ABG Total CO2 27 H (19-24) mmol/L Sodium 128 L (137-145) mmol/L Chloride 95 L (98-107) mmol/L BUN 54 H (7-17) mg/dL Creatinine 2.18 H (0.52-1.04) mg/dL Glucose 171 H (74-99) mg/dL POC Glucose (mg/dL) 182 H (75-99) mg/dL Calcium 7.0 L (8.4-10.2) mg/dL Total Bilirubin 2.3 H (0.2-1.3) mg/dL AST 260 H (14-36) U/L ALT 387 H (4-34) U/L Total Protein 3.8 L (6.3-8.2) g/dL Albumin 2.0 L (3.5-5.0) g/dL Crossmatch 10/22/19 Range/Units 09:05 WBC 0.5 L* (3.8-10.6) k/uL RBC 1.91 L (3.80-5.40) m/uL Hgb 6.6 L* (11.4-16.0) gm/dL Hct 18.3 L* (34.0-46.0) % MCH (25.0-35.0) pg Plt Count 9 L* (150-450) k/uL PT (9.0-12.0) sec INR (<1.2) APTT (22.0-30.0) sec D-Dimer (<0.60) mg/L FEU ABG pH (7.35-7.45) ABG pO2 (83-108) mmHg ABG HCO3 (21-25) mmol/L ABG Total CO2 (19-24) mmol/L Sodium (137-145) mmol/L Chloride (98-107) mmol/L BUN (7-17) mg/dL Creatinine (0.52-1.04) mg/dL Glucose (74-99) mg/dL POC Glucose (mg/dL) (75-99) mg/dL Calcium (8.4-10.2) mg/dL Total Bilirubin (0.2-1.3) mg/dL AST (14-36) U/L ALT (4-34) U/L Total Protein (6.3-8.2) g/dL Albumin (3.5-5.0) g/dL Crossmatch Microbiology - Last 24 Hours (Table) 10/19/19 14:32 Blood Culture Gram Stain - Preliminary Blood Blood Culture - Preliminary Non Hemolytic Strep Alpha Hemolytic Streptococcus 10/21/19 10:20 Acid Fast Bacilli Smear - Final Bronchial Washings - Right Acid Fast Bacilli Culture - Preliminary 10/21/19 10:20 Gram Stain - Preliminary Bronchial Washings - Right Bronchial Washings Culture - Preliminary 10/21/19 10:20 Fungal Culture - Preliminary Bronchial Washings - Right Assessment and Plan (1) Sepsis Current Visit: Yes Status: Acute Priority: High Code(s): A41.9 - SEPSIS, UNSPECIFIED ORGANISM SNOMED Code(s): 84585322 (2) Small cell lung cancer Current Visit: Yes Status: Acute Priority: High Code(s): C34.90 - MALIGNANT NEOPLASM OF UNSP PART OF UNSP BRONCHUS OR LUNG SNOMED Code(s): 390741548 (3) Antineoplastic chemotherapy induced pancytopenia Current Visit: Yes Status: Acute Priority: High Code(s): D61.810 - A NTINEOPLASTIC CHEMOTHERAPY INDUCED PANCYTOPENIA; T45.1X5A - ADVERSE EFFECT OF ANTINEOPLASTIC AND IMMUNOSUP DRUGS, INIT SNOMED Code(s): 447031247695339 Plan: Critical care team followed up with patient's family today and updated them on her condition. Patient's condition unfortunately is not improving. Patient did have an episode of arrest. Patient's CODE STATUS has been changed to no code. There are numerous family members coming in from out of town. At this time and appears as though patient family is going to discontinue life support once all family members have arrived. Family will communicate with the intensive care unit staff at what time they are ready to proceed with this. Case was discussed with Critical Care DNP. Platelet count of 9000 today, going to administer 1 unit, pending arrival of family from out of state.
[2019-10-22 17:34] LABS: Glucose,Whole Blood 170 mg/dL (75-99)
[2019-10-22 20:31] LABS: Glucose,Whole Blood 180 mg/dL (75-99)
[2019-10-22] MEDS: PARoxetine 10 MG TAB PO SCH (20:35)
--- NOTE | 2019-10-22 22:57 | PN ---
PROGRESS NOTE DATE OF SERVICE: 10/22/2019 REASON FOR FOLLOWUP: Positive blood culture. INTERVAL HISTORY: The patient is currently afebrile. The patient is off the pressor support. FiO2 is currently down to 50%. No other changes have been reported by the nursing staff. The patient remains sedated on the vent. PHYSICAL EXAMINATION: Blood pressure is 112/53 with a pulse of 87, temperature 97.4. She is 94% on 50% FiO2. General description is an elderly female lying in bed in no distress. RESPIRATORY SYSTEM: Unlabored breathing with decreased breath sounds at the base. No wheeze. HEART: S1, S2. Regular rate and rhythm. ABDOMEN: Soft. No tenderness. LABS: Hemoglobin 6.3, white count 0.5. BUN of 54, creatinine 2.18. Liver enzymes are elevated. Blood culture alpha-hemolytic Streptococcus. Blood culture repeat has been negative so far. Bronch cultures are so far negative. DIAGNOSTIC IMPRESSION AND PLAN: Patient with bacteremia, waiting for the final ID and sensitivity. The patient is covered with vancomycin because of her MULTIPLE ANTIBIOTIC ALLERGIES. Kidney function will be monitored closely. Continue with supportive care. Family at the bedside. Their questions were answered. MMODL / IJN: [id number] /
[2019-10-23 00:03] LABS: Glucose,Whole Blood 211 mg/dL (75-99)
[2019-10-23] MEDS: INSULIN ASPART (NovoLOG) 100 UNIT/ML VIAL SQ SCH ×3 (00:12→11:53)
[2019-10-23] MEDS: methylPREDNISolone SOD SUCCI 125 MG/2 ML VIAL IV SCH ×3 (00:13→11:38)
[2019-10-23] MEDS: SODIUM CHLORIDE 0.9% 50 ML with VASOPRESSIN 20 UNIT IVPB SCH ×4 (00:21→11:32)
[2019-10-23] MEDS: PROPOFOL 1,000 MG in EMPTY BAG 1 BAG IV SCH ×4 (03:23→14:42)
[2019-10-23] MEDS: MORPHINE SULFATE 2 MG/ML SYRINGE IVP PRN ×3 (03:24→09:26)
[2019-10-23 04:31] LABS: MCH 35.2 pg (25.0-35.0); MCHC 35.9 g/dL (31.0-37.0); MCV 98.1 fL (80.0-100.0); Mean Platelet Volume 7.8; RBC 1.84 m/uL (3.80-5.40); RDW 14.7 % (11.5-15.5); WBC 1.6 k/uL (3.8-10.6)
[2019-10-23 04:43] LABS: HGB 6.5 gm/dL (11.4-16.0); Platelet Count 44 k/uL (150-450)
[2019-10-23 04:45] LABS: Calcium 6.9 mg/dL (8.4-10.2); Potassium 3.9 mmol/L (3.5-5.1)
[2019-10-23 04:50] LABS: Vancomycin,Random 28.1 ug/mL
[2019-10-23 05:05] LABS: INR 1.1 (<1.2)
[2019-10-23 06:01] LABS: Glucose,Whole Blood 238 mg/dL (75-99)
[2019-10-23 06:09] LABS: ABG Base Excess -4.5 mmol/L; ABG HCO3 22 mmol/L (21-25); ABG Oxygen Saturation 93.1 % (94-97); ABG PCO2 43 mmHg (35-45); ABG PH 7.31 (7.35-7.45); ABG PO2 71 mmHg (83-108); ABG TCO2 23 mmol/L (19-24); Allen Test Performed? Yes
[2019-10-23 06:39] LABS: Partial Thromboplastin Time 24.9 sec (22.0-30.0)
[2019-10-23] MEDS: IPRATROPIUM-ALBUTEROL 3 ML NEB INHALATION SCH ×2 (07:59→11:36)
[2019-10-23] MEDS: CHLORHEXIDINE GLUCONATE 15 ML CUP MUCOUS MEM SCH (08:03)
[2019-10-23] MEDS: SODIUM CHLORIDE 0.9% 1,000 ML IV SCH (08:03)
[2019-10-23] MEDS: MAG HYDROX/AL HYDROX/SIMETH 30 ML, LIDOCAINE VISCOUS 30 ML, diphenhydrAMINE ELIXIR 75 M... PO SCH ×4 (08:05)
[2019-10-23] MEDS: PANTOPRAZOLE 40 MG/10 ML VIAL IVP SCH (08:05)
[2019-10-23] MEDS: FLUCONAZOLE 100 MG TAB PO SCH (08:05)
[2019-10-23] MEDS: FILGRASTIM-SNDZ 480 MCG/0.8 ML SYRINGE SQ SCH (08:11)
--- NOTE | 2019-10-23 09:14 | XR ---
EXAMINATION TYPE: XR chest 1V portable DATE OF EXAM: 10/23/2019 COMPARISON: 10/22/2019 HISTORY: SOB, Follow Up FINDINGS: Indwelling tubes and catheters are unchanged. No change in bibasilar and perihilar opacities. Stable appearance of the cardio-mediastinal structures at this time. Pleural effusion unchanged. IMPRESSION: 1. Stable portable chest. Clinical correlation and follow up until resolution is recommended.
--- NOTE | 2019-10-23 09:40 | P.PN ---
Subjective Progress Note Date: 10/23/19 Principal diagnosis: Abnormal cardiac enzymes This is a very pleasant 79-year-old female patient who is unfortunate with a past medical history significant for small cell lung cancer with metastasis and the patient status post chemotherapy as well as radiation therapy as well as immunotherapy, coronary artery disease and status post coronary artery revascularization in the term of bypass as well as a stenting, the last heart catheterization was performed in 2013 where at that point the patient was admitted to the hospital with a chest discomfort suggestive of angina and un derwent a heart catheterization and was found to have two-vessel coronary artery disease involving the proximal left circumflex as well as left anterior descending artery. The STREETER to LAD was patent at that point and the vein graft to the diagonal was patent as well as the vein graft to the OM. She was found to have severe disease involving the LCx proximal to previously stent and at that point she underwent stenting of the left circumflex. Beside that the patient does have permanent pacemaker. This time the patient presented to the hospital because of increasing in the shortness of breath. No symptoms of chest pain or chest discomfort, dizziness, heart racing, or syncope. When she pre sented she was tachycardic. The troponin was elevated at appeared to be flat across support. The patient is very mild. Beside that the patient was found to be pancytopenic with WBC of 0.4, hemoglobin of 7.7, and platelet of 7. Also the BUN was slightly elevated but the creatinine was 0.7. The proBNP was 1200. The lactic acid also was elevated. We consulted to see the patient for further doc luation of acute non-ST patient myocardial infarction. As a mentioned earlier the patient did not have any symptoms of chest pain or chest discomfort. She is known to have metastatic small cell lung cancer. She was seen by the intensive care team and she was diagnosed with COPD exacerbation and currently she is on treatment for that. I did review the chest x-ray from today and to me it the patient doesn't look like she is in heart failure overall, in spite of elevated BNP and increasing shortness of breath. Beside that I would consider conservative medical approach regarding the mildly abnormal troponin. The patient was seen today, September 222019. Unfortunately she continues not to be doing well. She continues to be intubated on mechanical ventilation. She continues to have pancytopenia. Beside that the echocardiogram showed severe cardiomyopathy. The prognosis is very poor. From the cardiovascular standpoint overview, we'll follow-up with the patient on when necessary case. Please note that the patient is in multi-organ failure. Objective - Vital Signs Vital signs: Vital Signs Temp 97.4 F L 10/23/19 08:00 Pulse 95 10/23/19 09:00 Resp 35 H 10/23/19 09:00 BP 109/51 10/23/19 09:00 Pulse Ox 92 L 10/23/19 09:00 Intake & Output 10/22/19 10/23/19 10/23/19 18:59 06:59 18:59 Intake Total 2569.164 2142 674 Output Total 62 30 0 Balance 2507.164 2112 674 Weight 87.4 kg Intake: IV 1186 1236 309 Dextrose 5% in Water 1, 300 000 ml @ 75 mls/hr IV . [id number] RADHA with Sodium Bicarb (1 Meq/ml) 150 ml Rx#:[id number] Phytonadione 5 mg In 50 Sodium Chloride 0.9% 50 ml @ 100 mls/hr IVPB ONCE STA Rx#:[id number] Pressure bag 36 36 9 Sodium Chloride 0.9% 1, 200 1200 300 000 ml @ 100 mls/hr IV . Q10H RADHA Rx#:[id number] Sodium Chloride 0.9% 1, 600 000 ml @ 999 mls/hr IV . Q1H1M ONE Rx#:[id number] Intake, IV Titration 391.164 300 Amount Propofol 1,000 mg In 391.164 300 Empty Bag 1 bag @ Titrate IV .Q0M RADHA Rx#: [id number] Tube Feeding 466 516 215 Blood Product 466 Platelet Irr Pheresis 466 Acda Unit [id number] Other 60 90 150 Output: Urine 62 30 0 Other: Voiding Method Indwelling Catheter Indwelling Catheter Indwelling Catheter ABP, PAP, CO, CI - Last Documented Arterial Blood Pressure 119/87 - Labs CBC & Chem 7: 10/23/19 04:15 10/23/19 04:15 Labs: Abnormal Lab Results - Last 24 Hours (Table) 10/19/19 10/22/19 10/22/19 Range/Units 17:10 09:05 11:35 WBC 0.5 L* (3.8-10.6) k/uL RBC 1.91 L (3.80-5.40) m/uL Hgb 6.6 L* (11.4-16.0) gm/dL Hct 18.3 L* (34.0-46.0) % MCH (25.0-35.0) pg Plt Count 9 L* (150-450) k/uL ABG pH (7.35-7.45) ABG pO2 (83-108) mmHg ABG O2 Saturation (94-97) % Sodium (137-145) mmol/L Chloride (98-107) mmol/L BUN (7-17) mg/dL Creatinine (0.52-1.04) mg/dL Glucose (74-99) mg/dL POC Glucose (mg/dL) 194 H (75-99) mg/dL Calcium (8.4-10.2) mg/dL Crossmatch See Detail 10/22/19 10/22/19 10/23/19 Range/Units 17:33 20:28 00:00 WBC (3.8-10.6) k/uL RBC (3.80-5.40) m/uL Hgb (11.4-16.0) gm/dL Hct (34.0-46.0) % MCH (25.0-35.0) pg Plt Count (150-450) k/uL ABG pH (7.35-7.45) ABG pO2 (83-108) mmHg ABG O2 Saturation (94-97) % Sodium (137-145) mmol/L Chloride (98-107) mmol/L BUN (7-17) mg/dL Creatinine (0.52-1.04) mg/dL Glucose (74-99) mg/dL POC Glucose (mg/dL) 170 H 180 H 211 H (75-99) mg/dL Calcium (8.4-10.2) mg/dL Crossmatch 10/23/19 10/23/19 10/23/19 Range/Units 04:15 04:15 05:59 WBC 1.6 L (3.8-10.6) k/uL RBC 1.84 L (3.80-5.40) m/uL Hgb 6.5 L* (11.4-16.0) gm/dL Hct 18.0 L* (34.0-46.0) % MCH 35.2 H (25.0-35.0) pg Plt Count 44 L D (150-450) k/uL ABG pH (7.35-7.45) ABG pO2 (83-108) mmHg ABG O2 Saturation (94-97) % Sodium 128 L (137-145) mmol/L Chloride 94 L (98-107) mmol/L BUN 65 H (7-17) mg/dL Creatinine 2.86 H (0.52-1.04) mg/dL Glucose 199 H (74-99) mg/dL POC Glucose (mg/dL) 238 H (75-99) mg/dL Calcium 6.9 L (8.4-10.2) mg/dL Crossmatch 10/23/19 Range/Units 06:00 WBC (3.8-10.6) k/uL RBC (3.80-5.40) m/uL Hgb (11.4-16.0) gm/dL Hct (34.0-46.0) % MCH (25.0-35.0) pg Plt Count (150-450) k/uL ABG pH 7.31 L (7.35-7.45) ABG pO2 71 L (83-108) mmHg ABG O2 Saturation 93.1 L (94-97) % Sodium (137-145) mmol/L Chloride (98-107) mmol/L BUN (7-17) mg/dL Creatinine (0.52-1.04) mg/dL Glucose (74-99) mg/dL POC Glucose (mg/dL) (75-99) mg/dL Calcium (8.4-10.2) mg/dL Crossmatch Microbiology - Last 24 Hours (Table) 10/21/19 10:20 Gram Stain - Final Bronchial Washings - Right Bronchial Washings Culture - Final 10/19/19 14:32 Blood Culture Gram Stain - Preliminary Blood Blood Culture - Preliminary Non Hemolytic Strep Alpha Hemolytic Streptococcus 10/21/19 18:25 Blood Culture - Preliminary Blood No Growth after 24 hours 10/21/19 10:20 Acid Fast Bacilli Smear - Final Bronchial Washings - Right Acid Fast Bacilli Culture - Preliminary
[2019-10-23 09:56] LABS: Albumin 2.2 g/dL (3.5-5.0); Total Bilirubin 1.8 mg/dL (0.2-1.3); Total Protein 4.1 g/dL (6.3-8.2)
[2019-10-23 10:17] VITALS: RESP 30
--- NOTE | 2019-10-23 10:45 | P.PN ---
Subjective Progress Note Date: 10/23/19 Acute hypoxemic respiratory failure related to right lower lobe pneumonia, septic shock, multiorgan system failure and metastatic small cell lung cancer On 10/23/2019 patient is seen in follow-up in intensive care unit. She remains sedated on mechanical ventilator, levophed has been on hold since yesterday evening, Diprivan is infusing at a rate of 75 mics per kilo per minute, 0.9 normal saline at a rate of 100 ML per hour, current vent settings are assist- control mode of ventilation with a rate of 30, Tylenol by mouth 400, FiO2 of 50% and PEEP of 5. This morning blood gases showed pO2 of 71, pCO2 43, and pH of 7.31. This morning's blood work has been reviewed showing white blood cell count of 1.6, hemoglobin of 6.5, platelet count is up to 44 and patient is status post transfusion with 2 units of platelets yesterday on 10/22/2019. INR is 1.1. Sodium is 128, potassium is 3.9, chloride is 94, and it has been further worsening of patient's renal function with BUN of 65 and creatinine of 2.86. Liver enzymes are trending down, with total bilirubin of 1.8, AST of 155, ALT of 308, alkaline phosphatase of 120. Patient is on combination of Diflucan, Levaquin and vancomycin for alpha hemolytic Streptococcus and nonhemolytic strep bacteremia, final culture is pending. Patient has been afebrile overnight, hemodynamically she is more stable however she has not produced any urine since 4:00 this morning, as she has only produced 92 mL of urine in the last 24 hours. His chest x-ray has been reviewed showing stable portable chest with pleural effusions that are unchanged in appearance. We have been in daily communication with patient's family about patient's progress and prognosis, and yesterday they indicated that patient would not want to be placed on life-support, especially i n view of her underlying metastatic malignancy. Patient's , 2 daughters are at the bedside, they had requested consultation with hospice this morning and they had met with hospice support representative. CODE STATUS has been changed to DO NOT RESUSCITATE, the intention is to make patient comfortable, remove of life support and proceed with comfort care measures once patient's son from [place] arrives in town sometime today Objective - Vital Signs Vital signs: Vital Signs Temp 97.4 F L 10/23/19 08:00 Pulse 98 10/23/19 10:00 Resp 30 H 10/23/19 10:00 BP 112/52 10/23/19 10:00 Pulse Ox 90 L 10/23/19 10:00 Intake & Output 10/22/19 10/23/19 10/23/19 18:59 06:59 18:59 Intake Total 2569.164 2142 820 Output Total 62 30 0 Balance 2507.164 2112 820 Weight 87.4 kg Intake: IV 1186 1236 412 Dextrose 5% in Water 1, 300 000 ml @ 75 mls/hr IV . [id number] RADHA with Sodium Bicarb (1 Meq/ml) 150 ml Rx#:[id number] Phytonadione 5 mg In 50 Sodium Chloride 0.9% 50 ml @ 100 mls/hr IVPB ONCE STA Rx#:[id number] Pressure bag 36 36 12 Sodium Chloride 0.9% 1, 200 1200 400 000 ml @ 100 mls/hr IV . Q10H RADHA Rx#:[id number] Sodium Chloride 0.9% 1, 600 000 ml @ 999 mls/hr IV . Q1H1M ONE Rx#:[id number] Intake, IV Titration 391.164 300 Amount Propofol 1,000 mg In 391.164 300 Empty Bag 1 bag @ Titrate IV .Q0M RADHA Rx#: [id number] Tube Feeding 466 516 258 Blood Product 466 Platelet Irr Pheresis 466 Acda Unit [id number] Other 60 90 150 Output: Urine 62 30 0 Other: Voiding Method Indwelling Catheter Indwelling Catheter Indwelling Catheter ABP, PAP, CO, CI - Last Documented Arterial Blood Pressure 106/42 - Exam GENERAL EXAM: Intubated and sedated 79-year-old tachypneic, but no acute distress, sedated on 75 mics per kilo per minute of the prevent HEAD: Normocephalic/atraumatic. EYES: Normal reaction of pupils, equal size. Conjunctiva pink, sclera white. NOSE: Clear with pink turbinates. THROAT: No erythema or exudates. NECK: No masses, no JVD, no thyroid enlargement, no adenopathy. CHEST: No chest wall deformity. Symmetrical expansion. LUNGS: Equal air entry with no crackles, wheeze, rhonchi or dullness. CVS: Regular rate and rhythm, normal S1 and S2, no gallops, no murmurs, no rubs ABDOMEN: Soft, nontender. No hepatosplenomegaly, normal bowel sounds, no guarding or rigidity. EXTREMITIES: No clubbing, no edema, no cyanosis, 2+ pulses and upper and lower extremities. MUSCULOSKELETAL: Muscle strength and tone normal. SPINE: No scoliosis or deformity SKIN: No rashes CENTRAL NERVOUS SYSTEM: Sedated and intubated No focal deficits, tone is normal in all 4 extremities. PSYCHIATRIC: Unable to assess, sedated and intubated. - Labs CBC & Chem 7: 10/23/19 04:15 10/23/19 04:15 Labs: Abnormal Lab Results - Last 24 Hours (Table) 10/19/19 10/22/19 10/22/19 Range/Units 17:10 11:35 17:33 WBC (3.8-10.6) k/uL RBC (3.80-5.40) m/uL Hgb (11.4-16.0) gm/dL Hct (34.0-46.0) % MCH (25.0-35.0) pg Plt Count (150-450) k/uL ABG pH (7.35-7.45) ABG pO2 (83-108) mmHg ABG O2 Saturation (94-97) % Sodium (137-145) mmol/L Chloride (98-107) mmol/L BUN (7-17) mg/dL Creatinine (0.52-1.04) mg/dL Glucose (74-99) mg/dL POC Glucose (mg/dL) 194 H 170 H (75-99) mg/dL Calcium (8.4-10.2) mg/dL Total Bilirubin (0.2-1.3) mg/dL AST (14-36) U/L ALT (4-34) U/L Total Protein (6.3-8.2) g/dL Albumin (3.5-5.0) g/dL Crossmatch See Detail 10/22/19 10/23/19 10/23/19 Range/Units 20:28 00:00 04:15 WBC (3.8-10.6) k/uL RBC (3.80-5.40) m/uL Hgb (11.4-16.0) gm/dL Hct (34.0-46.0) % MCH (25.0-35.0) pg Plt Count (150-450) k/uL ABG pH (7.35-7.45) ABG pO2 (83-108) mmHg ABG O2 Saturation (94-97) % Sodium 128 L (137-145) mmol/L Chloride 94 L (98-107) mmol/L BUN 65 H (7-17) mg/dL Creatinine 2.86 H (0.52-1.04) mg/dL Glucose 199 H (74-99) mg/dL POC Glucose (mg/dL) 180 H 211 H (75-99) mg/dL Calcium 6.9 L (8.4-10.2) mg/dL Total Bilirubin 1.8 H (0.2-1.3) mg/dL AST 155 H (14-36) U/L ALT 308 H (4-34) U/L Total Protein 4.1 L (6.3-8.2) g/dL Albumin 2.2 L (3.5-5.0) g/dL Crossmatch 10/23/19 10/23/19 10/23/19 Range/Units 04:15 05:59 06:00 WBC 1.6 L (3.8-10.6) k/uL RBC 1.84 L (3.80-5.40) m/uL Hgb 6.5 L* (11.4-16.0) gm/dL Hct 18.0 L* (34.0-46.0) % MCH 35.2 H (25.0-35.0) pg Plt Count 44 L D (150-450) k/uL ABG pH 7.31 L (7.35-7.45) ABG pO2 71 L (83-108) mmHg ABG O2 Saturation 93.1 L (94-97) % Sodium (137-145) mmol/L Chloride (98-107) mmol/L BUN (7-17) mg/dL Creatinine (0.52-1.04) mg/dL Glucose (74-99) mg/dL POC Glucose (mg/dL) 238 H (75-99) mg/dL Calcium (8.4-10.2) mg/dL Total Bilirubin (0.2-1.3) mg/dL AST (14-36) U/L ALT (4-34) U/L Total Protein (6.3-8.2) g/dL Albumin (3.5-5.0) g/dL Crossmatch Microbiology - Last 24 Hours (Table) 10/21/19 10:20 Gram Stain - Final Bronchial Washings - Right Bronchial Washings Culture - Final 10/19/19 14:32 Blood Culture Gram Stain - Preliminary Blood Blood Culture - Preliminary Non Hemolytic Strep Alpha Hemolytic Streptococcus 10/21/19 18:25 Blood Culture - Preliminary Blood No Growth after 24 hours Assessment and Plan Plan: Assessment: 1 acute hypoxic respiratory failure currently intubated on a mechanical ventilator. The patient came in septic with subsequent blood cultures positive for alpha hemolytic Streptococcus and nonhemolytic strep. Could be right lower lobe pneumonia. Bronchoscopy was done. The bronchioloalveolar lavage results are still pending for now. The patient is in multisystem organ failure. The patient is a respiratory failure in addition to acute kidney injury, cardiomyopathy, and hepatic dysfunction and addition to pancytopenia related to the systemic chemotherapy. 2 metastatic small cell lung cancer. The patient was treated through medical oncology and radiation oncology. Diagnosis was established in December 2018 and the patient was treated with a combination of systemic chemotherapy and Tecetriq, followed by radiation therapy with good results and subsequently on 10/03/2019, the PET scan showed ectatic disease with a large paraspinal mass, new onset right-sided pleural effusion, metastatic deposit involving the abdominal lymph nodes in addition to involvement of the spine. Please refer to the CAT scan of the thoracic spine and the bone scan. The patient was started on systemic chemotherapy with a combination of Celebrex iqugmiut and ETCHER APPRENTICE-16. 3 brief cardiopulmonary arrest less than 1 minute and the patient is adequately and the successful resuscitated 4 severe lactic acidosis, improving, then bicarb infusion, improvement in the patient's serum bicarbs up to 25. 5 acute kidney injury with oligoria, with interval worsening of the renal function 6 sepsis secondary to alpha hemolytic strep 7 pancytopenia secondary to systemic chemotherapy, And the patient continues to be neutropenic and thrombocytopenic and she received platelet transfusion. Her bone marrow is being stimulated by Zarxio and the patient is received a unit of packed RBC yesterday. On today's evaluation hematologic profile is poor with a drop in hemoglobin down to 6.6 and a platelet count of 9 8 right-sided pleural effusion as identified in the CAT scan of the chest and the PET scan 9 large paraspinal mass causing severe compression fracture of T11 and the mass extending from T10 to T12. The patient has secondary back pain and no signs of any cord compression 10 right lower lobe pulmonary infiltration, consider malignancy versus radiation changes in the right lower lobe. The PET scan did not show any significant metabolic activity within the right lower lobe area. However malignancy cannot be completely excluded this patient with development of a right-sided pleural effusion 11 coronary artery disease with previous bypass surgery 12 congestion heart failure, proBNP level is quite elevated and the patient ejection fraction of less than 2 5% and the patient global hypokinesis 13 history of pacemaker insertion for bradycardia 14 squamous cell carcinoma of the skin 15 COPD with chronic hypoxic respiratory failure 16 questionable lupus 17 chronic radiation changes along the right hemithorax/right lower lobe area 18 hypothermia 19 hepatic dysfunction with abnormal LFTs Plan: At this time patient has decided to proceed with comfort care protocol, remove with the patient off the ventilator, they are awaiting arrival of their son from [place] sometime today. They met with the hospice support representative they are however undecided whether they will proceed with hospice enrollment. CODE STATUS is DO NOT RESUSCITATE, we will continue with supportive care right now until the arrival of the patient's son. They stated the patient would never want to be placed on life-support, especially in view of her metastatic malignancy related to small cell lung cancer. They plan on honoring the patient's wishes I performed a history & physical examination of the patient and discussed their management with my nurse practitioner, Cynthia Brooks. I reviewed the nurse practitioner's note and agree with the documented findings and plan of care. Lung sounds are positive for diminished breath sounds at the bases. The findings and the impression was discussed with the patient. I attest to the documentation by the nurse practitioner. Time with Patient: Greater than 30
[2019-10-23 11:01] VITALS: BMI 31.1
[2019-10-23] MEDS: LEVOFLOXACIN 750 MG TAB PO SCH (11:38)
[2019-10-23 11:42] LABS: Glucose,Whole Blood 226 mg/dL (75-99)
[2019-10-23 12:08] VITALS: TEMP 97.6
[2019-10-23] MEDS ORDERED: MORPHINE SULFATE 4 MG/ML SYRINGE IV PRN (14:07)
[2019-10-23] MEDS ORDERED: LORazepam 2 MG/ML INJ IV PRN (14:07)
[2019-10-23] MEDS ORDERED: ATROPINE OPHTH SOLN 1% 5ML BTL SUBLINGUAL PRN (14:07)
[2019-10-23] MEDS ORDERED: MORPHINE SULFATE (100 MG/2 ML) 100 MG in SODIUM CHLORIDE 0.9% 100 ML IV SCH (14:15)
[2019-10-23] MEDS ORDERED: SCOPOLAMINE 1.5MG/72HR PATCH TRANSDERM SCH (14:15)
[2019-10-23 15:25] VITALS: BP 87/43; PULSE 105
--- NOTE | 2019-10-24 08:58 | P.DS ---
Providers Date of admission: 10/19/19 15:33 Expected date of discharge: 10/23/19 Attending physician: Jhonathan Mendoza Consults: 10/19/19 15:33 Consult Physician Routine Consulting Provider: Sean Núñez Consult Reason/Comments: COPD, pneumonia, CHF, lactic acidosis Do you want consulting provider notified?: Already Contacted 10/19/19 15:43 Consult Physician Routine Consulting Provider: Srinivas Cantor Consult Reason/Comments: Lung cancer, leukopenia Do you want consulting provider notified?: Yes 10/19/19 15:46 Consult Physician Routine Consulting Provider: Les Prado Consult Reason/Comments: Troponin elevation, CHF, lung cancer Do you want consulting provider notified?: Yes 10/21/19 08:28 Consult Physician Routine Consulting Provider: Arielle Bennett Consult Reason/Comments: sepsis, gram pos. cocci in blood cultures Do you want consulting provider notified?: Yes Primary care physician: Jhonathan Mendoza Hospital Course: This is a 79-year-old female patient of Dr. Mendoza with past medical history of coronary artery disease status post 3 vessel CABG in 2009, cardiac stents done in 2012, 2013 and 2015, complete heart block with pacemaker implantation, right carotid artery stenosis, hypertension, right eye surgery for retinal detachment, remote history of tobacco use, COPD, metastatic small cell lung cancer who received systemic chemotherapy on 10/08/2019 with a combination of carboplatinum and [employer]-16 based on evidence of progression of her small cell lung cancer that was identified on a PET scan that was done on 10/03/2019. The patient was diagnosed initially having small cell lung cancer back in December 2018. She was treated with a combination of systemic chemotherapy and immunotherapy including Tecentriq. The patient developed reaction possible pneumonitis to the medication the patient was being treated with systemic steroids and immunotherapy has been discontinued. The PET scan that was done on 10/03/2019 showed background emphysema, and a large right paravertebral soft tissue lesion in the lower thorax measuring 4.8 x 3.5 cm with intense metabolic activity and there are also metabolic activity in the anterior aspect of the diaphragm and there was also some areas of groundglass opacity and reticular changes in the right lower lung area and there was suspicious enlarging abdominal lymphadenopathy with increased metabolic activity. No areas other than those. CAT scan of the spine that was done on 10/09/2019 showed severe compression fraction of 11 and approximately 5-10% retropulsion. There was also a large right paraspinal mass extending D10 through T12 with some extension towards the T11 right neuroforamina. There was a moderate-sized right-sided pleural effusion that was also noted which was of a new onset. CAT scan of the brain that was done on 10/15/2019 was negative. Patient was started on systemic chemotherapy and scheduled for radiation therapy at T11 to start on October 20. Patient developed shortness of breath and cough without fever, no chest pain. Patient was brought into [facility] emergency center for evaluation. She was afebrile and vital signs stable. WBC 0.4, hemoglobin 7.7, platelet count 7. Sodium 134, potassium 4.2, chloride 103, CO2 18, BUN 37 and creatinine 0.72. Blood sugar 217. Total bilirubin 1.5, liver function tests normal. Influenza testing negative. Initial lactic acid 7.4, currently 5.5. ProBNP 12,800, albumin 2.9, pro calcitonin 0.41. Urinalysis negative for infection. Troponin 0.151. Chest x-ray correlate for heart failure otherwise atypical or interstitial pneumonia or pneumonitis. Patient admitted into the intensive care unit and consult requested with pulmonary medicine, cardiology, oncology. Repeat chest x-ray this morning reveals heart failure superimposed on interstitial lung disease. Cardiomegaly. Correlate for possible pneumonia. Chest ultrasound revealed minimal right pleural effusion, 1.6 cm. 10/21: Patient's breathing status progressively worsened yesterday afternoon and patient became tachypneic and hypoxic requiring intubation and mechanical ventilation. Patient had brief period of cardiopulmonary arrest and received CPR for approximately 1 minute and recovered from that. Patient on levophed Patient's lactic acid was at 15 and patient received IV fluids and bicarbonate infusion. She is currently intubated and on mechanical ventilation with tidal volume 400, FiO2 100 and PEEP of 5. Repeat blood work reveals white count of 1.1, hemoglobin 9.1 and platelets of 43. Creatinine 1.32, liver function worsened from yesterday with total bilirubin 2.7, AST 302, ALT 250, alkaline phosphatase 128. Blood culture is positive for gram-positive cocci in chains, possible contamination. Patient on vancomycin. Patient afebrile, heart rate 102, blood pressure 121/66. Patient underwent bedside bronchoscopy this morning with Dr. Núñez, cultures pending. Consult with Dr. Bennett was added. Oncology is following closely with plan to transfuse for hemoglobin 7, keep platelets greater than 10,000. 10/22: Patient remains intubated and on mechanical ventilation with tidal volume 400, FiO2 50, PEEP 5 repeat blood work today reveals WBC 0.5, hemoglobin 6.6, platelet count 9. Repeat chest x-ray shows slight improvement of bibasilar infiltrates. Correlate for improving pulmonary edema. Echocardiogram reveals EF of 20-25%, moderate to severe mitral regurgitation, mild tricuspid regurgitation, mild to moderate pulmonary hypertension. Patient has been seen by Dr. Bennett with plan to continue vancomycin and Levaquin. Prognosis is very poor. Dr. Núñez spoke with family regarding prognosis and they are contemplating comfort care to start tomorrow once other family members arrive. 10/23: Patient was transitioned hospice care and on October 23. Please see nursing documentation for details. Discharge diagnoses: 1. Metastatic small cell lung cancer. 2. Pancytopenia secondary to chemotherapy. 3. Acute hypoxic respiratory failure secondary to combination of acute exacerbation of COPD and right-sided pleural effusion too small for thoracentesis and right lower lobe infiltrate possible pneumonia versus malignancy. 4. Lactic acidosis. 5. Elevated troponin possibly secondary to anemia. 6. Cardiopulmonary arrest for 1 minute, patient resuscitated. 7. Acute kidney injury with oliguria. 8. Possible bacteremia ruled out, contamination. 9. Hypotension, possible septic shock, requiring norepinephrine. 10. Shock liver with elevated liver function tests. 11. History of coronary artery disease status post CABG and stents. 12. History of complete heart block with pacemaker implantation. 13. Right carotid artery stenosis, stable. 14. Hypertension. 15. Cardiomyopathy with ejection fraction of 25%, acute on chronic systolic heart failure 16. Impression and plan of care have been directed as dictated by the signing physician. Fely Sims nurse practitioner acting as scribe for signing physician. Patient Condition at Discharge: Undetermined Plan - Discharge Summary New Discharge Prescriptions: No Action Lovastatin [Mevacor] 20 mg PO HS Metoprolol Tartrate 25 mg PO QAM Nitroglycerin Sl Tabs [Nitrostat] 0.4 mg SUBLINGUAL Q5M PRN PRN Reason: Chest Pain Clopidogrel [Plavix] 75 mg PO DAILY Aspirin [Adult Low Dose Aspirin EC] 81 mg PO HS Pantoprazole [Protonix] 40 mg PO DAILY PARoxetine [Paxil] 10 mg PO HS Lidocaine-Prilocaine Cream [Emla Cream 2.5%/2.5%] 1 applic TOPICAL DAILY PRN PRN Reason: dr gabriel oxyCODONE-APAP 10-325MG [Percocet 10-325 mg] 1 tab PO Q6H PRN PRN Reason: Pain Losartan [Cozaar] 25 mg PO HS Fluconazole 200 mg PO DAILY Dexamethasone [Decadron] 4 mg PO TID Cyclobenzaprine [Flexeril] 10 mg PO Q8H PRN PRN Reason: Muscle Pain ALPRAZolam [Xanax] 0.25 mg PO DAILY PRN PRN Reason: Anxiety Naloxone HCl [Narcan] 4 mg NASAL ONCE PRN PRN Reason: overdose Discharge Medication List Lovastatin [Mevacor] 20 mg PO HS 06/04/14 [History] Metoprolol Tartrate 25 mg PO QAM 06/04/14 [History] Nitroglycerin Sl Tabs [Nitrostat] 0.4 mg SUBLINGUAL Q5M PRN 06/29/15 [History] Aspirin [Adult Low Dose Aspirin EC] 81 mg PO HS 09/24/16 [History] Clopidogrel [Plavix] 75 mg PO DAILY 09/24/16 [History] Pantoprazole [Protonix] 40 mg PO DAILY 04/12/17 [History] PARoxetine [Paxil] 10 mg PO HS 12/02/18 [History] ALPRAZolam [Xanax] 0.25 mg PO DAILY PRN 10/19/19 [History] Cyclobenzaprine [Flexeril] 10 mg PO Q8H PRN 10/19/19 [History] Dexamethasone [Decadron] 4 mg PO TID 10/19/19 [History] Fluconazole 200 mg PO DAILY 10/19/19 [History] Lidocaine-Prilocaine Cream [Emla Cream 2.5%/2.5%] 1 applic TOPICAL DAILY PRN 10/19/19 [History] Losartan [Cozaar] 25 mg PO HS 10/19/19 [History] Naloxone HCl [Narcan] 4 mg NASAL ONCE PRN 10/19/19 [History] oxyCODONE-APAP 10-325MG [Percocet 10-325 mg] 1 tab PO Q6H PRN 10/19/19 [History] Follow up Appointment(s)/Referral(s): Jhonathan Mendoza MD [Primary Care Provider] - 1-2 days Discharge Disposition: - Preliminary Cause of Preliminary Cause of : Metastatic small cell lung cancer
[2019-10-24] MEDS ORDERED: FLUCONAZOLE 100 MG TAB PO SCH (09:00)
== END 2019-10-23 18:16 | disposition expired | DRG 871 ==
LOC: EC 13:56 → 2SICU 15:33
PROVIDERS: ADMIT Internal Medicine; ATTEND Internal Medicine
PROC: 30233R1 Transfusion of Nonautologous Platelets into Peripheral Vein, Percutaneous Approach (ICD-10-PCS; 2019-10-19)
PROC: 5A1945Z Respiratory Ventilation, 24-96 Consecutive Hours (ICD-10-PCS; principal; 2019-10-20)
PROC: 0BH17EZ Insertion of Endotracheal Airway into Trachea, Via Natural or Artificial Opening (ICD-10-PCS; 2019-10-20)
PROC: 30233N1 Transfusion of Nonautologous Red Blood Cells into Peripheral Vein, Percutaneous Approach (ICD-10-PCS; 2019-10-20)
PROC: 5A12012 Performance of Cardiac Output, Single, Manual (ICD-10-PCS; 2019-10-20)
PROC: 5A12012 Performance of Cardiac Output, Single, Manual (ICD-10-PCS; 2019-10-20)
PROC: 3E043XZ Introduction of Vasopressor into Central Vein, Percutaneous Approach (ICD-10-PCS; 2019-10-20)
PROC: 0B9F8ZX Drainage of Right Lower Lung Lobe, Via Natural or Artificial Opening Endoscopic, Diagnostic (ICD-10-PCS; 2019-10-21)
PROC: 3E0G76Z Introduction of Nutritional Substance into Upper GI, Via Natural or Artificial Opening (ICD-10-PCS; 2019-10-21)
PROC: 0DH67UZ Insertion of Feeding Device into Stomach, Via Natural or Artificial Opening (ICD-10-PCS; 2019-10-21)
DX: A40.9 Streptococcal sepsis, unspecified (principal); J18.9 Pneumonia, unspecified organism; I50.23 Acute on chronic systolic (congestive) heart failure; D61.810 Antineoplastic chemotherapy induced pancytopenia; J96.21 Acute and chronic respiratory failure with hypoxia; K72.00 Acute and subacute hepatic failure without coma; R65.21 Severe sepsis with septic shock; I21.A1 Myocardial infarction type 2; J44.1 Chronic obstructive pulmonary disease with (acute) exacerbation; I44.2 Atrioventricular block, complete; J44.0 Chronic obstructive pulmonary disease with (acute) lower respiratory infection; C79.51 Secondary malignant neoplasm of bone; E87.4 Mixed disorder of acid-base balance; C79.89 Secondary malignant neoplasm of other specified sites; N17.9 Acute kidney failure, unspecified; I42.9 Cardiomyopathy, unspecified; C77.2 Secondary and unspecified malignant neoplasm of intra-abdominal lymph nodes; M48.54XA Collapsed vertebra, not elsewhere classified, thoracic region, initial encounter for fracture; C34.31 Malignant neoplasm of lower lobe, right bronchus or lung; Z66 Do not resuscitate; Z51.5 Encounter for palliative care; I46.9 Cardiac arrest, cause unspecified; I27.29 Other secondary pulmonary hypertension; I11.0 Hypertensive heart disease with heart failure; I25.10 Atherosclerotic heart disease of native coronary artery without angina pectoris; E78.5 Hyperlipidemia, unspecified; M19.90 Unspecified osteoarthritis, unspecified site; K21.9 Gastro-esophageal reflux disease without esophagitis; I65.21 Occlusion and stenosis of right carotid artery; M85.80 Other specified disorders of bone density and structure, unspecified site; G89.3 Neoplasm related pain (acute) (chronic); R79.89 Other specified abnormal findings of blood chemistry; I34.0 Nonrheumatic mitral (valve) insufficiency; I70.0 Atherosclerosis of aorta; T45.1X5A Adverse effect of antineoplastic and immunosuppressive drugs, initial encounter; I25.2 Old myocardial infarction; Z71.3 Dietary counseling and surveillance; Y84.2 Radiological procedure and radiotherapy as the cause of abnormal reaction of the patient, or of later complication, without mention of misadventure at the time of the procedure; Z79.82 Long term (current) use of aspirin; Z79.02 Long term (current) use of antithrombotics/antiplatelets; Z79.899 Other long term (current) drug therapy; Z95.828 Presence of other vascular implants and grafts; Z85.828 Personal history of other malignant neoplasm of skin; Z92.3 Personal history of irradiation; Z98.890 Other specified postprocedural states; Z96.1 Presence of intraocular lens; Z87.19 Personal history of other diseases of the digestive system; Z95.1 Presence of aortocoronary bypass graft; Z90.710 Acquired absence of both cervix and uterus; Z90.49 Acquired absence of other specified parts of digestive tract; Z95.5 Presence of coronary angioplasty implant and graft; Z95.0 Presence of cardiac pacemaker; Z87.891 Personal history of nicotine dependence; Z92.21 Personal history of antineoplastic chemotherapy; Z98.42 Cataract extraction status, left eye; Z98.41 Cataract extraction status, right eye; Z86.69 Personal history of other diseases of the nervous system and sense organs; Z88.1 Allergy status to other antibiotic agents; Z88.0 Allergy status to penicillin; Z88.8 Allergy status to other drugs, medicaments and biological substances; Z80.8 Family history of malignant neoplasm of other organs or systems; Z82.3 Family history of stroke; Z82.49 Family history of ischemic heart disease and other diseases of the circulatory system
CPT/HCPCS: 31624; 36415; 36600; 71045; 76604; 80048; 80053; 80202; 81001; 82550; 82553; 82805; 83605; 83735; 83880; 84100; 84145; 84484; 85025; 85027; 85379; 85384; 85610; 85730; 86850; 86870; 86880; 86900; 86901; 86902; 86920; 87040; 87070; 87077; 87102; 87116; 87186; 87205; 87206; 87252; 87496; 87498; 87502; 87529; 87634; 87798; 88108; 88305; 92950; 93306; 94002; 94003; 94640; 96365; 99291